=== PATIENT | male | born 1980 | race Caucasian/White ===

== ENCOUNTER → 2018-05-08 16:40 | Outpatient (CLI) | payer OTHER, MEDICAID, SELFPAY ==
[2018-05-08 17:51] LABS: Phenytoin (Dilantin) Level 14.5 mL (10.0-20.0)
== END ==
PROVIDERS: Family Provider Family Medicine; PCP Family Medicine; Visit Provider Psychiatry & Neurology Neurology
DX: G40.909 Epilepsy, unspecified, not intractable, without status epilepticus (principal)
CPT/HCPCS: 36415; 80185

== ENCOUNTER 2018-05-15 14:56 | Emergency (ER) | payer OTHER, MEDICAID, SELFPAY ==
[2018-05-15 15:02] VITALS: BP 154/109; PULSE 125; RESP 18; TEMP 37.1; O2SAT 92; BMI 27.6
--- NOTE | 2018-05-15 15:18 | ED.VISSUMM ---
- ER Visit Summary Date of Service: 05/15/18 Chief Complaint: Generalized tonic-clonic seizure History of Present Illness: The patient is a 37 M who has history of traumatic brain injury and seizure disorder. He sees Dr. Venegas. He was seen by Dr. Solis last week. Since he was having no issues or problems his meds were not adjusted. Per cold press loader he had a seizure at 0100, 1300 and 1420. He presently is back to baseline. He history is limited secondary to prior traumatic brain injury. Per staff at assisted and cold press loader [facility] assisted he is back to baseline. Director Food Safety assures that he has been compliant with his medication. He presently has no complaints. Physical Examination: Pleasant 37-year-old male who appears in no distress. Blood pressure is elevated 154 109 heart rate is 125. Head reveals prior trauma. Pupils equal round reactive. Extra muscle intact. TMs normal. Nares patent with no discharge. Posterior pharynx without erythema XA. Neck supple. Heart is rapid and regular without murmur, gallop or rub. Lungs are clear to auscultation. Abdomen is soft and nontender. He is alert. Moves upper extremities no limitation. He has had O'Samia lower extremity secondary to contractures. Sensation is intact. Difficult to assess for Babinski sign or clonus lower extremity. Test Results: BMP panel is normal. Phenytoin is therapeutic at 13.6. Emergency Department Course and Treatment: Since he has had 3 seizures will obtain electronic panel and since he is on Dilantin will obtain a phenytoin level. After results are made available we will contact Dr. Venegas to discuss case. Treatment Plan: Case was discussed with Dr. Venegas's associate Dr. Bunch. He recommended follow-up and informed me that he is on maximum dose of Vampit. Disposition: Discharged with urgent outpatient follow-up with neurologist Impression: Breakthrough seizure This note was generated with [employer] dictation software. It may contain incorrect words, spelling, and punctuation that were not noted in review of the chart prior to signing ED Disposition - Plan for ED Patient: Disposition: Home or Assisted Living Chief Complaint: Seizure Instructions: ED Seizure Recurrent Referrals: Elvis Baxter MD [Primary Care Provider] - Lonnie Venegas MD [STAFF PHYSICIAN] - 5-7 Days
--- NOTE | 2018-05-15 15:21 | ED.DCSUM_ITS ---
- ER Visit Summary Date of Service: 05/15/18 Chief Complaint: Generalized tonic-clonic seizure History of Present Illness: The patient is a 37 M who has history of traumatic brain injury and seizure disorder. He sees Dr. Venegas. He was seen by Dr. Solis last week. Since he was having no issues or problems his meds were not adjusted. Per cartography technician he had a seizure at 0100, 1300 and 1420. He presently is back to baseline. He history is limited secondary to prior traumatic brain injury. [facility] he is back to baseline. Facility Manager assures that he has been compliant with his medication. He presently has no complaints. Physical Examination: Pleasant 37-year-old male who appears in no distress. Blood pressure is elevated 154 109 heart rate is 125. Head reveals prior trauma. Pupils equal round reactive. Extra muscle intact. TMs normal. Nares patent with no discharge. Posterior pharynx without erythema XA. Neck supple. Heart is rapid and regular without murmur, gallop or rub. Lungs are clear to auscultation. Abdomen is soft and nontender. He is alert. Moves upper extremities no limitation. He has had O'Samia lower extremity secondary to contractures. Sensation is intact. Difficult to assess for Babinski sign or clonus lower extremity. Test Results: BMP panel is normal. Phenytoin is therapeutic at 13.6. Emergency Department Course and Treatment: Since he has had 3 seizures will obtain electronic panel and since he is on Dilantin will obtain a phenytoin level. After results are made available we will contact Dr. Venegas to discuss case. Treatment Plan: Case was discussed with Dr. Venegas's associate Dr. Bunch. He recommended follow-up and informed me that he is on maximum dose of Vampit. Disposition: Discharged with urgent outpatient follow-up with neurologist Impression: Breakthrough seizure This note was generated with [employer] dictation software. It may contain incorrect words, spelling, and punctuation that were not noted in review of the chart prior to signing ED Disposition - Plan for ED Patient: Disposition: Home or Assisted Living Chief Complaint: Seizure Instructions: ED Seizure Recurrent Referrals: Elvis Baxter MD [Primary Care Provider] - Lonnie Venegas MD [STAFF PHYSICIAN] - 5-7 Days
[2018-05-15 16:01] LABS: BUN 12 mg/dL (7-18); BUN/Creat Ratio 14.3 RATIO (10-20); Calcium,Total 8.9 mg/dL (8.5-10.1); Chloride 101 mmol/L (98-107); Creatinine, Serum 0.84 mg/dL (0.70-1.30); EST Glomerular Filtration Rate 109 mL/min (>60); Est Glom Filt Rate - Afr Amer 132 mL/min (>60); Glucose 87 mg/dL (74-106); Potassium 4.3 mmol/L (3.5-5.1); Sodium Level 138 mmol/L (136-145)
[2018-05-15 16:02] LABS: Anion Gap 9 (5-15)
[2018-05-15 16:38] LABS: Phenytoin (Dilantin) Level 13.6 mL (10.0-20.0)
== END 2018-05-15 17:21 | disposition home or self-care (01) ==
PROVIDERS: Emergency Provider Emergency Medicine; Family Provider Family Medicine; PCP Family Medicine
DX: G40.409 Other generalized epilepsy and epileptic syndromes, not intractable, without status epilepticus (principal); E66.9 Obesity, unspecified; Z79.899 Other long term (current) drug therapy; Z87.820 Personal history of traumatic brain injury
CPT/HCPCS: 80048; 80185; 99285; A4216

== ENCOUNTER → 2018-11-21 13:48 | Outpatient (CLI) | payer OTHER, MEDICAID, SELFPAY ==
--- NOTE | 2018-11-21 13:52 | US_ITS ---
STUDY: ULTRASOUND - URINARY BLADDER REASON FOR EXAM: Male, 38 years old. Total right injury, agitation. TECHNIQUE: Ultrasound evaluation of the urinary bladder was performed with real-time and static conde-scale imaging. COMPARISON: None. FINDINGS: Urinary bladder wall thickness up to 6.4 mm. Probably due to underdistention. No significant trabeculation and no evidence of diverticula. Distended volume 22 mL. The patient could not urinate. No postvoid residual was obtained. US/Post Void Residual Bladder IMPRESSION: The urinary bladder may be very mildly thick-walled. Under distended. Post void residual could not be assessed. Electronically Signed: Lukasz Moreno MD at 11:57 EST Tel , Service support ,
--- NOTE | 2018-11-21 14:21 | CT_ITS ---
STUDY: CT BRAIN WITHOUT CONTRAST REASON FOR EXAM: Male, 38 years old. Total brain injury, agitation. RADIATION DOSAGE (If Supplied By Facility): CTDIvol = ( 60.81 ) mGy, DLP = ( 997.86 ) mGycm TECHNIQUE: Transaxial CT imaging of the brain was performed without administration of intravenous contrast material. Coronal and sagittal 2-D MPR Individualized dose optimization techniques were used for this CT. COMPARISON: CT head 10/11/2017 FINDINGS: Mildly comparison thickening maxillary and ethmoid sinuses. Extending into the base of the left frontal sinus. Mastoid air cells and middle ear cavities clear. Somewhat prominent cerumen within the left external auditory canal. Craniofacial osseous structures intact. Extra cranial soft tissues including orbital contents appear normal. Moderate symmetric expansion of lateral ventricles and particular the anterior horns, stable compared to prior imaging. Patchy and partially confluent prominent low-density changes of the deep white matter bifrontal, minimal biparietal, in a pattern most consistent with encephalomalacia from prior brain injury. There is evidence of mild symmetric atrophy of the cerebellar hemispheres. There is no acute intracranial bleed, mass or mass effect nor any specific evidence of acute territorial infarct. CT/Brain/Head without Contrast IMPRESSION: Stable chronic features of the brain compared to prior imaging with No acute intracranial process. Mild chronic paranasal sinus disease. Electronically Signed: Lukasz Moreno MD at 11:47 EST Tel , Service support ,
[2018-11-21 16:45] LABS: Phenytoin (Dilantin) Level 12.7 mL (10.0-20.0)
== END ==
PROVIDERS: Family Provider Family Medicine; PCP Family Medicine; Referring Provider Psychiatry & Neurology Neurology; Visit Provider Psychiatry & Neurology Neurology
DX: R45.1 Restlessness and agitation (principal); R35.0 Frequency of micturition; G40.909 Epilepsy, unspecified, not intractable, without status epilepticus; Z87.820 Personal history of traumatic brain injury
CPT/HCPCS: 36415; 51798; 70450; 80185; 80186

== ENCOUNTER → 2019-06-26 08:42 | Outpatient (CLI) | payer OTHER, MEDICAID, SELFPAY ==
[2019-06-26 10:28] LABS: Phenytoin (Dilantin) Level 15.5 mL (10.0-20.0)
== END ==
PROVIDERS: Family Provider Family Medicine; PCP Family Medicine; Referring Provider Physician Assistant; Visit Provider Physician Assistant
DX: R56.9 Unspecified convulsions (principal)
CPT/HCPCS: 36415; 80185

== ENCOUNTER → 2020-07-28 08:35 | Outpatient (CLI) | payer OTHER, MEDICAID, SELFPAY ==
[2020-07-28 10:08] LABS: Phenytoin (Dilantin) Level 14.7 mL (10.0-20.0)
== END ==
PROVIDERS: PCP Family Medicine; Referring Provider Psychiatry & Neurology Neurology; Visit Provider Psychiatry & Neurology Neurology
DX: G40.909 Epilepsy, unspecified, not intractable, without status epilepticus (principal)
CPT/HCPCS: 36415; 80185

== ENCOUNTER → 2020-08-27 08:07 | Outpatient (CLI) | payer OTHER, MEDICAID, SELFPAY ==
--- NOTE | 2020-08-27 08:09 | CT_ITS ---
STUDY: CT BRAIN WITHOUT CONTRAST REASON FOR EXAM: Male, 39 years old. Seizure disorder, increasing seizure activity. RADIATION DOSAGE (If Supplied By Facility): CTDIvol = ( ) mGy, DLP = ( ) mGycm TECHNIQUE: Transaxial CT imaging of the brain was performed without administration of intravenous contrast material. Individualized dose optimization techniques were used for this CT. COMPARISON: 11/21/2018 FINDINGS: Again noted is the bifrontal encephalomalacia with ex vacuo dilatation of the frontal horns, unchanged since the prior examination. There is cerebral atrophy with widening of the extra-axial spaces and ventricular dilatation. There are areas of decreased attenuation within the white matter tracts of the supratentorial brain, consistent with microvascular disease changes. There is no intracranial hemorrhage. There are no findings of an acute ischemic infarction. There is no moderate opacification of the left frontal and ethmoid sinuses. There is mild sinus disease of the bilateral maxillary sinuses. CT/Brain/Head without Contrast IMPRESSION: Stable examination. Bifrontal encephalomalacia, consistent with prior insult. Moderate chronic sinus disease. Electronically Signed: Duncan Carlos MD at 8:18 EDT Tel , Service support ,
== END ==
PROVIDERS: PCP Family Medicine; Referring Provider Psychiatry & Neurology Neurology; Visit Provider Psychiatry & Neurology Neurology
DX: G40.909 Epilepsy, unspecified, not intractable, without status epilepticus (principal)
CPT/HCPCS: 70450

== ENCOUNTER 2021-04-02 00:29 | Inpatient (IN) | payer OTHER, MEDICAID, SELFPAY ==
[2021-04-02] VITALS (10 sets, daily range): BP systolic 104–129; BP diastolic 73–90; PULSE 112–136; RESP 16–22; TEMP 36.5–38.2; O2SAT 92–97; BMI 24.0; BMI 25.8
--- NOTE | 2021-04-02 00:52 | CT_ITS ---
STUDY: CT ABDOMEN AND PELVIS WITH CONTRAST REASON FOR EXAM: Male, 40 years old. Abdominal pain RADIATION DOSAGE (If Supplied By Facility): CTDIvol = ( 13.36 ) mGy, DLP = ( 764.58 ) mGycm TECHNIQUE: Transaxial images were obtained from the dome of the diaphragm to the symphysis pubis without oral contrast. IV 100mL Isovue-370 was administered. Sagittal and coronal images were reconstructed. Individualized dose optimization techniques were used for this CT. COMPARISON: None. FINDINGS: Subsegmental consolidations and groundglass densities in the bilateral lower lungs, due to multifocal pneumonia, aspiration, or scar. Unremarkable liver, spleen, adrenals, pancreas, and bilateral kidneys. No definite cholelithiasis. Normal appendix. Large amount of retained stool in the distal colon with no evidence of bowel obstruction. No free air or free fluid. No adenopathy. No abdominal aortic aneurysm. Sections through the pelvis demonstrates apparent circumferential wall thickening of the urinary bladder, likely due to incomplete distention; however, infectious/inflammatory cystitis or infiltrative processes not excluded. Prostate normal in size. No acute finding the regional skeleton. Shallow left acetabulum with dysplasia of the left hip and lateral subluxation of the left femoral head. CT/Abdomen/Pelvis W IV Cont ONLY IMPRESSION: Subsegmental consolidations and groundglass densities in the bilateral lower lobes, due to multifocal pneumonia (such as Covid 19) aspiration, or scar. Large amount of retained stool in the distal colon with no evidence of bowel obstruction. Normal appendix. Left hip dysplasia with lateral subluxation of the femoral head. Electronically Signed: Fredo Milton MD at 2:20 EDT Tel , Service support ,
--- NOTE | 2021-04-02 00:52 | EX.ED.DYSGE1 ---
HPI History of Present Illness Chief Complaint: Abd Pain Narrative Narrative: This patient is a 40-year-old male who presents with abdominal pain. History is limited as he has a history of traumatic brain injury. Per family he began complaining of abdominal pain last evening. He does state a retirement but not always. His parents picked him up. They do not know when his last bowel movement was. As far as they are aware no vomiting or diarrhea and patient denied vomiting or diarrhea. Apparently he has had a cough at night. No fevers. Family does note that he had a seizure 2 days ago. He does have a history of seizures. He had a cough last night. [facility] Medical History (Updated 04/02/21 @ 03:[address] Marshall Zabala MD) GERD (gastroesophageal reflux disease) Seizure Traumatic brain injury Home Medications clonazepam 1 mg PO QHS 05/23/16 [History Last Taken 05/22/16] esomeprazole magnesium [Nexium 24Hr] 20 mg PO DAILY 05/23/16 [History Last Taken 05/23/16] lacosamide [Vimpat] 200 mg PO BID #60 tab 05/23/16 [Rx Last Taken Unknown] phenytoin [Dilantin] 75 mg PO DAILY 05/23/16 [History Last Taken 05/23/16] phenytoin sodium extended 150 mg PO QHS 05/23/16 [History Last Taken 05/22/16] clonazepam [Klonopin] 0.5 mg PO LUNCH 04/02/21 [History Last Taken Unknown] Allergy/AdvReac Type Severity Reaction Status Date / Time No Known Allergies Allergy Verified 04/02/21 00:32 Social History Smoking Status: Never smoker [facility] ED Constitutional Constitutional ED: Denies fever(s) Cardiovascular Cardiovascular: Denies chest pain Respiratory/Chest Respiratory/Chest: Denies dyspnea Gastrointestinal Gastrointestinal: Reports abdominal pain; Denies diarrhea, nausea or vomiting Musculoskeletal Musculoskeletal: Denies arthralgias or myalgias Integumentary Denies rash Neurologic Neurologic: Denies headache(s) EXAM Physical Exam Const Vital Signs: 04/02/21 00:30 04/02/21 02:41 Temperature 97.7 F L Temperature Source Temporal Pulse Rate 136 H 118 H Respiratory Rate 22 H 16 Blood Pressure 104/84 H Blood Pressure Mean 90 Pulse Ox 94 97 Oxygen Delivery Method Room Air Positive well nourished HEENT Reports moist mucous membranes Eyes EOMs intact bilaterally Neck supple Resp normal respiratory effort Cardio regular rate and regular rhythm GI GI Narrative: Abdomen is soft he does have right upper quadrant abdominal tenderness without guarding without rebound he is nondistended Neuro Sensorium / Orientation: alert Psych mental status grossly normal Skin no rashes or lesions noted MDM MDM MDM Narrative Medical decision making narrative: Labs are notable for white blood cell count of 16.5, chemistries unremarkable, CT of the abdomen and pelvis was obtained which shows subsegmental consolidations and bilateral lower groundglass densities. This is suggestive of multifocal pneumonia. COVID-19 testing is negative. Patient did have a seizure couple of days ago and family reports prior history of aspiration. I suspect this is related to aspiration pneumonia. Patient being treated with IV Rocephin and azithromycin. Lactic and blood cultures were sent. One-view portable chest x-ray was obtained and on my interpretation does show bilateral infiltrates. Patient we discussed with the hospitalist service and admitted. Lactic acid normal. Lab Data Labs: Laboratory Results - last 24 hr 04/02/21 04/02/21 04/02/21 00:55 00:55 02:10 WBC 16.5 H RBC 5.72 Hgb 16.3 Hct 49.0 MCV 85.7 MCH 28.5 MCHC 33.3 RDW Std Deviation 47.5 H RDW Coeff of Linette 15.3 H Plt Count 518 H MPV 9.8 Immature Gran % (Auto) 0.300 Neut % (Auto) 79.2 H Lymph % (Auto) 10.1 L [place] % (Auto) 9.0 Eos % (Auto) 0.9 Baso % (Auto) 0.5 Absolute Neuts (auto) 13.0 H Absolute Lymphs (auto) 1.67 Nucleated RBC % 0 Sodium 135 L Potassium 4.1 Chloride 101 Carbon Dioxide 30.0 Anion Gap 4 L BUN 12 Creatinine 0.98 Estim Creat Clear Calc 81.45 Est GFR (MDRD) Af Amer 109 Est GFR (MDRD) Non-Af 90 BUN/Creatinine Ratio 12.2 Glucose 103 Lactic Acid 1.1 Calcium 9.5 Total Bilirubin 0.60 AST 25 ALT 48 Alkaline Phosphatase 102 Total Protein 8.5 H Albumin 3.8 Globulin 4.7 H Albumin/Globulin Ratio 0.8 L Lipase 66 L Radiography Diagnostic Testing: Radiology Impression Abdomen/Pelvis CT 04/02/21 00:52 IMPRESSION: Subsegmental consolidations and groundglass densities in the bilateral lower lobes, due to multifocal pneumonia (such as Covid 19) aspiration, or scar. Large amount of retained stool in the distal colon with no evidence of bowel obstruction. Normal appendix. Left hip dysplasia with lateral subluxation of the femoral head. Electronically Signed: Fredo Milton MD at 2:20 EDT Tel , Service support , Discharge Plan Triage Chief Complaint: Abd Pain ED Provider: Marshall Zabala Dx/Rx/DC Orders Clinical Impression: Aspiration pneumonia, Abdominal pain, Sepsis Prescriptions: No Action clonazepam 0.5 MG tablet 1 mg PO QHS RF: 0 phenytoin sodium extended 100 MG capsule 150 mg PO QHS RF: 0 phenytoin [Dilantin Infatabs] 50 MG tablet,chewable 75 mg PO DAILY RF: 0 esomeprazole magnesium [Nexium 24HR] 22.3 MG capsule,delayed release(DR/EC) 20 mg PO DAILY RF: 0 Vimpat 200 MG tablet 200 mg PO BID Qty: 60 RF: 0 clonazepam [Klonopin] 0.5 mg tablet 0.5 mg PO LUNCH RF: 0 Primary Care Provider: Elvis Baxter Referrals: Elvis Baxter MD [Primary Care Provider] - Disposition Disposition: Acute Care [facility]
[2021-04-02 01:01] LABS: Absolute Lymphocyte Count 1.67 X10^3/uL (0.83-4.51); Basophil# 0.08 X10^3/uL; Basophil% 0.5 % (0-1); Eosinophil# 0.15 X10^3/uL; Eosinophils% 0.9 % (0-5); Hemoglobin 16.3 g/dL (13.0-16.5); Lymphocyte # 1.67 X10^3/ul (0.83-4.51); Lymphocyte % 10.1 % (19-41); Mean Corp Hgb Conc 33.3 g/dL (32-36); Mean Corpuscular Hgb 28.5 pg (27.0-32.0); Mean Corpuscular Volume 85.7 fL (80-94); Mean Platelet Vol. 9.8 fl (6.2-12.0); Monocyte# 1.49 X10^3/uL; NRBC Flagged by Analyzer 0 % (0-5); Neutrophil # 13.03 X10^3/uL (2.7-7.7); Neutrophil % 79.2 % (47-70); Platelet Count 518 K/mm3 (150-450); RBC Distribution Width CV 15.3 % (11.6-14.6); RBC Distribution Width SD 47.5 fl (35.1-43.9); Red Blood Count 5.72 M/mm3 (4.6-6.2); White Blood Count 16.5 K/mm3 (4.4-11.0)
[2021-04-02] MEDS: Ondansetron 4 MG/2 ML Vial IV (01:04)
[2021-04-02] MEDS: 0.9% Normal Saline 1,000 ML 999 ML IV ×2 (01:04→02:39)
[2021-04-02] MEDS: Morphine 4 MG/ML Syringe IV (01:05)
[2021-04-02 01:22] LABS: ALB/GLOB Ratio 0.8 RATIO (0.9-2.4); AST(SGOT) 25 U/L (15-37); Alanine Aminotransfer ALT/SGPT 48 U/L (16-61); Albumin, Serum 3.8 g/dL (3.2-5.0); Alkaline Phosphatase 102 U/L (45-117); Anion Gap 4 (5-15); BUN 12 mg/dL (7-18); BUN/Creat Ratio 12.2 RATIO (10-20); Calcium,Total 9.5 mg/dL (8.5-10.1); Chloride 101 mmol/L (98-107); Creatinine, Serum 0.98 mg/dL (0.70-1.30); EST Glomerular Filtration Rate 90 mL/min (>60); Est Glom Filt Rate - Afr Amer 109 mL/min (>60); Estimated Creatinine Clearance 81.45 ml/min; Globulin 4.7 g/dL (2.2-4.2); Glucose 103 mg/dL (74-106); Lipase 66 U/L (73-393); Potassium 4.1 mmol/L (3.5-5.1); Protein, Total 8.5 g/dL (6.4-8.2); Sodium Level 135 mmol/L (136-145)
--- NOTE | 2021-04-02 01:37 | RAD_ITS ---
STUDY: X-RAY CHEST REASON FOR EXAM: Male, 40 years old. Pneumonia TECHNIQUE: 1 view COMPARISON: None. FINDINGS: Please see the impression. RAD/Chest 1 View (Portable) IMPRESSION: Subsegmental opacities in the bilateral lower lungs, due to multifocal pneumonia, aspiration, or scar. Unremarkable cardiac silhouette. No sizable pleural effusion. No pneumothorax. Electronically Signed: Fredo Milton MD at 3:17 EDT Tel , Service support ,
[2021-04-02] MEDS: Ceftriaxone 1 GM/50 ML BAG IV (02:39)
[2021-04-02 02:46] LABS: Lactic Acid 1.1 mmol/L (0.4-1.9)
[2021-04-02 03:25] LABS: Bacteria 0 SEEN /hpf (None Seen); Color, Urine Yellow (Yellow); Glucose, Dipstick Normal (Normal); Ketone-Dipstick 15 mg/dl (Negative); Leukocyte Esterase-Dipstick 100 /ul (Negative); Mucous, Urine 0 SEEN /hpf (<or=2+); Nitrite-Dipstick Negative (Negative); Occult Blood-Urine Negative /ul (Negative); Protein-Dipstick Negative (Negative); Red Blood Cells-Urine 0 SEEN /hpf (0-5); Specific Gravity, Urine 1.005 (1.002-1.030); Squamous Epithelial Cells - UA 0 SEEN /hpf (0-5); Urine Bilirubin Dipstick Negative (Negative); Urine Clarity Clear (Clear); Urine Urobilinogen Normal (Normal)
--- NOTE | 2021-04-02 03:27 | HP.PCM.HOS_ITS ---
HPI - General General Date of Admission: 04/02/21 HPI Narrative SHEN WILLIAM, is a 40 M with a significant history of traumatic brain injury who presents to emergency department with right upper quadrant pain that started a day before presentation. Patient lives at a intermediate and occasionally his parents pick him up home. 3 days before presentation he had a seizure. Next day he had a cough. Per family cough happens only at night and he has not had a cough since he was picked up by family. Per family patient neurologist aware that patient have 2-4 seizures per month. Past surgical history: Patient has a history of multiple orthopedic surgeries [facility] Medical History GERD (gastroesophageal reflux disease) Seizure Traumatic brain injury Home Medications clonazepam 1 mg PO QHS 05/23/16 [History Last Taken 05/22/16] esomeprazole magnesium [Nexium 24Hr] 20 mg PO DAILY 05/23/16 [History Last Taken 05/23/16] lacosamide [Vimpat] 200 mg PO BID #60 tab 05/23/16 [Rx Last Taken Unknown] phenytoin [Dilantin] 75 mg PO DAILY 05/23/16 [History Last Taken 05/23/16] phenytoin sodium extended 150 mg PO QHS 05/23/16 [History Last Taken 05/22/16] clonazepam [Klonopin] 0.5 mg PO LUNCH 04/02/21 [History Last Taken Unknown] Allergy/AdvReac Type Severity Reaction Status Date / Time No Known Allergies Allergy Verified 04/02/21 00:32 Family History (Updated 04/02/21 @ 03:[address] Umer Hinson MD) Other Cancer Diabetes Hypertension Social History Smoking Status: Never smoker Vital Signs Vital Signs Vital Signs: 04/02/21 00:30 04/02/21 02:41 Temperature 97.7 F L Temperature Source Temporal Pulse Rate 136 H 118 H Respiratory Rate 22 H 16 Blood Pressure 104/84 H Blood Pressure Mean 90 Pulse Ox 94 97 Oxygen Delivery Method Room Air Physical Exam Const alert General Appearance: cooperative HEENT normocephalic and head/scalp atraumatic Eyes PERRL and EOMs intact bilaterally Neck no lymphadenopathy and supple Resp normal respiratory effort, no retractions and no use of accessory muscles Cardio no murmurs, no rub and no gallops Cardio Narrative: Tachycardia Rate: tachycardic GI normal to inspection, nondistended, normoactive bowel sounds, soft to palpation, non-tender and non-distended Extremity no clubbing, cyanosis or edema Lab / Micro Data Result Diagrams: 04/02/21 00:55 04/02/21 00:55 Labs: Laboratory Results - last 24 hr 04/02/21 04/02/21 04/02/21 00:55 00:55 02:10 WBC 16.5 H RBC 5.72 Hgb 16.3 Hct 49.0 MCV 85.7 MCH 28.5 MCHC 33.3 RDW Std Deviation 47.5 H RDW Coeff of Linette 15.3 H Plt Count 518 H MPV 9.8 Immature Gran % (Auto) 0.300 Neut % (Auto) 79.2 H Lymph % (Auto) 10.1 L [place] % (Auto) 9.0 Eos % (Auto) 0.9 Baso % (Auto) 0.5 Absolute Neuts (auto) 13.0 H Absolute Lymphs (auto) 1.67 Nucleated RBC % 0 Sodium 135 L Potassium 4.1 Chloride 101 Carbon Dioxide 30.0 Anion Gap 4 L BUN 12 Creatinine 0.98 Estim Creat Clear Calc 81.45 Est GFR (MDRD) Af Amer 109 Est GFR (MDRD) Non-Af 90 BUN/Creatinine Ratio 12.2 Glucose 103 Lactic Acid 1.1 Calcium 9.5 Total Bilirubin 0.60 AST 25 ALT 48 Alkaline Phosphatase 102 Total Protein 8.5 H Albumin 3.8 Globulin 4.7 H Albumin/Globulin Ratio 0.8 L Lipase 66 L Urine Color Urine Clarity Urine pH Ur Specific [place] Urine Protein Urine Glucose (UA) Urine Ketones Urine Occult Blood Urine Nitrite Urine Bilirubin Urine Urobilinogen Ur Leukocyte Esterase 04/02/21 03:20 WBC RBC Hgb Hct MCV MCH MCHC RDW Std Deviation RDW Coeff of Linette Plt Count MPV Immature Gran % (Auto) Neut % (Auto) Lymph % (Auto) [place] % (Auto) Eos % (Auto) Baso % (Auto) Absolute Neuts (auto) Absolute Lymphs (auto) Nucleated RBC % Sodium Potassium Chloride Carbon Dioxide Anion Gap BUN Creatinine Estim Creat Clear Calc Est GFR (MDRD) Af Amer Est GFR (MDRD) Non-Af BUN/Creatinine Ratio Glucose Lactic Acid Calcium Total Bilirubin AST ALT Alkaline Phosphatase Total Protein Albumin Globulin Albumin/Globulin Ratio Lipase Urine Color Yellow Urine Clarity Clear Urine pH 7.0 Ur Specific [place] 1.005 Urine Protein Negative Urine Glucose (UA) Normal Urine Ketones 15 H Urine Occult Blood Negative Urine Nitrite Negative Urine Bilirubin Negative Urine Urobilinogen Normal Ur Leukocyte Esterase 100 H Micro: Microbiology 04/02/21 02:10 SARS-CoV-2 Antigen (Rapid) - Final Nasal Secretion Radiology Impression Abdomen/Pelvis CT 04/02/21 00:52 IMPRESSION: Subsegmental consolidations and groundglass densities in the bilateral lower lobes, due to multifocal pneumonia (such as Covid 19) aspiration, or scar. Large amount of retained stool in the distal colon with no evidence of bowel obstruction. Normal appendix. Left hip dysplasia with lateral subluxation of the femoral head. Electronically Signed: Fredo Milton MD at 2:20 EDT Tel , Service support , Chest X-Ray 04/02/21 01:37 IMPRESSION: Subsegmental opacities in the bilateral lower lungs, due to multifocal pneumonia, aspiration, or scar. Unremarkable cardiac silhouette. No sizable pleural effusion. No pneumothorax. Electronically Signed: Fredo Milton MD at 3:17 EDT Tel , Service support , Assessment & Plan Assessment/Plan (1) Aspiration pneumonia: QUALIFIERS: Aspiration pneumonia type: due to regurgitated food Laterality: bilateral Lung location: lower lobe of lung Qualified Code(s): J69.0 - Pneumonitis due to inhalation of food and vomit (2) Sepsis: QUALIFIERS: Sepsis type: sepsis due to unspecified organism Sepsis acute organ dysfunction status: without acute organ dysfunction Qualified Code(s): A41.9 - Sepsis, unspecified organism (3) Abdominal pain: QUALIFIERS: Abdominal location: right upper quadrant Qualified Co de(s): R10.11 - Right upper quadrant pain PLAN: Sepsis secondary pneumonia gram-positive; gram-negative aspiration pneumonia. Lactic acid: 1.1 With tachycardia and white count of 16.5 Blood culture ?2 is pending ordered at emergency department follow. Impression of chest x-ray by radiologist: Subsegmental opacities in the bilateral lower lung due to multifocal pneumonia, aspiration, or scar. Actual chest x-ray image was independently interpreted. I agree with radiologist interpretation. Abdomen pelvis CT with bilateral lower lobes infiltrates. Large amount of retained stool in the distal colon with no evidence of bowel obstruction. Ceftriaxone and azithromycin was ordered emergency department. While inpatient will order Unasyn and azithromycin. IV hydration: Normal saline bolus given at the emergency department. Gentle normal saline infusion ordered. Legionella antigen screen and Strep antigen ordered Constipation Senokot-S as ordered. Visit Charges Inpatient E&M: 27401 Init Hosp L3
[2021-04-02 03:34] LABS: White Blood Cells 5-10 SEEN /hpf (0-5)
[2021-04-02] MEDS: 0.9% Normal Saline 1,000 ML 100 ML IV ×2 (05:20→15:16)
[2021-04-02 05:57] LABS: Absolute Lymphocyte Count 2.13 X10^3/uL (0.83-4.51); Absolute Neutrophil Count 10.9 X10^3/uL (2.0-7.7); Basophil% 0.7 % (0-1); Eosinophil# 0.11 X10^3/uL; Eosinophils% 0.8 % (0-5); Hematocrit 49.5 % (40-54); Hemoglobin 16.1 g/dL (13.0-16.5); Lymphocyte # 2.13 X10^3/ul (0.83-4.51); Lymphocyte % 14.5 % (19-41); Mean Corp Hgb Conc 32.5 g/dL (32-36); Mean Corpuscular Hgb 28.2 pg (27.0-32.0); Mean Corpuscular Volume 86.7 fL (80-94); Mean Platelet Vol. 10.4 fl (6.2-12.0); Monocyte% 9.6 % (0-10); NRBC Flagged by Analyzer 0 % (0-5); Neutrophil # 10.85 X10^3/uL (2.7-7.7); Neutrophil % 74.1 % (47-70); POSITIVE COUNT YES; Platelet Count 425 K/mm3 (150-450); RBC Distribution Width CV 15.4 % (11.6-14.6); RBC Distribution Width SD 48.6 fl (35.1-43.9); Red Blood Count 5.71 M/mm3 (4.6-6.2); White Blood Count 14.6 K/mm3 (4.4-11.0)
[2021-04-02 06:01] LABS: Differential Indicated SCAN CRITERIA MET
[2021-04-02 06:21] LABS: Anion Gap 4 (5-15); BUN 8 mg/dL (7-18); BUN/Creat Ratio 10.3 RATIO (10-20); Calcium,Total 8.8 mg/dL (8.5-10.1); Chloride 104 mmol/L (98-107); Creatinine, Serum 0.78 mg/dL (0.70-1.30); EST Glomerular Filtration Rate 118 mL/min (>60); Est Glom Filt Rate - Afr Amer 143 mL/min (>60); Estimated Creatinine Clearance 98.19 ml/min; Glucose 94 mg/dL (74-106); Potassium 4.5 mmol/L (3.5-5.1); Sodium Level 138 mmol/L (136-145)
[2021-04-02] MEDS: PHENYTOIN 50 MG TAB.CHEW 75 MG PO (09:05)
[2021-04-02] MEDS: Pantoprazole Sodium 20 MG Tablet PO ×2 (09:08→09:11)
[2021-04-02] MEDS: Lacosamide 100 MG Tablet 200 MG PO ×2 (09:17→20:49)
--- NOTE | 2021-04-02 10:06 | CASEMGMT ---
EARNEST [facility]ALLEGO Assessment: Face to Face with pt for initial transition planning/care coordination assessment. RN CM introduced self and role at [facility], pt voices understanding and consents to assessment. Pt lying in bed with mother at bedside in no distress. Care providers, pharmacy, and demographics verified/updated. Mother answered most questions. Admitting Dx: sepsis secondary to pna PCP: Vee Specialists:johnie Venegas Pharmacy: [facility] Insurance: [employer] CLAUDIO Prescription Benefit: yes LW/HPOA: Mother denies pt having a LW/DPOA. LNOK: Evangelist Remark, parents Living Arrangements: Pt lives with two other men in a assisted. He goes home to his parent's home on the weekends. Pt will dc to parents home who has a ranch home with one step to enter. Pt needs assistance with ADL's. Parents to provide assistance. Transportation:Parents provide transportation. No concerns with transportation. DME/HHC/SNF: Pt has a w/c and walker. Pt has previously had HHC, but mother unsure who it was through. Denies SNF stays. Mother states no concerns with going home at time of dc, no further concerns/needs. CM to follow. Advised pt/mother to ask CM if any further question/concerns/needs arise, voices understanding. Pt Goal: Home Plan: Home with parent's support.
--- NOTE | 2021-04-02 11:13 | PN.HOSP_ITS ---
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 Patient has history of developmental disorder and has seizure about 2 to 4/month as per family patient's neurologist. As per mother patient had seizure might have aspirated. At night he gets cough. Patient also says belly pain detail history of unpredictable. Patient is mild tachycardic, heart rate 112/min, afebrile. Pulse ox 93% on room air Objective Data Objective Data Vital Signs: Vital Signs Temp Pulse Resp BP Pulse Ox 98.4 F 112 H 18 119/77 93 04/02/21 09:18 04/02/21 09:20 04/02/21 09:18 04/02/21 09:18 04/02/21 09:18 Oxygen Delivery Method Room Air Weight: 141 lb 1.533 oz Body Mass Index (BMI) 25.8 Intake & Output: Intake and Output for Last 24 Hours 03/31/21 04/01/21 04/02/21 23:59 23:59 23:59 Intake Total 2418.67 / 2418.67 Output Total 700 / 700 Balance 1718.67 / 1718.67 Lab / Micro Data Result Diagrams: 04/02/21 05:15 04/02/21 05:15 Labs: Laboratory Results - last 24 hr 04/02/21 04/02/21 04/02/21 00:55 00:55 02:10 WBC 16.5 H RBC 5.72 Hgb 16.3 Hct 49.0 MCV 85.7 MCH 28.5 MCHC 33.3 RDW Std Deviation 47.5 H RDW Coeff of Linette 15.3 H Plt Count 518 H MPV 9.8 Immature Gran % (Auto) 0.300 Neut % (Auto) 79.2 H Lymph % (Auto) 10.1 L [place] % (Auto) 9.0 Eos % (Auto) 0.9 Baso % (Auto) 0.5 Absolute Neuts (auto) 13.0 H Absolute Lymphs (auto) 1.67 Nucleated RBC % 0 Sodium 135 L Potassium 4.1 Chloride 101 Carbon Dioxide 30.0 Anion Gap 4 L BUN 12 Creatinine 0.98 Estim Creat Clear Calc 81.45 Est GFR (MDRD) Af Amer 109 Est GFR (MDRD) Non-Af 90 BUN/Creatinine Ratio 12.2 Glucose 103 Lactic Acid 1.1 Calcium 9.5 Total Bilirubin 0.60 AST 25 ALT 48 Alkaline Phosphatase 102 Total Protein 8.5 H Albumin 3.8 Globulin 4.7 H Albumin/Globulin Ratio 0.8 L Lipase 66 L Urine Color Urine Clarity Urine pH Ur Specific [place] Urine Protein Urine Glucose (UA) Urine Ketones Urine Occult Blood Urine Nitrite Urine Bilirubin Urine Urobilinogen Ur Leukocyte Esterase Urine RBC Urine WBC Ur Squamous Epith Cells Urine Bacteria Urine Mucus 04/02/21 04/02/21 04/02/21 03:20 05:15 05:15 WBC 14.6 H RBC 5.71 Hgb 16.1 Hct 49.5 MCV 86.7 MCH 28.2 MCHC 32.5 RDW Std Deviation 48.6 H RDW Coeff of Linette 15.4 H Plt Count 425 MPV 10.4 Immature Gran % (Auto) 0.300 Neut % (Auto) 74.1 H Lymph % (Auto) 14.5 L [place] % (Auto) 9.6 Eos % (Auto) 0.8 Baso % (Auto) 0.7 Absolute Neuts (auto) 10.9 H Absolute Lymphs (auto) 2.13 Nucleated RBC % 0 Sodium 138 Potassium 4.5 Chloride 104 Carbon Dioxide 30.0 Anion Gap 4 L BUN 8 Creatinine 0.78 Estim Creat Clear Calc 98.19 Est GFR (MDRD) Af Amer 143 Est GFR (MDRD) Non-Af 118 BUN/Creatinine Ratio 10.3 Glucose 94 Lactic Acid Calcium 8.8 Total Bilirubin AST ALT Alkaline Phosphatase Total Protein Albumin Globulin Albumin/Globulin Ratio Lipase Urine Color Yellow Urine Clarity Clear Urine pH 7.0 Ur Specific [place] 1.005 Urine Protein Negative Urine Glucose (UA) Normal Urine Ketones 15 H Urine Occult Blood Negative Urine Nitrite Negative Urine Bilirubin Negative Urine Urobilinogen Normal Ur Leukocyte Esterase 100 H Urine RBC 0 SEEN Urine WBC 5-10 SEEN Ur Squamous Epith Cells 0 SEEN Urine Bacteria 0 SEEN Urine Mucus 0 SEEN Micro: Microbiology 04/02/21 03:20 Urine, Clean Catch Streptococcus pneumoniae Antigen (M - Final 04/02/21 03:20 Urine, Clean Catch Legionella Antigen - Final 04/02/21 02:10 Nasal Secretion SARS-CoV-2 Antigen (Rapid) - Final Radiography Diagnostic Testing: Radiology Impression Abdomen/Pelvis CT 04/02/21 00:52 IMPRESSION: Subsegmental consolidations and groundglass densities in the bilateral lower lobes, due to multifocal pneumonia (such as Covid 19) aspiration, or scar. Large amount of retained stool in the distal colon with no evidence of bowel obstruction. Normal appendix. Left hip dysplasia with lateral subluxation of the femoral head. Electronically Signed: Fredo Milton MD at 2:20 EDT Tel , Service support , Chest X-Ray 04/02/21 01:37 IMPRESSION: Subsegmental opacities in the bilateral lower lungs, due to multifocal pneumonia, aspiration, or scar. Unremarkable cardiac silhouette. No sizable pleural effusion. No pneumothorax. Electronically Signed: Fredo Milton MD at 3:17 EDT Tel , Service support , Physical Exam Narrative General: Baseline mental status, limited understanding and comprehension and speech function HEENT: Atraumatic, PERRLA, EOMI, Normocephalic Oral: No Gingival or Mucosal Lesions/ Ulcerations Neck: Supple, No JVD, Negative Carotid Bruits Lungs: Air entry diminished in bilateral lung bases. No crepitation/rhonchi Cardiovascular: Regular rate, Regular Rhythm, Normal S1, Normal S2, No murmurs Abdomen: Bowel Sounds Present, Soft, Non Tender, Non-Distended, no palpable mass. No hepatosplenomegaly : No renal angle tenderness. No suprapubic tenderness. Extremities: No edema, Capillary Refill Less than 3 Seconds Skin: No rashes, No breakdown Musculoskeletal: Bilateral feet deformity. Moderate muscle atrophy of muscles of extremities. ROM restricted. No Tenderness to Palpation of Joints or Extremities Neurological: Cranial nerves II-XII grossly intact, Deep Tendon Reflexes 2+/4, nonfocal exam Psych/Mental Status: Repetitive, automatic and flat affect Assessment & Plan Assessment/Plan (1) Aspiration pneumonia: QUALIFIERS: Aspiration pneumonia type: due to regurgitated food Laterality: bilateral Lung location: lower lobe of lung Qualified Code(s): J69.0 - Pneumonitis due to inhalation of food and vomit (2) Abdominal pain: QUALIFIERS: Abdominal location: right upper quadrant Qualified Code(s): R10.11 - Right upper quadrant pain (3) Sepsis: QUALIFIERS: Sepsis type: sepsis due to unspecified organism Sepsis acute organ dysfunction status: without acute organ dysfunction Qualified Code(s): A41.9 - Sepsis, unspecified organism PLAN: 1. Sepsis secondary to pneumonia most likely aspiration: Patient has tachycardia and leukocytosis. Lactic acid normal. On broad-spectrum anti biotic with Unasyn and azithromycin. Does not seem atypical therefore will discontinue azithromycin. Will follow culture. Chest x-ray showed subsegmental opacities in bilateral lower lobes. UA negative. 2. Abdominal pain probably due to retained stool: On a stool softener. No evidence of bowel obstruction. Abdominal exam is benign. 3. History of chronic seizure, exact type and etiology unclear with developmental disorder: Home medications continued. Microbiology Past 72 Hours 04/02/21 03:20 Urine, Clean Catch Streptococcus pneumoniae Antigen (M - Final 04/02/21 03:20 Urine, Clean Catch Legionella Antigen - Final 04/02/21 02:10 Nasal Secretion SARS-CoV-2 Antigen (Rapid) - Final Laboratory Results 04/02/21 02:10: Lactic Acid 1.1 04/02/21 03:20: Urine Color Yellow, Urine Clarity Clear, Urine pH 7.0, Ur Specific [place] 1.005, Urine Protein Negative, Urine Glucose (UA) Normal, Urine Ketones 15 H, Urine Occult Blood Negative, Urine Nitrite Negative, Urine Bilirubin Negative, Urine Urobilinogen Normal, Ur Leukocyte Esterase 100 H, Urine RBC 0 SEEN, Urine WBC 5-10 SEEN, Ur Squamous Epith Cells 0 SEEN, Urine [place]berto teria 0 SEEN, Urine Mucus 0 SEEN 04/02/21 05:15: WBC 14.6 H, RBC 5.71, Hgb 16.1, Hct 49.5, MCV 86.7, MCH 28.2, MCHC 32.5, RDW Std Deviation 48.6 H, RDW Coeff of Linette 15.4 H, Plt Count 425, MPV 10.4, Immature Gran % (Auto) 0.300, Neut % (Auto) 74.1 H, Lymph % (Auto) 14.5 L, [place] % (Auto) 9.6, Eos % (Auto) 0.8, Baso % (Auto) 0.7, Absolute Neuts (auto) 10.9 H, Absolute Lymphs (auto) 2.13, Nucleated RBC % 0 04/02/21 05:15: Sodium 138, Potassium 4.5, Chloride 104, Carbon Dioxide 30.0, Anion Gap 4 L, BUN 8, Creatinine 0.78, Estim Creat Clear Calc 98.19, Est GFR (MDRD) Af Amer 143, Est GFR (MDRD) Non-Af 118, BUN/Creatinine Ratio 10.3, Glucose 94, Calcium 8.8 Clinical Impression(s) from Imaging Studies Abdomen/Pelvis CT 04/02/21 00:52 IMPRESSION: Subsegmental consolidations and groundglass densities in the bilateral lower lobes, due to multifocal pneumonia (such as Covid 19) aspiration, or scar. Large amount of retained stool in the distal colon with no evidence of bowel obstruction. Normal appendix. Left hip dysplasia with lateral subluxation of the femoral head. Chest X-Ray 04/02/21 01:37
[2021-04-02] MEDS: Bisacodyl 5 MG Tablet PO (15:17)
[2021-04-02] MEDS: Polyethylene Glycol 3350 17 GM PACKET PO (15:17)
[2021-04-02] MEDS: clonazePAM 0.5 MG Tablet PO (15:18)
[2021-04-02] MEDS: Senna/Docusate Sodium 1 Tablet 2 TABLET PO (20:45)
[2021-04-02] MEDS: PHENYTOIN 50 MG TAB.CHEW PO (20:47)
[2021-04-02] MEDS: Phenytoin Na 100 MG Capsule PO (20:48)
[2021-04-02] MEDS: clonazePAM 1 MG Tablet PO (20:53)
[2021-04-02] MEDS: Acetaminophen 325 MG Tablet 650 MG PO (21:30)
[2021-04-02] MEDS: MELATONIN 3 MG TABLET PO (21:31)
[2021-04-03] MEDS: 0.9% Normal Saline 1,000 ML 100 ML IV (01:40)
[2021-04-03 02:53] VITALS: BP 102/75; PULSE 90; RESP 16; TEMP 35.7; O2SAT 96
[2021-04-03 07:00] LABS: Absolute Lymphocyte Count 2.23 X10^3/uL (0.83-4.51); Absolute Neutrophil Count 4.4 X10^3/uL (2.0-7.7); Basophil# 0.11 X10^3/uL; Basophil% 1.3 % (0-1); Eosinophil# 0.34 X10^3/uL; Eosinophils% 4.1 % (0-5); Hematocrit 44.9 % (40-54); Hemoglobin 14.5 g/dL (13.0-16.5); Lymphocyte # 2.23 X10^3/ul (0.83-4.51); Lymphocyte % 27.1 % (19-41); Mean Corp Hgb Conc 32.3 g/dL (32-36); Mean Corpuscular Volume 86.8 fL (80-94); Mean Platelet Vol. 10.3 fl (6.2-12.0); Monocyte# 1.11 X10^3/uL; Monocyte% 13.5 % (0-10); NRBC Flagged by Analyzer 0 % (0-5); Neutrophil # 4.41 X10^3/uL (2.7-7.7); Neutrophil % 53.6 % (47-70); Platelet Count 477 K/mm3 (150-450); RBC Distribution Width CV 15.3 % (11.6-14.6); RBC Distribution Width SD 48.6 fl (35.1-43.9); Red Blood Count 5.17 M/mm3 (4.6-6.2); White Blood Count 8.2 K/mm3 (4.4-11.0)
[2021-04-03 07:12] VITALS: O2SAT 90
[2021-04-03 07:33] LABS: Anion Gap 4 (5-15); BUN 5 mg/dL (7-18); BUN/Creat Ratio 8.1 RATIO (10-20); Calcium,Total 8.2 mg/dL (8.5-10.1); Chloride 105 mmol/L (98-107); Creatinine, Serum 0.62 mg/dL (0.70-1.30); EST Glomerular Filtration Rate 153 mL/min (>60); Est Glom Filt Rate - Afr Amer 185 mL/min (>60); Estimated Creatinine Clearance 123.53 ml/min; Glucose 83 mg/dL (74-106); Potassium 3.7 mmol/L (3.5-5.1); Sodium Level 139 mmol/L (136-145)
[2021-04-03 08:52] VITALS: BP 127/96; PULSE 98; RESP 18; TEMP 36.4; O2SAT 96
[2021-04-03] MEDS: Senna/Docusate Sodium 1 Tablet 2 TABLET PO (08:58)
[2021-04-03] MEDS: PHENYTOIN 50 MG TAB.CHEW 75 MG PO (08:58)
[2021-04-03] MEDS: Pantoprazole Sodium 20 MG Tablet PO (08:59)
[2021-04-03] MEDS: Lacosamide 100 MG Tablet 200 MG PO (09:02)
[2021-04-03] MEDS: Enoxaparin 40 MG/0.4 ML Syringe SC (09:02)
--- NOTE | 2021-04-03 09:33 | PCM.DC ---
Discharge Instructions Diet Discharge Diet: No restrictions Activity Discharge Activity: Return to Normal Activity and May Not Drive Dressing / Incision Call your doctor if you observe: Fever of 101 or Higher, Coldness, Increased Pain, Numbness or Tingling, Change in Color, Inability to urinate, Inability to have a bowel movement, Shortness of breath, Dizziness, Fainting spells, Swelling in the ankles, Chest pain, Prolonged hiccupping, Increased palpitations (irregular heartbeat), Calf discomfort and Uncontrolled pain Follow Up Care Test Results: Test results from this visit will be discussed in further detail at your follow-up appointment, if applicable. Discharge Plan Admission Admit Date/Time: 04/02/21 03:26 Primary Reason for Your Visit: Aspiration pneumonia Attending Provider: Wu Uriostegui Primary Care Provider: Elvis Baxter Instructions Patient Instructions: Pneumonia Additional Instructions / Restrictions: Patient need pneumonia vaccine both Pneumovax and Pneumovax and influenza vaccine as an outpatient. Discharge Orders/Prescriptions Prescriptions: New amoxicillin-pot clavulanate [Augmentin] 500-125 mg tablet 1 tab PO BID Qty: 12 RF: 0 polyethylene glycol 3350 17 gram Powder In Packet 17 g PO DAILY Qty: 0 RF: 0 sennosides-docusate sodium [Senna-S] 8.6-50 mg tablet 2 tab-cap PO BID PRN (Reason: constipation) Qty: 60 RF: 0 Continued clonazepam 0.5 MG tablet 1 mg PO QHS RF: 0 phenytoin sodium extended 100 MG capsule 150 mg PO QHS RF: 0 phenytoin [Dilantin Infatabs] 50 MG tablet,chewable 75 mg PO DAILY RF: 0 esomeprazole magnesium [Nexium 24HR] 22.3 MG capsule,delayed release(DR/EC) 20 mg PO DAILY RF: 0 Vimpat 200 MG tablet 200 mg PO BID Qty: 60 RF: 0 clonazepam [Klonopin] 0.5 mg tablet 0.5 mg PO 1500 RF: 0 Referrals / Follow Up: Elvis Baxter MD [Primary Care Provider] - Disposition Disposition (needs filled in before D/C Order can be placed): Home, self care
--- NOTE | 2021-04-03 09:34 | PCM.DC.SUM ---
Providers Date of Admission: 04/02/21 Primary Care Physician: Dr. Elvis Baxter MD Reason For Visit: SEPSIS SECONDARY TO PNEUMONIA Diagnosis Discharge Diagnosis (1) Aspiration pneumonia: Status: Acute Code(s): J69.0 - Pneumonitis due to inhalation of food and vomit Qualifiers: Aspiration pneumonia type: due to regurgitated food Laterality: bilateral Lung location: lower lobe of lung Qualified Code(s): J69.0 - Pneumonitis due to inhalation of food and vomit (2) Abdominal pain: Status: Acute Code(s): R10.9 - Unspecified abdominal pain Qualifiers: Abdominal location: right upper quadrant Qualified Code(s): R10.11 - Right upper quadrant pain (3) Sepsis: Status: Acute Code(s): A41.9 - Sepsis, unspecified organism Qualifiers: Sepsis acute organ dysfunction status: without acute organ dysfunction Sepsis type: sepsis due to unspecified organism Qualified Code(s): A41.9 - Sepsis, unspecified organism Medications at Discharge Home Medications Vimpat 200 mg PO BID #60 tab 05/23/16 clonazepam 1 mg PO QHS 05/23/16 esomeprazole magnesium [Nexium 24HR] 20 mg PO DAILY 05/23/16 phenytoin [Dilantin Infatabs] 75 mg PO DAILY 05/23/16 phenytoin sodium extended 150 mg PO QHS 05/23/16 clonazepam [Klonopin] 0.5 mg PO 1500 04/02/21 amoxicillin-pot clavulanate [Augmentin] 1 tab PO BID #12 tab 04/03/21 polyethylene glycol 3350 17 g PO DAILY #0 ea 04/03/21 sennosides-docusate sodium [Senna-S] 2 tab-cap PO BID PRN #60 tab 04/03/21 Hospital Course Summary of Care Provided Minutes Spent on Discharge: 35 Hospital Course: This 40-year-old gentleman with history of developmental disorder and seizure 2-4 times per month was admitted for cough and possibility of aspiration after seizure. Patient also complained of belly pain probably from constipation. Patient had leukocytosis. Chest x-ray shows both lower lobes infiltrates and atelectasis. UA negative. ?1.? Sepsis secondary to pneumonia most likely aspiration: Patient had tachycardia and leukocytosis.? Lactic acid normal.? Was a started on broad-spectrum antibiotic with Unasyn and azithromycin.? Does not seem atypical therefore azithromycin discontinued.? Rapid SARS-CoV-2 antigen, respiratory panel and urinary antigens are negative. Blood cultures chest x-ray showed subsegmental opacities in bilateral lower lobes.? UA negative. Leukocytosis resolved. Patient more interactive and mental status improved. Discharged on Augmentin to complete a total of 7 days. 2.? Abdominal pain probably due to retained stool: On a stool softener.? No evidence of bowel obstruction.? Abdominal exam is benign. Advised to the parents to take daily MiraLAX [id number] senna S, 2 tablets twice daily as needed for goal of 1 bowel movement daily. 3.? History of chronic seizure, exact type and etiology unclear with developmental disorder: Home medications continued. On clonazepam and phenytoin Vimpat. Discharge medication reconciliation done. Discharge follow-up instructions completed. Discharge process discussed with the patient and all questions were answered to patient's satisfaction. Total time spent, exact 35 minutes on discharge meds reconciliation, examination, coordination of care with nurses and ancillary staff, review of imaging and blood test and discussion with the patient on follow-up instructions Physical Exam Narrative General: Baseline mental status, more awake, alert, comprehensive and interactive. HEENT: Atraumatic, PERRLA, EOMI, Normocephalic Oral: No Gingival or Mucosal Lesions/ Ulcerations Neck: Supple, No JVD, Negative Carotid Bruits Lungs: Air entry diminished in bilateral lung bases. No crepitation/rhonchi Cardiovascular: Regular rate, Regular Rhythm, Normal S1, Normal S2, No murmurs Abdomen: Bowel Sounds Present, Soft, Non Tender, Non-Distended, no palpable mass. No hepatosplenomegaly : No renal angle tenderness. No suprapubic tenderness. Extremities: No edema, Capillary Refill Less than 3 Seconds Skin: No rashes, No breakdown Musculoskeletal: Bilateral feet deformity. Moderate muscle atrophy of muscles of extremities. ROM restricted. No Tenderness to Palpation of Joints or Extremities Neurological: Cranial nerves II-XII grossly intact, Deep Tendon Reflexes 2+/4, nonfocal exam Psych/Mental Status: Happy. ABG / Lab / Microbiology Data Result Diagrams: 04/03/21 05:42 04/03/21 05:42 Laboratory: Laboratory Results - last 24 hr 04/03/21 04/03/21 05:42 05:42 WBC 8.2 RBC 5.17 Hgb 14.5 Hct 44.9 MCV 86.8 MCH 28.0 MCHC 32.3 RDW Std Deviation 48.6 H RDW Coeff of Linette 15.3 H Plt Count 477 H MPV 10.3 Immature Gran % (Auto) 0.400 Neut % (Auto) 53.6 Lymph % (Auto) 27.1 [place] % (Auto) 13.5 H Eos % (Auto) 4.1 Baso % (Auto) 1.3 H Absolute Neuts (auto) 4.4 Absolute Lymphs (auto) 2.23 Nucleated RBC % 0 Sodium 139 Potassium 3.7 Chloride 105 Carbon Dioxide 30.0 Anion Gap 4 L BUN 5 L Creatinine 0.62 L Estim Creat Clear Calc 123.53 Est GFR (MDRD) Af Amer 185 Est GFR (MDRD) Non-Af 153 BUN/Creatinine Ratio 8.1 L Glucose 83 Calcium 8.2 L Microbiology: Microbiology 04/02/21 06:50 Respiratory Panel (PCR) - Final Mucosa - Nasopharyngeal Microbiology 04/02/21 06:50 Mucosa - Nasopharyngeal Respiratory Panel (PCR) - Final 04/02/21 03:20 Urine, Clean Catch Streptococcus pneumoniae Antigen (M - Final 04/02/21 03:20 Urine, Clean Catch Legionella Antigen - Final 04/02/21 02:10 Nasal Secretion SARS-CoV-2 Antigen (Rapid) - Final Meaningful Use Info Meaningful Use Diagnoses (Choose all that apply): None applicable Discharge Plan Admission Admit Date/Time: 04/02/21 03:26 Primary Reason for Your Visit: Aspiration pneumonia Attending Provider: Wu Uriostegui Primary Care Provider: Elvis Baxter Instructions Patient Instructions: Pneumonia Additional Instructions / Restrictions: Patient need pneumonia vaccine both Pneumovax and Pneumovax and influenza vaccine as an outpatient. Discharge Orders/Prescriptions Prescriptions: New amoxicillin-pot clavulanate [Augmentin] 500-125 mg tablet 1 tab PO BID Qty: 12 RF: 0 polyethylene glycol 3350 17 gram Powder In Packet 17 g PO DAILY Qty: 0 RF: 0 sennosides-docusate sodium [Senna-S] 8.6-50 mg tablet 2 tab-cap PO BID PRN (Reason: constipation) Qty: 60 RF: 0 Continued clonazepam 0.5 MG tablet 1 mg PO QHS RF: 0 phenytoin sodium extended 100 MG capsule 150 mg PO QHS RF: 0 phenytoin [Dilantin Infatabs] 50 MG tablet,chewable 75 mg PO DAILY RF: 0 esomeprazole magnesium [Nexium 24HR] 22.3 MG capsule,delayed release(DR/EC) 20 mg PO DAILY RF: 0 Vimpat 200 MG tablet 200 mg PO BID Qty: 60 RF: 0 clonazepam [Klonopin] 0.5 mg tablet 0.5 mg PO 1500 RF: 0 Referrals / Follow Up: Elvis Baxter MD [Primary Care Provider] - Disposition Disposition (needs filled in before D/C Order can be placed): Home, self care Visit Charges Inpatient E&M: 31360 Disch Hosp
[2021-04-03 10:20] VITALS: PULSE 96
== END 2021-04-03 13:25 | disposition home or self-care (01) | DRG 871 ==
LOC: ED 03:18 → MS3 03:29
PROVIDERS: Admitting Provider Hospitalist; Emergency Provider Emergency Medicine; PCP Family Medicine; Visit Provider Internal Medicine
DX: A41.9 Sepsis, unspecified organism (principal); J69.0 Pneumonitis due to inhalation of food and vomit; K59.00 Constipation, unspecified; K21.9 Gastro-esophageal reflux disease without esophagitis; R56.9 Unspecified convulsions; Z79.899 Other long term (current) drug therapy; Z87.820 Personal history of traumatic brain injury
CPT/HCPCS: 36415; 71045; 74177; 80048; 80053; 81001; 83605; 83690; 85025; 87040; 87426; 87449; 87633; 99285; J7030; J7050; Q9967; A4216; J0295; J2405

== ENCOUNTER 2021-11-09 12:11 | Inpatient (IN) | payer OTHER, MEDICAID, SELFPAY ==
[2021-11-09 12:13] VITALS: PULSE 76; RESP 18; TEMP 36.1; O2SAT 96; BMI 25.7
--- NOTE | 2021-11-09 12:24 | EDS_ITS ---
HPI History of Present Illness Chief Complaint: Nausea/Vomiting/Diarrhea Detail of Chief Complaint: Vomiting that started 4 days ago Informant: patient Narrative Narrative: Patient presents to the emergency department complaint of vomiting t hat started 4 days ago. Father states that patient is in a fci and they went to get him 3 days ago. He did not have any vomiting 2 days ago but started vomiting again yesterday. Patient vomited throughout the night. He had one loose stool yesterday but no bowel movements today. He denies any fever. He denies chest pain. He denies shortness of breath. Father states he really has not had much cough. Father is concerned about aspiration pneumonia as patient has history of aspiration pneumonia and he presented similarly in the past. Patient's not had any fevers. Patient has had his Covid vaccine. Prior similar symptoms: Yes PFSH PFS Medical History (Updated 11/09/21 @ 14:[address] Aashish Guzman MD) Deafness in left ear GERD (gastroesophageal reflux disease) Seizure Traumatic brain injury Home Medications Vimpat 200 mg PO BID #60 tab 05/23/16 [Rx Last Taken 11/09/21] clonazepam 1 mg PO QHS 05/23/16 [History Last Taken 11/08/21] phenytoin [Dilantin Infatabs] 50 mg PO DAILY 05/23/16 [History Last Taken 11/09/21] phenytoin sodium extended 150 mg PO QHS 05/23/16 [History Last Taken 11/08/21] clonazepam [Klonopin] 0.5 mg PO 1500 04/02/21 [History Last Taken 11/08/21] Allergy/AdvReac Type Severity Reaction Status Date / Time No Known Allergies Allergy Verified 11/09/21 12:12 Family History (Updated 11/09/21 @ 15:[address] Ghada Youngblood MD) Grandmother Cancer Diabetes Hypertension Heart disease Grandfather Cancer Diabetes Hypertension Heart disease Surgical History (Updated 11/09/21 @ 15:[address] Ghada Youngblood MD) History of arthrodesis S/P bilateral foot surgery Social History housing: other details: senior care. Smoking Status: Never smoker alcohol intake: never substance use type: does not use ROS ROS ED Constitutional Constitutional ED: Reports systems reviewed and no addt'l complaints, except as documented; Denies body ache(s), change in weight or chills Eyes Eyes: Denies acute decrease in peripheral vision, change in vision, double vis ion or loss of vision ENT ENT ED: Reports none; Denies ear pain, lip swelling, loss taste/smell, neck p ain, otalgia or sore throat Cardiovascular Cardiovascular: Reports none; Denies abdominal pain, chest pain with activity, leg edema, lightheadedness, palpitations, rapid heart rate or syncope Respiratory/Chest Respiratory/Chest: Reports none; Denies change in mental status, dry cough, dyspnea, hemoptysis, shortness of breath at rest or shortness of breath with exertion Gastrointestinal Gastrointestinal: Reports none, nausea and vomiting; Denies abdominal pain, change in stool character, diarrhea, hematemesis, hematochezia, melena or rectal bleeding Genitourinary Genitourinary ED: Reports none; Denies abdominal discomfort, anuria, dysuria, genital pain or polyuria Musculoskeletal Musculoskeletal: Reports none; Denies arthralgias, back pain, difficulty walking, extremity pain, muscle weakness or myalgias Integumentary Reports none; Denies abscess or rash Neurologic Neurologic: Reports none; Denies abnormal gait, confusion, focal weakness, frequent falls, headache(s), loss of vision, numbness, paresthesias, radicular pain, vertigo or weakness Psychiatric Psychiatric: Reports systems reviewed and no addt'l complaints, except as documented and none; Denies behavioral changes, confusion, difficulty concentrating, hallucinations, suicidal ideation, tactile hallucinations or visual hallucinations Endocrine Endocrinology: Denies none, cold intolerance, excessive sweating, fatigue or heat intolerance Hematologic/Lymphatic Hematologic/Lymphatic: Reports none; Denies anemia, easy bleeding or easy bruising Allergic/Immunologic Allergic/Immunologic ED: Denies as per HPI, none, lip swelling, mouth swelling, throat swelling, tongue swelling or hives EXAM Physical Exam Const Vital Signs: 11/09/21 12:13 11/09/21 14:46 Temperature 97.0 F L Temperature Source Temporal Pulse Rate 76 129 H Respiratory Rate 18 16 Blood Pressure 133/79 H Blood Pressure Mean 97 Pulse Ox 96 94 Oxygen Delivery Method Room Air Room Air Positive well nourished and well developed General Appearance ED: well developed and NAD HEENT Reports TM's clear and moist mucous membranes normocephalic and atraumatic; Negative for trauma or tenderness Tympanic Membrane ED: Yes TM's clear Eyes PERRL and EOMs intact bilaterally General Eye ED: Negative for pale conjunctiva or scleral icterus Neck no lymphadenopathy, supple and no JVD General: Negative for tenderness Chest Wall inspection of chest normal and palpation of chest normal Chest: Negative for tenderness Resp normal respiratory effort and clear to auscultation bilaterally Effort and Inspection: Negative for respiratory distress or pain with movement Auscultation: Negative for rhonchi, wheezes or diminished lung sounds Cardio regular rate, regular rhythm, S1 normal heart sound, S2 normal heart sound and no murmurs Peripheral Pulses: pulses 2+ throughout GI normal to inspection, nondistended, normoactive bowel sounds, soft to palpation, non-tender, non-distended and no masses Back/Spine no CVA tenderness and no thoracic nor lumbar tenderness Extremity normal to inspection General Extremety ED: Negative for edema General Extremity: Negative for edema Neuro oriented x3, CN's II-XII intact bilaterally, no sensory deficits noted and gait normal Sensorium / Orientation: awake, alert, oriented to person, oriented to place and oriented to time Motor Exam: strength 5/5 throughout and strength abnormal Psych mental status grossly normal Skin no rashes or lesions noted and no wounds MDM MDM MDM Narrative Medical decision making narrative: IV line established on arrival. Patient was given Zofran 4 mg IV. He continued to vomit. Lab work-up was significant for elevated white count of 17.9. His lactate was elevated 2.3. Patient had an elevated BUN and creatinine with concern for acute kidney injury. CT showed high-grade partial small bowel obstruction versus complete bowel obstruction and also some inflammatory changes with concern for inflammatory bowel disease. Case was discussed with general surgeon on-call. An NG tube was placed to low intermittent suction. Surgeon asked that we admit to medicine and also consult GI as well as the general surgeon. Case discussed with hospitalist will evaluate patient for admission. Lab Data Attestation: I reviewed the patient's lab results. Labs: Laboratory Results - last 24 hr 11/09/21 11/09/21 11/09/21 12:40 12:40 12:40 WBC 17.9 H RBC 6.11 Hgb 17.8 H Hct 51.7 MCV 84.6 MCH 29.1 MCHC 34.4 RDW Std Deviation 45.5 H RDW Coeff of Linette 15.1 H Plt Count 469 H MPV 10.5 Immature Gran % (Auto) 0.300 Neut % (Auto) 84.0 H Lymph % (Auto) 5.5 L Brown % (Auto) 9.5 Eos % (Auto) 0.1 Baso % (Auto) 0.6 Absolute Neuts (auto) 15.0 H Absolute Lymphs (auto) 0.98 Nucleated RBC % 0 Diff Path Review May foll Sodium 137 Potassium 4.3 Chloride 102 Carbon Dioxide 29.0 Anion Gap 6 BUN 50 H Creatinine 1.63 H Estim Creat Clear Calc 48.97 Est GFR (MDRD) Af Amer 61 Est GFR (MDRD) Non-Af 50 L BUN/Creatinine Ratio 30.7 H Glucose 152 H Lactic Acid 2.3 H* Calcium 9.4 Total Bilirubin 1.10 H AST 20 ALT 43 Alkaline Phosphatase 108 Total Protein 9.2 H Albumin 4.2 Globulin 5.0 H Albumin/Globulin Ratio 0.8 L Lipase 119 Phenytoin 11/09/21 12:40 WBC RBC Hgb Hct MCV MCH MCHC RDW Std Deviation RDW Coeff of Linette Plt Count MPV Immature Gran % (Auto) Neut % (Auto) Lymph % (Auto) Brown % (Auto) Eos % (Auto) Baso % (Auto) Absolute Neuts (auto) Absolute Lymphs (auto) Nucleated RBC % Diff Path Review Sodium Potassium Chloride Carbon Dioxide Anion Gap BUN Creatinine Estim Creat Clear Calc Est GFR (MDRD) Af Amer Est GFR (MDRD) Non-Af BUN/Creatinine Ratio Glucose Lactic Acid Calcium Total Bilirubin AST ALT Alkaline Phosphatase Total Protein Albumin Globulin Albumin/Globulin Ratio Lipase Phenytoin 21.5 H Radiography Diagnostic Testing: Clinical Impression(s) from Imaging Studies Chest X-Ray 11/09/21 12:40 IMPRESSION: Hypoinflation without airspace consolidation on current exam. Electronically Signed: Shamir Cerda MD ([place]) at 12:59 EST , Service support , Abdomen/Pelvis CT 11/09/21 13:35 IMPRESSION: 1. Diffuse dilation of small bowel with transition point in the right lower quadrant (image 54 series 601). High-grade partial or early complete bowel obstruction. 2. Relative wall thickening (approximately 10 cm in length) and adjacent fascial thickening of the terminal ileum best seen on image 54 of series 601 suggests possibility of inflammatory bowel disease or infectious enteritis. Electronically Signed: Shamir Cerda MD ([place]) at 13:52 EST , Service support , KUB X-Ray 11/09/21 14:40 IMPRESSION: Esophagogastric tube extends to the stomach. Small bowel obstruction. Electronically Signed: Shamir Cerda MD ([place]) at 14:51 EST , Service support , Discharge Plan Triage Chief Complaint: Nausea/Vomiting/Diarrhea ED Provider: Jairon Finch Dx/Rx/DC Orders Clinical Impression: Complete small bowel obstruction, Abdominal pain, Vomiting Prescriptions: No Action clonazepam 0.5 MG tablet 1 mg PO QHS RF: 0 phenytoin sodium extended 100 MG capsule 150 mg PO QHS RF: 0 phenytoin [Dilantin Infatabs] 50 MG tablet,chewable 50 mg PO DAILY RF: 0 Vimpat 200 MG tablet 200 mg PO BID Qty: 60 RF: 0 clonazepam [Klonopin] 0.5 mg tablet 0.5 mg PO 1500 RF: 0 Primary Care Provider: Elvis Baxter Referrals: Elvis Baxter MD [Primary Care Provider] - Disposition Disposition: Acute Care Hospital [facility]
--- NOTE | 2021-11-09 12:40 | RAD_ITS ---
STUDY: X-RAY CHEST REASON FOR EXAM: Male, 40 years old. Nausea, vomiting and diarrhea TECHNIQUE: AP COMPARISON: 04/02/2021 FINDINGS: Lungs remain hypoinflated although basilar infiltrate seen on the prior study are no longer identified. There is no demonstrated pleural abnormality. Normal size heart. Normal mediastinum and thong. Normal visualized pulmonary arteries. Normal visualized aortic arch and descending thoracic aorta. No acute bony process. There is no demonstrated abnormality of the visualized soft tissue structures of the upper abdomen. RAD/Chest 1 View IMPRESSION: Hypoinflation without airspace consolidation on current exam. Electronically Signed: Shamir Cerda MD ([place]) at 12:59 EST , Service support ,
[2021-11-09] MEDS: 0.9% Normal Saline 1,000 ML 999 ML IV (12:43)
[2021-11-09] MEDS: Ondansetron 4 MG/2 ML Vial IV ×2 (12:43→20:11)
[2021-11-09 12:57] LABS: Absolute Lymphocyte Count 0.98 X10^3/uL (0.83-4.51); Basophil# 0.11 X10^3/uL; Basophil% 0.6 % (0-1); Differential Indicated SCAN CRITERIA MET; Eosinophil# 0.02 X10^3/uL; Eosinophils% 0.1 % (0-5); Hematocrit 51.7 % (40-54); Hemoglobin 17.8 g/dL (13.0-16.5); Lymphocyte # 0.98 X10^3/ul (0.83-4.51); Lymphocyte % 5.5 % (19-41); Mean Corp Hgb Conc 34.4 g/dL (32-36); Mean Corpuscular Hgb 29.1 pg (27.0-32.0); Mean Corpuscular Volume 84.6 fL (80-94); Mean Platelet Vol. 10.5 fl (6.2-12.0); Monocyte# 1.69 X10^3/uL; Monocyte% 9.5 % (0-10); NRBC Flagged by Analyzer 0 % (0-5); Neutrophil # 15.01 X10^3/uL (2.7-7.7); POSITIVE DIFFERENTIAL YES; Platelet Count 469 K/mm3 (150-450); RBC Distribution Width CV 15.1 % (11.6-14.6); RBC Distribution Width SD 45.5 fl (35.1-43.9); Red Blood Count 6.11 M/mm3 (4.6-6.2); White Blood Count 17.9 K/mm3 (4.4-11.0)
[2021-11-09 13:07] LABS: ALB/GLOB Ratio 0.8 RATIO (0.9-2.4); AST(SGOT) 20 U/L (15-37); Alanine Aminotransfer ALT/SGPT 43 U/L (16-61); Albumin, Serum 4.2 g/dL (3.2-5.0); Alkaline Phosphatase 108 U/L (45-117); Anion Gap 6 (5-15); BUN 50 mg/dL (7-18); BUN/Creat Ratio 30.7 RATIO (10-20); Calcium,Total 9.4 mg/dL (8.5-10.1); Chloride 102 mmol/L (98-107); Creatinine, Serum 1.63 mg/dL (0.70-1.30); EST Glomerular Filtration Rate 50 mL/min (>60); Est Glom Filt Rate - Afr Amer 61 mL/min (>60); Estimated Creatinine Clearance 48.97 ml/min; Glucose 152 mg/dL (74-106); Lipase 119 U/L (73-393); Potassium 4.3 mmol/L (3.5-5.1); Protein, Total 9.2 g/dL (6.4-8.2); Sodium Level 137 mmol/L (136-145)
[2021-11-09 13:19] LABS: Lactic Acid 2.3 mmol/L (0.4-1.9)
--- NOTE | 2021-11-09 13:35 | CT_ITS ---
EXAM: CT ABDOMEN AND PELVIS WITHOUT INTRAVENOUS CONTRAST CLINICAL INDICATION: abdominal pain TECHNIQUE: Helically acquired images were obtained of the abdomen and pelvis without intravenous contrast. This CT exam was performed using one or more of the following dose reduction techniques: automated exposure control, adjustment of the mA and/or kV according to patient size, and/or use of iterative reconstruction technique. This report was created using [employer] report generation technology. COMPARISON: None. FINDINGS: LOWER THORAX: Small hiatal hernia. Lung bases are clear. No cardiomegaly. No significant pericardial effusion. ABDOMEN: LIVER: Unremarkable. Homogeneous. GALLBLADDER AND BILE DUCTS: Unremarkable. No calcified gallstones. No gallbladder distention or wall edema. No intra- or extrahepatic biliary ductal dilation. PANCREAS: Unremarkable. No focal cystic mass. SPLEEN: Unremarkable. Normal size without focal cystic or solid mass. ADRENALS: Unremarkable. No nodules. KIDNEYS AND URETERS: Unremarkable. Normal renal size and position. No hydronephrosis. STOMACH AND BOWEL: Diffuse dilation of small bowel with transition point in the right lower quadrant (image 54 series 601). Relative wall thickening (approximately 10 cm in length) and adjacent fascial thickening of the terminal ileum best seen on image 54 of series 601 suggests possibility of inflammatory bowel disease or infectious enteritis. Small bowel dilation measures up to 3.8 cm. The colon is relatively decompressed although some fecal residue identified. PELVIS: APPENDIX: No evidence of acute appendicitis. BLADDER: Unremarkable. REPRODUCTIVE: Unremarkable as visualized. No mass. ABDOMEN and PELVIS: INTRAPERITONEAL SPACE: Unremarkable. No ascites or other fluid collection. No free air. BONES/JOINTS: Unremarkable. No suspicious lytic or blastic abnormality. SOFT TISSUES: Unremarkable. No discrete abdominal or pelvic wall hernia. VASCULATURE: Unremarkable. Abdominal aorta is non-dilated. LYMPH NODES: Unremarkable. No enlarged lymph nodes. CT/Abdomen/Pelvis without Cont IMPRESSION: 1. Diffuse dilation of small bowel with transition point in the right lower quadrant (image 54 series 601). High-grade partial or early complete bowel obstruction. 2. Relative wall thickening (approximately 10 cm in length) and adjacent fascial thickening of the terminal ileum best seen on image 54 of series 601 suggests possibility of inflammatory bowel disease or infectious enteritis. Electronically Signed: Shamir Cerda MD ([place]) at 13:52 EST , Service support ,
[2021-11-09 13:52] LABS: Phenytoin (Dilantin) Level 21.5 mL (10.0-20.0)
--- NOTE | 2021-11-09 14:24 | HP.PCM.HOS_ITS ---
HPI - General General Date of Admission: 11/09/21 Date of Service: 11/09/21 Chief Complaint: Abdominal pain HPI Narrative The patient is a 40 y/o M w/ PMHx: GERD, Hx TBI with seizure disorder, L sided deafness who presents to the [facility] ED on 11/09/21 with history of onset abdominal pain (wincing with papation) in addition to intractable nausea and emesis starting 4 days prior to current presentation which transiently improved however he started to get over the last 48 hours with only 1 loose stool the day prior but no movements on day of presentation with no recent fever, chills, dyspnea or cough. Patient has been vaccinated against COVID. Father initially concerned for possible aspiration as he is presented in the past with similar presentation with eventual diagnosis of aspiration pneumonia. Work-up in the ED included T 97, heart rate 76, respiratory rate 18, 96% on room air, CBC with WBC 17.9, hemoglobin 17.8, platelet 469 with left shift, CMP with BUN/creatinine 50/1.63, glucose 152, lactic acid 2.3, total bilirubin 1.10 otherwise hepatic profile not marked appearing, lipase 119, rapid Covid antigen negative, chest x-ray with hypoinflation with no acute cardiopulmonary findings, CT abdomen and pelvis with diffuse dilation small bowel with transition point right lower quadrant consistent with high-grade partial or early complete bowel obstruction with relative wall thickening and adjacent fascial thickening in the terminal ileum possibly inflammatory bowel versus infectious enteritis. In the ED patient administered Zofran as well as normal saline bolus and maintenance fluids. In the ED NG insertion ordered and pending upon evaluation. ED discussed case with Dr. Guzman. Patient placed in soft wrist restraints secondary to inability otherwise to maintain NG in place. Discussed case with general surgery who also contacted gastroenterology. [facility], [facility] Medical History (Updated 11/09/21 @ 14:[address] Aashish Guzman MD) Deafness in left ear GERD (gastroesophageal reflux disease) Seizure Traumatic brain injury Home Medications Vimpat 200 mg PO BID #60 tab 05/23/16 [Rx Last Taken 04/01/21] clonazepam 1 mg PO QHS 05/23/16 [History Last Taken 04/01/21] phenytoin [Dilantin Infatabs] 75 mg PO DAILY 05/23/16 [History Last Taken 04/01/21] phenytoin sodium extended 150 mg PO QHS 05/23/16 [History Last Taken 04/01/21] clonazepam [Klonopin] 0.5 mg PO 1500 04/02/21 [History Last Taken 04/01/21] Allergy/AdvReac Type Severity Reaction Status Date / Time No Known Allergies Allergy Verified 11/09/21 12:12 Family History (Updated 11/09/21 @ 15:[address] Ghada Youngblood MD) Grandmother Cancer Diabetes Hypertension Heart disease Grandfather Cancer Diabetes Hypertension Heart disease other (Patient without any marked history in his mother or father including HD, DM, CA.) Surgical History (Updated 11/09/21 @ 15:[address] Ghada Youngblood MD) History of arthrodesis S/P bilateral foot surgery Social History (Updated 11/09/21 @ 15:[address] Ghada Youngblood MD) housing: other details: care home. Smoking Status: Never smoker alcohol intake: never substance use type: does not use ROS ROS Narrative Patient is unable to give ROS secondary to mental condition. Information as noted in HPI is per family present. Vital Signs Vital Signs Vital Signs: 11/09/21 12:13 Temperature 97.0 F L Temperature Source Temporal Pulse Rate 76 Respiratory Rate 18 Pulse Ox 96 Oxygen Delivery Method Room Air Weight Weight: 145 lb Body Mass Index (BMI) 25.7 Physical Exam Narrative Physical Examination: General: Awake, alert, oriented to self, place and some recent events, under lying TBI, remains cooperative, seated upright in the ED bed, no obvious distress currently, intermittently attempting to pull out his NG tube. Skin: Normal color, normal turgor, no icterus, no cyanosis. HEENT: AT/NC, EOMI, PERRLA, dry MM, NG tube being placed, no carotid bruits or JVD noted. Lungs: Diminished, greater bases, appropriate effort, no rales, ronchi or wheezing. Heart: Tachycardic with regular rhythm; no gallop, rub audible. Abdomen: Soft, mild grimace with palpation but family notes improved since initial ED presentation, mildly distended, hypoactive or absent bowel sounds, NG tube being placed as noted, no obvious evidence of HSM. Extremities: No cyanosis, clubbing, or edema. Neurological: Patient awake, alert, oriented as noted, cognitive function decreased baseline with history of TBI, appears intact; pupils equally reactive to light and accommodation, cranial nerves II-XII grossly normal, moving all 4 extremities however limited with wrist restraints given NG tube being placed, no focal deficits, strength moderately global decrease secondary to acute presentation. Psychiatric: Affect appears mildly anxious, no acute evidence of depressive feelings. Results Lab / Micro Data Result Diagrams: 11/09/21 12:40 11/09/21 12:40 Labs: Laboratory Results - last 24 hr 11/09/21 12:40: WBC 17.9 H, RBC 6.11, Hgb 17.8 H, Hct 51.7, MCV 84.6, MCH 29.1, MCHC 34.4, RDW Std Deviation 45.5 H, RDW Coeff of Linette 15.1 H, Plt Count 469 H, MPV 10.5, Immature Gran % (Auto) 0.300, Neut % (Auto) 84.0 H, Lymph % (Auto) 5.5 L, [place] % (Auto) 9.5, Eos % (Auto) 0.1, Baso % (Auto) 0.6, Absolute Neuts (auto) 15.0 H, Absolute Lymphs (auto) 0.98, Nucleated RBC % 0, Diff Path Review March11/09/21 12:40: Sodium 137, Potassium 4.3, Chloride 102, Carbon Dioxide 29.0, Anion Gap 6, BUN 50 H, Creatinine 1.63 H, Estim Creat Clear Calc 48.97, Est GFR (MDRD) Af Amer 61, Est GFR (MDRD) Non-Af 50 L, BUN/Creatinine Ratio 30.7 H, Glucose 152 H, Calcium 9.4, Total Bilirubin 1.10 H, AST 20, ALT 43, Alkaline Phosphatase 108, Total Protein 9.2 H, Albumin 4.2, Globulin 5.0 H, Albumin/Globulin Ratio 0.8 L, Lipase 119 11/09/21 12:40: Lactic Acid 2.3 H* 11/09/21 12:40: Phenytoin 21.5 H Micro: Microbiology 11/09/21 12:38 Nasal Secretion SARS-CoV-2 Antigen (Rapid) - Final Radiology Impression Chest X-Ray 11/09/21 12:40 IMPRESSION: Hypoinflation without airspace consolidation on current exam. Electronically Signed: Shamir Cerda MD ([place]) at 12:59 EST , Service support , Abdomen/Pelvis CT 11/09/21 13:35 IMPRESSION: 1. Diffuse dilation of small bowel with transition point in the right lower quadrant (image 54 series 601). High-grade partial or early complete bowel obstruction. 2. Relative wall thickening (approximately 10 cm in length) and adjacent fascial thickening of the terminal ileum best seen on image 54 of series 601 suggests possibility of inflammatory bowel disease or infectious enteritis. Electronically Signed: Shamir Cerda MD ([place]) at 13:52 EST , Service support , Assessment & Plan Assessment/Plan (1) Abdominal pain: QUALIFIERS: Abdominal location: right upper quadrant Qualified Code(s): R10.11 - Right upper quadrant pain (2) SBO (small bowel obstruction): PLAN: The patient is a 40 y/o M w/ PMHx: GERD, Hx TBI with seizure disorder, L sided deafness who presents to the [facility] ED on 11/09/21 with history of onset abdominal pain (wincing with papation) in addition to intractable nausea and emesis starting 4 days prior to current presentation which transiently improved however he started to get over the last 48 hours with only 1 loose stool the day prior but no movements on day of presentation with no r ecent fever, chills, dyspnea or cough. #1. Abdominal pain, nausea, emesis w/ SBO, high-grade partial versus complete with questionable enteritis versus IBD: Will admit to medical surgical floor, maintain on IVFs, continue NGT to suction, strict I&Os, IV pain/anti-emetics PRN, serial KUB as needed to monitor bowel function, Famotidine IV, maintain NPO on bowel rest, initiate and initiate on IV Zosyn. General surgery consulted and following. General surgery also requested consultation with Gastroenterology, Dr. Garcia be placed. Will hold on any IV steroids pending Gastroenterology evaluation. #2. Acute kidney injury: Secondary to acute presentation #1 with GI losses, decreased intake. Admission BUN/Cr 50/1.63, prior baseline creatinine noted to be 0.62 most recently 04/03/2021. Will hydrate, hold nephrotoxic medications and repeat chemistry in AM. If no improvement would plan FeNa and renal US assessment. #3. Hyperglycemia: Admission glucose 152, possibly stress response, will obtain A1c to be cautious. If it is notable will transition to Accu-Cheks every 6 hours with insulin sliding scale given n.p.o. status with #1. #4. Lactic acidosis: Admission lactic acid 2.3, suspect mild elevation secondary to dehydration secondary to #1 with also as noted #2, will continue to aggressively hydrate and trend per facility protocol. #5. History TBI with seizure disorder: Patient outpatient on Vimpat as well as phenytoin and clonazepam. Will transition to IV formulation as able AEDs with pharmacy consultation to assist. #6. GERD: We will maintain on IV famotidine as noted. If renal function worsens may transition to PPI. #7. DVT prophylaxis: SCDs, Lovenox. #8. CODE STATUS: Full code. Patient's parents are his guardian, living will and healthcare power of deputy commonwealth's attorney is not formally in place. Charges/Coding Visit Charges Inpatient E&M: 77421 Init Hosp L3
--- NOTE | 2021-11-09 14:30 | NURSING ---
DR INIGUEZ FOR DR WAGONER
--- NOTE | 2021-11-09 14:40 | RAD_ITS ---
STUDY: X-RAY - ABDOMEN/PELVIS REASON FOR EXAM: Male, 40 years old. NG Insertion TECHNIQUE: Single AP view of the abdomen / pelvis. COMPARISON: Earlier today FINDINGS: Esophagogastric tube extends to the stomach. There are dilated loops of the small intestine with a non-distended colon consistent with a small bowel obstruction. There is no demonstrated free abdominal air. The visualized liver, spleen and kidneys are grossly normal in size and morphology. Normal soft tissue structures. Normal visualized osseous structures. RAD/Abdomen Single View (Portable) IMPRESSION: Esophagogastric tube extends to the stomach. Small bowel obstruction. Electronically Signed: Shamir Cerda MD ([place]) at 14:51 EST , Service support ,
--- NOTE | 2021-11-09 14:41 | NURSING ---
DR INIGUEZ IN ER
[2021-11-09 14:46] VITALS: BP 133/79; PULSE 129; RESP 16; O2SAT 94
--- NOTE | 2021-11-09 14:50 | CON.PCM.SX_ITS ---
Assessment & Plan Assessment/Plan (1) SBO (small bowel obstruction): PLAN: The patient has nausea vomiting and abdominal pain. NG was recently placed in the emergency room. The patient has no surgical history. Given the fact that he has no surgical history and the CT scan shows a bowel obstruction with thickening in the right lower quadrant and transitional right lower quadrant I am concerned for inflammatory bowel disease. I recommended the patient be admitted and started on antibiotics and possibly steroids and GI be consulted. I will be on board in case surgery is necessary. Will obtain KUB in the morning. Aashish Guzman MD Pager: [facility] [address] [place] [address], [address] [place] [address] Office: HPI Consult Data Date of Consult: 11/09/21 HPI Narrative HPI Narrative: SHEN WILLIAM, is a 40 M who presents with abdominal pain and vomiting. Patient is unable to give his own review of systems of this was obtained from his father as the patient has history of traumatic brain injury. Patient's father states that he started vomiting having abdominal pain for sev eral days. Patient has also had this happen back in March where he had aspiration pneumonia due to vomiting. [facility] Medical History (Updated 11/09/21 @ 14:[address] Aashish Guzman MD) Deafness in left ear GERD (gastroesophageal reflux disease) Seizure Traumatic brain injury Home Medications Vimpat 200 mg PO BID #60 tab 05/23/16 [Rx Last Taken 11/09/21] clonazepam 1 mg PO QHS 05/23/16 [History Last Taken 11/08/21] phenytoin [Dilantin Infatabs] 50 mg PO DAILY 05/23/16 [History Last Taken 11/09/21] phenytoin sodium extended 150 mg PO QHS 05/23/16 [History Last Taken 11/08/21] clonazepam [Klonopin] 0.5 mg PO 1500 04/02/21 [History Last Taken 11/08/21] Allergy/AdvReac Type Severity Reaction Status Date / Time No Known Allergies Allergy Verified 11/09/21 12:12 Family History (Updated 04/02/21 @ 03:[address] Umer Hinson MD) Other Cancer Diabetes Hypertension Social History Smoking Status: Never smoker ROS Review of Systems ROS Unobtainable: due to mental status Gastrointestinal Gastrointestinal: Reports abdominal pain, nausea and vomiting Physical Exam Const alert General Appearance: cooperative Eyes PERRL Neck full ROM Lymph Lymphatic: no lymphadenopathy noted Cardio Rate: regular rate GI soft to palpation Inspection: abdominal distention Palpation: tender Lab / Micro Data Result Diagrams: 11/09/21 12:40 11/09/21 12:40 Labs: Laboratory Results - last 24 hr 11/09/21 12:40: WBC 17.9 H, RBC 6.11, Hgb 17.8 H, Hct 51.7, MCV 84.6, MCH 29.1, MCHC 34.4, RDW Std Deviation 45.5 H, RDW Coeff of Linette 15.1 H, Plt Count 469 H, MPV 10.5, Immature Gran % (Auto) 0.300, Neut % (Auto) 84.0 H, Lymph % (Auto) 5.5 L, [place] % (Auto) 9.5, Eos % (Auto) 0.1, Baso % (Auto) 0.6, Absolute Neuts (auto) 15.0 H, Absolute Lymphs (auto) 0.98, Nucleated RBC % 0, Diff Path Review March11/09/21 12:40: Sodium 137, Potassium 4.3, Chloride 102, Carbon Dioxide 29.0, Anion Gap 6, BUN 50 H, Creatinine 1.63 H, Estim Creat Clear Calc 48.97, Est GFR (MDRD) Af Amer 61, Est GFR (MDRD) Non-Af 50 L, BUN/Creatinine Ratio 30.7 H, Glucose 152 H, Calcium 9.4, Total Bilirubin 1.10 H, AST 20, ALT 43, Alkaline Phosphatase 108, Total Protein 9.2 H, Albumin 4.2, Globulin 5.0 H, Albumin/Globulin Ratio 0.8 L, Lipase 119 11/09/21 12:40: Lactic Acid 2.3 H* 11/09/21 12:40: Phenytoin 21.5 H Micro: Microbiology 11/09/21 12:38 Nasal Secretion SARS-CoV-2 Antigen (Rapid) - Final Radiology Impression Chest X-Ray 11/09/21 12:40 IMPRESSION: Hypoinflation without airspace consolidation on current exam. Electronically Signed: Shamir Cerda MD (Brooks) at 12:59 EST , Service support , Abdomen/Pelvis CT 11/09/21 13:35 IMPRESSION: 1. Diffuse dilation of small bowel with transition point in the right lower quadrant (image 54 series 601). High-grade partial or early complete bowel obstruction. 2. Relative wall thickening (approximately 10 cm in length) and adjacent fascial thickening of the terminal ileum best seen on image 54 of series 601 suggests possibility of inflammatory bowel disease or infectious enteritis. Electronically Signed: Shamir Cerda MD (Brooks) at 13:52 EST , Service support ,
[2021-11-09 15:01] VITALS: BP 132/70; PULSE 124; RESP 16; TEMP 36.1; O2SAT 94
--- NOTE | 2021-11-09 15:07 | NURSING ---
MED SURG WHITE SBO, VOMITING
[2021-11-09] MEDS: LORazepam 2 MG/ML Syringe 0.5 MG IV ×2 (16:23→20:55)
[2021-11-09 16:28] VITALS: BP 133/106; PULSE 124; RESP 16; O2SAT 94
[2021-11-09 16:49] LABS: Reflex Lactate? Y
[2021-11-09] MEDS: 0.9% Normal Saline 1,000 ML 125 ML IV (17:26)
[2021-11-09 17:38] VITALS: BMI 23.6
[2021-11-09 17:45] LABS: Magnesium 2.4 mg/dL (1.6-2.6); Phosphorus 3.6 mg/dL (2.5-4.9)
--- NOTE | 2021-11-09 17:46 | PCS.PANDOC ---
PANDEMIC DOCUMENTATION INITIATED: Date: 07/11/2021 Time: 190
[2021-11-09 17:50] VITALS: BP 115/67; PULSE 88; RESP 18; TEMP 36.1; O2SAT 97
[2021-11-09 20:06] LABS: Lactic Acid 0.9 mmol/L (0.4-1.9)
[2021-11-09 20:15] VITALS: BP 138/86; PULSE 116; RESP 18; TEMP 36.8; O2SAT 99
[2021-11-09] MEDS: Famotidine 200 MG/20 ML MDV 20 MG in 0.9% Normal Saline (Pres. free 8 ML 300 MG IV (20:55)
[2021-11-09] MEDS: Phenytoin Na 100 MG/2 ML Vial IV (20:55)
[2021-11-09] MEDS: Piperacil/Tazobactam 3.375 GM/50 ML ML IV (22:04)
[2021-11-10] MEDS: 0.9% Normal Saline 1,000 ML 125 ML IV ×3 (01:33→18:33)
[2021-11-10 02:15] VITALS: BP 138/82; PULSE 111; RESP 18; TEMP 36.9; O2SAT 95
[2021-11-10] MEDS: LORazepam 2 MG/ML Syringe 0.5 MG IV ×2 (02:54→21:42)
--- NOTE | 2021-11-10 05:55 | RAD_ITS ---
STUDY: X-RAY - ABDOMEN/PELVIS REASON FOR EXAM: Male, 40 years old. SBO TECHNIQUE: Single AP view of the abdomen / pelvis. COMPARISON: Comparison is made with prior study dated 11/09/2021. FINDINGS: A nasogastric tube is seen with the tip in the fundal portion of the stomach. There are dilated loops of the small intestine with a non-distended colon consistent with a small bowel obstruction. This has improved as compared to prior study. Gas is seen in the colon. The visualized liver, spleen and kidneys are grossly normal in size and morphology. Normal soft tissue structures. Normal visualized osseous structures. RAD/Abdomen Single View (Portable) IMPRESSION: Persistent small bowel obstruction although there has been improvement as compared to prior study. Electronically Signed: Luan Jimenez MD at 9:20 EST , Service support ,
[2021-11-10] MEDS: Piperacil/Tazobactam 3.375 GM/50 ML ML IV ×3 (06:13→21:47)
[2021-11-10] MEDS: Phenytoin Na 100 MG/2 ML Vial IV ×2 (06:15→13:58)
--- NOTE | 2021-11-10 07:38 | PCM.PN.HOSP ---
Subjective Subjective The patient is a 40 gentleman with history of underlying history of traumatic brain injury as well as learning disability brought to the emergency department with nausea and vomiting. Imaging studies obtained on admission demonstrated diffuse dilatation of small bowel with transition point in the right lower quadrant Objective Data Objective Data Vital Signs: Vital Signs Temp Pulse Resp BP Pulse Ox 98.4 F 111 H 18 138/82 H 95 11/10/21 02:15 11/10/21 02:15 11/10/21 02:15 11/10/21 02:15 11/10/21 02:15 Oxygen Delivery Method Room Air Weight: 59.8 kg Body Mass Index (BMI) 23.6 Intake & Output: Intake and Output for Last 24 Hours 11/08/21 11/09/21 11/10/21 23:59 23:59 23:59 Intake Total 1705 / 1705 1300 / 1300 Output Total 425 / 425 875 / 875 Balance 1280 / 1280 425 / 425 Lab / Micro Data Result Diagrams: 11/10/21 07:35 11/10/21 07:35 Labs: Laboratory Results - last 24 hr 11/09/21 12:40: WBC 17.9 H, RBC 6.11, Hgb 17.8 H, Hct 51.7, MCV 84.6, MCH 29.1, MCHC 34.4, RDW Std Deviation 45.5 H, RDW Coeff of Linette 15.1 H, Plt Count 469 H, MPV 10.5, Immature Gran % (Auto) 0.300, Neut % (Auto) 84.0 H, Lymph % (Auto) 5.5 L, [place] % (Auto) 9.5, Eos % (Auto) 0.1, Baso % (Auto) 0.6, Absolute Neuts (auto) 15.0 H, Absolute Lymphs (auto) 0.98, Nucleated RBC % 0, Diff Path Review March11/09/21 12:40: Sodium 137, Potassium 4.3, Chloride 102, Carbon Dioxide 29.0, Anion Gap 6, BUN 50 H, Creatinine 1.63 H, Estim Creat Clear Calc 48.97, Est GFR (MDRD) Af Amer 61, Est GFR (MDRD) Non-Af 50 L, BUN/Creatinine Ratio 30.7 H, Glucose 152 H, Calcium 9.4, Total Bilirubin 1.10 H, AST 20, ALT 43, Alkaline Phosphatase 108, Total Protein 9.2 H, Albumin 4.2, Globulin 5.0 H, Albumin/Globulin Ratio 0.8 L, Lipase 119 11/09/21 12:40: Lactic Acid 2.3 H* 11/09/21 12:40: Phenytoin 21.5 H 11/09/21 12:40: Phosphorus 3.6, Magnesium 2.4 11/09/21 19:04: Lactic Acid 0.9 Micro: Microbiology 11/09/21 12:38 Nasal Secretion SARS-CoV-2 Antigen (Rapid) - Final Radiography Diagnostic Testing: Radiology Impression Chest X-Ray 11/09/21 12:40 IMPRESSION: Hypoinflation without airspace consolidation on current exam. Electronically Signed: Shamir Cerda MD (Brooks) at 12:59 EST , Service support , Abdomen/Pelvis CT 11/09/21 13:35 IMPRESSION: 1. Diffuse dilation of small bowel with transition point in the right lower quadrant (image 54 series 601). High-grade partial or early complete bowel obstruction. 2. Relative wall thickening (approximately 10 cm in length) and adjacent fascial thickening of the terminal ileum best seen on image 54 of series 601 suggests possibility of inflammatory bowel disease or infectious enteritis. Electronically Signed: Shamir Cerda MD (Brooks) at 13:52 EST , Service support , KUB X-Ray 11/09/21 14:40 IMPRESSION: Esophagogastric tube extends to the stomach. Small bowel obstruction. Electronically Signed: Shamir Cerda MD (Brooks) at 14:51 EST , Service support , Physical Exam Narrative GENERAL: cooperative HEENT: NG tube in place EYES; Anicteric, Normal Conjunctiva NECK; supple, normal thyroid, RESPIRATORY: Diminished to auscultation CARDIOVASCULAR: Regular S1 S2, GI: Tympanic to percussion : No Renal angle tenderness; EXTREMITIES: No edema, no clubbing, MUSCULOSKELETAL: no muscle waisting NEURO: Awake; no lateralizing signs. SKIN: No Rash PSYCH; Flat affect Assessment & Plan Assessment/Plan (1) Abdominal pain: QUALIFIERS: Abdominal location: right upper quadrant Qualified Code(s): R10.11 - Right upper quadrant pain (2) SBO (small bowel obstruction): PLAN: The patient is a 40 gentleman with history of underlying history of traumatic brain injury as well as learning disability brought to the emergency department with nausea and vomiting. Imaging studies obtained on admission demonstrated diffuse dilatation of small bowel with transition point in the right lower quadrant 1. Small bowel obstruction ?Patient has been admitted to regular nursing floor currently being managed conservatively with bowel rest NG tube to suction and consultation placed to general surgery. Patient already seen by Dr. Guzman this a.m. with plans for his NG tube to be discontinued 2. Acute kidney injury ?Managed with IV fluid with subsequent monitoring of electrolyte 3. Seizure disorder ?Discontinue patient antiseizure medication 4. Traumatic brain injury ?Per history 5. DVT prophylaxis ?SC Loveannalisa Charges/Coding Visit Charges Inpatient E&M: 71708 Subs Hosp L3
[2021-11-10 07:43] LABS: Absolute Lymphocyte Count 0.93 X10^3/uL (0.83-4.51); Absolute Neutrophil Count 9.2 X10^3/uL (2.0-7.7); Basophil% 0.9 % (0-1); Eosinophil# 0.06 X10^3/uL; Eosinophils% 0.5 % (0-5); Hematocrit 42.3 % (40-54); Hemoglobin 14.1 g/dL (13.0-16.5); Lymphocyte # 0.93 X10^3/ul (0.83-4.51); Mean Corp Hgb Conc 33.3 g/dL (32-36); Mean Corpuscular Hgb 29.2 pg (27.0-32.0); Mean Corpuscular Volume 87.6 fL (80-94); Mean Platelet Vol. 10.1 fl (6.2-12.0); NRBC Flagged by Analyzer 0 % (0-5); Neutrophil # 9.18 X10^3/uL (2.7-7.7); Neutrophil % 78.4 % (47-70); Platelet Count 338 K/mm3 (150-450); RBC Distribution Width CV 15.2 % (11.6-14.6); RBC Distribution Width SD 49.1 fl (35.1-43.9); Red Blood Count 4.83 M/mm3 (4.6-6.2); White Blood Count 11.7 K/mm3 (4.4-11.0)
--- NOTE | 2021-11-10 07:48 | PCM.PN.SRG ---
Subjective Subjective Patient reports he is feeling much better and having no abdominal pain this morning. Objective Data Objective Data Vital Signs: Vital Signs Temp Pulse Resp BP Pulse Ox 98.4 F 111 H 18 138/82 H 95 11/10/21 02:15 11/10/21 02:15 11/10/21 02:15 11/10/21 02:15 11/10/21 02:15 Oxygen Delivery Method Room Air Weight: 131 lb 13.383 oz Body Mass Index (BMI) 23.6 Intake & Output: Intake and Output for Last 24 Hours 11/08/21 11/09/21 11/10/21 23:59 23:59 23:59 Intake Total 1705 / 1705 1300 / 1300 Output Total 425 / 425 875 / 875 Balance 1280 / 1280 425 / 425 Lab / Micro Data Result Diagrams: 11/10/21 07:35 11/09/21 12:40 Labs: Laboratory Results - last 24 hr 11/09/21 12:40: WBC 17.9 H, RBC 6.11, Hgb 17.8 H, Hct 51.7, MCV 84.6, MCH 29.1, MCHC 34.4, RDW Std Deviation 45.5 H, RDW Coeff of Linette 15.1 H, Plt Count 469 H, MPV 10.5, Immature Gran % (Auto) 0.300, Neut % (Auto) 84.0 H, Lymph % (Auto) 5.5 L, [place] % (Auto) 9.5, Eos % (Auto) 0.1, Baso % (Auto) 0.6, Absolute Neuts (auto) 15.0 H, Absolute Lymphs (auto) 0.98, Nucleated RBC % 0, Diff Path Review March11/09/21 12:40: Sodium 137, Potassium 4.3, Chloride 102, Carbon Dioxide 29.0, Anion Gap 6, BUN 50 H, Creatinine 1.63 H, Estim Creat Clear Calc 48.97, Est GFR (MDRD) Af Amer 61, Est GFR (MDRD) Non-Af 50 L, BUN/Creatinine Ratio 30.7 H, Glucose 152 H, Calcium 9.4, Total Bilirubin 1.10 H, AST 20, ALT 43, Alkaline Phosphatase 108, Total Protein 9.2 H, Albumin 4.2, Globulin 5.0 H, Albumin/Globulin Ratio 0.8 L, Lipase 119 11/09/21 12:40: Lactic Acid 2.3 H* 11/09/21 12:40: Phenytoin 21.5 H 11/09/21 12:40: Phosphorus 3.6, Magnesium 2.4 11/09/21 19:04: Lactic Acid 0.9 11/10/21 07:35: WBC 11.7 H, RBC 4.83, Hgb 14.1, Hct 42.3, MCV 87.6, MCH 29.2, MCHC 33.3, RDW Std Deviation 49.1 H, RDW Coeff of Linette 15.2 H, Plt Count 338, MPV 10.1, Immature Gran % (Auto) 0.200, Neut % (Auto) 78.4 H, Lymph % (Auto) 8.0 L, [place] % (Auto) 12.0 H, Eos % (Auto) 0.5, Baso % (Auto) 0.9, Absolute Neuts (auto) 9.2 H, Absolute Lymphs (auto) 0.93, Nucleated RBC % 0 Micro: Microbiology 11/09/21 12:38 Nasal Secretion SARS-CoV-2 Antigen (Rapid) - Final Radiography Diagnostic Testing: Radiology Impression Chest X-Ray 11/09/21 12:40 IMPRESSION: Hypoinflation without airspace consolidation on current exam. Electronically Signed: Shamir Cerda MD (Brooks) at 12:59 EST , Service support , Abdomen/Pelvis CT 11/09/21 13:35 IMPRESSION: 1. Diffuse dilation of small bowel with transition point in the right lower quadrant (image 54 series 601). High-grade partial or early complete bowel obstruction. 2. Relative wall thickening (approximately 10 cm in length) and adjacent fascial thickening of the terminal ileum best seen on image 54 of series 601 suggests possibility of inflammatory bowel disease or infectious enteritis. Electronically Signed: Shamir Cerda MD (Brooks) at 13:52 EST , Service support , KUB X-Ray 11/09/21 14:40 IMPRESSION: Esophagogastric tube extends to the stomach. Small bowel obstruction. Electronically Signed: Shamir Cerda MD (Brooks) at 14:51 EST , Service support , Physical Exam Const oriented x3 and no apparent distress Resp normal respiratory effort Cardio regular rate GI soft to palpation and non-tender Assessment & Plan Assessment/Plan (1) SBO (small bowel obstruction): PLAN: The patient is feeling better this morning and reports no abdominal pain. His NG only put for her out overnight and it appears clear bilious. Due to the fact that he requires restraints to have his NG in place and the fact that he has had minimal output I would be in favor of removing the NG tube and replacing if necessary. Await bowel function before starting a diet. Await GI input as I believe that patient may benefit from steroid treatment. Aashish Guzman MD Pager: [facility] [address] [place] [address] [address] [place] [address] Office:
[2021-11-10 08:05] LABS: Hemoglobin A1c 4.7 % (3.8-5.6)
[2021-11-10 08:13] LABS: ALB/GLOB Ratio 0.7 RATIO (0.9-2.4); AST(SGOT) 13 U/L (15-37); Alanine Aminotransfer ALT/SGPT 29 U/L (16-61); Albumin, Serum 2.7 g/dL (3.2-5.0); Alkaline Phosphatase 69 U/L (45-117); Anion Gap 4 (5-15); BUN 21 mg/dL (7-18); Calcium,Total 7.6 mg/dL (8.5-10.1); Chloride 113 mmol/L (98-107); Creatinine, Serum 0.81 mg/dL (0.70-1.30); EST Glomerular Filtration Rate 113 mL/min (>60); Est Glom Filt Rate - Afr Amer 136 mL/min (>60); Estimated Creatinine Clearance 94.56 ml/min; Globulin 3.8 g/dL (2.2-4.2); Glucose 115 mg/dL (74-106); Protein, Total 6.5 g/dL (6.4-8.2); Sodium Level 144 mmol/L (136-145)
[2021-11-10 08:57] VITALS: BP 119/69; PULSE 109; RESP 18; TEMP 36.7; O2SAT 95
[2021-11-10 09:07] VITALS: O2SAT 95
[2021-11-10] MEDS: Famotidine 200 MG/20 ML MDV 20 MG in 0.9% Normal Saline (Pres. free 8 ML 300 MG IV ×2 (10:03→21:42)
--- NOTE | 2021-11-10 11:25 | CASEMGMT ---
RN CM Face to Face with patient for initial transition planning/care coordination assessment. RN CM introduced self and role at [facility]. Patient lying in bed, alert and oriented, mother at bedside. Mother willing to participate in assessment and is able to answer all questions appropriately. Care providers, pharmacy, and demographics verified. Patient and mother wish for patient to discharge home, denies need for home health at this time. Mother states she has no further needs or concerns at this time. CM to follow for discharge planning needs that may arise. PCP: Vee Specialists: Rubi neurologalejandra Flowers Pharmacy: [facility] Insurance: [employer] Prescription Benefit: yes Living Will/HPOA: father is legal guardian LNOK: mother and father Living Arrangements: Patient lives in a longterm M-F and stays with parents on the weekend. Patient will be going to parents at discharge, which is a single story home with 1 step to enter. Parents assist patient with care. Transportation: parents DME/HHC: Patient has wheelchair, walkers, grab bars, and shower chair. No previous HHC or SNF Disposition Plan: Patient to discharge home with family support and follow-up plans in place. Teagan SADLER, RN, CM
[2021-11-10] MEDS: clonazePAM 0.5 MG Tablet PO (14:04)
--- NOTE | 2021-11-10 14:28 | CHAPLAIN ---
Type of Pastoral Visit _x__ Initial Visit ___ Follow-up Visit ___ On-call Visit ___ General Patient Visit ___ Spiritual Assessment ___ Family Conference ___ Bereavement ___ Rapid Response ___ Code Blue ___ Other (describe below) Pastoral Care Referral From ___ Patient _x__ Family ___ Nurse ___ Physician ___ Vice President Of Engineering ___ Chop Saw Operator ___ Other (describe below) Sacrament/Intervention _x__ Active listening ___ Anointing ___ Religion ___ Bereavement ___ Communion ___ Laura exploration ___ ___ Life review ___ Prayer ___ Reconciliation ___ Sacrament of Sick ___ Supportive presence ___ Wedding ___ Other (describe below) Pastoral Comments mother of patient is at bedside; both report improvement and hope for no surgery
[2021-11-10 14:30] VITALS: BP 113/86; PULSE 102; RESP 18; TEMP 37.2; O2SAT 93
[2021-11-10] MEDS: ChlorproMAZINE 50 MG/2 ML Ampul IM (14:37)
[2021-11-10 19:51] LABS: Bacteria 0 SEEN /hpf (None Seen); Mucous, Urine 0 SEEN /hpf (<or=2+); Red Blood Cells-Urine 0 SEEN /hpf (0-5); Squamous Epithelial Cells - UA 0 SEEN /hpf (0-5); White Blood Cells 0 SEEN /hpf (0-5)
[2021-11-10 19:52] LABS: Color, Urine Yellow (Yellow); Glucose, Dipstick Normal (Normal); Ketone-Dipstick 50 mg/dl (Negative); Leukocyte Esterase-Dipstick Negative /ul (Negative); Nitrite-Dipstick Negative (Negative); Occult Blood-Urine 50 /ul (Negative); Protein-Dipstick 30 mg/dl (Negative); Urine Bilirubin Dipstick Negative (Negative); Urine Clarity Clear (Clear); Urine Urobilinogen 1 mg/dl (Normal); Urine pH 6.5 (5.0 - 8.0)
[2021-11-10 21:25] VITALS: BP 127/87; PULSE 126; RESP 18; TEMP 36.9; O2SAT 96
[2021-11-10] MEDS: Lacosamide 100 MG Tablet 200 MG PO (21:42)
[2021-11-10] MEDS: clonazePAM 1 MG Tablet PO (21:42)
[2021-11-10] MEDS: Phenytoin Na 100 MG Capsule PO (21:42)
[2021-11-11] MEDS: 0.9% Normal Saline 1,000 ML 125 ML IV ×4 (00:50→23:04)
[2021-11-11 04:02] VITALS: BP 131/84; PULSE 125; RESP 18; TEMP 37.1; O2SAT 95
[2021-11-11] MEDS: Piperacil/Tazobactam 3.375 GM/50 ML ML IV ×3 (05:06→21:00)
[2021-11-11 06:02] LABS: Absolute Neutrophil Count 7.7 X10^3/uL (2.0-7.7); Basophil# 0.09 X10^3/uL; Basophil% 0.9 % (0-1); Eosinophil# 0.19 X10^3/uL; Eosinophils% 1.8 % (0-5); Hematocrit 38.6 % (40-54); Hemoglobin 12.8 g/dL (13.0-16.5); Lymphocyte % 10.6 % (19-41); Mean Corp Hgb Conc 33.2 g/dL (32-36); Mean Corpuscular Hgb 29.1 pg (27.0-32.0); Mean Corpuscular Volume 87.7 fL (80-94); Mean Platelet Vol. 10.4 fl (6.2-12.0); Monocyte# 1.28 X10^3/uL; Monocyte% 12.4 % (0-10); NRBC Flagged by Analyzer 0 % (0-5); Neutrophil # 7.65 X10^3/uL (2.7-7.7); Platelet Count 320 K/mm3 (150-450); RBC Distribution Width CV 15.1 % (11.6-14.6); RBC Distribution Width SD 49.1 fl (35.1-43.9); White Blood Count 10.3 K/mm3 (4.4-11.0)
[2021-11-11 06:15] LABS: Anion Gap 6 (5-15); BUN 8 mg/dL (7-18); Calcium,Total 7.5 mg/dL (8.5-10.1); Chloride 111 mmol/L (98-107); Creatinine, Serum 0.67 mg/dL (0.70-1.30); EST Glomerular Filtration Rate 140 mL/min (>60); Est Glom Filt Rate - Afr Amer 170 mL/min (>60); Estimated Creatinine Clearance 114.32 ml/min; Glucose 94 mg/dL (74-106); Potassium 3.8 mmol/L (3.5-5.1); Sodium Level 141 mmol/L (136-145)
--- NOTE | 2021-11-11 07:42 | PN.HOSP_ITS ---
Subjective Subjective Patient seen patient is in a good mood. He is tolerating clear liquids. He is also having bowel movement. Objective Data Objective Data Vital Signs: Vital Signs Temp Pulse Resp BP Pulse Ox 98.7 F 125 H 18 131/84 H 95 11/11/21 04:02 11/11/21 04:02 11/11/21 04:02 11/11/21 04:02 11/11/21 04:02 Oxygen Delivery Method Room Air Weight: 62.641 kg Body Mass Index (BMI) 23.6 Intake & Output: Intake and Output for Last 24 Hours 11/09/21 11/10/21 11/11/21 23:59 23:59 23:59 Intake Total 1705 / 1705 3490 / 3490 1368.75 / 1368.75 Output Total 425 / 425 1200 / 1200 500 / 500 Balance 1280 / 1280 2290 / 2290 868.75 / 868.75 Lab / Micro Data Result Diagrams: 11/11/21 05:20 11/11/21 05:20 Labs: Laboratory Results - last 24 hr 11/10/21 07:35: WBC 11.7 H, RBC 4.83, Hgb 14.1, Hct 42.3, MCV 87.6, MCH 29.2, MCHC 33.3, RDW Std Deviation 49.1 H, RDW Coeff of Linette 15.2 H, Plt Count 338, MPV 10.1, Immature Gran % (Auto) 0.200, Neut % (Auto) 78.4 H, Lymph % (Auto) 8.0 L, [place] % (Auto) 12.0 H, Eos % (Auto) 0.5, Baso % (Auto) 0.9, Absolute Neuts (auto) 9.2 H, Absolute Lymphs (auto) 0.93, Nucleated RBC % 0 11/10/21 07:35: Sodium 144, Potassium 4.0, Chloride 113 H, Carbon Dioxide 27.0, Anion Gap 4 L, BUN 21 H, Creatinine 0.81, Estim Creat Clear Calc 94.56, Est GFR (MDRD) Af Amer 136, Est GFR (MDRD) Non-Af 113, BUN/Creatinine Ratio 26.0 H, Glu cose 115 H, Calcium 7.6 L, Total Bilirubin 0.80, AST 13 L, ALT 29, Alkaline Phosphatase 69, Total Protein 6.5, Albumin 2.7 L, Globulin 3.8, Albumin/Globulin Ratio 0.7 L 11/10/21 07:35: Hemoglobin A1c 4.7 11/10/21 19:05: Urine Color Yellow, Urine Clarity Clear, Urine pH 6.5, Ur Specific [place] 1.010, Urine Protein 30 H, Urine Glucose (UA) Normal, Urine Ketones 50 H, Urine Occult Blood 50 H, Urine Nitrite Negative, Urine Bilirubin Negative, Urine Urobilinogen 1 H, Ur Leukocyte Esterase Negative, Urine RBC 0 SEEN, Urine WBC 0 SEEN, Ur Squamous Epith Cells 0 SEEN, Urine Bacteria 0 SEEN, Urine Mucus 0 SEEN 11/11/21 05:20: WBC 10.3, RBC 4.40 L, Hgb 12.8 L, Hct 38.6 L, MCV 87.7, MCH 29.1, MCHC 33.2, RDW Std Deviation 49.1 H, RDW Coeff of Linette 15.1 H, Plt Count 320, MPV 10.4, Immature Gran % (Auto) 0.300, Neut % (Auto) 74.0 H, Lymph % (Auto) 10.6 L, [place] % (Auto) 12.4 H, Eos % (Auto) 1.8, Baso % (Auto) 0.9, Absolute Neuts (auto) 7.7, Absolute Lymphs (auto) 1.10, Nucleated RBC % 0 11/11/21 05:20: Sodium 141, Potassium 3.8, Chloride 111 H, Carbon Dioxide 24.0, Anion Gap 6, BUN 8, Creatinine 0.67 L, Estim Creat Clear Calc 114.32, Est GFR (MDRD) Af Amer 170, Est GFR (MDRD) Non-Af 140, BUN/Creatinine Ratio 12.0, Glucose 94, Calcium 7.5 L Micro: Microbiology 11/09/21 12:38 Nasal Secretion SARS-CoV-2 Antigen (Rapid) - Final Radiography Diagnostic Testing: Radiology Impression KUB X-Ray 11/10/21 05:55 IMPRESSION: Persistent small bowel obstruction although there has been improvement as compared to prior study. Electronically Signed: Luan Jimenez MD at 9:20 EST , Service support , ADDENDUM: 11/10/21 1437 IMPRESSION: Persistent small bowel obstruction although there has been improvement as compared to prior study. Electronically Signed: Luan Jimenez MD at 9:20 EST , Service support , Physical Exam Narrative GENERAL: cooperative HEENT: NG tube in place EYES; Anicteric, Normal Conjunctiva NECK; supple, normal thyroid, RESPIRATORY: Diminished to auscultation CARDIOVASCULAR: Regular S1 S2, GI: Soft, nondistended : No Renal angle tenderness; EXTREMITIES: No edema, no clubbing, MUSCULOSKELETAL: no muscle waisting NEURO: Awake; no lateralizing signs. SKIN: No Rash PSYCH; Flat affect Assessment & Plan Assessment/Plan (1) Abdominal pain: QUALIFIERS: Abdominal location: right upper quadrant Qualified Code(s): R10.11 - Right upper quadrant pain (2) SBO (small bowel obstruction): PLAN: The patient is a 40 gentleman with history of underlying history of traumatic brain injury as well as learning disability brought to the emergency department with nausea and vomiting. Imaging studies obtained on admission demonstrated diffuse dilatation of small bowel with transition point in the right lower quadrant 1. Small bowel obstruction ?Patient has been admitted to regular nursing floor currently being managed conservatively with bowel rest NG tube to suction and consultation placed to general surgery. Patient already seen by Dr. Guzman this a.m. with plans for his NG tube to be discontinued -11/11/2021; patient small bowel obstruction resolved 2. Terminal ileum thickening ?? Inflammatory bowel disease. Consult placed to GI 3. Acute kidney injury ?Managed with IV fluid with subsequent monitoring of electrolyte ?11/11/2021 KAYY resolved 4. Seizure disorder ?Discontinue patient antiseizure medication 5. Traumatic brain injury ?Per history 6. DVT prophylaxis ?SC Lovenox Charges/Coding Visit Charges Inpatient E&M: 52124 Subs Hosp L2
[2021-11-11] MEDS: Phenytoin Na 100 MG Capsule PO ×2 (08:21→17:31)
--- NOTE | 2021-11-11 08:31 | PN.SURG_ITS ---
Subjective Subjective Patient seen and examined during AM rounds. He is attended by 2 nurses as he is being changed from a bowel movement. He states that he is doing good after his bowel movement. Objective Data Objective Data Vital Signs: Vital Signs Temp Pulse Resp BP Pulse Ox 98.7 F 125 H 18 131/84 H 95 11/11/21 04:02 11/11/21 04:02 11/11/21 04:02 11/11/21 04:02 11/11/21 04:02 Oxygen Delivery Method Room Air Weight: 138 lb 1.6 oz Body Mass Index (BMI) 23.6 Intake & Output: Intake and Output for Last 24 Hours 11/09/21 11/10/21 11/11/21 23:59 23:59 23:59 Intake Total 1705 / 1705 3490 / 3490 1368.75 / 1368.75 Output Total 425 / 425 1200 / 1200 500 / 500 Balance 1280 / 1280 2290 / 2290 868.75 / 868.75 Lab / Micro Data Result Diagrams: 11/11/21 05:20 11/11/21 05:20 Labs: Laboratory Results - last 24 hr 11/10/21 19:05: Urine Color Yellow, Urine Clarity Clear, Urine pH 6.5, Ur Specific [place] 1.010, Urine Protein 30 H, Urine Glucose (UA) Normal, Urine Ketones 50 H, Urine Occult Blood 50 H, Urine Nitrite Negative, Urine Bilirubin Negative, Urine Urobilinogen 1 H, Ur Leukocyte Esterase Negative, Urine RBC 0 SEEN, Urine WBC 0 SEEN, Ur Squamous Epith Cells 0 SEEN, Urine Bacteria 0 SEEN, Urine Mucus 0 SEEN 11/11/21 05:20: WBC 10.3, RBC 4.40 L, Hgb 12.8 L, Hct 38.6 L, MCV 87.7, MCH 29.1, MCHC 33.2, RDW Std Deviation 49.1 H, RDW Coeff of Linette 15.1 H, Plt Count 320, MPV 10.4, Immature Gran % (Auto) 0.300, Neut % (Auto) 74.0 H, Lymph % (Auto) 10.6 L, [place] % (Auto) 12.4 H, Eos % (Auto) 1.8, Baso % (Auto) 0.9, Absolute Neuts (auto) 7.7, Absolute Lymphs (auto) 1.10, Nucleated RBC % 0 12/17/21 05:20: Sodium 141, Potassium 3.8, Chloride 111 H, Carbon Dioxide 24.0, Anion Gap 6, BUN 8, Creatinine 0.67 L, Estim Creat Clear Calc 114.32, Est GFR (MDRD) Af Amer 170, Est GFR (MDRD) Non-Af 140, BUN/Creatinine Ratio 12.0, Glucose 94, Calcium 7.5 L Micro: Microbiology 11/09/21 12:38 Nasal Secretion SARS-CoV-2 Antigen (Rapid) - Final Radiography Diagnostic Testing: Radiology Impression KUB X-Ray 11/10/21 05:55 IMPRESSION: Persistent small bowel obstruction although there has been improvement as compared to prior study. Electronically Signed: Luan Jimenez MD at 9:20 EST , Service support , ADDENDUM: 11/10/21 1437 IMPRESSION: Persistent small bowel obstruction although there has been improvement as compared to prior study. Electronically Signed: Luan Jimenez MD at 9:20 EST , Service support , Physical Exam Const no apparent distress Resp normal respiratory effort GI GI Narrative: Mild abdominal distention. Nontender to palpation x4 quadrants Assessment & Plan Assessment/Plan (1) SBO (small bowel obstruction): PLAN: This is a 40-year-old male with no antecedent surgical history who presented 2 days ago with signs and symptoms of a small bowel obstruction with evidence of a transition point in the ileum. Imaging was concerning for findings possibly consistent with inflammatory bowel disease. Patient has experienced return of bowel function and is symptomatically improved. GI consultation is made and awaiting further recs. At this time, there is no indication for emergent surgical intervention. Recommend awaiting GI eval uation. Okay to continue clear liquid diet from surgical standpoint. Charges/Coding Visit Charges Inpatient E&M: 34651 Subs Hosp L2
[2021-11-11] MEDS: Lacosamide 100 MG Tablet 200 MG PO ×2 (09:28→21:01)
[2021-11-11 09:35] VITALS: BP 122/78; PULSE 119; RESP 16; TEMP 37; O2SAT 96
[2021-11-11 09:43] VITALS: O2SAT 97
[2021-11-11 09:48] LABS: Pathologist Review Reviewed
[2021-11-11] MEDS: Famotidine 200 MG/20 ML MDV 20 MG in 0.9% Normal Saline (Pres. free 8 ML 300 MG IV ×2 (09:52→21:00)
[2021-11-11] MEDS: 0.9% Saline Lock 10 ML Syringe IV ×3 (09:53→18:07)
[2021-11-11] MEDS: Ensure Clear 120 ML Liquid PO ×2 (14:22→17:31)
[2021-11-11] MEDS: clonazePAM 0.5 MG Tablet PO (14:25)
[2021-11-11 14:43] VITALS: BP 122/85; PULSE 98; RESP 16; TEMP 36.3; O2SAT 97
--- NOTE | 2021-11-11 19:39 | CON.PCM.GI_ITS ---
HPI Consult Data Date of Consult: 11/11/21 HPI Narrative HPI Narrative: SHEN WILLIAM, is a 40 M who presents to the emergency room 2-1/2 days ago with worsening abdominal pain and vomiting that started 4 days prior to coming to the hospital. 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 He also has a history of chronic idiopathic constipation. In the ED after vomiting multiple times a CT scan abdomen pelvis was ordered. It showed small bowel obstruction at the level of the terminal ileum. NG tube was placed and he was started on antibiotics as well as steroid therapy for suspected Crohn's disease. He started having liquid bowel movements yesterday. He has been on liquids. I was consulted for possible Crohn's disease. All of history obtained from the patient's mother and father were at the bedside as patient cannot give history. [facility] Medical History (Updated 11/09/21 @ 14:[address] Aashish Guzman MD) Deafness in left ear GERD (gastroesophageal reflux disease) Seizure Traumatic brain injury Home Medications Vimpat 200 mg PO BID #60 tab 05/23/16 [Rx Last Taken 11/09/21] clonazepam 1 mg PO QHS 05/23/16 [History Last Taken 11/08/21] phenytoin [Dilantin Infatabs] 75 mg PO DAILY 05/23/16 [History Last Taken 1 01/10/21] phenytoin sodium extended 150 mg PO QHS 05/23/16 [History Last Taken 11/08/21] clonazepam [Klonopin] 0.5 mg PO 1500 04/02/21 [History Last Taken 11/08/21] Allergy/AdvReac Type Severity Reaction Status Date / Time No Known Allergies Allergy Verified 11/09/21 12:12 Family History (Updated 11/09/21 @ 15:[address] Ghada Youngblood MD) Grandmother Cancer Diabetes Hypertension Heart disease Grandfather Cancer Diabetes Hypertension Heart disease Family History other Surgical History (Updated 11/09/21 @ 15:[address] Ghada Youngblood MD) History of arthrodesis S/P bilateral foot surgery Social History (Updated 11/09/21 @ 15:[address] Ghada Youngblood MD) housing: other details: care home. Smoking Status: Never smoker alcohol intake: never substance use type: does not use ROS ROS Narrative Unable to obtain Physical Exam Const alert General Appearance: cooperative Orientation / Consciousness: oriented to person HEENT hearing grossly normal bilaterally Head and Scalp: normal to inspection Face and Sinus: face symmetric Nose: external nose normal Mouth: oral and palatal mucosa normal Eyes conjunctivae normal General Eye: normal appearance of both eyes Neck full ROM General: normal visual inspection Lymph Lymphatic: no lymphadenopathy noted Chest inspection of chest normal and palpation of chest normal Chest: symmetrical chest wall rise Resp normal respiratory effort Effort and Inspection: able to speak in complete sentences Cardio regular rate GI non-distended Percussion: normal to percussion Rectal Exam: deferred Neuro Speech: speech normal Gait (Neuro): normal gait Lab / Micro Data Result Diagrams: 11/11/21 05:20 11/11/21 05:20 Labs: Laboratory Results - last 24 hr 11/09/21 12:40: Diff Path Review Reviewed 11/10/21 19:05: Urine Color Yellow, Urine Clarity Clear, Urine pH 6.5, Ur Specific [place] 1.010, Urine Protein 30 H, Urine Glucose (UA) Normal, Urine Ketones 50 H, Urine Occult Blood 50 H, Urine Nitrite Negative, Urine Bilirubin Negative, Urine Urobilinogen 1 H, Ur Leukocyte Esterase Negative, Urine RBC 0 SEEN, Urine WBC 0 SEEN, Ur Squamous Epith Cells 0 SEEN, Urine Bacteria 0 SEEN, Urine Mucus 0 SEEN 11/11/21 05:20: WBC 10.3, RBC 4.40 L, Hgb 12.8 L, Hct 38.6 L, MCV 87.7, MCH 29.1, MCHC 33.2, RDW Std Deviation 49.1 H, RDW Coeff of Linette 15.1 H, Plt Count 320, MPV 10.4, Immature Gran % (Auto) 0.300, Neut % (Auto) 74.0 H, Lymph % (Auto) 10.6 L, [place] % (Auto) 12.4 H, Eos % (Auto) 1.8, Baso % (Auto) 0.9, Absolute Neuts (auto) 7.7, Absolute Lymphs (auto) 1.10, Nucleated RBC % 0 11/11/21 05:20: Sodium 141, Potassium 3.8, Chloride 111 H, Carbon Dioxide 24.0, Anion Gap 6, BUN 8, Creatinine 0.67 L, Estim Creat Clear Calc 114.32, Est GFR (MDRD) Af Amer 170, Est GFR (MDRD) Non-Af 140, BUN/Creatinine Ratio 12.0, Glucose 94, Calcium 7.5 L Assessment & Plan Assessment/Plan (1) SBO (small bowel obstruction): PLAN: Location is suspicious for inflammatory versus fibrous stenotic Crohn's disease and not fistulizing Crohn's disease. He is responded to deco mpression with NG tube along with antibiotic and steroid therapy. I went over the possible diagnosis of Crohn's disease and how he would get the diagnosis. His mother and father not comfortable with him undergoing any procedures at this time due to his history of traumatic brain injury. I told him it would be okay for them to talk to his neurologist to see if they would be comfortable with him undergoing an endoscopic procedure. At this time he is currently being treated for inflammatory Crohn's disease. Also the differential diagnosis with a history of traumatic brain injury and seizure disorder would be Behcet's syndrome and medication induced fiber stenotic disease or inflammatory disease of the terminal ileum. He does not shown any signs of intussusception or volvulus formation. I would recommend to get inflammatory markers, fecal lactoferrin and LDH along with ANCA antibodies. I would recommend continue steroids at this time and antibiotics and if he transitions to home then he should continue that course until he is followed up as an outpatient. Charges/Coding Visit Charges Inpatient E&M: 21956 Init Hosp L3
[2021-11-11 20:44] VITALS: BP 153/91; PULSE 110; RESP 16; TEMP 37.3; O2SAT 95
[2021-11-11] MEDS: clonazePAM 1 MG Tablet PO (21:01)
[2021-11-12 02:40] VITALS: BP 145/95; PULSE 109; RESP 14; TEMP 37.2; O2SAT 95
[2021-11-12] MEDS: Piperacil/Tazobactam 3.375 GM/50 ML ML IV ×3 (05:11→21:02)
[2021-11-12] MEDS: 0.9% Normal Saline 1,000 ML 125 ML IV ×3 (07:06→22:06)
[2021-11-12 07:32] LABS: Absolute Lymphocyte Count 1.25 X10^3/uL (0.83-4.51); Absolute Neutrophil Count 6.8 X10^3/uL (2.0-7.7); Eosinophil# 0.26 X10^3/uL; Eosinophils% 2.7 % (0-5); Hematocrit 36.5 % (40-54); Hemoglobin 12.5 g/dL (13.0-16.5); Lymphocyte # 1.25 X10^3/ul (0.83-4.51); Lymphocyte % 12.7 % (19-41); Mean Corp Hgb Conc 34.2 g/dL (32-36); Mean Corpuscular Hgb 29.3 pg (27.0-32.0); Mean Corpuscular Volume 85.7 fL (80-94); Mean Platelet Vol. 10.8 fl (6.2-12.0); Monocyte% 14.3 % (0-10); NRBC Flagged by Analyzer 0 % (0-5); Neutrophil # 6.76 X10^3/uL (2.7-7.7); Neutrophil % 68.9 % (47-70); Platelet Count 315 K/mm3 (150-450); RBC Distribution Width CV 14.6 % (11.6-14.6); RBC Distribution Width SD 45.9 fl (35.1-43.9); Red Blood Count 4.26 M/mm3 (4.6-6.2); White Blood Count 9.8 K/mm3 (4.4-11.0)
--- NOTE | 2021-11-12 07:49 | PN.HOSP_ITS ---
Subjective Subjective Patient small bowel obstruction resolved. Patient was seen by Dr. Garcia with GI and recommended for patient to undergo endoscopic evaluation. Patient's family agreeable as of this a.m. to proceed with any endoscopic evaluation management indicated Objective Data Objective Data Vital Signs: Vital Signs Temp Pulse Resp BP Pulse Ox 98.9 F 109 H 14 145/95 H 95 11/12/21 02:40 11/12/21 02:40 11/12/21 02:40 11/12/21 02:40 11/12/21 02:40 Oxygen Flow Rate (L/min) 12 Oxygen Delivery Method Room Air Weight: 62.5 kg Body Mass Index (BMI) 23.6 Intake & Output: Intake and Output for Last 24 Hours 11/10/21 11/11/21 11/12/21 23:59 23:59 23:59 Intake Total 3490 / 3490 4188.75 / 4188.75 1050 / 1050 Output Total 1200 / 1200 1600 / 1600 Balance 2290 / 2290 2588.75 / 2588.75 1050 / 1050 Lab / Micro Data Result Diagrams: 11/12/21 06:36 11/12/21 06:36 Labs: Laboratory Results - last 24 hr 11/09/21 12:40: Diff Path Review Reviewed 11/12/21 06:36: WBC 9.8, RBC 4.26 L, Hgb 12.5 L, Hct 36.5 L, MCV 85.7, MCH 29.3, MCHC 34.2, RDW Std Deviation 45.9 H, RDW Coeff of Linette 14.6, Plt Count 315, MPV 10.8, Immature Gran % (Auto) 0.400, Neut % (Auto) 68.9, Lymph % (Auto) 12.7 L, [place] % (Auto) 14.3 H, Eos % (Auto) 2.7, Baso % (Auto) 1.0, Absolute Neuts (auto) 6.8, Absolute Lymphs (auto) 1.25, Nucleated RBC % 0 Micro: Microbiology 11/09/21 12:38 Nasal Secretion SARS-CoV-2 Antigen (Rapid) - Final Physical Exam Narrative GENERAL: cooperative HEENT: NG tube in place EYES; Anicteric, Normal Conjunctiva NECK; supple, normal thyroid, RESPIRATORY: Diminished to auscultation CARDIOVASCULAR: Regular S1 S2, GI: Soft, nondistended : No Renal angle tenderness; EXTREMITIES: No edema, no clubbing, MUSCULOSKELETAL: no muscle waisting NEURO: Awake; no lateralizing signs. SKIN: No Rash PSYCH; Flat affect Assessment & Plan Assessment/Plan (1) Abdominal pain: QUALIFIERS: Abdominal location: right upper quadrant Qualified Code(s): R10.11 - Right upper quadrant pain (2) SBO (small bowel obstruction): PLAN: The patient is a 40 gentleman with history of underlying history of traumatic brain injury as well as learning disability brought to the emergency department with nausea and vomiting. Imaging studies obtained on admission demonstrated diffuse dilatation of small bowel with transition point in the r ight lower quadrant 1. Small bowel obstruction ?Patient has been admitted to regular nursing floor currently being managed conservatively with bowel rest NG tube to suction and consultation placed to general surgery. Patient already seen by Dr. Guzman this a.m. with plans for his NG tube to be discontinued -11/11/2021; patient small bowel obstruction resolved ?11/12/2021; patient small bowel obstruction resolved currently tolerating clear liquids. 2. Terminal ileum thickening ?? Inflammatory bowel disease. Consult placed to GI -11/12/2021; P Patient was seen by Dr. Garcia with GI and recommended for patient to undergo endoscopic evaluation. Patient's family agreeable as of this a.m. to proceed with any endoscopic evaluation management indicated 3. Acute kidney injury ?Managed with IV fluid with subsequent monitoring of electrolyte ?11/11/2021 KAYY resolved 4. Seizure disorder ?Did continue patient antiseizure medication 5. Traumatic brain injury ?Per history 6. DVT prophylaxis ?[place] Lovenox Charges/Coding Visit Charges Inpatient E&M: 84526 Subs Hosp L2
[2021-11-12 07:51] VITALS: O2SAT 95
[2021-11-12 07:55] LABS: Anion Gap 8 (5-15); BUN 4 mg/dL (7-18); Calcium,Total 7.9 mg/dL (8.5-10.1); Chloride 106 mmol/L (98-107); Creatinine, Serum 0.57 mg/dL (0.70-1.30); EST Glomerular Filtration Rate 168 mL/min (>60); Est Glom Filt Rate - Afr Amer 204 mL/min (>60); Estimated Creatinine Clearance 134.37 ml/min; Glucose 95 mg/dL (74-106); Potassium 3.6 mmol/L (3.5-5.1); Sodium Level 138 mmol/L (136-145)
[2021-11-12] MEDS: Phenytoin Na 100 MG Capsule PO ×2 (08:51→17:14)
--- NOTE | 2021-11-12 08:52 | PN.SURG_ITS ---
Subjective Subjective Patient seen and examined at bedside. He is sitting upright in his bed drawing a picture of monsters. He states that he is doing good. He is still having bowel movements. He denies any abdominal pain. According to the chart, he was seen by gastroenterology yesterday and a diagnostic work-up was discussed with family, but they are reluctant to pursue endoscopy in the immediate future. Objective Data Objective Data Vital Signs: Vital Signs Temp Pulse Resp BP Pulse Ox 98.9 F 109 H 14 145/95 H 95 11/12/21 02:40 11/12/21 02:40 11/12/21 02:40 11/12/21 02:40 11/12/21 07:51 Oxygen Flow Rate (L/min) 12 Oxygen Delivery Method Room Air Weight: 137 lb 12.623 oz Body Mass Index (BMI) 23.6 Intake & Output: Intake and Output for Last 24 Hours 11/10/21 11/11/21 11/12/21 23:59 23:59 23:59 Intake Total 3490 / 3490 4188.75 / 4188.75 1050 / 1050 Output Total 1200 / 1200 1600 / 1600 Balance 2290 / 2290 2588.75 / 2588.75 1050 / 1050 Lab / Micro Data Result Diagrams: 11/12/21 06:36 11/12/21 06:36 Labs: Laboratory Results - last 24 hr 11/09/21 12:40: Diff Path Review Reviewed 11/12/21 06:36: WBC 9.8, RBC 4.26 L, Hgb 12.5 L, Hct 36.5 L, MCV 85.7, MCH 29.3, MCHC 34.2, RDW Std Deviation 45.9 H, RDW Coeff of Linette 14.6, Plt Count 315, MPV 10.8, Immature Gran % (Auto) 0.400, Neut % (Auto) 68.9, Lymph % (Auto) 12.7 L, [place] % (Auto) 14.3 H, Eos % (Auto) 2.7, Baso % (Auto) 1.0, Absolute Neuts (auto) 6.8, Absolute Lymphs (auto) 1.25, Nucleated RBC % 0 11/12/21 06:36: Sodium 138, Potassium 3.6, Chloride 106, Carbon Dioxide 24.0, Anion Gap 8, BUN 4 L, Creatinine 0.57 L, Estim Creat Clear Calc 134.37, Est GFR (MDRD) Af Amer 204, Est GFR (MDRD) Non-Af 168, BUN/Creatinine Ratio 7.0 L, Glucose 95, Calcium 7.9 L Micro: Microbiology 11/09/21 12:38 Nasal Secretion SARS-CoV-2 Antigen (Rapid) - Final Physical Exam Const no apparent distress Resp normal respiratory effort GI GI Narrative: Mildly distended. Soft, nontender to palpation x4 quadrants Assessment & Plan Assessment/Plan (1) SBO (small bowel obstruction): PLAN: This is a 40-year-old male with no antecedent surgical history who presented 3 days ago with signs and symptoms of a small bowel obstruction with evidence of a transition point in the ileum. Imaging was concerning for findings possibly consistent with inflammatory bowel disease. GI concurs with this evaluation. Patient currently on empiric therapy for inflammatory Crohn's with steroids. Continues to have bowel function and tolerated diet. No indication for emergent surgical intervention. GI requests outpatient follow-up for further diagnostic work-up once patient is discharged. Surgery to sign off at this time but remains available should a need arise. Charges/Coding Visit Charges Inpatient E&M: 93398 Subs Hosp L2
[2021-11-12 08:58] VITALS: BP 136/91; PULSE 124; RESP 16; TEMP 36.3; O2SAT 95
[2021-11-12] MEDS: Ensure Clear 120 ML Liquid PO ×2 (09:52→17:14)
[2021-11-12] MEDS: Lacosamide 100 MG Tablet 200 MG PO ×2 (09:55→22:11)
[2021-11-12] MEDS: Famotidine 20 MG Tablet PO ×2 (11:20→22:11)
[2021-11-12 11:41] VITALS: BP 136/84; PULSE 125; RESP 16; TEMP 36.4; O2SAT 96
[2021-11-12] MEDS: clonazePAM 0.5 MG Tablet PO (16:21)
[2021-11-12] MEDS: Magnesium Citrate 300 ML PO (19:47)
[2021-11-12 20:11] VITALS: BP 142/101; PULSE 112; RESP 18; TEMP 37.3; O2SAT 96
[2021-11-12] MEDS: Ondansetron 4 MG/2 ML Vial IV (20:48)
[2021-11-12] MEDS: 0.9% Saline Lock 10 ML Syringe IV (20:50)
--- NOTE | 2021-11-12 22:36 | NURSING ---
Per Dr Garcia's orders, first SSE given at this time, pt able to tolerate 500cc of enema due to poor comprehension of procedure. Pt held enema for about 5 minutes, then assisted to bsc with EARNEST Sotelo. Pt had moderate amount liquid brown output.
--- NOTE | 2021-11-12 23:30 | NURSING ---
500cc of SSE tolerated by pt at this time.
[2021-11-13] VITALS (11 sets, daily range): BP systolic 102–135; BP diastolic 34–90; PULSE 86–106; RESP 16–18; TEMP 36–37.2; O2SAT 94–100; BMI 24.8
--- NOTE | 2021-11-13 03:30 | NURSING ---
Pt given third SSE this shift. Pt able to hold 500cc of fluid due to comprehension of procedure.
--- NOTE | 2021-11-13 04:45 | NURSING ---
This RN entered room due to pt's oxygen not reading at the nurse's station. Pt frustrated stated he is leaving now. Pt removed peripheral IV himself, and stormed out of his pt room and to the nurse's station. Pt yelling at the nurse's station, wanting to leave. Dr Carrasquillo present on floor, speaking to pt about refusing treatment.
--- NOTE | 2021-11-13 05:00 | EKG12_ITS ---
Test Reason : AM EKG Blood Pressure : / mmHG Vent. Rate : 104 BPM Atrial Rate : 104 BPM P-R Int : 134 ms QRS Dur : 090 ms QT Int : 334 ms P-R-T Axes : 020 036 021 degrees QTc Int : 439 ms Sinus tachycardia Otherwise normal ECG No previous ECGs available Confirmed by RO RODRIGUEZ, DOTTIE ([id number]), editor & co founder BENJY NEFF ([id number]) on 11/15/2021 12:38:42 PM Referred By: HIRA Confirmed By:DOTTIE STARR MD
--- NOTE | 2021-11-13 05:50 | NURSING ---
pt able to tolerate 300cc of SSE at this time.
[2021-11-13] MEDS: 0.9% Saline Lock 10 ML Syringe IV (05:53)
[2021-11-13] MEDS: Piperacil/Tazobactam 3.375 GM/50 ML ML IV ×3 (05:53→21:22)
[2021-11-13 06:47] LABS: Absolute Lymphocyte Count 1.81 X10^3/uL (0.83-4.51); Basophil# 0.08 X10^3/uL; Basophil% 0.7 % (0-1); Eosinophil# 0.34 X10^3/uL; Eosinophils% 3.1 % (0-5); Hematocrit 36.5 % (40-54); Hemoglobin 12.5 g/dL (13.0-16.5); Lymphocyte # 1.81 X10^3/ul (0.83-4.51); Lymphocyte % 16.7 % (19-41); Mean Corp Hgb Conc 34.2 g/dL (32-36); Mean Corpuscular Hgb 29.3 pg (27.0-32.0); Mean Corpuscular Volume 85.7 fL (80-94); Mean Platelet Vol. 10.7 fl (6.2-12.0); Monocyte% 14.8 % (0-10); NRBC Flagged by Analyzer 0 % (0-5); Neutrophil # 6.97 X10^3/uL (2.7-7.7); Neutrophil % 64.3 % (47-70); POSITIVE DIFFERENTIAL YES; Platelet Count 366 K/mm3 (150-450); RBC Distribution Width CV 14.8 % (11.6-14.6); Red Blood Count 4.26 M/mm3 (4.6-6.2); White Blood Count 10.8 K/mm3 (4.4-11.0)
[2021-11-13 06:51] LABS: Differential Indicated SCAN CRITERIA MET
[2021-11-13 07:22] LABS: Differential Comment SCANNED
--- NOTE | 2021-11-13 07:26 | PN.HOSP_ITS ---
Subjective Subjective Patient seen currently being prepped for colonoscopy after family agreed to proceed. Objective Data Objective Data Vital Signs: Vital Signs Temp Pulse Resp BP Pulse Ox 99.0 F 104 H 16 116/76 95 11/13/21 03:07 11/13/21 03:07 11/13/21 03:07 11/13/21 03:07 11/13/21 03:07 Oxygen Flow Rate (L/min) 12 Oxygen Delivery Method Room Air Weight: 61.6 kg Body Mass Index (BMI) 23.6 Intake & Output: Intake and Output for Last 24 Hours 11/11/21 11/12/21 11/13/21 23:59 23:59 23:59 Intake Total 4188.75 / 4188.75 3700.00 / 3700.00 725 / 725 Output Total 1600 / 1600 2100 / 2100 Balance 2588.75 / 2588.75 1600.00 / 1600.00 725 / 725 Lab / Micro Data Result Diagrams: 11/13/21 04:47 11/13/21 04:47 Labs: Laboratory Results - last 24 hr 11/12/21 06:36: WBC 9.8, RBC 4.26 L, Hgb 12.5 L, Hct 36.5 L, MCV 85.7, MCH 29.3, MCHC 34.2, RDW Std Deviation 45.9 H, RDW Coeff of Linette 14.6, Plt Count 315, MPV 10.8, Immature Gran % (Auto) 0.400, Neut % (Auto) 68.9, Lymph % (Auto) 12.7 L, [place] % (Auto) 14.3 H, Eos % (Auto) 2.7, Baso % (Auto) 1.0, Absolute Neuts (auto) 6.8, Absolute Lymphs (auto) 1.25, Nucleated RBC % 0 11/12/21 06:36: Sodium 138, Potassium 3.6, Chloride 106, Carbon Dioxide 24.0, Anion Gap 8, BUN 4 L, Creatinine 0.57 L, Estim Creat Clear Calc 134.37, Est GFR (MDRD) Af Amer 204, Est GFR (MDRD) Non-Af 168, BUN/Creatinine Ratio 7.0 L, Glucose 95, Calcium 7.9 L 11/13/21 04:47: WBC 10.8, RBC 4.26 L, Hgb 12.5 L, Hct 36.5 L, MCV 85.7, MCH 29.3, MCHC 34.2, RDW Std Deviation 46.0 H, RDW Coeff of Linette 14.8 H, Plt Count 366, MPV 10.7, Immature Gran % (Auto) 0.400, Neut % (Auto) 64.3, Lymph % (Auto) 16.7 L, [place] % (Auto) 14.8 H, Eos % (Auto) 3.1, Baso % (Auto) 0.7, Absolute Neuts (auto) 7.0, Absolute Lymphs (auto) 1.81, Nucleated RBC % 0, Differential Comment SCANNED 11/13/21 04:47: APTT 34.0 Micro: Microbiology 11/09/21 12:38 Nasal Secretion SARS-CoV-2 Antigen (Rapid) - Final Physical Exam Narrative GENERAL: cooperative HEENT: NG tube in place EYES; Anicteric, Normal Conjunctiva NECK; supple, normal thyroid, RESPIRATORY: Diminished to auscultation CARDIOVASCULAR: Regular S1 S2, GI: Soft, nondistended : No Renal angle tenderness; EXTREMITIES: No edema, no clubbing, MUSCULOSKELETAL: no muscle waisting NEURO: Awake; no lateralizing signs. SKIN: No Rash PSYCH; Flat affect Assessment & Plan Assessment/Plan (1) Abdominal pain: QUALIFIERS: Abdominal location: right upper quadrant Qualified Code(s): R10.11 - Right upper quadrant pain (2) SBO (small bowel obstruction): PLAN: The patient is a 40 gentleman with history of underlying history of traumatic brain injury as well as learning disability brought to the emergency department with nausea and vomiting. Imaging studies obtained on admission demonstrated diffuse dilatation of small bowel with transition point in the right lower quadrant 1. Small bowel obstruction ?Patient has been admitted to regular nursing floor currently being managed conservatively with bowel rest NG tube to suction and consultation placed to general surgery. Patient already seen by Dr. Guzman this a.m. with plans for his NG tube to be discontinued -11/11/2021; patient small bowel obstruction resolved ?11/12/2021; patient small bowel obstruction resolved currently tolerating clear liquids. -11/13/2021 small bowel obstruction resolved 2. Terminal ileum thickening ?? Inflammatory bowel disease. Consult placed to GI -11/12/2021; P Patient was seen by Dr. Friend with GI and recommended for patient to undergo endoscopic evaluation. Patient's family agreeable as of this a.m. to proceed with any endoscopic evaluation management indicated -11/13/2021 Patient seen currently being prepped for colonoscopy after family agreed to proceed. 3. Acute kidney injury ?Managed with IV fluid with subsequent monitoring of electrolyte ?11/11/2021 KAYY resolved 4. Seizure disorder ?Did continue patient antiseizure medication 5. Traumatic brain injury ?Per history 6. DVT prophylaxis ?[place] Loveacostax Charges/Coding Visit Charges Inpatient E&M: 59421 Subs Hosp L2
[2021-11-13 07:35] LABS: Anion Gap 12 (5-15); BUN 3 mg/dL (7-18); BUN/Creat Ratio 4.8 RATIO (10-20); Calcium,Total 7.9 mg/dL (8.5-10.1); Chloride 104 mmol/L (98-107); Creatinine, Serum 0.63 mg/dL (0.70-1.30); EST Glomerular Filtration Rate 150 mL/min (>60); Est Glom Filt Rate - Afr Amer 182 mL/min (>60); Estimated Creatinine Clearance 121.57 ml/min; Glucose 74 mg/dL (74-106); Potassium 3.4 mmol/L (3.5-5.1); Sodium Level 138 mmol/L (136-145)
--- NOTE | 2021-11-13 08:05 | COLBX_PTH ---
PATIENT: SHEN WILLIAM LOC: MS2 U#:[id number] AGE/SX: 40/M ROOM: [facility] [place] RE11/09/[address]: Dr. Parul Long MD : 1980 BED: 1 DIS: 11/14/2021 SPEC #: [id number] RECD: 11/13/21 11:59 STATUS: VINOD REIldefonso #: [id number] JONATHAN: 11/13/21 08:[address]: Israel Garcia DEPT: SURGICAL PATHOLOGY RECD BY: Glenda Edouard ENTERED: 11/14/21 10:10 SP TYPE: COLON BX OTHR DR: MD Dr. Parul Combs MD Dr. Autumn L White, MD Dr. Rahsaan Friend, DO Dr. William Lago, MD Tissues: A - Ileum, NOS B - Sigmoid colon biopsy C - Rectum, NOS Procedures: Surgery Specimen Level IV Comments: @ Ordering doctor for SUIV edited from to @ by ROHINI at 11/14/21 1536 @ Submitting doctor edited from to @ by RGOOD at 11/14/21 1536 HEADER OPERATION: Colonoscopy (MAC) PRE-OP DIAGNOSIS: Small bowel obstruction TISSUE SUBMITTED: A ? Terminal ileum biopsy, B ? Sigmoid polyp biopsy, C ? Rectal ulcer biopsy MICROSCOPIC DIAGNOSIS A. Terminal ileum, biopsy: No pathologic change. B. Sigmoid colon polyp, biopsy: Fragments of benign colonic mucosa. See Comment. C. Rectal ulcer, biopsy: Consistent with ulceration, acute inflammation and ischemic change. AM:roxane 11/15/2021 COMMENT B. There is no evidence of adenomatous or hyperplastic change. Clinical correlation is suggested. MICROSCOPIC DESCRIPTION Slides are reviewed. GROSS DESCRIPTION A - Received in fixative is one container labeled with the patient's name and designated terminal ileum. The specimen consists of multiple irregular fragments of light gonzalez soft tissue that in aggregate measure 1 x 0.5 x 0.1 cm. The specimen is totally submitted in one cassette. B - Received in fixative is one container labeled with the patient's name and designated sigmoid polyp biopsy. The specimen consists of multiple irregular fragments of light gonzalez soft tissue that in aggregate measure 0.5 x 0.5 x 0.1 cm. The specimen is totally submitted in one cassette. C - Received in fixative is one container labeled with the patient's name and designated rectal ulcer biopsy. The specimen consists of multiple irregular fragments of light gonzalez soft tissue that in aggregate measure 1 x 0.6 x 0.1 cm. The specimen is totally submitted in one cassette. / AM:roxane 11/14/21 TC:2 CPT: 82836 x3
--- NOTE | 2021-11-13 08:25 | NURSING ---
SSE administered at 0745, pt tolerated procedure well with output clear brown liquid with flecks
[2021-11-13] MEDS: 0.9% Normal Saline 1,000 ML 125 ML IV ×2 (09:22→16:12)
--- NOTE | 2021-11-13 09:33 | NURSING ---
SSE administered at 0900 with productive results of clear yellow liquid with flecks. pt tolerated procedure well
--- NOTE | 2021-11-13 10:03 | NURSING ---
pt transported off unit via bed at this time for endo procedure
--- NOTE | 2021-11-13 12:02 | OP.CCLET_ITS ---
08/02/2022 Elvis Baxter Re : Colonoscopy procedure for Madi Hayden Dear Vee This procedure was performed on Saturday, November 13, 2021. My impressions and recommendations are as follows: Impressions : - One 5 mm polyp in the sigmoid colon, removed with a hot snare. Resected and retrieved. - Congested mucosa in the distal ileum. Biopsied. - Mucosal ulceration. Biopsied. Recommendations : - Return patient to [facility] for [facility] care. - Advance diet as tolerated. - Continue present medications. - Await pathology results. - Return to my office in 2 weeks. - Repeat colonoscopy is recommended for surveillance based on personal history of previous adenomatous polyps. The colonoscopy date will be determined after pathology results from today's exam become available for review. My findings are described in the full procedure note, which is enclosed. If I can be of further assistance, please feel free to contact me at . Sincerely, Israel Garcia, 11/13/2021 12:01:37 PM This report has been signed electronically.
--- NOTE | 2021-11-13 12:02 | OP.COLON_ITS ---
Patient Name: Madi Hayden Procedure Date: 11/13/2021 10:52 AM Date of : 1980 Age: 40 Procedure: Colonoscopy Indications: Suspected Crohn's disease Providers: Isreal Garcia DO Medicines: See the Anesthesia note for documentation of the administered medications Patient Profile: Last Colonoscopy: none. The patient's first colonoscopy is today. Complications: No immediate complications. Procedure: Pre-Anesthesia Assessment: - Prior to the procedure, a History and Physical was performed, and patient medications and allergies were reviewed. The patient is competent. The risks and benefits of the procedure and the sedation options and risks were discussed with the patient. All questions were answered and informed consent was obtained. Patient identification and proposed procedure were verified by the physician in the pre-procedure area. Mental Status Examination: alert and oriented. Airway Examination: normal oropharyngeal airway and neck mobility. Respiratory Examination: clear to auscultation. CV Examination: normal. Prophylactic Antibiotics: The patient does not require prophylactic antibiotics. Prior Anticoagulants: The patient has taken no previous anticoagulant or antiplatelet agents. After reviewing the risks and benefits, the patient was deemed in satisfactory condition to undergo the procedure. The anesthesia plan was to use moderate sedation / analgesia (conscious sedation). Immediately prior to administration of medications, the patient was re-assessed for adequacy to receive sedatives. The heart rate, respiratory rate, oxygen saturations, blood pressure, adequacy of pulmonary ventilation, and response to care were monitored throughout the procedure. The physical status of the patient was re-assessed after the procedure. After I obtained informed consent, the scope was passed under direct vision. Throughout the procedure, the patient's blood pressure, pulse, and oxygen saturations were monitored continuously. The pediatric colonoscope was introduced through the anus and advanced to 10 cm into the ileum. The terminal ileum, ileocecal valve, appendiceal orifice, and rectum were photographed. Moderate Sedation: Moderate (conscious) sedation was administered by the endoscopy nurse and supervised by the endoscopist. The patient's oxygen saturation, heart rate, blood pressure and response to care were monitored. Total physician intraservice time was 15 minutes. Scope In: 11:19:04 AM Scope Withdrawal Time 0 hours 12 minutes 17 seconds Scope Out: 11:43:48 AM Total Procedure Duration Time 0 hours 24 minutes 44 seconds Findings: The perianal and digital rectal examinations were normal. A 5 mm polyp was found in the sigmoid colon. The polyp was sessile. The polyp was removed with a hot snare. Resection and retrieval were complete. Verification of patient identification for the specimen was done. Estimated blood loss was minimal. A localized area of the distal ileum was congested. This was biopsied with a cold forceps for histology. Verification of patient identification for the specimen was done. Estimated blood loss was minimal. Discontinuous areas of nonbleeding ulcerated mucosa with no stigmata of recent bleeding were present in the rectum. Biopsies were taken with a cold forceps for histology. Verification of patient identification for the specimen was done. Estimated blood loss was minimal. No additional abnormalities were found on retroflexion. Impression: - One 5 mm polyp in the sigmoid colon, removed with a hot snare. Resected and retrieved. - Congested mucosa in the distal ileum. Biopsied. - Mucosal ulceration. Biopsied. Recommendation: - Return patient to [facility] for ongoing care. - Advance diet as tolerated. - Continue present medications. - Await pathology results. - Return to my office in 2 weeks. - Repeat colonoscopy is recommended for surveillance based on personal history of previous adenomatous polyps. The colonoscopy date will be determined after pathology results from today's exam become available for review. Procedure Code(s): --- Professional --- 72862, Colonoscopy, flexible; with removal of tumor(s), polyp(s), or other lesion(s) by snare technique 90346, 59, Colonoscopy, flexible; with biopsy, single or multiple 00640, 59, Moderate sedation services provided by the same physician or other qualified health ocular care technologist performing the diagnostic or therapeutic service that the sedation supports, requiring the presence of an independent trained observer to assist in the monitoring of the patient's level of consciousness and physiological status; initial 15 minutes of intraservice time, patient age 5 years or older CPT copyright 2017 [employer]. All rights reserved. The codes documented in this report are preliminary and upon cpc coder review may be revised to meet current compliance requirements. Israel Garcia DO 11/13/2021 12:01:37 PM This report has been signed electronically. Number of Addenda: 1 Note Initiated On: 11/13/2021 10:52 AM Addendum Number: 1 Addendum Date: 08/02/2022 7:19:41 AM MAC was used instead of moderate sedation for the patient. Israel Garcia DO 08/02/2022 7:19:45 AM This report has been signed electronically.
[2021-11-13] MEDS: Phenytoin Na 100 MG Capsule PO (14:10)
[2021-11-13] MEDS: clonazePAM 0.5 MG Tablet PO (14:11)
[2021-11-13] MEDS: Lacosamide 100 MG Tablet 200 MG PO ×2 (14:18→21:25)
[2021-11-13] MEDS: Famotidine 20 MG Tablet PO ×2 (14:18→21:23)
[2021-11-13] MEDS: Ensure Clear 120 ML Liquid PO ×2 (16:12→21:22)
[2021-11-13] MEDS: clonazePAM 1 MG Tablet PO (21:22)
[2021-11-14] MEDS: 0.9% Normal Saline 1,000 ML 125 ML IV (00:24)
[2021-11-14 04:00] VITALS: BP 156/74; PULSE 107; RESP 16; TEMP 36.8; O2SAT 95
[2021-11-14] MEDS: Piperacil/Tazobactam 3.375 GM/50 ML ML IV (05:41)
[2021-11-14] MEDS: Ensure Clear 120 ML Liquid PO (09:42)
[2021-11-14] MEDS: Phenytoin Na 100 MG Capsule PO (09:42)
[2021-11-14] MEDS: Famotidine 20 MG Tablet PO (09:42)
[2021-11-14] MEDS: Lacosamide 100 MG Tablet 200 MG PO (09:47)
[2021-11-14 10:00] VITALS: BP 123/77; PULSE 98; RESP 18; TEMP 36.7; O2SAT 95
--- NOTE | 2021-11-14 11:13 | PCM.DC ---
Discharge Instructions Diet Discharge Diet: No restrictions Activity Discharge Activity: Return to Normal Activity Follow Up Care Test Results: Test results from this visit will be discussed in further detail at your follow-up appointment, if applicable. Discharge Plan Admission Admit Date/Time: 11/09/21 14:33 Primary Reason for Your Visit: Partial small bowel obstruction/ileitis Attending Provider: Parul Long Primary Care Provider: Elvis Baxter Consulting Providers: Aashish Guzman ; Friend,Israel Discharge Orders/Prescriptions Prescriptions: New prednisone 20 mg tablet 20 mg PO DAILY 14 Days Qty: 14 RF: 0 Continued clonazepam 0.5 MG tablet 1 mg PO QHS RF: 0 phenytoin sodium extended 100 MG capsule 150 mg PO QHS RF: 0 phenytoin [Dilantin Infatabs] 50 MG tablet,chewable 75 mg PO DAILY RF: 0 Vimpat 200 MG tablet 200 mg PO BID Qty: 60 RF: 0 clonazepam [Klonopin] 0.5 mg tablet 0.5 mg PO 1500 RF: 0 Referrals / Follow Up: Elvis Baxter MD [Primary Care Provider] - Within 2 Weeks Disposition Disposition (needs filled in before D/C Order can be placed): Home, Self Care
--- NOTE | 2021-11-14 11:47 | PCM.DC.SUM ---
Providers Date of Admission: 11/09/21 Date of Discharge: 11/14/21 Primary Care Physician: Dr. Elvis Baxter MD Consultations 11/09/21 17:06 Consult: Gastroenterology Routine Consulting Provider: [facility] Reason for Consult: SBO admit, CT ? enteritis/IBD, surgery requested also. EMERGENT Consult: No Notified: Yes Date Notified: 11/09/21 Time Notified: 14:39 Method of Notification: cortext per surgery Consult: General Surgery Routine Consulting Provider: Aashish Guzman Reason for Consult: SBO EMERGENT Consult: No Notified: Yes Date Notified: 11/09/21 Time Notified: 14:39 Method of Notification: called per ED. 11/11/21 07:40 Consult: Gastroenterology Routine Consulting Provider: Israel Garcia Reason for Consult: Suspected inflammatory bowel disease EMERGENT Consult: No Notified: Yes Date Notified: 11/11/21 Time Notified: 08:25 Method of Notification: Verbal Reason For Visit: SBO Diagnosis Discharge Diagnosis (1) Abdominal pain: Status: Resolved Code(s): R10.9 - Unspecified abdominal pain Qualifiers: Abdominal location: right upper quadrant Qualified Code(s): R10.11 - Right upper quadrant pain (2) SBO (small bowel obstruction): Status: Resolved Code(s): K56.609 - Unspecified intestinal obstruction, unspecified as to partial versus complete obstruction Medications at Discharge Home Medications Vimpat 200 mg PO BID #60 tab 05/23/16 clonazepam 1 mg PO QHS 05/23/16 phenytoin [Dilantin Infatabs] 75 mg PO DAILY 05/23/16 phenytoin sodium extended 150 mg PO QHS 05/23/16 clonazepam [Klonopin] 0.5 mg PO 1500 04/02/21 prednisone 20 mg PO DAILY 14 Days #14 tab 11/14/21 Hospital Course Operations None Procedures Colonoscopy (11/13/21) Summary of Care Provided Minutes Spent on Discharge: 45 Hospital Course: 40-year-old male with past medical history of traumatic brain injury, seizure disorder, left-sided deafness, who comes in with abdominal pain, intractable nausea and vomiting which started 4 days prior to admission. Patient has been admitted for COVID-19. He came in and work-up showed WBC count of 17.9, creatinine of 1.63, lactic acid 2.3. He however did not need oxygen. Chest x-ray showed no acute cardiopulmonary finding. CT of abdomen and pelvis showed diffuse dilatation of small bowel with transition point in the right lower quadrant suggestive of high-grade partial or early complete bowel obstruction with relative thickening and adjacent fascial thickening in the terminal ileum. Patient was managed symptomatically. General surgery consulted from the ED. An NG tube was placed. Patient was maintained on IV fluids for acute kidney injury. NG tube was removed by general surgery. Gastroenterology was consulted. Patient was continued on IV antibiotics. Patient underwent colonoscopy on 11/13/21. Findings showed 1 for 5 mm polyp in the sigmoid colon that was removed with a hot snare. The distal ileum was congested and that was biopsied. There was mucosal ulceration that was biopsied. Patient tolerated advancement in his diet. He will follow-up with gastroenterology in 2-weeks. He was discharged on prednisone 20 mg daily. Physical Exam Narrative Physical exam: General: Alert, Cooperative, No apparent distress, Well developed HEENT: Atraumatic Oral: Moist Mucosa Neck: Supple Lungs: Clear to auscultation Cardiovascular: HS I+II, regular, no murmurs Abdomen: Bowel Sounds Present, Soft, Non Tender Extremities: No edema Weight / BMI Weight Weight: 60.827 kg Body Mass Index (BMI) 24.8 ABG / Lab / Microbiology Data Result Diagrams: 11/13/21 04:47 11/13/21 04:47 Microbiology: Microbiology 11/09/21 12:38 Nasal Secretion SARS-CoV-2 Antigen (Rapid) - Final D/C Instructions Discharge Diet: No restrictions Meaningful Use Info Meaningful Use Diagnoses (Choose all that apply): None applicable Discharge Plan Admission Admit Date/Time: 11/09/21 14:33 Primary Reason for Your Visit: Partial small bowel obstruction/ileitis Attending Provider: Parul Long Primary Care Provider: Elvis Baxter Consulting Providers: Aashish Guzman ; Israel Garcia Discharge Orders/Prescriptions Prescriptions: New prednisone 20 mg tablet 20 mg PO DAILY 14 Days Qty: 14 RF: 0 Continued clonazepam 0.5 MG tablet 1 mg PO QHS RF: 0 phenytoin sodium extended 100 MG capsule 150 mg PO QHS RF: 0 phenytoin [Dilantin Infatabs] 50 MG tablet,chewable 75 mg PO DAILY RF: 0 Vimpat 200 MG tablet 200 mg PO BID Qty: 60 RF: 0 clonazepam [Klonopin] 0.5 mg tablet 0.5 mg PO 1500 RF: 0 Referrals / Follow Up: Elvis Baxter MD [Primary Care Provider] - Within 2 Weeks Disposition Disposition (needs filled in before D/C Order can be placed): Home, Self Care Charges/Coding Visit Charges Inpatient E&M: 28916 Disch Hosp
[2021-11-14 12:02] VITALS: BP 123/77; PULSE 98; RESP 18; TEMP 36.7; O2SAT 98
[2021-11-14] MEDS: Ondansetron ODT 4 MG Tablet PO (12:36)
== END 2021-11-14 13:25 | disposition home or self-care (01) | DRG 389 ==
LOC: ED 15:04 → MS2 16:43
PROVIDERS: Anesthesiology; Internal Medicine; Internal Medicine Gastroenterology; Admitting Provider Family Medicine; Emergency Provider Emergency Medicine; PCP Family Medicine; Visit Provider Internal Medicine
PROC: 0DJD8ZZ Inspection of Lower Intestinal Tract, Via Natural or Artificial Opening Endoscopic (ICD-10-PCS; CPT 45378; principal; 2021-11-13 08:00)
DX: K56.601 Complete intestinal obstruction, unspecified as to cause (principal); K50.90 Crohn's disease, unspecified, without complications; N17.9 Acute kidney failure, unspecified; K62.6 Ulcer of anus and rectum; K63.5 Polyp of colon; K59.04 Chronic idiopathic constipation; E86.0 Dehydration; R73.9 Hyperglycemia, unspecified; Z20.822 Contact with and (suspected) exposure to COVID-19; G40.909 Epilepsy, unspecified, not intractable, without status epilepticus; K21.9 Gastro-esophageal reflux disease without esophagitis; H91.92 Unspecified hearing loss, left ear; Z78.1 Physical restraint status; Z98.1 Arthrodesis status; Z79.899 Other long term (current) drug therapy; Z87.820 Personal history of traumatic brain injury; Z87.01 Personal history of pneumonia (recurrent)
CPT/HCPCS: 36415; 71045; 74018; 74176; 80048; 80053; 80185; 81001; 83036; 83605; 83690; 83735; 84100; 85025; 85730; 87426; 88305; 93005; 97802; 99285; J7030; J7040; A4216; C9254; J2405; J3490

== ENCOUNTER 2021-12-06 19:44 | Emergency (ER) | payer OTHER, MEDICAID, SELFPAY ==
[2021-12-06 19:44] VITALS: PULSE 97; RESP 18; TEMP 36.7; O2SAT 97; BMI 25.6
[2021-12-06 19:46] VITALS: BP 103/87
--- NOTE | 2021-12-06 21:39 | CT_ITS ---
HISTORY: vomitting TECHNIQUE: Multiple axial images were obtained of the abdomen and pelvis without oral or IV contrast. Coronal and sagittal reformats obtained. A radiation dose optimization technique was used for this scan. COMPARISON: Chest radiograph 12/06/2021 FINDINGS: # of images incl. paperwork: 460 LUNG BASES: Bilateral patchy nodular opacities in the lung bases up to 1.5 cm. LIVER T BILIARY TRACT: Unremarkable gallbladder. No acute hepatic finding. ADRENAL GLANDS: Unremarkable. SPLEEN: Unremarkable. PANCREAS: Unremarkable. KIDNEYS/URETERS/BLADDER: Retroaortic left renal vein. No nephrolithiasis, hydronephrosis or perinephric inflammation. Unremarkable ureters and bladder. LYMPH NODES: No suspicious adenopathy. STOMACH, SMALL AND LARGE BOWEL: No acute gastric finding. No small bowel obstruction or gross wall thickening. Normal appendix. No acute colonic finding. Scattered colonic diverticulosis without evidence of diverticulitis. ASCITES/FREE AIR: No free fluid or free air. AORTA: Unremarkable. PELVIS: Unremarkable. MUSCULOSKELETAL: No acute osseous finding. Tiny fat-containing umbilical hernia without inflammation. Bilateral gynecomastia. CT/Abdomen/Pelvis without Cont IMPRESSION: Modular opacities within the lung bases is nonspecific but compatible with atypical viral pneumonia in the appropriate setting. Three-month follow-up chest recommended to ensure resolution. Earlier CT chest could evaluate upper lungs as clinically indicated. No bowel obstruction or specific finding to explain patient's emesis. Individualized dose optimization techniques were used for this CT. at 2325 Reported and signed by: Dimitrios Simons MD Electronically Signed: Dimitrios Simons MD at 23:23 EST Tel , Service support ,
--- NOTE | 2021-12-06 21:40 | EDS_ITS ---
HPI History of Present Illness Chief Complaint: Nausea/Vomiting Detail of Chief Complaint: Vomiting that started today Informant: patient Narrative Narrative: Patient presents to the emergency department with vomiting. Patient diagnosed with COVID-19 4 days ago. Patient cannot keep his meds down and takes seizure medication. Patient has history of traumatic brain injury and is a poor historian therefore the father gives most of the history. Father states that both he and his have had COVID as well. Patient was admitted 3 weeks ago for a bowel obstruction and spent a week in the hospital here. Patient's had no prior abdominal surgeries. Per father patient has not urinated since this morning. [facility] Medical History (Updated 12/06/21 @ 23:[address] Jairon Finch DO) Deafness in left ear GERD (gastroesophageal reflux disease) Seizure Traumatic brain injury Home Medications Vimpat 200 mg PO BID #60 tab 05/23/16 [Rx Last Taken 11/09/21] clonazepam 1 mg PO QHS 05/23/16 [History Last Taken 11/08/21] phenytoin [Dilantin Infatabs] 75 mg PO DAILY 05/23/16 [History Last Taken 11/09/21] phenytoin sodium extended 150 mg PO QHS 05/23/16 [History Last Taken 11/08/21] clonazepam [Klonopin] 0.5 mg PO 1500 04/02/21 [History Last Taken 11/08/21] prednisone 20 mg PO DAILY 14 Days #14 tab 11/14/21 [Rx Last Taken Unknown] ondansetron 4 mg PO Q8H PRN PRN #10 tab 12/06/21 [Rx Last Taken Unknown] promethazine [Promethegan] 25 mg RECTAL Q6H PRN PRN #6 suppos. 12/06/21 [Rx Last Taken Unknown] Allergy/AdvReac Type Severity Reaction Status Date / Time No Known Allergies Allergy Verified 12/06/21 19:46 Family History (Updated 11/09/21 @ 15:[address] Ghada Youngblood MD) Grandmother Cancer Diabetes Hypertension Heart disease Grandfather Cancer Diabetes Hypertension Heart disease Surgical History History of arthrodesis S/P bilateral foot surgery Social History (Updated 11/09/21 @ 15:[address] Ghada Youngblood MD) housing: other details: halfway. Smoking Status: Never smoker alcohol intake: never substance use type: does not use ROS ROS ED Constitutional Constitutional ED: Reports systems reviewed and no addt'l complaints, except as documented; Denies body ache(s), change in weight or chills Eyes Eyes: Denies acute decrease in peripheral vision, change in vision, double vision or loss of vision ENT ENT ED: Reports none; Denies ear pain, lip swelling, loss taste/smell, neck pain, otalgia or sore throat Cardiovascular Cardiovascular: Reports none; Denies abdominal pain, chest pain with activity, leg edema, lightheadedness, palpitations, rapid heart rate or syncope Respiratory/Chest Respiratory/Chest: Reports none and cough; Denies change in mental status, dry cough, dyspnea, hemoptysis, shortness of breath at rest or shortness of breath with exertion Gastrointestinal Gastrointestinal: Reports none, nausea and vomiting; Denies abdominal pain, spangler ge in stool character, diarrhea, hematemesis, hematochezia, melena or rectal bleeding Genitourinary Genitourinary ED: Reports none; Denies abdominal discomfort, anuria, dysuria, genital pain or polyuria Musculoskeletal Musculoskeletal: Reports none; Denies arthralgias, back pain, difficulty walking, extremity pain, muscle weakness or myalgias Integumentary Reports none; Denies abscess or rash Neurologic Neurologic: Reports none; Denies abnormal gait, confusion, focal weakness, frequent falls, headache(s), loss of vision, numbness, paresthesias, radicular pain, vertigo or weakness Psychiatric Psychiatric: Reports systems reviewed and no addt'l complaints, except as documented and none; Denies behavioral changes, confusion, difficulty concentrating, hallucinations, suicidal ideation, tactile hallucinations or visual hallucinations Endocrine Endocrinology: Denies none, cold intolerance, excessive sweating, fatigue or heat intolerance Hematologic/Lymphatic Hematologic/Lymphatic: Reports none; Denies anemia, easy bleeding or easy bruising Allergic/Immunologic Allergic/Immunologic ED: Denies as per HPI, none, lip swelling, mouth swelling, throat swelling, tongue swelling or hives EXAM Physical Exam Const Vital Signs: 12/06/21 19:44 12/06/21 19:46 Temperature 98.1 F Temperature Source Temporal Pulse Rate 97 Respiratory Rate 18 Blood Pressure 103/87 H Blood Pressure Mean 92 Pulse Ox 97 Oxygen Delivery Method Room Air Positive well nourished and well developed General Appearance ED: well developed and NAD HEENT Reports TM's clear and moist mucous membranes normocephalic and atraumatic; Negative for trauma or tenderness Tympanic Membrane ED: Yes TM's clear Eyes PERRL and EOMs intact bilaterally General Eye ED: Negative for pale conjunctiva or scleral icterus Neck no lymphadenopathy, supple and no JVD General: Negative for tenderness Chest Wall inspection of chest normal and palpation of chest normal Chest: Negative for tenderness Resp normal respiratory effort and clear to auscultation bilaterally Effort and Inspection: Negative for respiratory distress or pain with movement Auscultation: Negative for rhonchi, wheezes or diminished lung sounds Cardio regular rate, regular rhythm, S1 normal heart sound, S2 normal heart sound and no murmurs Peripheral Pulses: pulses 2+ throughout GI normal to inspection, nondistended, normoactive bowel sounds, soft to palpation, non-tender, non-distended and no masses Back/Spine no CVA tenderness and no thoracic nor lumbar tenderness Extremity normal to inspection General Extremety ED: Negative for edema General Extremity: Negative for edema Neuro oriented x3, CN's II-XII intact bilaterally, no sensory deficits noted and gait normal Sensorium / Orientation: awake, alert, oriented to person, oriented to place and oriented to time Motor Exam: strength 5/5 throughout and strength abnormal Psych mental status grossly normal Skin no rashes or lesions noted and no wounds MDM MDM MDM Narrative Medical decision making narrative: IV line established. Patient was given Zofran IV. He had no further vomiting. Chest x-ray unremarkable. Lactate normal. CT scan abdomen pelvis was unremarkable other than had some patchy opacities in the lung bases which would be consistent with COVID. Patient can be safely discharged to home. I will refer them for monoclonal antibody infusion. Lab Data Attestation: I reviewed the patient's lab results. Labs: Laboratory Results - last 24 hr 12/06/21 12/06/21 12/06/21 22:30 22:30 22:30 WBC 4.8 RBC 5.17 Hgb 14.8 Hct 44.8 MCV 86.7 MCH 28.6 MCHC 33.0 RDW Std Deviation 48.1 H RDW Coeff of Linette 15.1 H Plt Count 391 MPV 9.6 Immature Gran % (Auto) 0.600 Neut % (Auto) 64.3 Lymph % (Auto) 19.8 Creek % (Auto) 13.9 H Eos % (Auto) 0.8 Baso % (Auto) 0.6 Absolute Neuts (auto) 3.1 Absolute Lymphs (auto) 0.94 Nucleated RBC % 0 Sodium 138 Potassium 4.0 Chloride 104 Carbon Dioxide 28.0 Anion Gap 6 BUN 11 Creatinine 0.76 Estim Creat Clear Calc 99.78 Est GFR (MDRD) Af Amer 146 Est GFR (MDRD) Non-Af 120 BUN/Creatinine Ratio 14.4 Glucose 108 H Lactic Acid 1.6 Calcium 8.7 Total Bilirubin 0.30 AST 17 ALT 25 Alkaline Phosphatase 89 Total Protein 7.9 Albumin 3.4 Globulin 4.5 H Albumin/Globulin Ratio 0.8 L Lipase 138 Radiography Chest X-Ray - ED: 1 View Diagnostic Testing: Clinical Impression(s) from Imaging Studies Abdomen/Pelvis CT 12/06/21 21:39 IMPRESSION: Modular opacities within the lung bases is nonspecific but compatible with atypical viral pneumonia in the appropriate setting. Three-month follow-up chest recommended to ensure resolution. Earlier CT chest could evaluate upper lungs as clinically indicated. No bowel obstruction or specific finding to explain patient's emesis. Individualized dose optimization techniques were used for this CT. at 2325 Reported and signed by: Dimitrios Simons MD Electronically Signed: Dimitrios Simons MD at 23:23 EST Tel , Service support , Chest X-Ray 12/06/21 22:06 IMPRESSION: No evidence of acute cardiopulmonary process. at 2245 Reported and signed by: Dimitrios Simons MD Electronically Signed: Dimitrios Simons MD at 22:43 EST Tel , Service support , 1 view chest ray obtained interpreted by myself as no acute disease process. Discharge Plan Triage Chief Complaint: Nausea/Vomiting Other Complaint: Cough ED Provider: Jairon Finch Dx/Rx/DC Orders Clinical Impression: COVID-19 Instructions: ED - COVID Monoclonal AB Infusion ..., Caring for Someone Who Has COVID-19 Prescriptions: New promethazine [Promethegan] 25 MG suppository 25 mg RECTAL Q6H PRN PRN (Reason: Nausea) Qty: 6 RF: 0 ondansetron [ondansetron] 4 MG tablet 4 mg PO Q8H PRN PRN (Reason: Nausea) Qty: 10 RF: 0 No Action clonazepam 0.5 MG tablet 1 mg PO QHS RF: 0 phenytoin sodium extended 100 MG capsule 150 mg PO QHS RF: 0 phenytoin [Dilantin Infatabs] 50 MG tablet,chewable 75 mg PO DAILY RF: 0 Vimpat 200 MG tablet 200 mg PO BID Qty: 60 RF: 0 clonazepam [Klonopin] 0.5 mg tablet 0.5 mg PO 1500 RF: 0 prednisone 20 mg tablet 20 mg PO DAILY 14 Days Qty: 14 RF: 0 Primary Care Provider: Elvis Baxter Referrals: Elvis Baxter MD [Primary Care Provider] - Disposition Disposition: Home, Self Care
--- NOTE | 2021-12-06 22:06 | RAD_ITS ---
HISTORY: cough, covid-19 EXAMINATION/TECHNIQUE: XR Chest 1 View: COMPARISON: November 09, 2021 FINDINGS: LINES/DEVICES: None. LUNGS: No airspace consolidation. Unremarkable interstitium. No effusion. No pneumothorax. MEDIASTINUM: No cardiomegaly. MUSCULOSKELETAL: No acute osseous finding. RAD/Chest 1 View (Portable) IMPRESSION: No evidence of acute cardiopulmonary process. at 2245 Reported and signed by: Dimitrios Simons MD Electronically Signed: Dimitrios Simons MD at 22:43 EST Tel , Service support ,
[2021-12-06 22:42] LABS: Absolute Lymphocyte Count 0.94 X10^3/uL (0.83-4.51); Absolute Neutrophil Count 3.1 X10^3/uL (2.0-7.7); Basophil# 0.03 X10^3/uL; Basophil% 0.6 % (0-1); Eosinophil# 0.04 X10^3/uL; Eosinophils% 0.8 % (0-5); Hematocrit 44.8 % (40-54); Hemoglobin 14.8 g/dL (13.0-16.5); Lymphocyte # 0.94 X10^3/ul (0.83-4.51); Lymphocyte % 19.8 % (19-41); Mean Corpuscular Hgb 28.6 pg (27.0-32.0); Mean Corpuscular Volume 86.7 fL (80-94); Mean Platelet Vol. 9.6 fl (6.2-12.0); Monocyte# 0.66 X10^3/uL; Monocyte% 13.9 % (0-10); NRBC Flagged by Analyzer 0 % (0-5); Neutrophil # 3.05 X10^3/uL (2.7-7.7); Neutrophil % 64.3 % (47-70); Platelet Count 391 K/mm3 (150-450); RBC Distribution Width CV 15.1 % (11.6-14.6); RBC Distribution Width SD 48.1 fl (35.1-43.9); Red Blood Count 5.17 M/mm3 (4.6-6.2); White Blood Count 4.8 K/mm3 (4.4-11.0)
[2021-12-06] MEDS: 0.9% Normal Saline 1,000 ML 1000 ML IV (23:03)
[2021-12-06] MEDS: Ondansetron 4 MG/2 ML Vial IV (23:03)
[2021-12-06 23:07] LABS: Lactic Acid 1.6 mmol/L (0.4-1.9)
[2021-12-06 23:08] LABS: ALB/GLOB Ratio 0.8 RATIO (0.9-2.4); AST(SGOT) 17 U/L (15-37); Alanine Aminotransfer ALT/SGPT 25 U/L (16-61); Albumin, Serum 3.4 g/dL (3.2-5.0); Alkaline Phosphatase 89 U/L (45-117); Anion Gap 6 (5-15); BUN 11 mg/dL (7-18); BUN/Creat Ratio 14.4 RATIO (10-20); Calcium,Total 8.7 mg/dL (8.5-10.1); Chloride 104 mmol/L (98-107); Creatinine, Serum 0.76 mg/dL (0.70-1.30); EST Glomerular Filtration Rate 120 mL/min (>60); Est Glom Filt Rate - Afr Amer 146 mL/min (>60); Estimated Creatinine Clearance 99.78 ml/min; Globulin 4.5 g/dL (2.2-4.2); Glucose 108 mg/dL (74-106); Lipase 138 U/L (73-393); Protein, Total 7.9 g/dL (6.4-8.2); Sodium Level 138 mmol/L (136-145)
[2021-12-07 00:03] VITALS: PULSE 84; RESP 18; O2SAT 99
== END 2021-12-07 00:06 | disposition home or self-care (01) ==
PROVIDERS: Emergency Provider Emergency Medicine; PCP Family Medicine; Visit Provider Emergency Medicine
DX: U07.1 COVID-19 (principal); G40.909 Epilepsy, unspecified, not intractable, without status epilepticus; H91.92 Unspecified hearing loss, left ear; K21.9 Gastro-esophageal reflux disease without esophagitis; Z87.820 Personal history of traumatic brain injury; Z79.899 Other long term (current) drug therapy
CPT/HCPCS: 71045; 74176; 80053; 83605; 83690; 85025; 87426; 96361; 96374; 99282; J7030; A4216; J2405

== ENCOUNTER 2022-03-01 13:13 | Outpatient (CLI) | payer MEDICAID, SELFPAY ==
--- NOTE | 2022-03-01 13:25 | CT_ITS ---
STUDY: CT BRAIN WITHOUT CONTRAST REASON FOR EXAM: Male, 41 years old. SEIZURE DISORDER RADIATION DOSAGE (If Supplied By Facility): CTDIvol = ( 44.99 ) mGy, DLP = ( 880.47 ) mGycm TECHNIQUE: Transaxial CT imaging of the brain was performed without administration of intravenous contrast material. Individualized dose optimization techniques were used for this CT. COMPARISON: Comparison is made with prior study dated 08/27/2020. FINDINGS: Normal soft tissue structures. Normal calvarium. There is disproportionate enlargement of the lateral and third ventricles, as compared to the extra-axial spaces. The findings suggest normal pressure hydrocephalus (NPH). There are areas of decreased attenuation within the white matter tracts of the supratentorial brain, consistent with microvascular disease changes. There is evidence of encephalomalacia in the superior aspect of the right frontal parietal and occipital lobes suggestive of a either prior injury or ischemic insult. Normal basal ganglia and thalami. Normal brainstem. There is mild cerebellar atrophy. There is no intracranial hemorrhage. There are no findings of an acute ischemic infarction. Normal visualized paranasal sinuses. CT/Brain/Head without Contrast IMPRESSION: Findings suggestive of normal pressure hydrocephalus. Stable encephalomalacia in the right frontoparietal occipital lobes. Electronically Signed: Luan Jimenez MD at 13:40 EDT ,
== END 2022-03-01 23:59 | disposition home or self-care (01) ==
PROVIDERS: PCP Family Medicine; Visit Provider Psychiatry & Neurology Neurology
DX: G40.909 Epilepsy, unspecified, not intractable, without status epilepticus (principal)
CPT/HCPCS: 70450

== ENCOUNTER → 2022-04-20 | Outpatient (CLI) | payer MEDICAID, SELFPAY ==
--- NOTE | 2022-04-20 08:45 | RAD_ITS ---
STUDY: X-RAY - ABDOMEN/PELVIS REASON FOR EXAM: Male, 41 years old. sitz marker day 3 TECHNIQUE: Single AP view of the abdomen / pelvis. COMPARISON: None. FINDINGS: 23 of the 24 Sitzmarks markers are located within the abdomen primarily in the left side of the abdomen likely in the descending colon. There is an unremarkable bowel gas pattern. The visualized liver, spleen and kidneys are grossly normal in size and morphology. Normal soft tissue structures. Normal visualized osseous structures. RAD/Abdomen Single View IMPRESSION: 23 of 24 Sitzmarks markers located in the abdomen, likely in the descending colon. Electronically Signed: Lukasz Velazquez MD at 9:19 EDT ,
== END | disposition home or self-care (01) ==
LOC: RAD 08:40
PROVIDERS: PCP Family Medicine; Referring Provider Internal Medicine Gastroenterology; Visit Provider Internal Medicine Gastroenterology
DX: K59.00 Constipation, unspecified (principal); R63.0 Anorexia; Z87.19 Personal history of other diseases of the digestive system
CPT/HCPCS: 74018

== ENCOUNTER → 2022-04-22 | Outpatient (CLI) | payer MEDICAID, SELFPAY ==
--- NOTE | 2022-04-22 10:30 | RAD_ITS ---
HISTORY: sitz day 5. TECHNIQUE: XR Abdomen 1 View. COMPARISON: 04/20/2022. FINDINGS: BOWEL GAS PATTERN: No dilated bowel loops identified. Moderate stool in the right colon. No retained markers identified. FREE AIR: Not assessed on supine view. CALCIFICATIONS: Right pelvic phlebolith observed. BONES AND SOFT TISSUES: Dysplastic left hip with chronic subluxation. RAD/Abdomen Single View IMPRESSION: Interval passage of Sitz markers. Electronically Signed: Kathryn Simeon MD at 11:00 EDT ,
== END | disposition home or self-care (01) ==
LOC: RAD 10:26
PROVIDERS: PCP Family Medicine; Referring Provider Internal Medicine Gastroenterology; Visit Provider Internal Medicine Gastroenterology
DX: K59.00 Constipation, unspecified (principal)
CPT/HCPCS: 74018

== ENCOUNTER → 2022-04-26 | Outpatient (CLI) | payer MEDICAID, SELFPAY ==
--- NOTE | 2022-04-26 08:01 | NM_ITS ---
Gastric emptying study INDICATION: Decreased appetite. TECHNIQUE: After the administration of 1.1 mCi technetium 99m sulfur colloid in the medial poorly, multiple sonographic images of the abdomen were obtained. Furthermore, counts were obtained and gastric emptying curve was plotted. FINDINGS: Normal uptake within the stomach with passage through the duodenum into the small bowel. After 1 hour, there is 40 % gastric retention which is normal. T1 half is 50 minutes which is normal. NM/Gastric Emptying Study IMPRESSION: Normal gastric emptying. Electronically Signed: Lukasz Velazquez MD at 9:45 EDT ,
== END | disposition home or self-care (01) ==
LOC: NM 08:01
PROVIDERS: PCP Family Medicine; Referring Provider Internal Medicine Gastroenterology; Visit Provider Internal Medicine Gastroenterology
DX: K59.00 Constipation, unspecified (principal); R63.0 Anorexia; Z87.19 Personal history of other diseases of the digestive system
CPT/HCPCS: 78264; A9541

== ENCOUNTER 2022-09-25 19:20 | Emergency (ER) | payer MEDICAID, SELFPAY ==
[2022-09-25 19:21] VITALS: PULSE 105; RESP 15; TEMP 37.3; O2SAT 98; BMI 24.0
--- NOTE | 2022-09-25 20:00 | ED.VIS.CHEST ---
HPI History of Present Illness Chief Complaint: Chest Pain Informant: parent Onset/Context/Timing Onset: Today Timing: Continuous Location: Right Chest and Left Chest Worsened By: Nothing Relieved By: Nothing Associated Symptoms: Negative for Nausea, Vomiting, Diaphoresis, Dyspnea, Cough or Fever Narrative Narrative: Patient presents with chest pain that began tonight. Parents report that the patient lives in a fdc due to his MRDD. Patient is a poor informant. Parents state that while he was at the workshop today, he fell and hit his chest on a toilet. Parents state that the fdc called him tonight and informed them that they called EMS because he was having chest pain. Parents state that patient has had recent adjustments to his antiepileptic medications. Parents deny any shortness of breath. Parents deny any nausea or vomiting. Parent states patient is otherwise acting normally. Parents think that this may be some indigestion as he has had pain in his chest with indigestion in the past. [facility] Medical History Deafness in left ear GERD (gastroesophageal reflux disease) Seizure Traumatic brain injury Home Medications clonazepam 0.5 mg tablet 1 mg PO QHS anxiety 05/23/16 [History Last Taken 11/08/21] lacosamide 200 mg tablet (Vimpat) 200 mg PO BID #60 tabs 05/23/16 [Rx Last Taken 11/09/21] phenytoin 50 mg chewable tablet (Dilantin Infatabs) 75 mg PO DAILY seizures 05/23/16 [History Last Taken 11/09/21] phenytoin sodium extended 100 mg capsule 150 mg PO QHS seizure 05/23/16 [History Last Taken 11/08/21] clonazepam 0.5 mg tablet (Klonopin) 0.5 mg PO 1500 anxiety 04/02/21 [History Last Taken 11/08/21] prednisone 20 mg tablet 20 mg PO DAILY 14 days #14 tabs 11/14/21 [Rx Last Taken Unknown] ondansetron 4 mg disintegrating tablet 4 mg PO Q8H PRN PRN Nausea #10 tabs 12/06/21 [Rx Last Taken Unknown] promethazine 25 mg rectal suppository (Promethegan) 25 mg RECTAL Q6H PRN PRN Nausea ##6 12/06/21 [Rx Last Taken Unknown] mineral oil 15 ml PO DAILY #1,200 mL 07/12/22 [Rx Last Taken Unknown] Allergy/AdvReac Type Severity Reaction Status Date / Time No Known Allergies Allergy Verified 12/06/21 19:46 Family History (Updated 11/09/21 @ 15:[address] Ghada Youngblood MD) Grandmother Cancer Diabetes Hypertension Heart disease Grandfather Cancer Diabetes Hypertension Heart disease Surgical History History of arthrodesis S/P bilateral foot surgery Social History housing: other details: long-term. Smoking Status: Never smoker alcohol intake: never substance use type: does not use ROS ROS ED Constitutional Constitutional ED: Denies chills or fever(s) Eyes Eyes: Denies blurry vision or change in vision ENT ENT ED: Denies rhinorrhea or sore throat Cardiovascular Cardiovascular: Reports chest pain Respiratory/Chest Respiratory/Chest: Denies cough or dyspnea Gastrointestinal Gastrointestinal: Denies abdominal pain, nausea or vomiting Genitourinary Genitourinary ED: Denies dysuria or hematuria Musculoskeletal Musculoskeletal: Denies back pain or neck pain Integumentary Denies abscess or rash Neurologic Neurologic: Denies headache(s) or weakness Allergic/Immunologic Allergic/Immunologic ED: Denies mouth swelling or urticaria EXAM Physical Exam Const Vital Signs: 09/25/22 19:21 09/25/22 19:24 09/25/22 20:21 Temperature 99.1 F Temperature Source Temporal Pulse Rate 105 H 113 H Respiratory Rate 15 13 Respiratory Effort Normal Non-Labored Blood Pressure 119/93 H Blood Pressure Mean 101 Pulse Ox 98 95 Oxygen Delivery Method Room Air Room Air Positive well nourished and well developed General Appearance ED: well developed and NAD HEENT normocephalic and atraumatic Eyes PERRL and EOMs intact bilaterally Neck supple and no JVD Chest Wall palpation of chest normal Resp normal respiratory effort and clear to auscultation bilaterally Effort and Inspection: Negative for respiratory distress Cardio regular rate, regular rhythm and no murmurs GI normal to inspection, nondistended, normoactive bowel sounds, soft to palpation, non-tender and non-distended Extremity normal to inspection General Extremety ED: Negative for edema or tenderness General Extremity: Negative for edema Neuro oriented x3, CN's II-XII intact bilaterally and no sensory deficits noted Sensorium / Orientation: awake and alert Motor Exam: strength 5/5 throughout Psych mental status grossly normal MDM MDM MDM Narrative Medical decision making narrative: EKG was obtained. On my interpretation, it showed a sinus tachycardia with a rate of 114. NE interval, QRS interval, and QTc intervals were all normal. [place] was normal. There are no acute ST or T wave changes. Portable 1 view chest x-ray was obtained. On my interpretation, lung king are clear. There is normal cardiac silhouette. Bony thorax is normal. There is no acute process noted. Radiologist also interpreted the x-ray and agrees. CBC shows a thrombocytosis of 45. White blood cell count was within normal limits. Hemoglobin and hematocrit were normal. Basic metabolic profile was within normal limits. High-sensitivity troponin was normal at 4. Phenytoin level was elevated at 32.9. Parents were instructed to hold his phenytoin until he is rechecked. Parents state that they have a phone appointment with his neurologist in 2 days. Parents were instructed to discuss the findings with the neurologist to see if he wants to adjust his medications at that time. Parents understood and were agreeable with the plan. All questions were answered. Lab Data Attestation: I reviewed the patient's lab results. Labs: Laboratory Results - last 24 hr 09/25/22 09/25/22 09/25/22 20:19 20:19 20:19 WBC 9.3 RBC 5.43 Hgb 15.8 Hct 47.1 MCV 86.7 MCH 29.1 MCHC 33.5 RDW Std Deviation 50.7 H RDW Coeff of Linette 15.9 H Plt Count 485 H MPV 9.4 Immature Gran % (Auto) 0.200 Neut % (Auto) 68.0 Lymph % (Auto) 17.9 L [place]bert % (Auto) 8.4 Eos % (Auto) 4.3 Baso % (Auto) 1.2 H Absolute Neuts (auto) 6.4 Absolute Lymphs (auto) 1.67 Nucleated RBC % 0 Sodium 142 Potassium 4.1 Chloride 107 Carbon Dioxide 29.0 Anion Gap 6 BUN 17 Creatinine 0.84 Estim Creat Clear Calc 94.08 Est GFR (MDRD) Af Amer 129 Est GFR (MDRD) Non-Af 106 BUN/Creatinine Ratio 20.1 H Glucose 114 H Calcium 8.4 L Troponin I High Sens 4 Phenytoin 32.9 H* Radiography Chest X-Ray - ED: 1 View, Read by ED Physician, Read by Radiologist and No Acute Disease Diagnostic Testing: Clinical Impression(s) from Imaging Studies Chest X-Ray 09/25/22 20:21 IMPRESSION: No radiographic evidence of acute cardiopulmonary disease. No major interval change. Electronically Signed: Tim Hernandez DO at 20:39 EDT Reading Location ID and State: [address] [place] [address] Tel [phone], Service support , EKG Initial EKG: Attestation: I personally reviewed and interpreted this EKG as follows: Interpretation: No Acute Injury Pattern and Sinus Tachycardia (114) Prior EKG tracings: available for review Prior: Unchanged (11/13/2021) Discharge Plan Triage Chief Complaint: Chest Pain ED Provider: Joseph Adams Dx/Rx/DC Orders Clinical Impression: Chest pain, Dilantin toxicity Instructions: ED Chest Pain, Uncertain Cause Prescriptions: No Action clonazepam 0.5 MG tablet 1 mg PO QHS phenytoin sodium extended 100 MG capsule 150 mg PO QHS phenytoin [Dilantin Infatabs] 50 MG tablet,chewable 75 mg PO DAILY Label Comments: Vimpat 200 MG tablet 200 mg PO BID Qty: 60 0RF clonazepam [Klonopin] 0.5 mg tablet 0.5 mg PO 1500 prednisone 20 mg tablet 20 mg PO DAILY 14 Days Qty: 14 0RF promethazine [Promethegan] 25 MG suppository 25 mg RECTAL Q6H PRN PRN (Reason: Nausea) Qty: 6 0RF ondansetron [ondansetron] 4 MG tablet 4 mg PO Q8H PRN PRN (Reason: Nausea) Qty: 10 0RF mineral oil Oil 15 ml PO DAILY Qty: 1200 11RF Rx Instructions: Combine one tablespoon mineral/castor oil with 8 ounces juice of Madi's preference once daily. May titrate to BID as needed. Primary Care Provider: Elvis Baxter Referrals: Lonnie Venegas MD [Non-Staff] - Keep Jodee appointment Elvis Baxter MD [Primary Care Provider] - 5-7 Days Activity Restrictions/Additional Instructions: The Dilantin level was 32.9. It was drawn at 8:19 PM tonight. Follow-up with his neurologist as scheduled in 2 days and discuss further medication adjustments with him. Disposition Disposition: Home, Self Care
--- NOTE | 2022-09-25 20:05 | EKG12_ITS ---
Test Reason : CP Blood Pressure : / mmHG Vent. Rate : 114 BPM Atrial Rate : 114 BPM P-R Int : 132 ms QRS Dur : 086 ms QT Int : 318 ms P-R-T Axes : 018 054 036 degrees QTc Int : 438 ms Sinus tachycardia Otherwise normal ECG Confirmed by CANDIDO RODRIGUEZ, MO ([id number]), advertising editor BENJY NEFF ([id number]) on 09/27/2022 9:27:26 AM Referred By: HILDA Confirmed By:MO REY MD
[2022-09-25 20:21] VITALS: BP 119/93; PULSE 113; RESP 13; O2SAT 95
--- NOTE | 2022-09-25 20:21 | RAD_ITS ---
INDICATION: Episode of chest pain while urinating. Per mom, fell at work shop today and hit chest. History of GERD. EXAMINATION/TECHNIQUE: X-RAY - XR Chest 1 View COMPARISON: December 06, 2021. FINDINGS: LINES/DEVICES: None. LUNGS: No consolidation, edema or effusion. No pneumothorax. MEDIASTINUM AND CARDIOVASCULAR STRUCTURES: Cardiac silhouette not enlarged. Central airways and mediastinal contour are unremarkable. BONES AND SOFT TISSUES: Unremarkable. RAD/Chest 1 View (Portable) IMPRESSION: No radiographic evidence of acute cardiopulmonary disease. No major interval change. Electronically Signed: Tim Hernandez DO at 20:39 EDT ,
[2022-09-25 20:37] LABS: Absolute Lymphocyte Count 1.67 X10^3/uL (0.83-4.51); Absolute Neutrophil Count 6.4 X10^3/uL (2.0-7.7); Basophil# 0.11 X10^3/uL; Basophil% 1.2 % (0-1); Eosinophils% 4.3 % (0-5); Hematocrit 47.1 % (40-54); Hemoglobin 15.8 g/dL (13.0-16.5); Lymphocyte # 1.67 X10^3/ul (0.83-4.51); Lymphocyte % 17.9 % (19-41); Mean Corp Hgb Conc 33.5 g/dL (32-36); Mean Corpuscular Hgb 29.1 pg (27.0-32.0); Mean Corpuscular Volume 86.7 fL (80-94); Mean Platelet Vol. 9.4 fl (6.2-12.0); Monocyte# 0.78 X10^3/uL; Monocyte% 8.4 % (0-10); NRBC Flagged by Analyzer 0 % (0-5); Neutrophil # 6.35 X10^3/uL (2.7-7.7); Platelet Count 485 K/mm3 (150-450); RBC Distribution Width CV 15.9 % (11.6-14.6); RBC Distribution Width SD 50.7 fl (35.1-43.9); Red Blood Count 5.43 M/mm3 (4.6-6.2); White Blood Count 9.3 K/mm3 (4.4-11.0)
[2022-09-25 20:53] LABS: Anion Gap 6 (5-15); BUN 17 mg/dL (7-18); BUN/Creat Ratio 20.1 RATIO (10-20); Calcium,Total 8.4 mg/dL (8.5-10.1); Chloride 107 mmol/L (98-107); Creatinine, Serum 0.84 mg/dL (0.70-1.30); EST Glomerular Filtration Rate 106 mL/min (>60); Est Glom Filt Rate - Afr Amer 129 mL/min (>60); Estimated Creatinine Clearance 94.08 ml/min; Glucose 114 mg/dL (74-106); Potassium 4.1 mmol/L (3.5-5.1); Sodium Level 142 mmol/L (136-145); Troponin-I HS 4 pg/mL (3.0-78.0)
[2022-09-25 20:59] LABS: Phenytoin (Dilantin) Level 32.9 mL (10.0-20.0)
[2022-09-25 21:36] VITALS: PULSE 98; RESP 16; TEMP 36.9; O2SAT 100
== END 2022-09-25 21:37 | disposition home or self-care (01) ==
PROVIDERS: Emergency Provider Emergency Medicine; PCP Family Medicine; Visit Provider Emergency Medicine
DX: R07.9 Chest pain, unspecified (principal)
CPT/HCPCS: 71045; 80048; 80185; 84484; 85025; 93005; 99285; A4216

== ENCOUNTER → 2022-10-12 | Outpatient (CLI) | payer MEDICAID, SELFPAY ==
[2022-10-12 09:24] LABS: Phenytoin (Dilantin) Level 13.6 mL (10.0-20.0)
== END | disposition home or self-care (01) ==
LOC: LAB 07:49
PROVIDERS: PCP Family Medicine; Referring Provider Psychiatry & Neurology Neurology; Visit Provider Psychiatry & Neurology Neurology
DX: G40.909 Epilepsy, unspecified, not intractable, without status epilepticus (principal)
CPT/HCPCS: 36415; 80185

== ENCOUNTER → 2022-11-10 | Outpatient (CLI) | payer MEDICAID, SELFPAY ==
[2022-11-10 09:51] LABS: Phenytoin (Dilantin) Level 11.7 mL (10.0-20.0)
== END | disposition home or self-care (01) ==
LOC: LAB 08:56
PROVIDERS: PCP Family Medicine; Referring Provider Psychiatry & Neurology Neurology; Visit Provider Psychiatry & Neurology Neurology
DX: G40.909 Epilepsy, unspecified, not intractable, without status epilepticus (principal)
CPT/HCPCS: 36415; 80185

== ENCOUNTER → 2022-12-09 | Outpatient (CLI) | payer MEDICAID, SELFPAY ==
[2022-12-09 10:13] LABS: Phenytoin (Dilantin) Level 15.1 mL (10.0-20.0)
== END | disposition home or self-care (01) ==
LOC: LAB 08:21
PROVIDERS: PCP Family Medicine; Visit Provider Psychiatry & Neurology Neurology
DX: G40.909 Epilepsy, unspecified, not intractable, without status epilepticus (principal)
CPT/HCPCS: 36415; 80185

== ENCOUNTER 2024-01-08 13:46 | Emergency (ER) | payer MEDICAID, SELFPAY ==
[2024-01-08 13:48] VITALS: BP 216/188; PULSE 96; RESP 18; TEMP 35.8; O2SAT 100
[2024-01-08 13:56] VITALS: BMI 22.8
[2024-01-08 14:14] VITALS: BP 134/86; PULSE 80; RESP 15; O2SAT 98
[2024-01-08 15:15] LABS: Absolute Lymphocyte Count 1.92 X10^3/uL (0.83-4.51); Absolute Neutrophil Count 4.6 X10^3/uL (2.0-7.7); Basophil# 0.12 X10^3/uL; Basophil% 1.6 % (0-1); Eosinophil# 0.24 X10^3/uL; Eosinophils% 3.1 % (0-5); Hematocrit 49.2 % (40-54); Hemoglobin 16.1 g/dL (13.0-16.5); Lymphocyte # 1.92 X10^3/ul (0.83-4.51); Mean Corp Hgb Conc 32.7 g/dL (32-36); Mean Corpuscular Hgb 29.4 pg (27.0-32.0); Mean Corpuscular Volume 89.8 fL (80-94); Mean Platelet Vol. 9.6 fl (6.2-12.0); Monocyte# 0.82 X10^3/uL; Monocyte% 10.7 % (0-10); NRBC Flagged by Analyzer 0 % (0-5); Neutrophil # 4.57 X10^3/uL (2.7-7.7); Neutrophil % 59.3 % (47-70); Platelet Count 495 K/mm3 (150-450); RBC Distribution Width CV 14.7 % (11.6-14.6); RBC Distribution Width SD 48.6 fl (35.1-43.9); Red Blood Count 5.48 M/mm3 (4.6-6.2); White Blood Count 7.7 K/mm3 (4.4-11.0)
[2024-01-08 15:23] LABS: Anion Gap 5 (5-15); BUN 13 mg/dL (7-18); BUN/Creat Ratio 15.5 RATIO (10-20); Calcium,Total 9.2 mg/dL (8.5-10.1); Chloride 105 mmol/L (98-107); Creatinine, Serum 0.84 mg/dL (0.70-1.30); EST Glomerular Filtration Rate 107 mL/min (>60); Est Glom Filt Rate - Afr Amer 129 mL/min (>60); Glucose 90 mg/dL (74-106); Potassium 4.3 mmol/L (3.5-5.1); Sodium Level 140 mmol/L (136-145)
--- NOTE | 2024-01-08 15:30 | CT_ITS ---
EXAM: CT HEAD WITHOUT INTRAVENOUS CONTRAST CLINICAL INDICATION: confusion TECHNIQUE: Multiple axial images were obtained of the head without intravenous contrast. This CT exam was performed using one or more of the following dose reduction techniques: automated exposure control, adjustment of the mA and/or kV according to patient size, and/or use of iterative reconstruction technique. COMPARISON: 03/01/2022 FINDINGS: BRAIN AND EXTRA-AXIAL SPACES: There is stable enlargement of ventricular system primarily the frontal horns. There is hypoattenuation in the periventricular white matter. No intra- or extra-axial hemorrhage. No evidence of acute infarct. No intracranial mass or mass effect. There is preservation of the conde/white matter interface. Posterior fossa structures are unremarkable. Basal cisterns are patent. BONES/JOINTS: Unremarkable. No discrete lytic or blastic abnormalities. SINUSES: There is partial opacification of the left frontal sinus. MASTOID AIR CELLS: Unremarkable. Clear. ORBITS: Visualized globes, extraocular muscles, optic nerves and retrobulbar fat appear unremarkable. CT/Brain/Head without Contrast IMPRESSION: 1. No acute intracranial abnormality. There is been no change from the reference examination. 2. Stable ventriculomegaly with small vessel ischemia. Electronically Signed: Aleksandr Singh MD at 16:35 EST ,
--- NOTE | 2024-01-08 15:33 | EDS_ITS ---
HPI History of Present Illness Chief Complaint: General Illness Narrative Narrative: 43-year-old male with history of epilepsy on cenobamate 200 mg nightly, as needed camazepam 0.5 mg and clonazepam 1 mg nightly. He is also on Vimpat 100 mg p.o. twice daily and Dilantin 75 mg p.o. twice daily. He is presenting with his parents out of concern that he has moving the right side of his body less purposefully. Patient's typically had trouble with the left arm. Parents noticed today that he seems to be weaker in the right arm. They state that he was trying to reach for a glass today and could not grab it. They expressed that maybe he was having visual disturbance and the patient is not available to inform them of that. Patient has been on his medications for a long time but has been decreasing the dose of the Vimpat over the last several months. He is now down to 100 mg p.o. twice daily which is the lowest he has been. Father reports that when he has had these 2 doses both earlier today and in the afternoon he seems to respond to them with his other medications as well. And seems less agitated. He has not had any visualized absence seizures nor has he had any tonic-clonic seizures. Does not appear to be postictal. Family states they called the neurologist and they were concerned about a metabolic issue. There is been no report of falls but the patient does spend time away from home throughout the week at a snf. Family notices the injuries. [facility] Medical History Deafness in left ear GERD (gastroesophageal reflux disease) Seizure Traumatic brain injury Home Medications clonazepam 0.5 mg tablet 1 mg PO QHS anxiety 05/23/16 [History Last Taken 11/08/21] phenytoin 50 mg chewable tablet (Dilantin Infatabs) 75 mg PO DAILY seizures 05/23/16 [History Last Taken 11/09/21] phenytoin sodium extended 100 mg capsule 75 mg PO Q12H seizure 05/23/16 [History Last Taken 11/08/21] clonazepam 0.5 mg tablet (Klonopin) 0.5 mg PO 1500 anxiety 04/02/21 [History Last Taken 11/08/21] mineral oil 15 ml PO DAILY #1,200 mL 07/12/22 [Rx Last Taken Unknown] cenobamate 200 mg tablet (Xcopri) 200 mg PO QHS 01/08/24 [History Last Taken Unknown] cephalexin 500 mg capsule 500 mg PO Q12 #14 CAPSULES 01/08/24 [Rx Last Taken Unknown] lacosamide 200 mg tablet (Vimpat) 100 mg PO BID 01/08/24 [History Last Taken Unknown] nitrofurantoin macrocrystal 50 mg capsule 50 mg PO DAILY 01/08/24 [History Last Taken Unknown] Allergy/AdvReac Type Severity Reaction Status Date / Time No Known Allergies Allergy Verified 01/08/24 13:47 Family History Grandmother Cancer Diabetes Hypertension Heart disease Grandfather Cancer Diabetes Hypertension Heart disease Surgical History History of arthrodesis S/P bilateral foot surgery Social History housing: other details: nursing home. Smoking Status: Never smoker alcohol intake: never substance use type: does not use ROS ROS ED Review of Systems ROS Unobtainable: due to mental condition and due to mental status Integumentary Reports rash EXAM Physical Exam Const Vital Signs: 01/08/24 13:48 01/08/24 14:11 01/08/24 14:14 Temperature 96.5 F L Temperature Source Temporal Pulse Rate 96 80 Respiratory Rate 18 15 Respiratory Effort Normal Non-Labored Respiratory Pattern Normal Blood Pressure 216/188 H 134/86 H Blood Pressure Mean 197 102 Pulse Ox 100 98 Oxygen Delivery Method Room Air Room Air 01/08/24 18:23 01/08/24 18:23 Temperature 98.1 F Temperature Source Pulse Rate 60 68 Respiratory Rate 18 16 Respiratory Effort Respiratory Pattern Blood Pressure 129/73 H 129/73 H Blood Pressure Mean 91 91 Pulse Ox 94 96 Oxygen Delivery Method Room Air Positive well nourished General Appearance ED: NAD; Negative for pallor Eyes PERRL and EOMs intact bilaterally Neck no lymphadenopathy Chest Wall inspection of chest normal Resp normal respiratory effort and clear to auscultation bilaterally Auscultation: Negative for rales, rhonchi or wheezes Cardio regular rate and regular rhythm GI normal to inspection, nondistended, normoactive bowel sounds Neuro Neuro Narrative: Patient has no focal neurologic deficits. He is moving both upper extremities equally. Sensorium / Orientation: alert; Negative for orientation impaired Motor Exam: strength 5/5 throughout Psych Psych Narrative: At baseline. Skin no rashes or lesions noted General Skin Exam: Negative for jaundice or pallor MDM MDM MDM Narrative Medical decision making narrative: Patient presenting with generalized weakness. He is on the transfer at home. Family concerned as he is using his right arm less and this is usually his strong/dominant arm. Neurology thought he could use an evaluation. There was concern for something organic. Differential includes seizure, absence seizure, intracranial hemorrhage, dehydration, anemia, electrolyte abnormalities, Dilantin toxicity. CBC was obtained to assess white blood cell count, hemoglobin, platelets. BMP to assess renal function and electrolytes. Urinalysis to assess for UTI as patient has history of this. Dilantin level was obtained and is 23.6. The rest of his lab work is unremarkable with exception of a urinalysis which shows positive nitrites 25 leukocyte esterase, 5-10 white blood cells, rare bacteria with 0-5 squamous epithelial cells. This will be sent for culture. CT brain was negative. Discussed with Dr. Venegas and he recommended not changing the Dilantin doses as this is only marginally high. We will treat the patient with antibiotics for a few days and send a urine culture just to cover him. Family is aware and is comfortable with the plan. Discharged stable condition. Impression: 1. UTI 2. Elevated phenytoin level Lab Data Attestation: I reviewed the patient's lab results. Labs: Laboratory Results - last 24 hr 01/08/24 01/08/24 15:00 16:33 WBC 7.7 RBC 5.48 Hgb 16.1 Hct 49.2 MCV 89.8 MCH 29.4 MCHC 32.7 RDW Std Deviation 48.6 H RDW Coeff of Linette 14.7 H Plt Count 495 H MPV 9.6 Immature Gran % (Auto) 0.300 Neut % (Auto) 59.3 Lymph % (Auto) 25.0 [place] % (Auto) 10.7 H Eos % (Auto) 3.1 Baso % (Auto) 1.6 H Absolute Neuts (auto) 4.6 Absolute Lymphs (auto) 1.92 Nucleated RBC % 0 Sodium 140 Potassium 4.3 Chloride 105 Carbon Dioxide 30.0 Anion Gap 5 BUN 13 Creatinine 0.84 Estim Creat Clear Calc 92.20 Est GFR (MDRD) Af Amer 129 Est GFR (MDRD) Non-Af 107 BUN/Creatinine Ratio 15.5 Glucose 90 Calcium 9.2 Urine Color Yellow Urine Clarity Clear Urine pH 6.5 Ur Specific [place] 1.015 Urine Protein Negative Urine Glucose (UA) Normal Urine Ketones Negative Urine Occult Blood Negative Urine Nitrite Positive H Urine Bilirubin Negative Urine Urobilinogen Normal Ur Leukocyte Esterase 25 H Urine RBC 0 SEEN Urine WBC 5-10 SEEN Ur Squamous Epith Cells 0-5 SEEN Urine Bacteria RARE Urine Mucus 1+ Phenytoin 23.6 H Radiography Diagnostic Testing: Clinical Impression(s) from Imaging Studies Brain CT 01/08/24 15:30 IMPRESSION: 1. No acute intracranial abnormality. There is been no change from the reference examination. 2. Stable ventriculomegaly with small vessel ischemia. Electronically Signed: Aleksandr Singh MD at 16:35 EST , Discharge Plan Triage Chief Complaint: General Illness ED Provider: Dylon Argueta Dx/Rx/DC Orders Instructions: ED Weakness (Uncertain Cause), ED Urinary Tract Infections in Men Prescriptions: New cephalexin 500 mg capsule 500 mg PO Q12 Qty: 14 0RF No Action clonazepam 0.5 MG tablet 1 mg PO QHS phenytoin sodium extended 100 MG capsule 75 mg PO Q12H phenytoin [Dilantin Infatabs] 50 MG tablet,chewable 75 mg PO DAILY Patient Comments: clonazepam [Klonopin] 0.5 mg tablet 0.5 mg PO 1500 Xcopri 200 mg tablet 200 mg PO QHS nitrofurantoin macrocrystal 50 mg capsule 50 mg PO DAILY lacosamide [Vimpat] 200 MG tablet 100 mg PO BID mineral oil Oil 15 ml PO DAILY Qty: 1200 11RF Rx Instructions: Combine one tablespoon mineral/castor oil with 8 ounces juice of Madi's preference once daily. May titrate to BID as needed. Primary Care Provider: Elvis Baxter Referrals: Elvis Baxter MD [Primary Care Provider] - Disposition Disposition: Home, Self Care Discharge Date/Time: 01/08/24 18:24
[2024-01-08] MEDS: 0.9% Normal Saline (1000mL) 1,000 ML 999 ML IV (15:41)
[2024-01-08 15:50] LABS: Phenytoin (Dilantin) Level 23.6 mL (10.0-20.0)
[2024-01-08 16:45] LABS: Red Blood Cells-Urine 0 SEEN /hpf (0-5)
[2024-01-08 17:00] LABS: Color, Urine Yellow (Yellow); Glucose, Dipstick Normal (Normal); Ketone-Dipstick Negative (Negative); Leukocyte Esterase-Dipstick 25 /ul (Negative); Nitrite-Dipstick Positive (Negative); Occult Blood-Urine Negative /ul (Negative); Protein-Dipstick Negative (Negative); Specific Gravity, Urine 1.015 (1.002-1.030); Urine Bilirubin Dipstick Negative (Negative); Urine Clarity Clear (Clear); Urine Urobilinogen Normal (Normal); Urine pH 6.5 (5.0 - 8.0)
[2024-01-08 17:06] LABS: Bacteria RARE /hpf (None Seen); Mucous, Urine 1+ /hpf (<or=2+); White Blood Cells 5-10 SEEN /hpf (0-5)
[2024-01-08 17:07] LABS: Squamous Epithelial Cells - UA 0-5 SEEN /hpf (0-5)
[2024-01-08] MEDS: Cephalexin 250 MG Capsule 500 MG PO (18:22)
[2024-01-08 18:23] VITALS: BP 129/73; PULSE 60; PULSE 68; RESP 16; RESP 18; TEMP 36.7; O2SAT 94; O2SAT 96
--- OUTSIDE RECORDS SUMMARY | 2024-01-08 19:53 | XMS RPT_ITS | CCD ---
Author Name Unknown Address [address] [place] [address] Organization [facility] Care Team Providers Care Utility Arborist Name Role Phone MIKE SHAFFER Unavailable Unavailable MIKE SHAFFER Unavailable Unavailable KRYS, CARLOS Unavailable Unavailable BAY, CARLOS Unavailable Unavailable RADHA ABRAHAM Unavailable Unavailable IMCA Unavailable Unavailable RADHA ABRAHAM Unavailable Unavailable Larisa Baxter MD Primary Care Provider Larisa Baxter MD Primary Care Provider LARISA BAXTER Primary Care Unavailable LARISA BAXTER Referring Unavailable LARISA BAXTER Primary Care Unavailable LARISA BAXTER Referring Unavailable LARISA BAXTER Primary Care Unavailable LARISA BAXTER Attending Unavailable LARISA BAXTER Primary Care Unavailable LARISA BAXTER Primary Care Unavailable LARISA BAXTER Primary Care Unavailable WONG HIGUERA Referring Unavailable LARISA BAXTER Primary Care Unavailable LARISA BAXTER Referring Unavailable WONG HIGUERA Attending Unavailable LARISA BAXTER Attending Unavailable LARISA BAXTER Primary Care Unavailable Unavailable Primary Care Provider UnavailJEANNETTE Arredondo Attending Unavailable Medications Current Medications Medication Drug Class(es) Dates Sig (Normalized) Sig (Original) cenobamate 200 mg oral tablet (9 sources) Start: 11-29-2023 End: 12-27-2023 take 1 tablet by mouth at bedtime Cenobamate (Xcopri) 200 MG tablet Indications: Seizure disorder (CMS/HCC) Take 200 mg by mouth at bedtime 30 tablet 5 12/27/2023 Active Completed/Discontinued Medications Medication Drug Class(es) Dates Sig (Normalized) Sig (Original) cephalexin 500 mg oral capsule (3 sources) Cephalosporin Antibacterial Start: 11-02-2023 End: 12-27-2023 take 1 capsule by mouth in the morning, then take 1 capsule by mouth in the evening, then take 1 capsule by mouth at bedtime cephalexin (Keflex) 500 MG capsule Take 500 mg by mouth in the morning and 500 mg in the evening and 500 mg before bedtime. 0 11/02/2023 12/27/2023 Discontinued Problems Active Problems Problem Classification Problem Date Documented Da te Episodic/Chronic Developmental disorders (9 sources) Moderate intellectual disability; Translations: [Moderate intellectual disabilities] Onset: 05-16-2012 Chronic Disorders usually diagnosed in infancy, childhood, or adolescence (10 sources) Tic disorder; Translations: [Tic disorder, unspecified] Onset: 02-07-2018 02-07-2018 Chronic Epilepsy; convulsions (12 sources) Partial epilepsy with impairment of consciousness; Translations: [Localization-relat ed (focal) (partial) symptomatic epilepsy and epileptic syndromes with complex partial seizures, not intractable, without status epilepticus] Onset: 05-16-2012 Chronic Genitourinary symptoms and ill-defined conditions (2 sources) Dysuria; Translations: [Dysuria] Onset: 08-27-2023 Episodic Nutritional deficiencies (7 sources) Vitamin D deficiency; Translations: [Vitamin D deficiency, unspecified] Onset: 11-14-2013 05-21-2023 Chronic Paralysis (7 sources) Spastic tetraplegia; Translations: [Quadriplegia, unspecified] Onset: 05-16-2012 05-21-2023 Chronic Septicemia (except in labor) (3 sources) Sepsis; Translations: [Sepsis, unspecified organism] Onset: 05-21-2023 05-21-2023 Episodic Unclassified (1 source) Unknown / UNK(Unknown) Onset: 08-13-2017 Urinary tract infections (3 sources) Acute cystitis; Translations: [Acute cystitis without hematuria] Onset: 11-05-2023 08-28-2023 Episodic Past or Other Problems Problem Classification Problem Date Documented Da te Episodic/Chronic Abdominal pain (7 sources) Abdominal pain; Translations: [Unspecified abdominal pain] Onset: 05-21-2023 05-21-2023 Episodic Aspiration pneumonitis; food/vomitus (7 sources) Aspiration pneumonia; Translations: [Pneumonitis due to inhalation of food and vomit] Onset: 05-21-2023 05-21-2023 Episodic Epilepsy; convulsions (8 sources) Seizure; Translations: [Post traumatic seizures] Onset: 09-20-2010 02-07-2018 Episodic Intestinal obstruction without hernia (7 sources) Small bowel obstruction; Translations: [Unspecified intestinal obstruction, unspecified as to partial versus complete obstruction] Onset: 05-21-2023 05-21-2023 Episodic Intracranial injury (9 sources) Late effect of traumatic injury to brain; Translations: [Unspecified intracranial injury with loss of consciousness of unspecified duration, sequela] Onset: 09-20-2010 09-20-2010 Episodic Other connective tissue disease (2 sources) Pain in left lower limb; Translations: [Pain in left leg] Onset: 08-13-2017 Episodic Other connective tissue disease (8 sources) Spasticity; Translations: [Cramp and spasm] Onset: 09-20-2010 09-20-2010 Episodic Other gastrointestinal disorders (7 sources) Constipation; Translations: [Constipation, unspecified] Onset: 04-30-2022 05-21-2023 Episodic Other injuries and conditions due to external causes (7 sources) Injury of peripheral nerve; Translations: [Other injury of unspecified body region, initial encounter] Onset: 05-16-2012 05-21-2023 Episodic Other nervous system disorders (8 sources) [place] gait; Translations: [Other abnormalities of gait and mobility] Onset: 09-20-2010 09-20-2010 Episodic Other nutritional; endocrine; and metabolic disorders (7 sources) Decrease in appetite; Translations: [Anorexia] Onset: 04-06-2022 05-21-2023 Episodic Other screening for suspected conditions (not mental disorders or infectious disease) (2 sources) Patient encounter status; Translations: [Encounter for screening for lipoid disorders] Onset: 05-21-2023 Episodic Poisoning by other medications and drugs (4 sources) Poisoning by phenytoin; Translations: [Poisoning by hydantoin derivatives, accidental (unintentional), initial encounter] Onset: 05-21-2023 05-21-2023 Episodic Results Test Name Value Interpretation Reference Range Facil ity Vital Signs Date Time Vital Sign Value Performing Clinician Ash bronson 05-21-2023 11:28-0400 Body height 157.5 cm Larisa Baxter MD Work Phone: [facility] 05-21-2023 11:28-0400 Body weight 54.43 kg Larisa Baxter MD Work Phone: [facility] 05-21-2023 11:28-0400 Diastolic blood pressure 80 mm[Hg] Larisa Baxter MD Work Phone: [facility] 05-21-2023 11:28-0400 Heart rate 94 /min Larisa Baxter MD Work Phone: [facility] 05-21-2023 11:28-0400 Systolic blood pressure 118 mm[Hg] Larisa Baxter MD Work Phone: [facility] Encounters Encounter Date Encounter Type Care Provider Facility Start: 12-28-2023 End: 12-28-2023 ambulatory JEANNETTE VENEGAS Not Available Start: 12-27-2023 End: 12-27-2023 Office outpatient visit 15 minutes Jeannette Venegas MD Work Phone: [facility] Procedures Date Procedure Procedure Detail Performing Clinician Start: 06-11-2023 Lipid 1996 panel - S murali or Plasma Soledad Greene GUIDANCE DIRECTOR.CROP RESEARCH SCIENTIST Work Phone: Start: 05-21-2023 Urnls dip stick/tabl et rgnt auto w/o microscopy Larisa Baxter MD Work Phone: Start: 03-24-2021 Adult depression screening assessment Larisa Baxter MD Work Phone: Plan of Treatment Date Care Activity Detail Author Start: 06-11-2028 Lipid 1996 panel - Serum or Plasma Lipid Screening [facility] Start: 06-11-2028 LIPID SCREEN LIPID SCREEN [facility] Start: 09-04-2024 Urine microalbumin profile [facility] Start: 11-16-2023 End: 02-15-2024 Bacteria identified in Urine by Culture URINE CULTURE Microbiology Routine Recurrent UTI (urinary tract infection) Expected: 11/16/2023 (Approximate), Expires: 02/15/2024 [facility] Work Phone: Immunizations Immunization Date Immunization Notes Care Provider [facility] [place] 02-28-2021 COVID-19 original vaccine, age 12+ yr, monovalent (PFIZER-BIONTDobango - PURPLE TOP) Larisa Baxter MD Work Phone: [facility] 02-07-2021 COVID-19 original vaccine, age 12+ yr, monovalent (PFIZER-BIONTECH - PURPLE TOP) Larisa Baxter MD Work Phone: [facility] 01-22-2021 COVID-19 vaccine, ag e 12+ yr (PFIZER-BIONTECH - PURPLE TOP) Larisa Baxter MD Work Phone: [facility] 12-23-2020 COVID-19 vaccine, ag e 12+ yr (PFIZER-BIONTECH - PURPLE TOP) Larisa Baxter MD Work Phone: [facility] 02-07-2018 influenza virus vaccine, unspecified formulation Soledad Greene APRN.CROP RESEARCH SCIENTIST Work Phone: [facility] 09-04-2014 TD(adult) unspecifie d formulation Larisa Baxter MD Work Phone: [facility] 09-04-2014 tetanus and diphther ia toxoids, adsorbed, preservative free, for adult use (2 Lf of tetanus toxoid and 2 Lf of diphtheria toxoid) Larisa Baxter MD Work Phone: [facility] 09-04-2014 tetanus toxoid, redu victorino diphtheria toxoid, and acellular pertussis vaccine, adsorbed Larisa Baxter MD Work Phone: [facility] Work Phone: 06-22-2000 hepatitis B vaccine, pediatric or pediatric/adolescent dosage Larisa Baxter MD Work Phone: [facility] Work Phone: 06-22-2000 hepatitis B vaccine, unspecified formulation Larisa Baxter MD Work Phone: [facility] 07-07-1999 measles, mumps and rubella virus vaccine Larisa Baxter MD Work Phone: [facility] Work Phone: 11-24-1987 diphtheria, tetanus toxoids and acellular pertussis vaccine, 5 pertussis antigens Larisa Baxter MD Work Phone: [facility] Work Phone: 11-24-1987 trivalent poliovirus vaccine, live, oral Larisa Baxter MD Work Phone: [facility] Work Phone: 11-29-1983 diphtheria, tetanus toxoids and acellular pertussis vaccine, 5 pertussis antigens Larisa Baxter MD Work Phone: [facility] Work Phone: 11-29-1983 trivalent poliovirus vaccine, live, oral Larisa Baxter MD Work Phone: [facility] Work Phone: 03-04-1983 measles, mumps and rubella virus vaccine Larisa Baxter MD Work Phone: [facility] Work Phone: 04-23-1982 diphtheria, tetanus toxoids and acellular pertussis vaccine, 5 pertussis antigens Larisa Baxter MD Work Phone: [facility] Work Phone: 03-05-1982 diphtheria, tetanus toxoids and acellular pertussis vaccine, 5 pertussis antigens Larisa Baxter MD Work Phone: [facility] Work Phone: 03-05-1982 trivalent poliovirus vaccine, live, oral Larisa Baxter MD Work Phone: [facility] Work Phone: 01-10-1982 diphtheria, tetanus toxoids and acellular pertussis vaccine, 5 pertussis antigens Larisa Baxter MD Work Phone: [facility] Work Phone: 01-10-1982 trivalent poliovirus vaccine, live, oral Larisa Baxter MD Work Phone: [facility] Work Phone: Payers Date Payer Category Payer Medicaid MEDICAID [facility] [place] MEDICAID [id number] 2021-Present [phone] [address] [place] [address] Medicaid [id number] 2017 Medicaid [id number] 2017 Medicaid [id number] 1980 Unknown [id number] Private Health Insurance [facility] [id number] Private Health Insurance [facility] [id number] Social History Date Type Detail Facility Start: 05-21-2023 End: 05-31-2023 Tobacco smoking status NHIS Never smoked tobacco [facility] Start: 11-29-2021 End: 10-25-2023 Alcohol intake Current non-drinker of alcohol (finding) [facility] Start: 03-24-2021 History SDOH Alcohol Binge 1 [facility] Start: 03-24-2021 History SDOH Social Connections Phone 5 [facility] Start: 03-24-2021 History SDOH Social Connections Latter Day 3 [facility] Start: 03-24-2021 History SDOH Social Connections Membership 2 [facility] Start: 03-24-2021 History SDOH Social Connections Living 7 [facility] Start: 03-24-2021 History SDOH Physica l Activity DPW 0 [facility] Start: 03-24-2021 Education 12 [facility] Start: 1980 Sex Assigned At Not on file [facility] Start: 05-21-2023 End: 05-31-2023 Tobacco use and exposure Smokeless tobacco non-user [facility] Start: 03-24-2021 End: 08-27-2023 History of Social function [facility] Start: 03-24-2021 End: 08-27-2023 Social connection and isolation panel [facility] Do you belong to any clubs or organizations such as caodaism groups, unions, fraternal or athletic groups, or school groups? No [facility] Are you now , , , , never or living with a partner? Never [facility] Frequency of Alcohol Consumption Not on file [facility] How often do you hav e 6 or more drinks on 1 occasion? Never [facility] Do you feel stress - tense, restless, nervous, or anxious, or unable to sleep at night because your mind is troubled all the time - these days [OSQ] To some extent [facility] (I/We) worried [facility] (my/our) food would run out before (I/we) got money to buy more. Never true [facility] Start: 08-27-2023 End: 10-30-2023 Alcohol intake Lifetime non-drinker (finding) [facility] Start: 06-01-2023 Alcohol Comment caffeine: 1 - 2 cups/day [facility] Clinical Notes 05-23-2022 to 12-27-2023 Jeannette Venegas MD - 12/27/2023 4:20 PM ESTTelephone Encounter - Jm Ramos RN - 11/02/2023 8:55 AM ESTTelephone Encounter - Wong Higuera PA-C - 11/02/2023 8:44 AM EST Note Date & Type Note Facility 12-27-2023 History of Presen t illness Narrative Images from the original note were not included. CHIEF COMPLAINT: Seizure d/o HISTORY OF PRESENT ILLNESS: Phone call with parents, unable to travel. Good month per mom. One sz at night but otherwise doing ok. [facility] Prefers to dose xcopri at night. Behaviors have improved. Still some language but improved. Last visit:Phone call with mom and dad. One sz nov 10. 3 in jul. Doing well otherwise. Parents note he has an ongoing uti which may have led to prostatitis, now on daily antibiotics. Balance worse, left side spasticity worse, but may be improved now.last visit we had discussed decreaseing the vimpat. 08/27/23:Parents report two recent seizures, wonder about uti, ua pending, saw pcp in May, pht level 14.seizures have been briefer. Xcopri 200mg daily Keflex daily Current Outpatient Medications on File Prior to Visit Medication Sig Dispense Refill cephalexin (Keflex) 500 MG capsule Take 500 mg by mouth in the morning and 500 mg in the evening and 500 mg before bedtime. diazePAM (Valtoco 10 MG Dose) 10 MG/0.1ML liquid as directed Nasally one dose as needed for seizure, may repeat x one after 10 min for 30 days KlonoPIN 0.5 MG tablet GIVE 1 TABLET BY MOUTH EVERY DAY AT 4PM TERELL-1* PA APPROVED 30 tablet 0 lacosamide (Vimpat) 150 mg tablet tablet Take 1 tablet (150 mg) by mouth in the morning and 1 tablet (150 mg) before bedtime. 60 tablet 3 phenytoin (Dilantin Infatabs) 50 MG chewable tablet Chew 1.5 tablets in the morning and 1.5 tablets before bedtime. TERELL. 90 tablet 11 Xcopri 200 MG tablet Take 200 mg by mouth in the morning. No current facility-administered medications on file prior to visit. Past Medical History: Diagnosis Date History of being hospitalized Nov 2021 ([place]OVID [place]), Oct 2021 (bowel blockage [place]), March 2021 (pneumonia [place]), seizures Seizures (CMS/HCC) TBI (traumatic brain injury) (CMS/HCC) Past Surgical History: Procedure Laterality Date FOOT CAPSULE RELEASE W/ PERCUTANEOUS HEEL CORD LENGTHENING, TIBIAL TENDON TRANSFER FOOT SURGERY MUSCLE RELEASE abductor OTHER SURGICAL HISTORY Triple Arthrodeces OTHER SURGICAL HISTORY broken femur and foot Family History Problem Relation Name Age of Onset No Known Problems Brother Social History Tobacco Use Smoking status: Never Smokeless tobacco: Never Substance Use Topics Alcohol use: Never Comment: caffeine: 1 - 2 cups/day ALLERGIES: Patient has no known allergies. Examination: Phone call only ASSESSMENT/PLAN: 1. Seizure disorder (CMS/HCC) Needs standing order for dilantin level at [facility] Xcopri inc to 200mg daily Follow ok for telemed Consider decrease vimpat: sent rx for 150mg bid to [facility] Also having abn behaviors again, coprolalia. Await response to antibiotics, telemed visit again Update: stable, no change with dec vimpat, will dec further to 100mg bid and change xcopri to at bedtime. He is on daily macrobid, cultures still pos, so suppressive therapy. Also needs valtoco rx updated They give him the klonopin at 4pm, doesn't appear to be effective consider hold, or increase, but will leave this as is for now. Follow-up one month by phone documented in this encounter [facility] 11-02-2023 Miscellaneous Notes Called and talked to mother. Mother agreeable to plan. No needs at this time. Please, notify patient the urine culture was positive Treatment e-scripted: Keflex 500 mg x 7 days And will need a 2 week post-treatment urine culture ( orders are in) If clear of bacteria will have them start Macrodantin 50 mg daily He can bathe or shower, as long as he is able to rinse clean is the only concern. Thank you, CAROL Macias, [place], JIM AIDA 10/30/23 10/30/23 Urine culture Culture >=100,000 CFU/ml Escherichia coli Please advise documented in this encounter [facility] 10-30-2023 Note HNO ID: [id number] Author: Wong Higuera PA-C Service: ? Author Type: Physician Dinkey Engineer Type: Progress Notes Filed: 10/30/2023 6:15 PM Note Text: [facility] NEW PATIENT CLINIC NOTE SERVICE DATE: 10/30/2023 SERVICE TIME: 1:50 PM NAME: Shen Hayden CHIEF COMPLAINT: Multiple UTI HISTORY OF PRESENT ILLNESS: Shen Hayden is a 42 year old male presenting as an New Patient for Multiple UTI The patient reports patient is mentally disabled and at age 42 has the understanding of a young child, he is very pleasant And listen to the conversation with little understanding of the discussion of recurrent UTI So his parents are here giving medica history details for him. They have come to realize that he often has trouble with his penis being placed in stool either in the toilet by pushing his penis down into the toilet unitl it s submerged In the toilet water full of waste and often has his hand in his underpants and then touching his penis coving it with stool These are behaviors they know are likely the cause for enteric bacteria getting willa the penis and into the bladder Trying different methods to reduce this but it will be difficult since these are actions he has learned and is unaware of the the implications When I comes to UTI. I will get a urine culture today they will help him collect a clean sample of urine for sample if still has e Coli and Klebsiella We will treat this first. Once th urine is clear of bacteria then he can start low dose Macrodantin 50 mg daily to help suppress these bacteria causing his UTI's Needs to increase water itake as well which can help dilute urine and keep urine from becoming held long periods in bladder LUTS: DYSURIA: yes URGENCY: Yes FREQUENCY:7 per day NOCTURIA: 0 per night STRAINING TO VOID: No EMPTIES COMPLETELY: Yes UTI: 6 past 12 months GROSS HEMATURIA: nono UA DIPSTICK POSITIVE ONLY: Other symptoms: LABS: No results found for: TESTOST No results found for: TESTFREE No results found for: PSA Hematocrit (%) Date Value 06/11/2023 49.1 No results found for: PSA Creatinine Date Value Ref Range Status 06/11/2023 0.85 0.73 - 1.22 mg/dL Final 02/14/2022 0.74 0.73 - 1.22 mg/dL Final MEDICATIONS: pantoprazole DR (PROTONIX) 40 mg tablet Take 1 tablet by mouth daily before breakfast. Take on empty stomach, 1/2 hr before meal. cenobamate (XCOPRI) 150 mg tablet Take 200 mg by mouth once daily. phenytoin chewable (DILANTIN) 50 mg tablet Take 1 and one half tablets in the morning and take 1 tablet at bedtime along with the 100 mg tablet. clonazePAM (KLONOPIN) 1 mg tablet daily at bedtime. 0.5 mg at 3 pm and 1 mg at bedtime 10/30/2023- none at bedtime. lacosamide (VIMPAT) 200 mg Take 200 mg by mouth twice daily. nitrofurantoin macrocrystal (MACRODANTIN) 50 mg capsule Take 1 capsule by mouth daily at bedtime. PAST MEDICAL HISTORY: PAST MEDICAL HISTORY Diagnosis Date Constipation, unspecified constipation type Epilepsy, unspecified, not intractable, without status epilepticus (HCC) History of traumatic brain injury age 5 Post traumatic seizure disorder (HCC) Post traumatic seizures (HCC) Recurrent UTI (urinary tract infection) Seizures (HCC) Spastic quadriplegia (HCC) Traumatic brain injury (HCC) PAST SURGICAL HISTORY: PAST SURGICAL HISTORY Procedure Laterality Date PAST SURGICAL HISTORY OF multiple foot procedures, heel cord lengthenings, triple arthodesis and adductor releases FAMILY HISTORY: No family history on file. SOCIAL HISTORY: Social Connections: Moderately Isolated (03/24/2021) Social Connection and Isolation Panel [NHANES] Frequency of Communication with Friends and Family: More than three times a week Frequency of Social Gatherings with Friends and Family: More than three times a week Attends Yarsanism Services: More than 4 times per year Active Member of Clubs or Organizations: No Attends Club or Organization Meetings: Never Marital Status: Never REVIEW OF SYSTEMS: GENERAL: No fever, chills, weight loss, or fatigue. ENMT: Negative CARDIOVASCULAR:NO CHEST PAIN, PALPITATIONS, ANKLE EDEMA RESPIRATORY: No chronic cough, wheezing, dyspnea, hemoptysis. GENITOURINARY: SEE HPI MUSCULOSKELETAL:NO CHRONIC BACK PAIN, ARTHRITIS, CHRONIC NECK PAIN SKIN: NO VARICOSE VEINS, RASH, ABNORMAL ITCHING HEME/LYMPH/IMMUNE:Negative for prolonged bleeding, bruising easily or swollen nodes NEUROLOGICAL: NO HEADACHES, NUMBNESS, SEIZURES, STROKE DIABETES: no All other systems reviewed and are negative PHYSICAL EXAMINATION: Blood pressure 118/86, pulse 94, temperature 36.3 ?C (97.4 ?F), temperature source Temporal, resp. rate 16, height 160 cm (5' 3 ), weight 61.2 kg (135 lb), SpO2 92%. GENERAL: WNL nutrition, no deformities, healthy appearing NEURO: Awake, alert and oriented (more content not included)... [facility] 10-30-2023 Note HNO ID: [id number] Author: Marylou Bauer LPN Service: ? Author Type: ? Type: Progress Notes Filed: 10/30/2023 6:15 PM Note Text: Verified name and date of . Patient reports unable to urinate- parents state is he says he can't go he cannot go. Last went to bathroom this morning around 8 AM. [facility]. No urinary complaints at this time. Bladder scan done: 121 mL [facility] 10-26-2023 Miscellaneous Notes Printed. documented in this encounter [facility] 09-17-2023 Note HNO ID: [id number] Author: Larisa Baxter MD Service: ? Author Type: Physician Type: Progress Notes Filed: 09/17/2023 2:58 PM Note Text: Patient presents with: UTI HPI: Patient presents today for office visit for cloudy and smelly urine X 4 days. Has had 3 UTIs in the past 4 months. [facility] still giving mineral oil daily. Parents thought mineral oil was to be as needed. BM's are like peanut butter. Concerns about [facility] not cleaning him well after BM or in a timely manner. Unsure how long he sits soiled. No fever or chills. Has had recurrent e coli uti's. His last two were positive for e coli. Has seen Dr mikayla Garcia , for constipation. Does not drink frequent fluids. They are unsure if emptying adequately. MEDICATIONS: Current Outpatient Medications Medication Sig pantoprazole DR (PROTONIX) 40 mg tablet Take 1 tablet by mouth daily before breakfast. Take on empty stomach, 1/2 hr before meal. cenobamate (XCOPRI) 150 mg tablet Take 150 mg by mouth once daily. phenytoin chewable (DILANTIN) 50 mg tablet Take 1 and one half tablets in the morning and take 1 tablet at bedtime along with the 100 mg tablet. clonazePAM (KLONOPIN) 1 mg tablet daily at bedtime. 0.5 mg at 3 pm and 1 mg at bedtime lacosamide (VIMPAT) 200 mg Take 200 mg by mouth twice daily. No current facility-administered medications for this visit. ALLERGIES: ALLERGIES No Known Allergies PAST MEDICAL HISTORY Diagnosis Date History of traumatic brain injury age 5 Post traumatic seizures (HCC) Seizures (HCC) Traumatic brain injury (HCC) PAST SURGICAL HISTORY Procedure Laterality Date PAST SURGICAL HISTORY OF multiple foot procedures, heel cord lengthenings, triple arthodesis and adductor releases No family history on file. Social History Tobacco Use Smoking status: Never Smokeless tobacco: Never Substance Use Topics Alcohol use: No Drug use: No Reviewed current medications, allergies, past medical history, surgical history, family history and social history today. REVIEW OF SYSTEMS All other reviewed and negative other than HPI. VITALS: BP 124/80 Pulse 115 Ht 157.5 cm (5' 2 ) Wt 55.8 kg (123 lb) SpO2 97% BMI 22.50 kg/m? Last 4 Encounter Wt Readings: Date: Wt: 05/21/2023 54.4 kg (120 lb) 02/07/2018 64.9 kg (143 lb) 08/13/2017 68 kg (150 lb) 09/19/2010 55 kg (121 lb 4.1 oz) PHYSICAL EXAMINATION: General appearance: Well appearing, alert, in no acute distress, well-hydrated, well nourished. Skin: Skin color, texture, turgor normal, no suspicious rashes or lesions Head: Normocephalic, no masses, lesions, tenderness or abnormalities Back: no cva tenderness Lungs: Lungs clear to auscultation. No wheezing, rhonchi, rales Heart: RRR without murmur, gallop, or rubs. No ectopy Abdomen: Normal abdominal exam, Abdomen soft, non-tender. Bowel sounds normal. No masses, organomegaly ASSESSMENT/PLAN: 1. Recurrent UTI (urinary tract infection) - ICD9: 599.0, ICD10: N39.0 (primary diagnosis) - Discussed risks and benefits of new medication with the patient. Advised them to call if any side effects or questions. Red flags for re-assessment reviewed with patient in detail. Call if symptoms worsen at all or if not better in one to two weeks Reviewed diagnosis and treatment options in detail. Questions were answered. Patient expressed understanding of treatment plan. - see urology due to recurrent issues. - URINE CULTURE - CONSULT TO UROLOGY - NITROFURANTOIN MONOHYDRATE AND MACROCRYSTAL 100 MG ORAL CAP 2. Constipation, unspecified constipation type - ICD9: 564.00, ICD10: K59.00 - use mineral oil prn. 3. Post traumatic seizure disorder (HCC) - ICD9: 780.33, ICD10: R56.1 - stable. 4. Spastic quadriplegia (HCC) - ICD9: 344.00, ICD10: G82.50 - stable. Larisa Baxter MD [facility] 09-17-2023 Miscellaneous Notes Mother advised to place urine in fridge & hold until appointment. Danisha Bhatti MA documented in this encounter [facility] 08-29-2023 Miscellaneous Notes See message- pt mother notified via . Anthony Owens LPN Left message to return call to office. Anthony Owens LPN Can we please let patient/mother know that the urine culture is coming back positive for an infection. The sensitivities are not back yet, but previous infections showed that macrobid was effective, so lets start that while we are awaiting the sensitivities. I sent the antibiotic in to [facility]. Soledad Greene APRN.[employer] SCIENTIST documented in this encounter [facility] 06-12-2023 Miscellaneous Notes Mother notified of dr's message with results and rx. Molly Riggs LPN Ua shows white cells that may indicate infection. Culture is pending and may take a few days that will confirm if has uti. Start macrobid now to cover. documented in this encounter [facility] 05-23-2023 Miscellaneous Notes Mother returned call and given provider's message below with verbalized understanding. Left message for mom (Radha) to call and speak with nurse. His urine culture is not complete yet, but the urine looks as if it might be infected. Will call in antibiotic to cover until final is back. documented in this encounter [facility] 05-21-2023 Miscellaneous Notes Addended by: LARISA BAXTER on: 05/21/2023 04:05 PM Modules accepted: Orders Addended by: RADHA SPRINGER MA on: 05/21/2023 04:04 PM Modules accepted: Orders documented in this encounter [facility] documented as of this encounter (statuses as of 08/30/2023) [facility] History of Past illness Narrative* Problem Noted Date Diagnosed Date Resolved Date Poisoning by phenytoin 05/21/202309/17 Sepsis 05/21/2023 08/04/2023 documented as of this encounter (statuses as of 09/17/2023) [facility] History of Past illness Narrative* Problem Noted Date Diagnosed Date Resolved Date Poisoning by phenytoin 05/21/202309/17 Sepsis 05/21/2023 08/04/2023 documented as of this encounter (statuses as of 10/26/2023) [facility] History of Past illness Narrative* Problem Noted Date Diagnosed Date Resolved Date Poisoning by phenytoin 05/21/202309/17 Sepsis 05/21/2023 08/04/2023 documented as of this encounter (statuses as of 11/02/2023) [facility] NoteHNO ID: [id number] Author: Columba Cueto Service: ? Author Type: ? Type: Progress Notes Filed: 05/21/2023 3:28 PM Note Text: Attention: During the [employer] system downtime some charting was done on paper. See paper medical record or scanned documents tab for patient documentation.[facility]06-26-2023 History of Present illness Narrative* Columba Cueto - 05/21/2023 11:29 AM EDT Attention: During the [employer] downtime some charting was done on paper. See paper medical record or scanned documents tab for patient documentation. [facility] Miscellaneous Notes* Telephone Encounter - Ghazal Ohara RN - 05/23/2022 3:55 PM EDT Patient has been identified by name and date of : Yes Pharmacy phones for refill(s): Pending Prescriptions Disp Refills PANTOPRAZOLE 40 MG TABLET,DELAYED RELEASE 30 tablet 11 Sig: Take 1 tablet by mouth daily before breakfast. Take on empty stomach, 1/2 hr before meal. TERELL: No Date of last office visit in primary care: 11/29/21 Future visit: none Last 2 Encounter Wt Readings: Date: Wt: 02/07/2018 64.9 kg (143 lb) 08/13/2017 68 kg (150 lb) Previous labs/tests for medication: Blood Pressure: BUN (mg/dL) Date Value 02/14/2022 9 Sodium (mmol/L) Date Value 02/14/2022 137 Last 1 Encounter BP Readings: Date: BP: 11/29/2021 142/88 Liver Function: ALT (U/L) Date Value 02/14/2022 20 AST (U/L) Date Value 02/14/2022 28 Please advise. Thank you. 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 Dysuria [facility]* Diagnosis Acute cystitis without hematuria- Primary Acute cystitis documented [facility]* Diagnosis Recurrent UTI (urinary tract infection)- Primary Urinary tract infection, site not specified documented in [facility]* Diagnosis Seizure disorder (CMS/HCC) Unspecified epilepsy without mention of intractable epilepsy documented in this encounter [facility] Summary Purpose Family History No Family History Records FoundNo Family History Records FoundNo Family History Records FoundNo Family History Records FoundNo Family History Records Found Advance Directives No Advanced Directives Records FoundNo Advanced Directives Records FoundNo Advanced Directives Records FoundNo Advanced Directives Records FoundNo Advanced Directives Records Found Reason for Referral Specialty Diagnoses / Procedures Referred By Contac t Referred To Contact Diagnoses Seizure disorder ([facility]) Jeannette Venegas MD [address] [place] [address] Referral ID Status Reason Start Date Expiration Date Visits Re quested Visits Authorized [id number] Closed 1 1 Referral ID Status Reason Start Date Expiration Date V isits Requested Visits Authorized [id number] Pending Review 1 1 Referral ID Status Reason Start Date Expiration Date V isits Requested Visits Authorized [id number] Pending Review 1 1 Additional Source Comments (unrecognized sect ion and content) No Status Records FoundNo Status Records FoundNo Status Records FoundNo Status Records FoundNo Status Records Found INFORMATION SOURCE (unrecogn ized section and content) DATE CREATED AUTHOR AUTHOR'S ORGANIZ ATION 05/21/2018 [facility] DATE CREATED AUTHOR AUTHOR'S ORGANIZ ATION 05/24/2018 [facility] DATE CREATED AUTHOR AUTHOR'S ORGANIZ ATION 11/23/2023 [facility] DATE CREATED AUTHOR AUTHOR'S ORGANIZ ATION 12/29/2023 [facility] EPIC Source Comments (unrecognize d section and content) In the event this informatio n is protected by the Federal Confidentiality of Alcohol and Drug Abuse Patient Records regulations: The Federal rules restrict any use of the information to criminally investigate or prosecute any alcohol or drug abuse patient.[facility] the event this information is protected by the Federal Confidentiality of Alcohol and Drug Abuse Patient Records regulations: The Federal rules restrict any use of the information to criminally investigate or prosecute any alcohol or drug abuse patient.[facility] the event this information is protected by the Federal Confidentiality of Alcohol and Drug Abuse Patient Records regulations: The Federal rules restrict any use of the information to criminally investigate or prosecute any alcohol or drug abuse patient.[facility] the event this information is protected by the Federal Confidentiality of Alcohol and Drug Abuse Patient Records regulations: The Federal rules restrict any use of the information to criminally investigate or prosecute any alcohol or drug abuse patient.[facility] the event this information is protected by the Federal Confidentiality of Alcohol and Drug Abuse Patient Records regulations: The Federal rules restrict any use of the information to criminally investigate or prosecute any alcohol or drug abuse patient.[facility] the event this information is protected by the Federal Confidentiality of Alcohol and Drug Abuse Patient Records regulations: The Federal rules restrict any use of the information to criminally investigate or prosecute any alcohol or drug abuse patient.[facility] the event this information is protected by the Federal Confidentiality of Alcohol and Drug Abuse Patient Records regulations: The Federal rules restrict any use of the information to criminally investigate or prosecute any alcohol or drug abuse patient.[facility] the event this information is protected by the Federal Confidentiality of Alcohol and Drug Abuse Patient Records regulations: The Federal rules restrict any use of the information to criminally investigate or prosecute any alcohol or drug abuse patient.[facility] Reason for Visit (unrecogniz ed section and content) Reason Comments Physical Dysuria Reason Comments Results Care Teams (unrecognized sec tion and content) Utility Arborist Relationship Specialty Start Date End Date Larisa Baxter MD [address] [place] [address] PCP - General Family Medicine 02/07/18 Utility Arborist Relationship Specialty Start Date End Date Larisa Baxter MD [address] [place] [address] PCP - General Family Medicine 02/07/18 Utility Arborist Relationship Specialty Start Date End Date Larisa Baxter MD [address] [place] [address] PCP - General Family Medicine 02/07/18 Utility Arborist Relationship Specialty Start Date End Date Larisa Baxter MD [address] [place] [address] PCP - General Family Medicine 02/07/18 Utility Arborist Relationship Specialty Start Date End Date Larisa Baxter MD [address] [place], [place] [id number] PCP - General Family Medicine 02/07/18 FOR RECORDS PERTAINING TO PATIENTS WHO ARE OR HAVE BEEN ENROLLED IN A CHEMICAL DEPENDENCY/SUBSTANCEABUSE PROGRAM, SOME INFORMATION MAY BE OMITTED. This clinical summary was aggregated from multiple sources. Caution should be exercised in using it in the provision of clinical care. This summary normalizes information from multiple sources, and as a consequence, information in this document may materially change the coding, format and clinical context of patient data. In addition, data may be omitted in some cases. CLINICAL DECISIONS SHOULD BE BASED ON THE PRIMARY CLINICAL RECORDS. [facility] [employer] [facility]. provides no warranty or guarantee of the accuracy or completeness of information in this document.
== END 2024-01-08 18:24 | disposition home or self-care (01) ==
PROVIDERS: Emergency Provider Student in an Organized Health Care Education/Training Program; PCP Family Medicine; Visit Provider Student in an Organized Health Care Education/Training Program
DX: N39.0 Urinary tract infection, site not specified (principal); G40.909 Epilepsy, unspecified, not intractable, without status epilepticus; R53.1 Weakness; Z79.899 Other long term (current) drug therapy; Z87.820 Personal history of traumatic brain injury
CPT/HCPCS: 70450; 80048; 80185; 81001; 85025; 87077; 87086; 87088; 87186; 99282; A4216; J7030

== ENCOUNTER 2024-01-10 08:15 | Inpatient (IN) | payer MEDICAID, SELFPAY ==
[2024-01-10] VITALS (12 sets, daily range): BP systolic 116–134; BP diastolic 64–87; PULSE 60–108; RESP 15–16; TEMP 36.4–37.1; O2SAT 95–99; BMI 23.3; BMI 21.8; BMI 22.4
--- NOTE | 2024-01-10 08:23 | RAD_ITS ---
STUDY: X-RAY CHEST REASON FOR EXAM: Male, 43 years old. Neuro deficit, acute, stroke suspected TECHNIQUE: Single AP portable view of the chest. COMPARISON: Comparison is made with prior study September 25, 2022. FINDINGS: EKG electrodes are seen. The lungs are clear and expanded. There is no demonstrated pleural abnormality. Normal size heart. Normal mediastinum and thong. Normal visualized pulmonary arteries. Normal visualized aortic arch and descending thoracic aorta. Normal visualized thoracic spine. Normal visualized ribs, clavicles, and shoulders. There is no demonstrated abnormality of the visualized soft tissue structures of the upper abdomen. RAD/Chest 1 View IMPRESSION: Normal x-ray examination of the chest. Electronically Signed: Luan Jimenez MD at 9:25 EST ,
--- NOTE | 2024-01-10 08:23 | EKG12_ITS ---
Test Reason : STROKE Blood Pressure : / mmHG Vent. Rate : 099 BPM Atrial Rate : 099 BPM P-R Int : 148 ms QRS Dur : 080 ms QT Int : 342 ms P-R-T Axes : 050 079 073 degrees QTc Int : 438 ms Normal sinus rhythm with sinus arrhythmia Normal ECG Confirmed by Jm Flowers ([id number]), editor map BENJY NEFF ([id number]) on 01/11/2024 9:40:53 AM Referred By: Confirmed By:Jm Flowers
--- OUTSIDE RECORDS SUMMARY | 2024-01-10 08:45 | XMS RPT_ITS | CCD ---
Author Name Unknown Address [address] [place] [address] Organization [facility] Care Team Providers Care Manager Float Name Role Phone MIKE SHAFFER Unavailable Unavailable MIKE SHAFFER Unavailable Unavailable BAY, CARLOS Unavailable Unavailable BAY, CARLOS Unavailable Unavailable RADHA ABRAHAM Unavailable Unavailable [facility] Unavailable Unavailable RADHA ABRAHAM Unavailable Unavailable Larisa Baxter MD Primary Care Provider [phone] Larisa Baxter MD Primary Care Provider LARISA [...] Episodic Other nervous system disorders (8 sources) [place] gait; Translations: [Other abnormalities of gait and [...] Work Phone: [facility] 05-21-2023 11:28-0400 Body weight 54.43 kg Larisa Baxter MD Work Phone: [facility] 05-21-2023 11:28-0400 Diastolic blood pressure 80 mm[Hg] Larisa Baxter MD Work Phone: [facility] 05-21-2023 11:28-0400 Heart rate 94 /min Larisa Baxter MD Work Phone: [facility] 05-21-2023 11:28-0400 Systolic blood pressure 118 mm[Hg] Larisa Baxter MD Work Phone: [facility] Encounters Encounter Date Encounter Type Care Provider Facility Start: 01-09-2024 Orders Only Jeannette gonsales MD Work Phone: [facility] Procedures Date Procedure Procedure Detail Performing Clinician Start: 06-11-2023 Lipid 1996 panel - S murali or Plasma Soledad Greene APRN.SCALEMAN Work Phone: Start: 05-21-2023 Urnls dip stick/tabl et rgnt auto w/o microscopy Larisa Baxter MD Work Phone: Start: 03-24-2021 Adult depression screening assessment Larisa Baxter MD Work Phone: Plan of Treatment Date Care Activity Detail Author Start: 06-11-2028 Lipid 1996 panel - S murali or Plasma Lipid Screening [facility] Start: 06-11-2028 LIPID SCREEN LIPID SCREEN [facility] Start: 09-04-2024 Urine microalbumin profile [facility] Start: 01-22-2024 End: 01-22-2024 Patient encounter procedure 01/22/2024 4:20 PM EST Office Visit [facility] [address] [place] [id number] Jeannette Venegas MD [address] [place], [place] [address] [facility] Start: 01-09-2024 End: 01-09-2025 MR Brain WO contrast MR brain wo contrast Imaging Routine Seizure disorder (CMS/HCC) Expected: 01/09/2024, Expires: 01/09/2025 [facility] Work Phone: Immunizations Immunization Date Immunization Notes Care Provider Mirna barajas 02-28-2021 COVID-19 original vaccine, age 12+ yr, monovalent (PFIZER-BIONTECH - PURPLE TOP) Larisa Baxter MD Work Phone: [facility] 02-07-2021 COVID-19 original vaccine, age 12+ yr, monovalent (PFIZER-BIONTECH - PURPLE TOP) Larisa Baxter MD Work Phone: [facility] 01-22-2021 COVID-19 vaccine, ag e 12+ yr (PFIZER-BIONTECH - PURPLE TOP) Larisa Baxter MD Work Phone: [facility] 12-23-2020 COVID-19 vaccine, ag e 12+ yr (PFIZER-BIONTECH - PURPLE TOP) Larisa Baxter MD Work Phone: [facility] 02-07-2018 influenza virus vaccine, unspecified formulation Soledad Greene APRN.CNP Work Phone: [facility] 09-04-2014 TD(adult) unspecifie d formulation Larisa Baxter MD Work Phone: [facility] 09-04-2014 tetanus and diphther ia toxoids, adsorbed, preservative free, for adult use (2 Lf of tetanus toxoid and 2 Lf of diphtheria toxoid) Larisa Baxter MD Work Phone: [facility] 09-04-2014 tetanus toxoid, redu victorino diphtheria toxoid, and acellular pertussis vaccine, adsorbed Larisa Baxter MD Work Phone: [facility] Work Phone: 06-22-2000 hepatitis B vaccine, pediatric or pediatric/adolescent dosage Larisa Baxter MD Work Phone: [facility] Work Phone: 06-22-2000 hepatitis B vaccine, unspecified formulation Larisa Baxter MD Work Phone: [facility] 07-07-1999 measles, mumps and rubella virus vaccine Larisa Baxter MD Work Phone: [facility] Work Phone: 11-24-1987 diphtheria, tetanus toxoids and acellular pertussis vaccine, 5 pertussis antigens Larisa Baxter MD Work Phone: [facility] Work Phone: 11-24-1987 trivalent poliovirus vaccine, live, oral Larisa Baxter MD Work Phone: [facility] Work Phone: 11-29-1983 diphtheria, tetanus toxoids and acellular pertussis vaccine, 5 pertussis antigens Larisa Baxter MD Work Phone: [facility] Work Phone: 11-29-1983 trivalent poliovirus vaccine, live, oral Larisa Baxter MD Work Phone: [facility] Work Phone: 03-04-1983 measles, mumps and rubella virus vaccine Larisa Baxter MD Work Phone: [facility] Work Phone: 04-23-1982 diphtheria, tetanus toxoids and acellular pertussis vaccine, 5 pertussis antigens Larisa Baxter MD Work Phone: [facility] Work Phone: 03-05-1982 diphtheria, tetanus toxoids and acellular pertussis vaccine, 5 pertussis antigens Larisa Baxter MD Work Phone: [facility] Work Phone: 03-05-1982 trivalent poliovirus vaccine, live, oral Larisa Baxter MD Work Phone: [facility] Work Phone: 01-10-1982 diphtheria, tetanus toxoids and acellular pertussis vaccine, 5 pertussis antigens Larisa Baxter MD Work Phone: [facility] Work Phone: 01-10-1982 trivalent poliovirus vaccine, live, oral Larisa Baxter MD Work Phone: [facility] Work Phone: Payers Date Payer Category Payer Medicaid [place] [id number] 2021-Present [phone] [address] [place] [address] Medicaid [id number] 2017 Medicaid [id number] 2017 Medicaid [id number] 1980 Unknown [id number] Private Health Insurance [id number] Private Health Insurance [id number] Social History Date Type Detail Facility Start: 05-21-2023 End: 05-31-2023 Tobacco smoking status NHIS Never smoked tobacco [facility] Start: 11-29-2021 End: 10-25-2023 Alcohol intake Current non-drinker of alcohol (finding) [facility] Start: 03-24-2021 History SDOH Alcohol Binge 1 [facility] Start: 03-24-2021 History SDOH Social Connections Phone 5 [facility] Start: 03-24-2021 History SDOH Social Connections Shinto 3 [facility] Start: 03-24-2021 History SDOH Social Connections Membership 2 [facility] Start: 03-24-2021 History SDOH Social Connections Living 7 [facility] Start: 03-24-2021 History SDOH Physica l Activity DPW 0 [facility] Start: 03-24-2021 Education 12 [facility] Start: 1980 Sex Assigned At Not on file [facility] Start: 05-21-2023 End: 05-31-2023 Tobacco use and exposure Smokeless tobacco non-user [facility] Start: 03-24-2021 End: 08-27-2023 [facility] Start: 03-24-2021 End: 08-27-2023 Social connection and isolation panel [facility] Do you belong to any clubs or organizations such as synagogue groups, unions, fraternal or athletic groups, or school groups? No [facility] Are you now , , , , never or living with a partner? Never [facility] Frequency of Alcohol Consumption Not on file [facility] How often do you hav e 6 or more drinks on 1 occasion? Never [facility] Do you feel stress - tense, restless, nervous, or anxious, or unable to sleep at night because your mind is troubled all the time - these days [OSQ] To some extent [facility] (I/We) worried wheth er (my/our) food would run out before (I/we) got money to buy more. Never true [facility] Start: 08-27-2023 End: 10-30-2023 Alcohol intake Lifetime non-drinker (finding) [facility] Start: 06-01-2023 Alcohol Comment caffeine: 1 - 2 cups/day [facility] Clinical Notes 05-23-2022 to 01-08-2024 Telephone Encounter - Nenita Resendez - 01/08/2024 9:27 AM ESTTelephone Encounter - Nenita Resendez - 01/08/2024 9:27 AM Karthikeyan Venegas MD - 12/27/2023 4:20 PM EST Note Date & Type Note Facility 01-08-2024 Telephone encounter Note Pt's dad-[place]- #[phone] Madi is home right now-came home 01/06; , on 01/04 vimpat was reduced to 100mg in AM and 100mg in PM Now Having double vision, cannot hold onto utensils, no appetite, Would like to speak to you Concerned about withdrawal from the medication [facility] 01-08-2024 Miscellaneous Notes Pt's Lucia- #[phone] Madi is home right now-came home 01/06; , on 01/04 vimpat was reduced to 100mg in AM and 100mg in PM Now Having double vision, cannot hold onto utensils, no appetite, Would like to speak to you Concerned about withdrawal from the medication documented in this encounter [facility] 12-27-2023 History of Presen t illness Narrative Images from the original note were not included. CHIEF COMPLAINT: Seizure d/o HISTORY OF PRESENT ILLNESS: Phone call with parents, unable to travel. Good month per mom. One sz at night but otherwise doing ok. [facility] another [facility]. Prefers to dose xcopri at night. Behaviors [...] 2021 (bowel blockage [place]), March 2021 (pneumonia [place]), seizures Seizures (CMS/HCC) TBI (traumatic brain injury) [...] month by phone documented in this encounter [facility] 11-02-2023 Miscellaneous Notes Called and [...] this encounter [facility] 10-30-2023 Note HNO ID: [id number] Author: Wong Higuera PA-C Service: ? Author Type: Physician Switchboard Operator Helper Type: Progress Notes Filed: 10/30/2023 6:15 PM Note Text: [facility] NEW PATIENT CLINIC NOTE [...] More than three times a week Attends [employer] Services: More than 4 times per year [...] alert and oriented (more content not included)... [facility] 10-30-2023 Note HNO ID: [id number] Author: Marylou Bauer LPN Service: ? Author Type: ? Type: Progress Notes Filed: 10/30/2023 6:15 PM Note Text: Verified name and date of . Patient reports unable to urinate- parents state is he says he can't go he cannot go. Last went to bathroom this morning around 8 AM. Resides at Sn[facility]: [facility]. No urinary complaints at this time. Bladder scan done: 121 mL [facility] 10-26-2023 Miscellaneous Notes Printed. documented in this encounter [facility] 09-17-2023 Note HNO ID: [id number] Author: Larisa Baxter MD Service: ? Author Type: Physician Type: Progress Notes Filed: 09/17/2023 2:58 PM Note Text: Patient presents with: UTI HPI: Patient presents today for office visit for cloudy and smelly urine X 4 days. Has had 3 UTIs in the past 4 months. retirement still giving mineral oil daily. Parents thought mineral oil was to be as needed. BM's are like peanut butter. Concerns about prison not cleaning him well after BM or [...] ICD10: G82.50 - stable. Larisa Baxter MD [facility] 09-17-2023 Miscellaneous Notes Mother advised to place urine in fridge & hold until appointment. Danisha Bhatti MA documented in this encounter [facility] 08-29-2023 Miscellaneous Notes See message- pt mother [...] antibiotic in to right aid. Soledad Greene APRN.SCALEMAN documented in this encounter [facility] 06-12-2023 Miscellaneous Notes Mother notified of dr's message with results and rx. Molly Riggs LPN Ua shows white cells that may indicate infection. Culture is pending and may take a few days that will confirm if has uti. Start macrobid now to cover. documented in this encounter [facility] 05-23-2023 Miscellaneous Notes Mother returned call and given provider's message below with verbalized understanding. Left message for mom (Radha) to call and speak with nurse. His urine culture is not complete yet, but the urine looks as if it might be infected. Will call in antibiotic to cover until final is back. documented in this encounter [facility] 05-21-2023 Miscellaneous Notes Addended by: LARISA BAXTER on: 05/21/2023 04:05 PM Modules accepted: Orders Addended by: RADHA SPRINGER MA on: 05/21/2023 04:04 PM Modules accepted: Orders documented in this encounter [facility] documented as of this encounter (statuses as of 08/30/2023) [facility]06-26-2023 History of Past illness Narrative* Problem Noted Date Diagnosed Date Resolved Date Poisoning by phenytoin 05/21/202309/17 Sepsis 05/21/2023 08/04/2023 documented as of this encounter (statuses as of 09/17/2023) [facility]2023 History of Past illness Narrative* Problem Noted Date Diagnosed Date Resolved Date Poisoning by phenytoin 05/21/202309/17 Sepsis 05/21/2023 08/04/2023 documented as of this encounter (statuses as of 10/26/2023) [facility] History of Past illness Narrative* Problem Noted Date Diagnosed Date Resolved Date Poisoning by phenytoin 05/21/202309/17 Sepsis 05/21/2023 08/04/2023 documented as of this encounter (statuses as of 11/02/2023) [facility]06-26-2023 NoteHNO ID: [id number] Author: Columba Cueto Service: ? Author Type: ? Type: Progress Notes Filed: 05/21/2023 3:28 PM Note Text: Attention: During the Epic system downtime some charting was done on paper. See paper medical record or scanned documents tab for patient documentation.[facility]-26-2023 History of Present illness Narrative* Columba Cueto - 05/21/2023 11:29 AM EDT Attention: During the [employer] system downtime some charting was done on paper. See paper medical record or scanned documents tab for patient documentation. 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 Dysuria documented in this encounter [facility] [place] [facility]* Diagnosis Acute cystitis without hematuria- Primary Acute cystitis documented in this encounter [facility] [place] [facility]* Diagnosis Recurrent UTI (urinary tract infection)- Primary Urinary tract infection, site not specified documented in this encounter [facility] note* Diagnosis Seizure disorder (CMS/HCC) Unspecified epilepsy without mention of intractable epilepsy documented in this encounter [facility]* Diagnosis Seizure disorder (CMS/HCC)- Primary Unspecified epilepsy without mention of intractable epilepsy documented in this encounter [facility] Healthcare Summary Purpose Family History No [...] Diagnoses Seizure disorder (CMS/HCC) Jeannette Venegas MD [address] [place] [address] Referral ID Status Reason Start Date Expiration Date Visits Re quested Visits Authorized [id number] Closed 1 1 Referral ID Status Reason Start Date Expiration Date V isits Requested Visits Authorized [id number] Pending Review 1 1 Referral ID Status Reason Start Date Expiration Date V isits Requested Visits Authorized [id number] Pending Review 1 1 Specialty Diagnoses / Procedures Referred By Contac t Referred To Contact Diagnoses Seizure disorder (CMS/[facility]) Procedures MR brain wo contrast Jeannette Venegas MD [address] [place] [address] Referral ID Status Reason Start Date Expiration Date V isits Requested Visits Authorized [id number] Pending Review 01/09/2024 07/07/2024 1 1 Additional Source Comments (unrecognized sect ion and content) No Status Records FoundNo Status Records FoundNo Status Records FoundNo Status Records FoundNo Status Records Found INFORMATION SOURCE (unrecogn ized section and content) DATE CREATED AUTHOR AUTHOR'S ORGANIZ ATION 05/21/2018 [facility] DATE CREATED AUTHOR AUTHOR'S ORGANIZ ATION 05/24/2018 [facility] DATE CREATED AUTHOR AUTHOR'S ORGANIZ ATION 11/23/2023 [facility] DATE CREATED AUTHOR AUTHOR'S ORGANIZ ATION 12/29/2023 [facility] EPIC Source Comments (unrecognize d section and content) In the event this informatio n is protected by the Federal Confidentiality of Alcohol and Drug Abuse Patient Records regulations: The Federal rules restrict any use of the information to criminally investigate or prosecute any alcohol or drug abuse patient.[facility] the event this information is protected by the Federal Confidentiality of Alcohol and Drug Abuse Patient Records regulations: The Federal rules restrict any use of the information to criminally investigate or prosecute any alcohol or drug abuse patient.[facility] the event this information is protected by the Federal Confidentiality of Alcohol and Drug Abuse Patient Records regulations: The Federal rules restrict any use of the information to criminally investigate or prosecute any alcohol or drug abuse patient.[facility] the event this information is protected by the Federal Confidentiality of Alcohol and Drug Abuse Patient Records regulations: The Federal rules restrict any use of the information to criminally investigate or prosecute any alcohol or drug abuse patient.[facility] the event this information is protected by the Federal Confidentiality of Alcohol and Drug Abuse Patient Records regulations: The Federal rules restrict any use of the information to criminally investigate or prosecute any alcohol or drug abuse patient.[facility] North[facility] the event this information is protected by the Federal Confidentiality of Alcohol and Drug Abuse Patient Records regulations: The Federal rules restrict any use of the information to criminally investigate or prosecute any alcohol or drug abuse patient.[facility] NorthIn the event this information is protected by the Federal Confidentiality of Alcohol and Drug Abuse Patient Records regulations: The Federal rules restrict any use of the information to criminally investigate or prosecute any alcohol or drug abuse patient.[facility] North[facility] the event this information is protected by the Federal Confidentiality of Alcohol and Drug Abuse Patient Records regulations: The Federal rules restrict any use of the information to criminally investigate or prosecute any alcohol or drug abuse patient.[facility] Reason for Visit (unrecogniz ed section and content) Reason Comments Physical Dysuria Reason Comments Results Care Teams (unrecognized sec tion and content) Manager Float Relationship Specialty Start Date End Date Larisa Baxter MD [address] [place], [place] [id number] PCP - General Family Medicine 02/07/18 Manager Float Relationship Specialty Start Date End Date Larisa Baxter MD [address] [place], [place] [id number] PCP - General Family Medicine 02/07/18 Manager Float Relationship Specialty Start Date End Date Larisa Baxter MD [address] [place] [address] PCP - General Family Medicine 02/07/18 Manager Float Relationship Specialty Start Date End Date Larisa Baxter MD [address] [place] [address] PCP - General Family Medicine 02/07/18 Manager Float Relationship Specialty Start Date End Date Larisa Baxter MD [address] [place] [address] PCP - General Family Medicine 02/07/18 FOR [...] BE BASED ON THE PRIMARY CLINICAL RECORDS. [facility] [employer] [facility]. provides no warranty or guarantee of the accuracy or completeness of information in this document.
--- NOTE | 2024-01-10 08:50 | ED.VIS.STROK ---
HPI History of Present Illness Chief Complaint: Stroke Alert Detail of Chief Complaint: Acute stroke on MRI Informant: parent and other Limited: other (Traumatic head injury with cognitive impairment) Onset/Context/Timing Onset: Days (Onset Sunday per father question waxing and waning) Context: Sudden Onset Timing: Intermittent Onset: Sunday afternoon/evening Current Severity: Gone Maximum Severity: Moderate Worsened by: Difficult to ascertain Relieved by: Nothing per parents Associated Symptoms Associated Symptoms: Positive for Headache (This morning per mother); Negative for Vomiting or Chest Pain Narrative Narrative: Patient is a 43-year-old male who sustained a traumatic brain injury 37 years ago and was in an induced coma for 16 weeks at [facility]. He presently resides at a [facility]dc. He is on 3 anticonvulsant meds. His neurologist is Dr. Lonnie Venegas. Parents he stays at the fdc during the weekdays and comes home to visit them on s. He has had intermittent changes in his behavior since Sunday. He has had aggressive behavior and change in his personality. Father states he had a seizure last evening. He apparently was seen on Sunday and was found to have phenytoin toxicity. He did have a CAT scan which revealed no acute ischemic events. The thought process was that the behavioral changes was due to the phenytoin toxicity. Mother states she has not received his last 2 doses of phenytoin. History is limited due to his cognitive impairment. Cooperation is limited as well. Prior similar symptoms: Yes Recent Illness/Hospitalization: Yes [facility] Medical History Deafness in left ear GERD (gastroesophageal reflux disease) Seizure Traumatic brain injury Home Medications phenytoin 50 mg chewable tablet (Dilantin Infatabs) 75 mg PO Q12H seizures 05/23/16 [History Last Taken 01/09/24] clonazepam 0.5 mg tablet (Klonopin) 0.5 mg PO 1600 anxiety 04/02/21 [History Last Taken 01/09/24] mineral oil 15 ml PO DAILY #1,200 mL 07/12/22 [Rx Last Taken Unknown] cenobamate 200 mg tablet (Xcopri) 200 mg PO QHS 01/08/24 [History Last Taken 01/10/24] cephalexin 500 mg capsule 500 mg PO Q12 #14 CAPSULES 01/08/24 [Rx Last Taken 01/09/24] lacosamide 200 mg tablet (Vimpat) 100 mg PO BID 01/08/24 [History Last Taken 01/10/24] nitrofurantoin macrocrystal 50 mg capsule 50 mg PO DAILY 01/08/24 [History Last Taken Unknown] diazepam 10 mg/spray (0.1 mL) nasal spray (Valtoco) 10 mg intranasal PRN SEIZURE 01/10/24 [History Last Taken 01/09/24] pantoprazole 40 mg tablet,delayed release 40 mg PO DAILY 01/10/24 [History Last Taken 01/10/24] Allergy/AdvReac Type Severity Reaction Status Date / Time No Known Allergies Allergy Verified 01/08/24 13:47 Family History Grandmother Cancer Diabetes Hypertension Heart disease Grandfather Cancer Diabetes Hypertension Heart disease Surgical History History of arthrodesis S/P bilateral foot surgery Social History housing: other details: shelter. Smoking Status: Never smoker alcohol intake: never substance use type: does not use ROS ROS ED Review of Systems ROS Unobtainable: due to mental status EXAM Physical Exam Const Vital Signs: 01/10/24 08:15 01/10/24 08:55 01/10/24 08:23 Temperature 97.6 F L 97.6 F L Temperature Source Temporal Temporal Pulse Rate 91 78 Respiratory Rate 16 16 Blood Pressure 121/78 H 126/76 H Blood Pressure Mean 92 92 Pulse Ox 95 97 Oxygen Delivery Method Room Air Room Air Room Air 01/10/24 08:53 01/10/24 09:23 01/10/24 09:30 Temperature 97.8 F Temperature Source Temporal Pulse Rate 78 89 Respiratory Rate 16 16 Blood Pressure 120/64 116/78 118/78 Blood Pressure Mean 82 90 91 Pulse Ox 98 98 Oxygen Delivery Method Room Air Room Air Positive well nourished and well developed Constitutional Narrative: Patient becomes excitable and at times is not redirectable. This is worse than normal according to parents. There is no evidence of recent head injury. There is evidence of prior head injury with scars noted. General Appearance ED: well developed and NAD HEENT Reports TM's clear and moist mucous membranes atraumatic Tympanic Membrane ED: Yes TM's clear Eyes PERRL and EOMs intact bilaterally General Eye ED: Negative for pale conjunctiva or scleral icterus Neck no lymphadenopathy, supple and no JVD Neck Narrative: Trachea is midline. There is no dysphonia. There is no stridor. Chest Wall inspection of chest normal and palpation of chest normal Resp normal respiratory effort and clear to auscultation bilaterally Cardio no murmurs Rate: regular rate Rhythm: regular rhythm Heart Sounds: S1 normal and S2 normal GI normal to inspection, nondistended, normoactive bowel sounds, soft to palpation, non-tender, non-distended and no masses Back/Spine Thoracic Spine / Upper Back: Negative for thoracic spinal tenderness Lumbar Spine / Lower Back: Negative for lumbar spinal tenderness Extremity normal to inspection General Extremety ED: Negative for deformity, edema or tenderness General Extremity: Negative for deformity or edema Neuro CN's II-XII intact bilaterally and no sensory deficits noted Bc Coma Scale: document GCS findings Spontaneous Obeys Commands Confused (This is patient's baseline.) 14 Sensorium / Orientation: alert Psych Psych Narrative: Agitation is intermittent. Attitude: agitated Skin no wounds General Skin Exam: Negative for jaundice Lesions: no lesions Rashes: no rashes NIHSS NIHSS Initial: 1a Level of Consciousness: 0 1b LOC Questions (Score 2 if aphasic/stupor): 2 1c LOC Commands (Only score 1st attempt): 0 2 Best Gaze (If aphasic, use reflexive mvmts.): 0 4 Facial Palsy: 0 5 Motor Arm Right (UN = amputation/fusion): 0 5 Motor Arm Left: 0 6 Motor Leg Right: 0 6 Motor Leg Left: 0 7 Limb ataxia (Only + if out of proportion): UN 8 Sensory (Aphasia/stupor=0 or 1, coma=2): 0 9 Best Language: 0 10 Dysarthria (mute, coma=2, intubated=UN): 0 11 Extinction and Inattention (only scored if +): 0 Total Score: 2 MDM MDM MDM Narrative Medical decision making narrative: I was contacted by radiology department. Patient's MRI reveals an extensive acute right frontal stroke. Initially a stroke team was called. After it was determined that onset was Sunday and cannot state that he returned to normal since then stroke team was canceled. Stroke order set was initiated. Patient will require admission for further workup. He probably will need sedation to complete workup. Review of prior records indicates patient had mild phenytoin toxicity. Will obtain phenytoin level. Appropriate blood work for stroke was initiated. Since patient arrived from MRI which revealed abnormality consistent of an acute right frontal parietal stroke no imaging was done at this time. Since she is outside the window of 24 hours CTA was not ordered emergently. History & Record Review Discussion w/independent historian: Family Additional record(s) reviewed:: Prior outpatient record, Prior ED visit and Prior labs Lab Data Attestation: I reviewed the patient's lab results. Labs: Laboratory Results - last 24 hr 01/10/24 08:52 WBC 12.1 H RBC 5.25 Hgb 15.5 Hct 45.9 MCV 87.4 MCH 29.5 MCHC 33.8 RDW Std Deviation 45.9 H RDW Coeff of Linette 14.3 Plt Count 494 H MPV 9.8 Immature Gran % (Auto) 0.200 Neut % (Auto) 85.3 H Lymph % (Auto) 6.8 L [place] % (Auto) 6.8 Eos % (Auto) 0.2 Baso % (Auto) 0.7 Absolute Neuts (auto) 10.4 H Absolute Lymphs (auto) 0.83 Nucleated RBC % 0 PT 13.4 INR 1.0 APTT 31.4 Sodium 138 Potassium 3.8 Chloride 106 Carbon Dioxide 26.0 Anion Gap 6 BUN 15 Creatinine 0.67 L Estim Creat Clear Calc 121.08 Est GFR (MDRD) Af Amer 167 Est GFR (MDRD) Non-Af 138 BUN/Creatinine Ratio 22.3 H Glucose 107 H Calcium 8.6 Troponin I High Sens 4 Phenytoin 19.4 Radiography Chest X-Ray - ED: 1 View and Read by ED Physician (Independently reviewed and interpreted by me at 0915 as negative. Cardiac silhouette and size normal. Lung parenchyma normal. Perihilar region normal. Osseous trucks is are normal. The thumb is slightly rotated.) Diagnostic Testing: Clinical Impression(s) from Imaging Studies Chest X-Ray 01/10/24 08:23 IMPRESSION: Normal x-ray examination of the chest. Electronically Signed: Luan Jimenez MD at 9:25 EST , IMPRESSION: 1. Extensive patchy restricted diffusion involving the left posterior frontal and parietal cortex. Punctate areas of restricted diffusion are seen scattered in the left frontal lobe. Findings consistent with acute ischemic infarct. 2. Chronic small vessel ischemic/degenerative changes. 3. Cerebral and cerebellar atrophy. 4. Old areas of encephalomalacia bilaterally in the anterior frontal lobes. 5. Extensive opacification left frontal sinus and moderate opacification bilateral anterior ethmoid sinuses. Electronically Signed: Jm Gutierrez MD at 7:38 EST EKG Initial EKG: Attestation: I personally reviewed and interpreted this EKG as follows: Interpretation: Sinus Rhythm (Rate is 99. EKG is normal. MD interval is 148 ms. QRS duration 80 ms. QT duration 142 ms. [place] is normal.) Management Discussion w/another healthcare provider: Hospitalist (Dr. Wolfe was made aware of patient. 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), History of seizure disorder, Hx of traumatic brain injury Prescriptions: No Action phenytoin [Dilantin Infatabs] 50 MG tablet,chewable 75 mg PO Q12H Patient Comments: clonazepam [Klonopin] 0.5 mg tablet 0.5 mg PO 1600 Xcopri 200 mg tablet 200 mg PO QHS nitrofurantoin macrocrystal 50 mg capsule 50 mg PO DAILY lacosamide [Vimpat] 200 MG tablet 100 mg PO BID cephalexin 500 mg capsule 500 mg PO Q12 Qty: 14 0RF Patient Comments: STARTED AT HOME SUNDAY AM AFTER BEING SEEN IN [facility] ED Valtoco 10 mg/spray (0.1 mL) spray,non-aerosol 10 mg INTRANASAL PRN pantoprazole 40 mg tablet,delayed release (DR/EC) 40 mg PO DAILY mineral oil Oil 15 ml PO DAILY Qty: 1200 11RF Rx Instructions: Combine one tablespoon mineral/castor oil with 8 ounces juice of Madi's preference once daily. May titrate to BID as needed. Primary Care Provider: Elvis Baxter Referrals: Elvis Baxter MD [Primary Care Provider] -
[2024-01-10 09:01] LABS: Absolute Lymphocyte Count 0.83 X10^3/uL (0.83-4.51); Absolute Neutrophil Count 10.4 X10^3/uL (2.0-7.7); Basophil# 0.08 X10^3/uL; Basophil% 0.7 % (0-1); Eosinophil# 0.02 X10^3/uL; Eosinophils% 0.2 % (0-5); Hematocrit 45.9 % (40-54); Hemoglobin 15.5 g/dL (13.0-16.5); Lymphocyte # 0.83 X10^3/ul (0.83-4.51); Lymphocyte % 6.8 % (19-41); Mean Corp Hgb Conc 33.8 g/dL (32-36); Mean Corpuscular Hgb 29.5 pg (27.0-32.0); Mean Corpuscular Volume 87.4 fL (80-94); Mean Platelet Vol. 9.8 fl (6.2-12.0); Monocyte# 0.82 X10^3/uL; Monocyte% 6.8 % (0-10); NRBC Flagged by Analyzer 0 % (0-5); Neutrophil # 10.35 X10^3/uL (2.7-7.7); Neutrophil % 85.3 % (47-70); Platelet Count 494 K/mm3 (150-450); RBC Distribution Width CV 14.3 % (11.6-14.6); RBC Distribution Width SD 45.9 fl (35.1-43.9); Red Blood Count 5.25 M/mm3 (4.6-6.2); White Blood Count 12.1 K/mm3 (4.4-11.0)
[2024-01-10 09:11] LABS: Prothrombin Time (Protime)PT. 13.4 SECONDS (11.7-14.9)
[2024-01-10 09:12] LABS: Partial Thromboplast Time 31.4 Seconds (24.1-36.2)
[2024-01-10 09:22] LABS: Anion Gap 6 (5-15); BUN 15 mg/dL (7-18); BUN/Creat Ratio 22.3 RATIO (10-20); Calcium,Total 8.6 mg/dL (8.5-10.1); Chloride 106 mmol/L (98-107); Creatinine, Serum 0.67 mg/dL (0.70-1.30); EST Glomerular Filtration Rate 138 mL/min (>60); Est Glom Filt Rate - Afr Amer 167 mL/min (>60); Estimated Creatinine Clearance 121.08 ml/min; Glucose 107 mg/dL (74-106); Potassium 3.8 mmol/L (3.5-5.1); Sodium Level 138 mmol/L (136-145); Troponin-I HS 4 pg/mL (3.0-78.0)
[2024-01-10 09:34] LABS: Phenytoin (Dilantin) Level 19.4 mL (10.0-20.0)
--- NOTE | 2024-01-10 10:06 | ECHOD_ITS ---
Reason For Study: TIA/CVA Procedure This was a 2D Doppler, Color Flow transthoracic echocardiogram. The study was technically difficult. Patient scanned supine due to aggitation. Exam performed portable in patient room. Left Ventricle Normal LV size. The estimated ejection fraction is 65 %. No evidence for diastolic dysfunction. No regional wall motion abnormalities noted. Right Ventricle Normal RV size. Normal systolic function. Atria Normal left atrium. Normal right atrium. No doppler evidence for ASD. Bubble contrast study negative for right to left interatrial shunt. Mitral Valve There is no mitral valve stenosis. No mitral valve insufficiency. Tricuspid Valve There is no tricuspid stenosis. Unable to estimate RV systolic pressure due to inadequate jet, pulmonary artery pressure probably normal. Aortic Valve Trisinus/trileaflet aortic valve. There is no aortic stenosis. No aortic valve insufficiency. Pulmonic Valve There is no pulmonic valvular stenosis. No pulmonic valve insufficiency. Great Vessels Normal aortic root. Pericardium/Pleural No pericardial effusion. Medication Performed a rapid injection of agitated mix of 9 cc saline and 1cc air to assess for atrial septal defect. MMode/2D Measurements & Calculations LVIDd: 3.7 cm IVSd: 1.0 cm Ao root diam: 3.3 cm LVIDs: 2.4 cm LVPWd: 0.99 cm FS: 36.7 % LAV(MOD-bp): 15.0 ml LA A4 area: 8.5 cm2 LA dimension(2D): 2.9 cm LAV(MOD-bp) Indexed: 9.1 ml/m2 LAV(MOD-sp2): 15.1 ml LAV(MOD-sp4): 14.8 ml RA A4 area: 9.3 cm2 Doppler Measurements & Calculations MV E max singh: 65.4 cm/sec Lat Peak E' Singh: 12.3 cm/sec Med Peak E' Singh: 10.8 cm/sec MV A max singh: 41.7 cm/sec E/E' lat: 5.3 E/E' med: 6.1 MV E/A: 1.6 Ao V2 max: 115.1 cm/sec LV V1 max: 90.6 cm/sec PA V2 max: 64.3 cm/sec Ao max P.3 mmHg LV V1 max P.3 mmHg ECHO/Echo Complete Interpretation Summary The estimated ejection fraction is 65 %. No evidence for diastolic dysfunction. Ordering Physician: Jono Carrasquillo Referring Physician: Elvis Baxter Performed By: Linda Anderson RDCS
--- NOTE | 2024-01-10 14:14 | NURSING ---
unable to complete all NIHSS due to patient unable to participate/follow
[2024-01-10] MEDS: Aspirin 300 MG Suppository RC (14:45)
[2024-01-10] MEDS: Dextrose 5%/0.9% NaCl 1,000 ML 125 ML IV ×2 (14:48→21:54)
[2024-01-10] MEDS: Lacosamide 100 MG in 0.9% Normal Saline (50mL Bag) 50 ML 120 MG IV ×2 (14:50→21:53)
[2024-01-10] MEDS: 0.9% Normal Saline (250mL Bag) 250 ML 15 ML IV (14:50)
--- NOTE | 2024-01-10 18:28 | HP.PCM.HOS_ITS ---
HPI - General General Date of Admission: 01/10/24 Date of Service: 01/10/24 Chief Complaint: Left posterior frontal and parietal cortex ischemic stroke HPI Narrative SHEN WILLIAM, is a 43 M who presents to the emergency room at [facility] after undergoing an outpatient MRI today which showed an acute stroke in the left posterior frontal and parietal cortex. Patient has been having behavioral changes and right-sided weakness over the past 2 days, he has a history of traumatic brain injury from an accident when he was young, he lives in a usp but does come home on the weekends to visit his parents. History was obtained from his parents due to the patient's cognitive impairment, they stated that approximately 2 days ago patient began having problems with reaching for objects with his right hand, he came to the ER for evaluation and was felt to have a urinary tract infection was placed on antibiotics and a CT was performed at that time which did not show an acute stroke. Patient was scheduled for a follow-up MRI today, he underwent the MRI and it showed an acute stroke in the left posterior frontal and parietal cortex. A stroke team had been called when the patient first came to the ER because of this, teleneurology did not feel he was a candidate for tenecteplase and did not feel that he should undergo a CTA due to the length of time the symptoms have persisted. Labs revealed a slightly elevated white blood cell count at 12.1, chemistry profile was unremarkable, review of the patient's recent urinalysis showed low numbers of E. coli and strep agalactiae, I do not feel these amounts are si gnificant enough to indicate a urinary tract infection. Patient will be admitted to PCU, he will be placed on aspirin, he will see speech therapy, PT and OT, he will be placed on a statin. [facility] Medical History Deafness in left ear GERD (gastroesophageal reflux disease) Seizure Traumatic brain injury Home Medications phenytoin 50 mg chewable tablet (Dilantin Infatabs) 75 mg PO Q12H seizures 05/23/16 [History Last Taken 01/09/24] clonazepam 0.5 mg tablet (Klonopin) 0.5 mg PO 1600 anxiety 04/02/21 [History Last Taken 01/09/24] mineral oil 15 ml PO DAILY #1,200 mL 07/12/22 [Rx Last Taken Unknown] cenobamate 200 mg tablet (Xcopri) 200 mg PO QHS 01/08/24 [History Last Taken 01/10/24] cephalexin 500 mg capsule 500 mg PO Q12 #14 CAPSULES 01/08/24 [Rx Last Taken 01/09/24] lacosamide 200 mg tablet (Vimpat) 100 mg PO BID 01/08/24 [History Last Taken 01/10/24] nitrofurantoin macrocrystal 50 mg capsule 50 mg PO DAILY 01/08/24 [History Last Taken Unknown] diazepam 10 mg/spray (0.1 mL) nasal spray (Valtoco) 10 mg intranasal PRN SEIZURE 01/10/24 [History Last Taken 01/09/24] pantoprazole 40 mg tablet,delayed release 40 mg PO DAILY 01/10/24 [History Last Taken 01/10/24] Allergy/AdvReac Type Severity Reaction Status Date / Time No Known Allergies Allergy Verified 01/08/24 13:47 Family History Grandmother Cancer Diabetes Hypertension Heart disease Grandfather Cancer Diabetes Hypertension Heart disease Surgical History History of arthrodesis S/P ankle fusion S/P bilateral foot surgery Social History housing: other details: prison. Smoking Status: Never smoker alcohol intake: never substance use type: does not use ROS ROS Narrative Review of systems was unobtainable from patient, medical information was gleaned from the patient's family Vital Signs Vital Signs Vital Signs: 01/10/24 08:15 01/10/24 08:55 01/10/24 08:23 Temperature 97.6 F L 97.6 F L Temperature Source Temporal Temporal Pulse Rate 91 78 Respiratory Rate 16 16 Blood Pressure 121/78 H 126/76 H Blood Pressure Mean 92 92 Blood Pressure Source Blood Pressure Position Blood Pressure Location Pulse Ox 95 97 Oxygen Delivery Method Room Air Room Air Room Air 01/10/24 08:53 01/10/24 09:23 01/10/24 09:30 Temperature 97.8 F Temperature Source Temporal Pulse Rate 78 89 Respiratory Rate 16 16 Blood Pressure 120/64 116/78 118/78 Blood Pressure Mean 82 90 91 Blood Pressure Source Blood Pressure Position Blood Pressure Location Pulse Ox 98 98 Oxygen Delivery Method Room Air Room Air 01/10/24 10:00 01/10/24 11:00 01/10/24 13:01 Temperature 97.6 F L 98.2 F Temperature Source Temporal Pulse Rate 94 86 72 Respiratory Rate 16 16 15 Blood Pressure 129/64 H 134/76 H 122/74 H Blood Pressure Mean 85 95 90 Blood Pressure Source Blood Pressure Position Blood Pressure Location Pulse Ox 98 99 99 Oxygen Delivery Method Room Air Room Air 01/10/24 14:00 01/10/24 17:04 01/10/24 18:00 Temperature 98.7 F Temperature Source Temporal Pulse Rate 68 108 H Respiratory Rate 16 16 Blood Pressure 126/72 H 119/87 H Blood Pressure Mean 90 97 Blood Pressure Source Monitor Monitor Blood Pressure Position Semi-Fowlers Semi-Fowlers Blood Pressure Location Left Arm Right Arm Pulse Ox 99 96 99 Oxygen Delivery Method Room Air Room Air Nasal Cannula Weight Weight: 55.61 kg Body Mass Index (BMI) 22.4 Physical Exam Const alert and no apparent distress Constitutional Narrative: Patient has cognitive impairment General Appearance: well kempt Orientation / Consciousness: awake HEENT normocephalic, head/scalp atraumatic and moist oral mucous membranes Eyes PERRL, EOMs intact bilaterally and conjunctivae normal Neck supple, no JVD, thyroid normal and no carotid bruits General: trachea midline Resp normal respiratory effort, no retractions, no use of accessory muscles and clear to auscultation bilaterally Auscultation: Negative for rales, rhonchi or wheezes Cardio regular rate, regular rhythm, S1 normal heart sound, S2 normal heart sound, no murmurs, no rub and no gallops GI normal to inspection, nondistended, normoactive bowel sounds, soft to palpation, non-tender and non-distended Skin no rashes or lesions noted General Skin Exam: no breakdown Neuro CN's II-XII intact bilaterally Neuro Narrative: Patient has right hemiplegia Sensorium / Orientation: awake and alert Psych Psych Narrative: Patient has cognitive impairment evident on exam Results Lab / Micro Data 01/10/24 08:52 01/10/24 08:52 Labs: Laboratory Results - last 24 hr 01/10/24 08:52: WBC 12.1 H, RBC 5.25, Hgb 15.5, Hct 45.9, MCV 87.4, MCH 29.5, MCHC 33.8, RDW Std Deviation 45.9 H, RDW Coeff of Linette 14.3, Plt Count 494 H, MPV 9.8, Immature Gran % (Auto) 0.200, Neut % (Auto) 85.3 H, Lymph % (Auto) 6.8 L, [place] % (Auto) 6.8, Eos % (Auto) 0.2, Baso % (Auto) 0.7, Absolute Neuts (auto) 10.4 H, Absolute Lymphs (auto) 0.83, Nucleated RBC % 0, PT 13.4, INR 1.0, APTT 31.4, Sodium 138, Potassium 3.8, Chloride 106, Carbon Dioxide 26.0, Anion Gap 6, BUN 15, Creatinine 0.67 L, Estim Creat Clear Calc 121.08, Est GFR (MDRD) Af Amer 167, Est GFR (MDRD) Non-Af 138, BUN/Creatinine Ratio 22.3 H, Glucose 107 H, Calcium 8.6, Troponin I High Sens 4, Phenytoin 19.4 Imaging Radiology Impression Chest X-Ray 01/10/24 08:23 IMPRESSION: Normal x-ray examination of the chest. Electronically Signed: Luan Jimenez MD at 9:25 EST , Echocardiogram 01/10/24 10:06 Interpretation Summary The estimated ejection fraction is 65 %. No evidence for diastolic dysfunction. Ordering Physician: Jono Carrasquillo Referring Physician: Elvis Baxter Performed By: Linda Anderson, AMAURI Assessment & Plan Assessment/Plan (1) Hx of traumatic brain injury: PLAN: Plan 1. Acute left-sided ischemic stroke involving the left posterior frontal and parietal cortex-patient was admitted to PCU, he would be seen by speech therapy, OT and PT, patient will be maintained on aspirin daily as well as a statin, had a long conversation with the patient's parents about diagnostic testing and medications. Patient will have an echocardiogram performed. #2 seizure disorder-at the time of this dictation, patient had been evaluated and was felt to be not safe for oral intake, aspirin will be given rectally, patient's statin will need to be held until he is safe for oral intake #3 traumatic brain injury with cognitive impairment-complicates care, medical course, recovery, and prognosis Total clinical time spent by myself addressing the patient's medical issues, reviewing all of his data, and collaborating with patient's care team: 55 minutes Charges/Coding Visit Charges Inpatient E&M: 22647 Init Hosp L2
[2024-01-10] MEDS: Pantoprazole Sodium 40 MG in 0.9% Normal Saline (100mL MB+) 100 ML 330 MG IV (19:52)
[2024-01-10] MEDS: 0.9% Saline Lock 10 ML Syringe IV ×2 (19:54→21:39)
[2024-01-10] MEDS: Heparin Injection (Vial) 5,000 UNIT/ML VIAL 5000 UNIT SC (21:37)
[2024-01-10] MEDS: Phenytoin Na 100 MG/2 ML Vial IV (21:40)
[2024-01-11] VITALS (8 sets, daily range): BP systolic 106–130; BP diastolic 73–100; PULSE 64–108; RESP 15–16; TEMP 36.7–36.8; O2SAT 96–100; BMI 22.4
[2024-01-11] MEDS: Dextrose 5%/0.9% NaCl 1,000 ML 125 ML IV (05:52)
--- NOTE | 2024-01-11 05:55 | CT_ITS ---
STUDY: CTA HEAD AND NECK WITH CONTRAST REASON FOR EXAM: Male, 43 years old. Stroke RADIATION DOSAGE (If Supplied By Facility): CTDIvol = ( 35.62 ) mGy, DLP = ( 3155.54 ) mGycm TECHNIQUE: CT angiography was performed with a multi-detector CT scanner. Data acquisition was obtained from the skull base through the vertex following intravenous administration of IV 100mL Isovue-370. MIP images were reconstructed from the axial data set. Post-processing of the angiographic images was performed, with multiplanar reformation and 3D reconstruction. Individualized dose optimization techniques were used for this CT. COMPARISON: No relevant priors. FINDINGS: Normal bilateral petrous carotid arteries. Normal right cavernous carotid artery with a normal supraclinoid bifurcation. Normal left cavernous carotid artery with a normal supraclinoid bifurcation. Normal right A1 segments of the anterior cerebral artery. Normal left A1 segments of the anterior cerebral artery. Normal intact anterior communicating artery (ACOM). Normal bilateral A2 segments of the anterior cerebral arteries. Normal right M1 and M2 segments of the middle cerebral arteries, with a normal M1 bifurcation. Normal left M1 and M2 segments of the middle cerebral arteries, with a normal M1 bifurcation. Normal right posterior communicating artery (PCOM). Normal left posterior communicating artery (PCOM). Normal bilateral vertebral arteries. Normal basilar artery with a normal basilar bifurcation. Hydrocephalus. Stable attenuation in the periventricular white matter increased with chronic small vessel disease. Focal area of decreased attenuation in the posterior left frontal and parietal lobes in comparison with the MRI findings. Normal bilateral P1, P2 and visualized P3 segments of the posterior cerebral arteries. There is no demonstrated aneurysm of the [place] of [place]. There is no demonstrated abnormality of the visualized brain. AORTIC ARCH: There is atherosclerotic calcific plaque formation of the aortic arch and great vessels arising from the aortic arch, without a hemodynamically significant stenosis. There is a bovine origin of the great vessels with a common origin of the brachiocephalic and left common carotid artery. Normal origin of the left subclavian artery. RIGHT CAROTID ARTERIES: Normal right common carotid artery (CCA). Normal right common carotid bulb. Normal origin of the right internal carotid (ICA) artery without a hemodynamically significant stenosis. Normal visualized cervical portion of the right internal carotid artery. Normal origin of the right external carotid artery (ECA). LEFT CAROTID ARTERIES: Normal left common carotid artery (CCA). Normal left common carotid bulb. There is occlusion of the left internal carotid artery just distal to its origin. Nonvisualization of the cervical portion of the left internal carotid artery. Normal origin of the left external carotid artery (ECA). VERTEBRAL ARTERIES: There is enhancement within the bilateral vertebral arteries with a small right vertebral artery, and a dominant left vertebral artery. Focal calcific stenotic plaque at the origin of the right vertebral artery. CT/CTA Head AND Neck W/ Contrast IMPRESSION: Occlusion of the left internal carotid artery just distal to its origin. Electronically Signed: Luan Jimenez MD at 9:34 EST ,
[2024-01-11 08:44] LABS: Cholesterol 163 mg/dL (200); High Density Lipoprotein 53 mg/dL; Triglycerides 134 mg/dL; Very Low Density Lipoprotein 27 mg/dL (5-40)
[2024-01-11] MEDS: Pantoprazole Sodium 40 MG in 0.9% Normal Saline (100mL MB+) 100 ML 330 MG IV (08:57)
[2024-01-11] MEDS: Phenytoin Na 100 MG/2 ML Vial IV ×2 (09:05→21:51)
[2024-01-11] MEDS: Lacosamide 100 MG in 0.9% Normal Saline (50mL Bag) 50 ML 120 MG IV ×2 (10:06→23:29)
[2024-01-11] MEDS: Heparin Injection (Vial) 5,000 UNIT/ML VIAL 5000 UNIT SC ×2 (10:12→21:51)
--- NOTE | 2024-01-11 10:41 | CASEMGMT ---
Addendum entered by Hanna Lopez 01/11/24 12:02: RONI spoke with patient's parents about possible [facility] Acute Rehab. They were interested. RONI spoke with Jayde regarding referral. SW did let Jayde know patient is from a shelter, but parents do not want him to return to that shelter. Patient was accepted in [facility] Acute Rehab Unit. SW let patient's parents know this information and they were very pleased with the plan. Plan: d/c to [facility] Acute Rehab when medically ready. Hanna KOTHARI Original Note: RONI met with patient and his parents, [place] and Radha. RONI introduced self and role at [facility]. Patient's family would prefer patient go somewhere for rehab. SW provided patient's family with a list of [facility] facility providers including quality and resource use data and consistent with patient?s preferred geographic region, medical needs, and insurance network were provided from the [facility] Guide. RONI explained that they would need to pick at least 3 facilities they would be okay with and SW will check with the facilities to see if they could take patient. RONI encouraged patient's parents to go visit places to help them decide. RONI will check back. Hanna KOTHARI
--- NOTE | 2024-01-11 11:29 | CASEMGMT ---
Addendum entered by Viviana Newberry 01/11/24 12:06: Requested [facility] to disregard referral d/t acceptance to . Viviana Newberry, Discharge Planning Asst. Original Note: Discharge Planning Referral sent via [facility] to [facility] [place]. Viviana Newberry, Discharge Planning Asst.
--- NOTE | 2024-01-11 15:37 | CON.PCM.NE_ITS ---
Assessment and Plan: Neuro Assessment/Plan SHEN WILLIAM is a 43 M with a past medical history of TBI, seizures being evaluated by Teleneurology for acute ischemic stroke, MRI showed watershed and embolic appearing stroke, CTA with left carotid occlusion, TTE with no acute finding, stroke etiology likely embolic unclear source(cardio embolic vs aortic arch athterosclotic disease or carotid disease/dissection now with occlusion) vs hypecoagabule Plan: REGLA, Cardiac event monitor NIHSS scale as per protocol ASA 81 mg daily and statin LDL, HBa1c hypercoagulable workup: Anti phospholipid ab, cardiolipin ab, Okpy-zxur-1- glycoprotein-I?antibodies?IgG or IgM, protien C, S, Jak2, PNH, homocystine, ESR,CRP HPI Consult Data Date of Consult: 01/11/24 HPI Narrative HPI Narrative: SHEN WILLIAM, is a 43 M man with hx of TBI, seizures who presented with right arm weakness and confusion, symptoms started 4 days prior to admission he presented to the ED, he was found to have a UTI and supra theraputic dilantin level. his symptoms was improving thus he was sent home. he was seen by his out pt neurologist for recurrent symptoms, out pt MRI was done that showed acute left MCA ischemic stroke PFSH Medical History Deafness in left ear GERD (gastroesophageal reflux disease) Seizure Traumatic brain injury Home Medications phenytoin 50 mg chewable tablet (Dilantin Infatabs) 75 mg PO Q12H seizures 05/23/16 [History Last Taken 01/09/24] clonazepam 0.5 mg tablet (Klonopin) 0.5 mg PO 1600 anxiety 04/02/21 [History Last Taken 01/09/24] mineral oil 15 ml PO DAILY #1,200 mL 07/12/22 [Rx Last Taken Unknown] cenobamate 200 mg tablet (Xcopri) 200 mg PO QHS 01/08/24 [History Last Taken 01/10/24] cephalexin 500 mg capsule 500 mg PO Q12 #14 CAPSULES 01/08/24 [Rx Last Taken 01/09/24] lacosamide 200 mg tablet (Vimpat) 100 mg PO BID 01/08/24 [History Last Taken 01/10/24] nitrofurantoin macrocrystal 50 mg capsule 50 mg PO DAILY 01/08/24 [History Last Taken Unknown] diazepam 10 mg/spray (0.1 mL) nasal spray (Valtoco) 10 mg intranasal PRN SEIZURE 01/10/24 [History Last Taken 01/09/24] pantoprazole 40 mg tablet,delayed release 40 mg PO DAILY 01/10/24 [History Last Taken 01/10/24] Allergy/AdvReac Type Severity Reaction Status Date / Time No Known Allergies Allergy Verified 01/08/24 13:47 Family History Grandmother Cancer Diabetes Hypertension Heart disease Grandfather Cancer Diabetes Hypertension Heart disease Surgical History History of arthrodesis S/P ankle fusion S/P bilateral foot surgery Social History housing: other details: correction. Smoking Status: Unknown if ever smoked alcohol intake: never substance use type: does not use Vital Signs Vital Signs Vital Signs: 01/10/24 17:04 01/10/24 18:00 01/10/24 19:59 Temperature 98.7 F Temperature Source Temporal Pulse Rate 108 H Respiratory Rate 16 Respiratory Effort Normal Non-Labored Respiratory Depth Normal Respiratory Pattern Normal Blood Pressure 119/87 H Blood Pressure Mean 97 Blood Pressure Source Monitor Blood Pressure Position Semi-Fowlers Blood Pressure Location Right Arm Pulse Ox 96 99 Oxygen Delivery Method Room Air Nasal Cannula Room Air 01/10/24 22:00 01/11/24 02:00 01/11/24 02:00 Temperature 98.2 F 98.2 F Temperature Source Temporal Temporal Pulse Rate 60 64 Respiratory Rate 16 16 Respiratory Effort Normal Non-Labored Respiratory Depth Normal Respiratory Pattern Normal Blood Pressure 121/69 H 106/73 Blood Pressure Mean 86 84 Blood Pressure Source Monitor Monitor Blood Pressure Position Supine Supine Blood Pressure Location Left Arm Left Forearm Pulse Ox 96 97 Oxygen Delivery Method Room Air Room Air Room Air 01/11/24 06:00 01/11/24 08:55 01/11/24 08:02 Temperature 98.1 F 98.0 F Temperature Source Temporal Temporal Pulse Rate 75 108 H Respiratory Rate 16 16 Respiratory Effort Respiratory Depth Respiratory Pattern Blood Pressure 110/83 H 130/100 H Blood Pressure Mean 92 110 Blood Pressure Source Monitor Monitor Blood Pressure Position Supine Supine Blood Pressure Location Right Forearm Left Arm Pulse Ox 98 98 96 Oxygen Delivery Method Room Air Room Air Room Air 01/11/24 10:00 01/11/24 10:00 01/11/24 14:00 Temperature 98.0 F 98.0 F Temperature Source Temporal Temporal Pulse Rate 90 96 Respiratory Rate 16 16 Respiratory Effort Respiratory Depth Respiratory Pattern Blood Pressure 130/100 H 115/74 Blood Pressure Mean 110 87 Blood Pressure Source Monitor Monitor Blood Pressure Position Supine Supine Blood Pressure Location Left Arm Left Arm Pulse Ox 98 100 Oxygen Delivery Method Room Air Room Air Room Air Weight Weight: 55.61 kg Body Mass Index (BMI) 22.4 EEG Results Procedure Details EEG Procedure Details: SHEN WILLIAM is a 43 year old M with a past medical history of , who presents for evaluation of Electroencephalogram on DATE at TIME NIHSS NIHSS Nursing Documentation NIHSS Nursing Documentation: NIHSS: Ischemic Stroke/TIA Start: 01/10/24 12:00 Text: For PCU Patients: NIH and Neuro Check every 4 Status: Active hours and PRN Freq: [id number] Protocol: Activity Type Activity Date Activity User E-sign Co-sign Detail Recorded Client Recorded Date Recorded By Document 01/11/24 14:00 NB Desktop 01/11/24 15:11 NB 01/11/24 14:00 NIH Stroke Scale [NIHSS] A score of 0 is normal or asymptomatic . Total possible score is 42. Inpatient: RN or Physician to activate a stroke alert for onset of new stroke symptoms or with NIHSS increase >/= 3 points. Following change in neurological status, NIHSS will be performed per physician order or more frequently PRN. -1a. Level of Consciousness Alert; keenly responsive -1b. LOC Questions Answers BOTH questions correctly. -1c. LOC Commands Performs both tasks correctly . -2. Best Gaze Normal -3. Visual No visual loss -4. Facial Palsy Normal symmetrical movements -5a. Left Arm No drift; arm holds 90 (or 45 ) degrees for full 10 seconds -5b. Right Arm No effort against gravity ; arm falls -6a. Left Leg Drift; leg falls by the end of 5- seconds, but does not hit bed -6b. Right Leg Some effort against gravity ; -7. Limb Ataxia Present in 1 limb -8. Sensory Normal; no sensory loss -9. Best Language Mild-to- moderate aphasia; -10. Dysarthria Normal -11. Extinction and Inattention No abnormality -Total 8 Query Text:A score of 0 is normal or asymptomatic. Total possible score is 42 . ED: Notify Physician for NIHSS increase by > / = 3 points. Inpatient: RN or Physician to activate a stroke alert for NIHSS increase of > / = 3 points. Coma Scale [Assess] -Eye Opening Spontaneous -Motor Obeys Commands -Verbal Confused [Total] -Coma Scale Total 14 Physical Exam Neuro Neuro Narrative: in bed cheerful, say his name able to name , repeat simple phrases and followed one step commands face symmetric right arm pelagic, right leg withdraw to pain Lab / Micro Data 01/10/24 08:52 01/10/24 08:52 Labs: Laboratory Results - last 24 hr 01/11/24 07:10: Triglycerides 134, Cholesterol 163, LDL Cholesterol 83, VLDL Cholesterol 27, HDL Cholesterol 53 Imaging Radiology Impression Head/Neck CTA 01/11/24 05:55 IMPRESSION: Occlusion of the left internal carotid artery just distal to its origin. Electronically Signed: Luan Jimenez MD at 9:34 EST , Active Medications Active Medications Active Medications: Current Medications Generic Name Dose Route Start Last Admin Trade Name Freq PRN Reason Stop Dose Admin Acetaminophen 650 mg 01/10/24 12:00 Acetaminophen 325 Mg Tablet PO Q4H PRN PRN Pain 1-10 Or Fever>99.6 Aspirin 81 mg 01/12/24 08:00 Aspirin 81 Mg Tab.Chew PO BREAKFAST MARK Atorvastatin Calcium 80 mg 01/10/24 22:00 01/10/24 21:21 Atorvastatin Calcium 80 Mg Tablet PO Not Given QHS MARK Heparin Sodium (Porcine) 5,000 unit 01/10/24 22:00 01/11/24 10:12 Heparin Injection (Vial) 5,000 Unit/Ml Vial SC 5,000 unit Q12 MARK Administration Hydralazine HCl 5 mg 01/10/24 12:00 Hydralazine 20 Mg/Ml Vial IV Q30M PRN to maintain BP goals Sodium Chloride 250 mls @ 15 mls/hr 01/10/24 12:16 IV .[id number] PRN Additional IVPB Infusion Sodium Chloride 250 mls @ 15 mls/hr 01/10/24 12:16 01/11/24 06:17 IV Infused .[id number] PRN Infusion Saline Flush Lacosamide 100 mg/ Sodium 60 mls @ 120 mls/hr 01/10/24 14:15 01/11/24 10:51 Chloride IV Infused BID MARK Infusion Dextrose/Sodium Chloride 1,000 mls @ 125 mls/hr 01/10/24 14:15 01/11/24 15:04 Dextrose 5%/0.9% Nacl IV Not Given .Q8H MARK Pantoprazole Sodium 40 mg/ 110 mls @ 330 mls/hr 01/10/24 18:40 01/11/24 09:24 Sodium Chloride IV Infused Q24 MARK Infusion Sodium Chloride 250 mls @ 15 mls/hr 01/11/24 13:31 IV .[id number] PRN Additional IVPB Infusion Sodium Chloride 250 mls @ 15 mls/hr 01/11/24 13:31 IV .[id number] PRN Saline Flush Labetalol HCl 20 mg 01/10/24 08:23 Labetalol (Prefilled) 20 Mg/4 Ml IV X1 PRN Blood Pressure Labetalol HCl 10 - 20 mg 01/10/24 12:00 Labetalol (Prefilled) 20 Mg/4 Ml IV Q10M PRN PRN to Maintain BP Goals Lorazepam 1 mg 01/10/24 12:00 Lorazepam 2 Mg/Ml Syringe IV Q6H PRN PRN ANXIETY/AGITATION Nitrofurantoin Macrocrystals 100 mg 01/11/24 10:00 01/11/24 13:18 Nitrofurantoin Macrocrystals 100 Mg Capsule PO Not Given DAILY MARK Non-Formulary Medication 200 mg 01/10/24 22:00 Cenobamate [Xcopri] PO QHS MARK Ondansetron HCl 4 mg 01/10/24 12:00 Ondansetron 4 Mg/2 Ml Vial IV Q8H PRN PRN NAUSEA/VOMITING Phenytoin Sodium 100 mg 01/10/24 22:00 01/11/24 09:05 Phenytoin Na 100 Mg/2 Ml Vial IV 100 mg Q12 MARK Administration Sodium Chloride 10 - 40 ml 01/10/24 12:16 01/10/24 21:39 0.9% Saline Lock 10 Ml Syringe IV 10 ml UD PRN Administration SALINE FLUSH Sodium Chloride 10 - 40 ml 01/11/24 13:31 0.9% Saline Lock 10 Ml Syringe IV UD PRN SALINE FLUSH
--- NOTE | 2024-01-11 19:06 | PCM.PN.HOSP ---
Reason for Visit Reason for Visit: Diagnoses Personal history of traumatic brain injury (01/10/24) Subjective Subjective Patient was seen and examined today, I talked with his neurologist by phone today who recommended transferring him to a hospital within an house neurologist, I explained this to the patient's father and told him it was my opinion that everything that need to be done for the patient could be done at this hospital here and that there is no need to transfer the patient anywhere, for now the father agrees, patient had a CTA of his head and neck today which showed an occlusion of the left internal carotid artery just distal to its origin. I talked with vascular surgery by phone and Dr. Ortiz told me that there was nothing that could be done for this occlusion. He suggested that I get an ultrasound of the patient's carotids to verify that there was an occlusion present. I also talked to teleneurology today and they recommended the patient get a REGLA performed-this cannot be done till Sunday at the earliest, they also recommended a hypercoagulable panel which I ordered. Patient has been accepted at the rehab unit here at the hospital, most likely he will be able to go there on Sunday for rehab services. Patient's diet was advanced today, he appears more alert, he is still not moving his right side however. Objective Data Objective Data Vital Signs: Vital Signs Temp Pulse Resp BP Pulse Ox O2 Del Method 98.0 F 88 16 127/76 H 99 Room Air 01/11/24 18:00 01/11/24 18:00 01/11/24 18:00 01/11/24 18:00 01/11/24 18:00 01/11/24 18:00 Oxygen Delivery Method Room Air Weight: 55.61 kg Body Mass Index (BMI) 22.4 Intake & Output: Intake and Output for Last 24 Hours 01/09/24 01/10/24 01/11/24 23:59 23:59 23:59 Intake Total 1118.25 / 1118.25 2439.58 / 2439.58 Output Total 400 / 400 Balance 1118.25 / 1118.25 2039.58 / 2039.58 Lab / Micro Data 01/10/24 08:52 01/10/24 08:52 Labs: Laboratory Results - last 24 hr 01/11/24 07:10: Triglycerides 134, Cholesterol 163, LDL Cholesterol 83, VLDL Cholesterol 27, HDL Cholesterol 53 Radiography Diagnostic Testing: Radiology Impression Head/Neck CTA 01/11/24 05:55 IMPRESSION: Occlusion of the left internal carotid artery just distal to its origin. Electronically Signed: Luan Jimenez MD at 9:34 EST , Physical Exam Narrative alert and no apparent distress Constitutional Narrative: Patient has cognitive impairment General Appearance: well kempt Orientation / Consciousness: awake HEENT normocephalic, head/scalp atraumatic and moist oral mucous membranes Eyes PERRL, EOMs intact bilaterally and conjunctivae normal Neck supple, no JVD, thyroid normal and no carotid bruits General: trachea midline Resp normal respiratory effort, no retractions, no use of accessory muscles and clear to auscultation bilaterally Auscultation: Negative for rales, rhonchi or wheezes Cardio regular rate, regular rhythm, S1 normal heart sound, S2 normal heart sound, no murmurs, no rub and no gallops GI normal to inspection, nondistended, normoactive bowel sounds, soft to palpation, non-tender and non-distended Skin no rashes or lesions noted General Skin Exam: no breakdown Neuro CN's II-XII intact bilaterally Neuro Narrative: Patient has right hemiplegia Sensorium / Orientation: awake and alert Psych Psych Narrative: Patient has cognitive impairment evident on exam Assessment & Plan Assessment/Plan (1) Ischemic stroke: (2) Hx of traumatic brain injury: PLAN: Plan 1. Acute left-sided ischemic stroke involving the left posterior frontal and parietal cortex-secondary to complete occlusion of the left internal carotid artery-patient will have a duplex of the carotid arteries performed on Sunday to verify that there is a total occlusion of the left internal carotid artery, again the patient had a hypercoagulable panel drawn. Patient will remain on a baby aspirin daily and a statin. #2 seizure disorder-patient will remain on his home medications #3 traumatic brain injury with cognitive impairment-complicates care, medical course, recovery, and prognosis #4 acute occlusion of the left internal carotid artery-unfortunately nothing can be done about this at this time, carotid duplex will be ordered. Total clinical time spent by myself addressing the patient's medical issues, reviewing all of his data, and collaborating with patient's care team: 35 minutes Charges/Coding Visit Charges Inpatient E&M: 91892 Subs Hosp L2
[2024-01-11] MEDS: CENOBAMATE 200 MG TABLET PO (21:51)
[2024-01-11] MEDS: Atorvastatin Calcium 80 MG Tablet PO (21:51)
[2024-01-12 00:20] VITALS: BMI 22.4
[2024-01-12 02:00] VITALS: BP 119/85; PULSE 76; RESP 15; TEMP 36.4; O2SAT 96
[2024-01-12] MEDS: Dextrose 5%/0.9% NaCl 1,000 ML 125 ML IV ×3 (02:53→13:12)
[2024-01-12 06:00] VITALS: BP 118/98; PULSE 86; RESP 14; TEMP 36.7; O2SAT 98
[2024-01-12 07:00] VITALS: BP 145/87; PULSE 87; RESP 18; TEMP 37; O2SAT 92
[2024-01-12] MEDS: Pantoprazole Sodium 40 MG in 0.9% Normal Saline (100mL MB+) 100 ML 330 MG IV (08:37)
[2024-01-12] MEDS: Heparin Injection (Vial) 5,000 UNIT/ML VIAL 5000 UNIT SC (08:37)
[2024-01-12] MEDS: Aspirin 81 MG TAB.CHEW PO (08:37)
[2024-01-12 08:41] VITALS: BP 145/87; PULSE 87; RESP 18; TEMP 37.1; O2SAT 93
[2024-01-12] MEDS: Phenytoin Na 100 MG/2 ML Vial IV (09:15)
[2024-01-12] MEDS: Lacosamide 100 MG in 0.9% Normal Saline (50mL Bag) 50 ML 120 MG IV (09:53)
[2024-01-12 11:50] VITALS: BP 147/78; PULSE 89; RESP 18; TEMP 37; O2SAT 96
[2024-01-12 14:04] VITALS: BP 135/87; PULSE 67; RESP 16; TEMP 37; O2SAT 96
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
[2024-01-24 12:09] LABS: Anti-Cardiolipin Ab, IgG, Qn < 9 GPL U/mL (0-14); Anti-Cardiolipin Ab, IgM, Qn < 9 MPL U/mL (0-12); Anti-Thrombin 3 AG, Immunol 113 % (72-124); Antithrombin 3 Function 115 % (75-135); Beta-2-Glycoprotein I IgA <9 (0-25); Beta-2-Glycoprotein I IgG <9 (0-20); Beta-2-Glycoprotein I IgM <9 (0-32); Protein C Antigen 110 % (60-150); Protein C, Functional 112 % (73-180)
== END 2024-01-12 16:25 | disposition short-term general hospital (02) | DRG 45 ==
LOC: ED 08:44 → PCU 10:34
PROVIDERS: Admitting Provider Internal Medicine; Emergency Provider Emergency Medicine; PCP Family Medicine; Visit Provider Internal Medicine
DX: I63.232 Cerebral infarction due to unspecified occlusion or stenosis of left carotid arteries (principal); G81.91 Hemiplegia, unspecified affecting right dominant side; G40.909 Epilepsy, unspecified, not intractable, without status epilepticus; K21.9 Gastro-esophageal reflux disease without esophagitis; R29.702 NIHSS score 2; Z79.899 Other long term (current) drug therapy; Z87.820 Personal history of traumatic brain injury
CPT/HCPCS: 36415; 70450; 70496; 70498; 70551; 71045; 80048; 80061; 80185; 81001; 81240; 81241; 84484; 85025; 85300; 85301; 85302; 85303; 85610; 85730; 86146; 86147; 87077; 87086; 87088; 87186; 92526; 92610; 93005; 93306; 94762; 96360; 96361; 97110; 97162; 97167; 97530; 97802; 99282; 99285; J7030; J7050; Q9967; A4216; C9254; J3490

== ENCOUNTER → 2024-01-10 | Outpatient (CLI) | payer MEDICAID, SELFPAY ==
--- NOTE | 2024-01-10 06:36 | MRI_ITS ---
We are attempting to reach an attending provider to discuss findings. An addendum with communication details will be sent when the communication is complete. EXAM: MR HEAD WITHOUT INTRAVENOUS CONTRAST CLINICAL INDICATION: SEIZURE DISORDER, RT WEAKNESS TECHNIQUE: Multiplanar and multisequence MR images of the brain were obtained without intravenous contrast. Magnetic field strength 1.5 T. COMPARISON: Noncontrast head CT 01/08/2024. FINDINGS: BRAIN AND EXTRA-AXIAL SPACES: Extensive patchy restricted diffusion involving the left posterior frontal and parietal cortex. Punctate areas of restricted diffusion are seen scattered in the left frontal lobe. Abnormal T2 signal in the deep cerebral white matter is consistent with chronic small vessel ischemic/degenerative changes. The cerebral and cerebellar sulci are prominent consistent with brain atrophy. Old areas of encephalomalacia bilaterally in the anterior frontal lobes. No intra- or extra-axial hemorrhage. No intracranial mass or mass effect. Basal cisterns are patent. SELLA: Unremarkable. Normal sella turcica, pituitary gland, infundibular stalk, optic chiasm and hypothalamus. AUDITORY SYSTEM: Unremarkable. The internal auditory canals are patent. BONES/JOINTS: Unremarkable. No discrete lytic or blastic abnormalities. SINUSES: Extensive opacification left frontal sinus and moderate opacification bilateral anterior ethmoid sinuses. MASTOID AIR CELLS: Unremarkable as visualized. Clear. ORBITS: Unremarkable as visualized. Both globes, extraocular muscles, optic nerves and retrobulbar fat appear unremarkable. VASCULATURE: Unremarkable as visualized. Normal flow voids in the major intracranial circulation. MRI/Brain without Contrast IMPRESSION: 1. Extensive patchy restricted diffusion involving the left posterior frontal and parietal cortex. Punctate areas of restricted diffusion are seen scattered in the left frontal lobe. Findings consistent with acute ischemic infarct. 2. Chronic small vessel ischemic/degenerative changes. 3. Cerebral and cerebellar atrophy. 4. Old areas of encephalomalacia bilaterally in the anterior frontal lobes. 5. Extensive opacification left frontal sinus and moderate opacification bilateral anterior ethmoid sinuses. Electronically Signed: Jm Gutierrez MD at 7:38 EST ,
--- OUTSIDE RECORDS SUMMARY | 2024-01-10 06:38 | XMS RPT_ITS | CCD ---
Author Name Unknown Address [address] [place] [address] Organization [facility] Care Team Providers Care Digester Capper Name Role Phone MIKE SHAFFER Unavailable Unavailable MIKE SHAFFER Unavailable Unavailable BAY, CARLOS Unavailable Unavailable BAY, CARLOS Unavailable Unavailable RADHA ABRAHAM Unavailable Unavailable [facility] Unavailable Unavailable RADHA ABRAHAM Unavailable Unavailable Larisa Baxter MD Primary Care Provider [phone] Larisa Baxter MD Primary Care Provider LARISA [...] Sig (Original) cenobamate 200 mg oral tablet (11 sources) Start: 11-29-2023 End: 12-27-2023 take 1 [...] unspecified] Onset: 02-07-2018 02-07-2018 Chronic Epilepsy; convulsions (15 sources) Partial epilepsy with impairment of consciousness; [...] Episodic Other nervous system disorders (8 sources) [place] gait; Translations: [Other abnormalities of gait and [...] 157.5 cm Larisa Baxter MD Work Phone: [facility] 05-21-2023 11:28-0400 Body weight 54.43 kg Larisa Baxter MD Work Phone: [facility] 05-21-2023 11:28-0400 Diastolic blood pressure 80 mm[Hg] Larisa Baxter MD Work Phone: [facility] 05-21-2023 11:28-0400 Heart rate 94 /min Larisa Baxter MD Work Phone: [facility] 05-21-2023 11:28-0400 Systolic blood pressure 118 mm[Hg] Larisa Baxter MD Work Phone: [facility] Encounters Encounter Date Encounter Type Care Provider Facility Start: 01-09-2024 Orders Only Jeannette gonsales MD Work Phone: [facility] Procedures Date Procedure Procedure Detail Performing Clinician Start: 06-11-2023 Lipid 1996 panel - S murali or Plasma Soledad Greene APRN.AUTOMOBILE SERVICE STATION MANAGER Work Phone: Start: 05-21-2023 Urnls dip stick/tabl et rgnt auto w/o microscopy Larisa Baxter MD Work Phone: Start: 03-24-2021 Adult depression screening assessment Larisa Baxter MD Work Phone: Plan of Treatment Date Care Activity Detail Author Start: 06-11-2028 Lipid 1996 panel - S murali or Plasma Lipid Screening [facility] Start: 06-11-2028 LIPID SCREEN LIPID SCREEN [facility] Start: 09-04-2024 Urine microalbumin profile [facility] Start: 01-22-2024 End: 01-22-2024 Patient encounter procedure 01/22/2024 4:20 PM EST Office Visit [facility] [address] [place] [id number] Jeannette Venegas MD [address] [place], [place] [address] [facility] Start: 01-09-2024 End: 01-09-2025 MR Brain WO contrast MR brain wo contrast Imaging Routine Seizure disorder (CMS/HCC) Expected: 01/09/2024, Expires: 01/09/2025 [facility] Work Phone: Immunizations Immunization Date Immunization Notes Care Provider Mirna barajas 02-28-2021 COVID-19 original vaccine, age 12+ yr, monovalent (PFIZER-BIONTECH - PURPLE TOP) Larisa Baxter MD Work Phone: [facility] 02-07-2021 COVID-19 original vaccine, age 12+ yr, monovalent (PFIZER-BIONTECH - PURPLE TOP) Larisa Baxter MD Work Phone: [facility] 01-22-2021 COVID-19 vaccine, ag e 12+ yr (PFIZER-BIONTECH - PURPLE TOP) Larisa Baxter MD Work Phone: [facility] 12-23-2020 COVID-19 vaccine, ag e 12+ yr (PFIZER-BIONTECH - PURPLE TOP) Larisa Baxter MD Work Phone: [facility] 02-07-2018 influenza virus vaccine, unspecified formulation Soledad Greene APRN.CNP Work Phone: [facility] 09-04-2014 TD(adult) unspecifie d formulation Larisa Baxter MD Work Phone: [facility] 09-04-2014 tetanus and diphther ia toxoids, adsorbed, preservative free, for adult use (2 Lf of tetanus toxoid and 2 Lf of diphtheria toxoid) Larisa Baxter MD Work Phone: [facility] 09-04-2014 tetanus toxoid, redu victorino diphtheria toxoid, and acellular pertussis vaccine, adsorbed Larisa Baxter MD Work Phone: [facility] Work Phone: 06-22-2000 hepatitis B vaccine, pediatric or pediatric/adolescent dosage Larisa Baxter MD Work Phone: [facility] Work Phone: 06-22-2000 hepatitis B vaccine, unspecified formulation Larisa Baxter MD Work Phone: [facility] 07-07-1999 measles, mumps and rubella virus vaccine Larisa Baxter MD Work Phone: [facility] Work Phone: 11-24-1987 diphtheria, tetanus toxoids and acellular pertussis vaccine, 5 pertussis antigens Larisa Baxter MD Work Phone: [facility] Work Phone: 11-24-1987 trivalent poliovirus vaccine, live, oral Larisa Baxter MD Work Phone: [facility] Work Phone: 11-29-1983 diphtheria, tetanus toxoids and acellular pertussis vaccine, 5 pertussis antigens Larisa Baxter MD Work Phone: [facility] Work Phone: 11-29-1983 trivalent poliovirus vaccine, live, oral Larisa Baxter MD Work Phone: [facility] Work Phone: 03-04-1983 measles, mumps and rubella virus vaccine Larisa Baxter MD Work Phone: [facility] Work Phone: 04-23-1982 diphtheria, tetanus toxoids and acellular pertussis vaccine, 5 pertussis antigens Larisa Baxter MD Work Phone: [facility] Work Phone: 03-05-1982 diphtheria, tetanus toxoids and acellular pertussis vaccine, 5 pertussis antigens Larisa Baxter MD Work Phone: [facility] Work Phone: 03-05-1982 trivalent poliovirus vaccine, live, oral Larisa Baxter MD Work Phone: [facility] Work Phone: 01-10-1982 diphtheria, tetanus toxoids and acellular pertussis vaccine, 5 pertussis antigens Larisa Baxter MD Work Phone: [facility] Work Phone: 01-10-1982 trivalent poliovirus vaccine, live, oral Larisa Baxter MD Work Phone: [facility] Work Phone: Payers Date Payer Category Payer Medicaid [place] [id number] 2021-Present [phone] [address] [place] [address] Medicaid [id number] 2017 Medicaid [id number] 2017 Medicaid [id number] 1980 Unknown [id number] Private Health Insurance [id number] Private Health Insurance [id number] Social History Date Type Detail Facility Start: 05-21-2023 End: 05-31-2023 Tobacco smoking status NHIS Never smoked tobacco [facility] Start: 11-29-2021 End: 10-25-2023 Alcohol intake Current non-drinker of alcohol (finding) [facility] Start: 03-24-2021 History SDOH Alcohol Binge 1 [facility] Start: 03-24-2021 History SDOH Social Connections Phone 5 [facility] Start: 03-24-2021 History SDOH Social Connections Evangelical 3 [facility] Start: 03-24-2021 History SDOH Social Connections Membership 2 [facility] Start: 03-24-2021 History SDOH Social Connections Living 7 [facility] Start: 03-24-2021 History SDOH Physica l Activity DPW 0 [facility] Start: 03-24-2021 Education 12 [facility] Start: 1980 Sex Assigned At Not on file [facility] Start: 05-21-2023 End: 05-31-2023 Tobacco use and exposure Smokeless tobacco non-user [facility] Start: 03-24-2021 End: 08-27-2023 [facility] Start: 03-24-2021 End: 08-27-2023 Social connection and isolation panel [facility] Do you belong to any clubs or organizations such as jainism groups, unions, fraternal or athletic groups, or school groups? No [facility] Are you now , , , , never or living with a partner? Never [facility] Frequency of Alcohol Consumption Not on file [facility] How often do you hav e 6 or more drinks on 1 occasion? Never [facility] Do you feel stress - tense, restless, nervous, or anxious, or unable to sleep at night because your mind is troubled all the time - these days [OSQ] To some extent [facility] (I/We) worried wheth er (my/our) food would run out before (I/we) got money to buy more. Never true [facility] Start: 08-27-2023 End: 10-30-2023 Alcohol intake Lifetime non-drinker (finding) [facility] Start: 06-01-2023 Alcohol Comment caffeine: 1 - 2 cups/[address] [facility] Clinical Notes 05-23-2022 to 01-08-2024 Telephone Encounter - Nenita Resendez - 01/08/2024 9:27 AM ESTTelephone Encounter - Nenita Resendez - 01/08/2024 9:27 AM Karthikeyan Venegas MD - 12/27/2023 4:20 PM EST Note Date & Type Note Facility 01-08-2024 Telephone encounter Note Pt's dad-[place]- #[phone] Madi is home right now-came home 01/06; , on 01/04 vimpat was reduced to 100mg in AM and 100mg in PM Now Having double vision, cannot hold onto utensils, no appetite, Would like to speak to you Concerned about withdrawal from the medication [facility] 01-08-2024 Miscellaneous Notes Pt's Lucia- #[phone] Madi is home right now-came home 01/06; , on 01/04 vimpat was reduced to 100mg in AM and 100mg in PM Now Having double vision, cannot hold onto utensils, no appetite, Would like to speak to you Concerned about withdrawal from the medication documented in this encounter [facility] 12-27-2023 History of Presen t illness Narrative Images from the original note were not included. CHIEF COMPLAINT: Seizure d/o HISTORY OF PRESENT ILLNESS: Phone call with parents, unable to travel. Good month per mom. One sz at night but otherwise doing ok. Poss another sz on 12/05 at the snf. Prefers to dose xcopri at night. Behaviors [...] 2021 (bowel blockage [place]), March 2021 (pneumonia [place]), seizures Seizures (CMS/HCC) TBI (traumatic brain injury) [...] month by phone documented in this encounter [facility] 11-02-2023 Miscellaneous Notes Called and talked to [...] the only concern. Thank you, CAROL Macias, TRISTA, JIM AIDA 10/30/23 10/30/23 Urine culture Culture >=100,000 CFU/ml Escherichia coli Please advise documented in this encounter [facility] 10-30-2023 Note HNO ID: [id number] Author: Wong Higuera PA-C Service: ? Author Type: Physician Experimental Machining Lab Manager Type: Progress Notes Filed: 10/30/2023 6:15 PM Note Text: [facility] NEW PATIENT CLINIC NOTE SERVICE DATE: 10/30/2023 SERVICE TIME: 1:50 PM NAME: Madi Hayden CHIEF COMPLAINT: Multiple UTI HISTORY OF PRESENT ILLNESS: Madi Hayden is a 42 year old male [...] More than three times a week Attends [employer]: More than 4 times per year [...] alert and oriented (more content not included)... [facility] 10-30-2023 Note HNO ID: [id number] Author: Marylou Bauer LPN Service: ? Author Type: ? Type: Progress Notes Filed: 10/30/2023 6:15 PM Note Text: Verified name and date of . Patient reports unable to urinate- parents state is he says he can't go he cannot go. Last went to bathroom this morning around 8 AM. Resides at Residential[facility]. No urinary complaints at this time. Bladder scan done: 121 mL [facility] 10-26-2023 Miscellaneous Notes Printed. documented in this encounter [facility] 09-17-2023 Note HNO ID: [id number] Author: Larisa Baxter MD Service: ? Author Type: Physician Type: Progress Notes Filed: 09/17/2023 2:58 PM Note Text: Patient presents with: UTI HPI: Patient presents today for office visit for cloudy and smelly urine X 4 days. Has had 3 UTIs in the past 4 months. shelter still giving mineral oil daily. Parents thought mineral oil was to be as needed. BM's are like peanut butter. Concerns about snf not cleaning him well after BM or in a timely manner. Unsure how long he sits soiled. No fever or chills. Has had recurrent e coli uti's. His last two were positive for e coli. Has seen mikayla Rahman , for constipation. Does not drink frequent [...] ICD10: G82.50 - stable. Larisa Baxter MD [facility] 09-17-2023 Miscellaneous Notes Mother advised to place urine in fridge & hold until appointment. Danisha Bhatti MA documented in this encounter [facility] 08-29-2023 Miscellaneous Notes See message- pt mother [...] antibiotic in to right aid. Soledad Greene APRN.AUTOMOBILE SERVICE STATION MANAGER documented in this encounter [facility] 06-12-2023 Miscellaneous Notes Mother notified of dr's message with results and rx. Molly Riggs LPN Ua shows white cells that may indicate infection. Culture is pending and may take a few days that will confirm if has uti. Start macrobid now to cover. documented in this encounter [facility] 05-23-2023 Miscellaneous Notes Mother returned call and given provider's message below with verbalized understanding. Left message for mom (Radha) to call and speak with nurse. His urine culture is not complete yet, but the urine looks as if it might be infected. Will call in antibiotic to cover until final is back. documented in this encounter [facility] 05-21-2023 Miscellaneous Notes Addended by: LARISA BAXTER on: 05/21/2023 04:05 PM Modules accepted: Orders Addended by: RADHA SPRINGER MA on: 05/21/2023 04:04 PM Modules accepted: Orders documented in this encounter [facility] documented as of this encounter (statuses as of 08/30/2023) [facility]06-26-2023 History of Past illness Narrative* Problem Noted Date Diagnosed Date Resolved Date Poisoning by phenytoin 05/21/202309/17 Sepsis 05/21/2023 08/04/2023 documented as of this encounter (statuses as of 09/17/2023) [facility]-26-2023 History of Past illness Narrative* Problem Noted Date Diagnosed Date Resolved Date Poisoning by phenytoin 05/21/202309/17 Sepsis 05/21/2023 08/04/2023 documented as of this encounter (statuses as of 10/26/2023) [facility] History of Past illness Narrative* Problem Noted Date Diagnosed Date Resolved Date Poisoning by phenytoin 05/21/202309/17 Sepsis 05/21/2023 08/04/2023 documented as of this encounter (statuses as of 11/02/2023) [facility]06-26-2023 NoteHNO ID: [id number] Author: Columba Cueto Service: ? Author Type: ? Type: Progress Notes Filed: 05/21/2023 3:28 PM Note Text: Attention: During the Epic system downtime some charting was done on paper. See paper medical record or scanned documents tab for patient documentation.[facility]06-26-2023 History of Present illness Narrative* Columba Cueto - 05/21/2023 11:29 AM EDT Attention: During the [employer] system downtime some charting was done on paper. See paper medical record or scanned documents tab for patient documentation. [facility] Miscellaneous Notes* Telephone Encounter - Ghazal Ohara [...] you. 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 Dysuria documented in this [facility] Diagnosis Acute cystitis without hematuria- Primary Acute cystitis documented [facility] this [facility]* Diagnosis Recurrent UTI (urinary tract infection)- Primary Urinary tract infection, site not specified documented in this encounter [facility] note* Diagnosis Seizure disorder (CMS/HCC) Unspecified epilepsy without mention of intractable epilepsy documented in this encounter [facility]* Diagnosis Seizure disorder (CMS/HCC)- Primary Unspecified epilepsy without mention of intractable epilepsy documented in this encounter [facility] Summary Purpose Family History No Family [...] t Referred To Contact Diagnoses Seizure disorder (CMS/HCC) Jeannette Venegas MD [address] [place] [address] Referral ID Status Reason Start Date Expiration Date Visits Re quested Visits Authorized [id number] Closed 1 1 Referral ID Status Reason Start Date Expiration Date V isits Requested Visits Authorized [id number] Pending Review 1 1 Referral ID Status Reason Start Date Expiration Date V isits Requested Visits Authorized [id number] Pending Review 1 1 Specialty Diagnoses / Procedures Referred By Contac t Referred To Contact Diagnoses Seizure disorder (CMS/[facility]) Procedures MR brain wo contrast Jeannette Venegas MD [address] [place] [address] Referral ID Status Reason Start Date Expiration Date V isits Requested Visits Authorized [id number] Pending Review 01/09/2024 07/07/2024 1 1 Additional Source Comments (unrecognized sect ion and content) No Status Records FoundNo Status Records FoundNo Status Records FoundNo Status Records FoundNo Status Records Found INFORMATION SOURCE (unrecogn ized section and content) DATE CREATED AUTHOR AUTHOR'S ORGANIZ ATION 05/21/2018 [facility] DATE CREATED AUTHOR AUTHOR'S ORGANIZ ATION 05/24/2018 [facility] DATE CREATED AUTHOR AUTHOR'S ORGANIZ ATION 11/23/2023 [facility] DATE CREATED AUTHOR AUTHOR'S ORGANIZ ATION 12/29/2023 [facility] EPIC Source Comments (unrecognize d section and content) In the event this informatio n is protected by the Federal Confidentiality of Alcohol and Drug Abuse Patient Records regulations: The Federal rules restrict any use of the information to criminally investigate or prosecute any alcohol or drug abuse patient.[facility] the event this information is protected by the Federal Confidentiality of Alcohol and Drug Abuse Patient Records regulations: The Federal rules restrict any use of the information to criminally investigate or prosecute any alcohol or drug abuse patient.[facility] the event this information is protected by the Federal Confidentiality of Alcohol and Drug Abuse Patient Records regulations: The Federal rules restrict any use of the information to criminally investigate or prosecute any alcohol or drug abuse patient.[facility] the event this information is protected by the Federal Confidentiality of Alcohol and Drug Abuse Patient Records regulations: The Federal rules restrict any use of the information to criminally investigate or prosecute any alcohol or drug abuse patient.[facility] the event this information is protected by the Federal Confidentiality of Alcohol and Drug Abuse Patient Records regulations: The Federal rules restrict any use of the information to criminally investigate or prosecute any alcohol or drug abuse patient.[facility] the event this information is protected by the Federal Confidentiality of Alcohol and Drug Abuse Patient Records regulations: The Federal rules restrict any use of the information to criminally investigate or prosecute any alcohol or drug abuse patient.[facility] the event this information is protected by the Federal Confidentiality of Alcohol and Drug Abuse Patient Records regulations: The Federal rules restrict any use of the information to criminally investigate or prosecute any alcohol or drug abuse patient.[facility] the event this information is protected by the Federal Confidentiality of Alcohol and Drug Abuse Patient Records regulations: The Federal rules restrict any use of the information to criminally investigate or prosecute any alcohol or drug abuse patient.[facility] Reason for Visit (unrecogniz ed section and content) Reason Comments Physical Dysuria Reason Comments Results Care Teams (unrecognized sec tion and content) Digester Capper Relationship Specialty Start Date End Date Larisa Baxter MD [address] [place], [place] [id number] PCP - General Family Medicine 02/07/18 Digester Capper Relationship Specialty Start Date End Date Larisa Baxter MD [address] [place], [place] [id number] PCP - General Family Medicine 02/07/18 Digester Capper Relationship Specialty Start Date End Date Larisa Baxter MD [address] [place] [address] PCP - General Family Medicine 02/07/18 Digester Capper Relationship Specialty Start Date End Date Larisa Baxter MD [address] [place] [address] PCP - General Family Medicine 02/07/18 Digester Capper Relationship Specialty Start Date End Date Larisa Baxter MD [address] [place] [address] PCP - General Family Medicine 02/07/18 FOR [...] BE BASED ON THE PRIMARY CLINICAL RECORDS. [facility]. provides no warranty or guarantee of the accuracy or completeness of information in this document.
== END | disposition home or self-care (01) ==
LOC: MRI 06:24
PROVIDERS: PCP Family Medicine; Referring Provider Psychiatry & Neurology Neurology; Visit Provider Psychiatry & Neurology Neurology
DX: G40.909 Epilepsy, unspecified, not intractable, without status epilepticus (principal)
CPT/HCPCS: 70551

== ENCOUNTER 2024-01-18 15:12 | Inpatient (IN) | payer MEDICAID, SELFPAY ==
[2024-01-18 15:15] VITALS: BP 115/82; PULSE 87; RESP 18; TEMP 36.7; O2SAT 100; BMI 22.1
[2024-01-18 15:39] VITALS: BMI 22.1
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
--- OUTSIDE RECORDS SUMMARY | 2024-01-18 18:15 | XMS RPT_ITS | CCD ---
Author Name Unknown Address [address] [place] [address] Organization [facility] Care Team Providers Care Geospatial Systems Integrator Name Role Phone MIKE SHAFFER Unavailable Unavailable [...] Primary Care Provider UnavailJEANNETTE Arredondo Attending Unavailable LARISA BAXTER Primary Care Unavailable ELADIO MARSHALL Referring Unavailable AUTUMN TALLEY Attending Unavailable ATUUMN TALLEY Admitting Unavailable Medications Current Medications Medication Drug Class(es) Dates Sig (Normalized) Sig (Original) cenobamate 200 mg oral tablet (13 sources) Start: 11-29-2023 End: 12-27-2023 take 1 [...] Classification Problem Date Documented Da te Episodic/Chronic Acute cerebrovascular disease (2 sources) Cerebral infarction, unspecified; Translations: [Cerebral infarction, unspecified] Onset: 01-12-2024 Chronic Developmental disorders (9 sources) Moderate intellectual disability; Translations: [Moderate intellectual disabilities] Onset: 05-16-2012 Chronic Disorders usually diagnosed in infancy, childhood, or adolescence (10 sources) Tic disorder; Translations: [Tic disorder, unspecified] Onset: 02-07-2018 02-07-2018 Chronic Epilepsy; convulsions (18 sources) Partial epilepsy with impairment of consciousness; [...] Episodic Other nervous system disorders (8 sources) [address] gait; Translations: [Other abnormalities of gait and [...] 157.5 cm Larisa Baxter MD Work Phone: [facility] 05-21-2023 11:28-0400 Body weight 54.43 kg Larisa Baxter MD Work Phone: [facility] 05-21-2023 11:28-0400 Diastolic blood pressure 80 mm[Hg] Larisa Baxter MD Work Phone: [facility] 05-21-2023 11:28-0400 Heart rate 94 /min Larisa Baxter MD Work Phone: [facility] 05-21-2023 11:28-0400 Systolic blood pressure 118 mm[Hg] Larisa Baxter MD Work Phone: [facility] Encounters Encounter Date Encounter Type Care Provider Facility Start: 01-12-2024 Evaluation and management of inpatient LARISA Daljit BAXTER Facility:[facility] Start: 01-10-2024 Refill Jayna mann REFINING MACHINE OPERATOR Work Phone: [facility] Procedures Date Procedure Procedure Detail Performing Clinician Start: 06-11-2023 Lipid 1996 panel - S murali or Plasma Soledad Greene APRN.CLAIMS SUPERVISOR Work Phone: Start: 05-21-2023 Urnls dip stick/tabl et rgnt auto w/o microscopy Larisa Baxter MD Work Phone: Start: 03-24-2021 Adult depression screening assessment Larisa Baxter MD Work Phone: Plan of Treatment Date Care Activity Detail Author Start: 06-11-2028 Lipid 1996 panel - S murali or Plasma Lipid Screening [facility] Start: 06-11-2028 LIPID SCREEN LIPID SCREEN [facility] Start: 09-04-2024 Urine microalbumin profile [facility] Start: 01-22-2024 End: 01-22-2024 Patient encounter procedure 01/22/2024 4:20 PM EST Office Visit [facility] [address] [place] [id number] Jeannette Venegas MD [address] [place] [address] [facility] Start: 01-09-2024 End: 01-09-2025 MR Brain WO contrast MR brain wo contrast Imaging Routine Seizure disorder (CMS/HCC) Expected: 01/09/2024, Expires: 01/09/2025 [facility] Work Phone: Immunizations Immunization Date Immunization Notes Care Provider Fa cili 02-28-2021 COVID-19 original vaccine, age 12+ yr, monovalent (PFIZER-BIONTECH - PURPLE TOP) Larisa Baxter MD Work Phone: [facility] 02-07-2021 COVID-19 original vaccine, age 12+ yr, monovalent (PFIZER-BIONTECH - PURPLE TOP) Larisa Baxter MD Work Phone: [facility] 01-22-2021 COVID-19 vaccine, ag e 12+ yr (PFIZER-BIONTECH - PURPLE TOP) Larisa Baxter MD Work Phone: [facility] 12-23-2020 COVID-19 vaccine, ag e 12+ yr (PFIZER-BIONTECH - PURPLE TOP) Larisa Baxter MD Work Phone: [facility] 02-07-2018 influenza virus vaccine, unspecified formulation Soledad Greene APRN.CNP Work Phone: [facility] 09-04-2014 TD(adult) unspecifie d formulation Larisa Baxter MD Work Phone: [facility] 09-04-2014 tetanus and diphther ia toxoids, adsorbed, preservative free, for adult use (2 Lf of tetanus toxoid and 2 Lf of diphtheria toxoid) Larisa Baxter MD Work Phone: [facility] 09-04-2014 tetanus toxoid, redu victorino diphtheria toxoid, and acellular pertussis vaccine, adsorbed Larisa Baxter MD Work Phone: [facility] Work Phone: 06-22-2000 hepatitis B vaccine, pediatric or pediatric/adolescent dosage Larisa Baxter MD Work Phone: [facility] Work Phone: 06-22-2000 hepatitis B vaccine, unspecified formulation Larisa Baxter MD Work Phone: [facility] 07-07-1999 measles, mumps and rubella virus vaccine Larisa Baxter MD Work Phone: [facility] Work Phone: 11-24-1987 diphtheria, tetanus toxoids and acellular pertussis vaccine, 5 pertussis antigens Larisa Baxter MD Work Phone: [facility] Work Phone: 11-24-1987 trivalent poliovirus vaccine, live, oral Larisa Baxter MD Work Phone: [facility] Work Phone: 11-29-1983 diphtheria, tetanus toxoids and acellular pertussis vaccine, 5 pertussis antigens Larisa Baxter MD Work Phone: [facility] Work Phone: 11-29-1983 trivalent poliovirus vaccine, live, oral Larisa Baxter MD Work Phone: [facility] Work Phone: 03-04-1983 measles, mumps and rubella virus vaccine Larisa Baxter MD Work Phone: [facility] Work Phone: 04-23-1982 diphtheria, tetanus toxoids and acellular pertussis vaccine, 5 pertussis antigens Larisa Baxter MD Work Phone: [facility] Work Phone: 03-05-1982 diphtheria, tetanus toxoids and acellular pertussis vaccine, 5 pertussis antigens Larisa Baxter MD Work Phone: [facility] Work Phone: 03-05-1982 trivalent poliovirus vaccine, live, oral Larisa Baxter MD Work Phone: [facility] Work Phone: 01-10-1982 diphtheria, tetanus toxoids and acellular pertussis vaccine, 5 pertussis antigens Larisa Baxter MD Work Phone: [facility] Work Phone: 01-10-1982 trivalent poliovirus vaccine, live, oral Larisa Baxter MD Work Phone: [facility] Work Phone: Payers Date Payer Category Payer Medicaid MEDICAID [facility] MEDICAID [id number] 2021-Present [phone] [address] [place] [address] Medicaid [id number] 2017 Medicaid [id number] 2017 Medicaid [id number] 1980 Unknown [id number] 1981 Unknown [id number] Private Health Insurance [id number] Private Health Insurance [id number] Social History Date Type Detail Facility Start: 05-21-2023 End: 05-31-2023 Tobacco smoking status NHIS Never smoked tobacco [facility] Start: 11-29-2021 End: 10-25-2023 Alcohol intake Current non-drinker of alcohol (finding) [facility] Start: 03-24-2021 History SDOH Alcohol Binge 1 [facility] Start: 03-24-2021 History SDOH Social Connections Phone 5 [facility] Start: 03-24-2021 History SDOH Social Connections Druze 3 [facility] Start: 03-24-2021 History SDOH Social Connections Membership 2 [facility] Start: 03-24-2021 History SDOH Social Connections Living 7 [facility] Start: 03-24-2021 History SDOH Physica l Activity DPW 0 [facility] Start: 03-24-2021 Education 12 [facility] Start: 1980 Sex Assigned At Not on file C [facility] Start: 05-21-2023 End: 05-31-2023 Tobacco use and exposure Smokeless tobacco non-user [facility] Start: 03-24-2021 End: 08-27-2023 History of Social function [facility] Start: 03-24-2021 End: 08-27-2023 Social connection and isolation panel [facility] Do you belong to any clubs or organizations such as restorationism groups, unions, fraternal or athletic groups, or school groups? No [facility] Are you now , , , , never or living with a partner? Never [facility] Frequency of Alcohol Consumption Not on file [facility] How often do you hav e 6 or more drinks on 1 occasion? Never [facility] Do you feel stress - tense, restless, nervous, or anxious, or unable to sleep at night because your mind is troubled all the time - these days [OSQ] To some extent [facility] (I/We) worried ion er (my/our) food would run out before (I/we) got money to buy more. Never true [facility] Start: 08-27-2023 End: 10-30-2023 Alcohol intake Lifetime non-drinker (finding) [facility] Start: 06-01-2023 Alcohol Comment caffeine: 1 - 2 cups/day [facility] Clinical Notes 05-23-2022 to 01-10-2024 Telephone Encounter - Jayna Goldstein NP - 01/10/2024 6:02 PM ESTTelephone Encounter - Jayna Goldstein NP - 01/10/2024 6:02 PM ESTTelephone Encounter - Maryjane Kim - 01/10/2024 7:52 AM EST Note Date & Type Note Facility 01-10-2024 Telephone encounter Note Chart and oarrs reviewed, rx sent [facility] 01-10-2024 Miscellaneous Notes Chart and oarrs reviewed, rx sent documented in this encounter [facility] 01-10-2024 Telephone encounter Note [facility] left Vm-need Dr Venegas to contact Dr Ribeiro regarding MRI Brain done today call [phone] [facility] 01-10-2024 Miscellaneous Notes [facility] left Vm-need Dr Venegas to contact Dr Ribeiro regarding MRI Brain done today call [phone] documented in this encounter [facility] 01-08-2024 Telephone encounter Note Pt's dadRk- #[phone] Shen is home right now-came home 01/06; , on 01/04 vimpat was reduced to 100mg in AM and 100mg in PM Now Having double vision, cannot hold onto utensils, no appetite, Would like to speak to you Concerned about withdrawal from the medication [facility] 01-08-2024 Miscellaneous Notes Pt's dad-[place]- #[phone] Shen is home right now-came home 01/06; , on 01/04 vimpat was reduced to 100mg in AM and 100mg in PM Now Having double vision, cannot hold onto utensils, no appetite, Would like to speak to you Concerned about withdrawal from the medication documented in this encounter [facility] 12-27-2023 History of Presen t illness Narrative Images from the original note were not included. CHIEF COMPLAINT: Seizure d/o HISTORY OF PRESENT ILLNESS: Phone call with parents, unable to travel. Good month per mom. One sz at night but otherwise doing ok. Poss another sz on 12/05 at the long term. Prefers to dose xcopri at night. Behaviors [...] 2021 (bowel blockage Ariadna), March 2021 (pneumonia [place]), seizures Seizures (CMS/HCC) TBI (traumatic brain injury) [...] month by phone documented in this encounter [facility] 11-02-2023 Miscellaneous Notes Called and talked to [...] the only concern. Thank you, CAROL Macias, [place], JIM AIDA 10/30/23 10/30/23 Urine culture Culture >=100,000 CFU/ml Escherichia coli Please advise documented in this encounter [facility] 10-30-2023 Note HNO ID: [id number] Author: Wong Higuera PA-C Service: ? Author Type: Physician Tavern Keeper Type: Progress Notes Filed: 10/30/2023 6:15 PM Note Text: [facility] NEW PATIENT CLINIC NOTE [...] More than three times a week Attends Mandaeism Services: More than 4 times per year [...] alert and oriented (more content not included)... [facility] 10-30-2023 Note HNO ID: [id number] Author: Marylou Bauer LPN Service: ? Author Type: ? Type: Progress Notes Filed: 10/30/2023 6:15 PM Note Text: Verified name and date of . Patient reports unable to urinate- parents state is he says he can't go he cannot go. Last went to bathroom this morning around 8 AM. [facility]. No urinary complaints at this time. Bladder scan done: 121 mL [facility] 10-26-2023 Miscellaneous Notes Printed. documented in this encounter [facility] 09-17-2023 Note HNO ID: [id number] Author: Larisa Baxter MD Service: ? Author Type: Physician Type: Progress Notes Filed: 09/17/2023 2:58 PM Note Text: Patient presents with: UTI HPI: Patient presents today for office visit for cloudy and smelly urine X 4 days. Has had 3 UTIs in the past 4 months. USP still giving mineral oil daily. Parents thought mineral oil was to be as needed. BM's are like peanut butter. Concerns about long term not cleaning him well after BM or [...] ICD10: G82.50 - stable. Larisa Baxter MD [facility] 09-17-2023 Miscellaneous Notes Mother advised to place urine in fridge & hold until appointment. Danisha Bhatti MA documented in this encounter [facility] 08-29-2023 Miscellaneous Notes See message- pt mother [...] antibiotic in to right aid. Soledad Greene APRN.WILLIAM documented in this encounter [facility] 06-12-2023 Miscellaneous Notes Mother notified of 's message with results and rx. Molly Riggs LPN Ua shows white cells that may indicate infection. Culture is pending and may take a few days that will confirm if has uti. Start macrobid now to cover. documented in this encounter [facility] 05-23-2023 Miscellaneous Notes Mother returned call and given provider's message below with verbalized understanding. Left message for mom (Radha) to call and speak with nurse. His urine culture is not complete yet, but the urine looks as if it might be infected. Will call in antibiotic to cover until final is back. documented in this encounter [facility] 05-21-2023 Miscellaneous Notes Addended by: LARISA BAXTER on: 05/21/2023 04:05 PM Modules accepted: Orders Addended by: RADHA SPRINGER MA on: 05/21/2023 04:04 PM Modules accepted: Orders documented in this encounter [facility] documented as of this encounter (statuses as of 08/30/2023) [facility] History of Past illness Narrative* Problem Noted Date Diagnosed Date Resolved Date Poisoning by phenytoin 05/21/202309/17 Sepsis 05/21/2023 08/04/2023 documented as of this encounter (statuses as of 09/17/2023) [facility] History of Past illness Narrative* Problem Noted Date Diagnosed Date Resolved Date Poisoning by phenytoin 05/21/202309/17 Sepsis 05/21/2023 08/04/2023 documented as of this encounter (statuses as of 10/26/2023) [facility] History of Past illness Narrative* Problem Noted Date Diagnosed Date Resolved Date Poisoning by phenytoin 05/21/202309/17 Sepsis 05/21/2023 08/04/2023 documented as of this encounter (statuses as of 11/02/2023) [facility]23 NoteHNO ID: [id number] Author: Columba Cueto Service: ? Author Type: ? Type: Progress Notes Filed: 05/21/2023 3:28 PM Note Text: Attention: During the Epic system downtime some charting was done on paper. See paper medical record or scanned documents tab for patient documentation.[facility]06-26-2023 History of Present illness Narrative* Columba Cueto - 05/21/2023 11:29 AM EDT Attention: During the Epic system downtime some charting was done on paper. See paper medical record or scanned documents tab for patient documentation. [facility] Miscellaneous Notes* Telephone Encounter - Ghazal Ohara [...] you. Ghazal Ohara RN [facility] Diagnosis Screening for lipid disorders- Primary Partial symptomatic epilepsy with complex partial seizures, not intractable, without status epilepticus (HCC) Tic disorder Tic disorder, unspecified Moderate intellectual disability with intelligence quotient 35 to 49 Dysuria documented in this encounter [facility] Diagnosis Acute cystitis without hematuria- Primary Acute cystitis documented in this encounter [facility] note* Diagnosis Recurrent UTI (urinary tract infection)- Primary Urinary tract infection, site not specified documented in this encounter [facility] note* Diagnosis Seizure disorder (CMS/HCC) Unspecified epilepsy without mention of intractable epilepsy documented in this encounter [facility]* Diagnosis Seizure disorder (CMS/HCC)- Primary Unspecified epilepsy without mention of intractable epilepsy documented in this encounter [facility]* Diagnosis Seizure disorder (CMS/HCC) Unspecified epilepsy without mention of intractable epilepsy documented in this encounter [facility] Healthcare Summary Purpose Family History No Family [...] Diagnoses Seizure disorder (CMS/HCC) Jeannette Venegas MD [address] [place] [address] Referral ID Status Reason Start Date Expiration Date Visits Re quested Visits Authorized [id number] Closed 1 1 Referral ID Status Reason Start Date Expiration Date V isits Requested Visits Authorized [id number] Pending Review 1 1 Referral ID Status Reason Start Date Expiration Date V isits Requested Visits Authorized [id number] Pending Review 1 1 Specialty Diagnoses / Procedures Referred By Contac t Referred To Contact Diagnoses Seizure disorder ([facility]/HCC) Procedures MR brain wo contrast Jeannette Venegas MD [address] [place] [address] Referral ID Status Reason Start Date Expiration Date V isits Requested Visits Authorized [id number] Pending Review 01/09/2024 07/07/2024 1 1 Specialty Diagnoses / Procedures Referred By Contac t Referred To Contact Diagnoses Seizure disorder (CMS/HCC) Jayna Goldstein NP [address] [place] [address] Referral ID Status Reason Start Date Expiration Date Visits Re quested Visits Authorized [id number] Closed 1 1 Additional Source Comments (unrecognized sect ion and content) No Status Records FoundNo Status Records FoundNo Status Records FoundNo Status Records FoundNo Status Records FoundNo Status Records Found INFORMATION SOURCE (unrecogn ized section and content) DATE CREATED AUTHOR AUTHOR'S ORGANIZ ATION 05/21/2018 [facility] DATE CREATED AUTHOR AUTHOR'S ORGANIZ ATION 05/24/2018 [facility] DATE CREATED AUTHOR AUTHOR'S ORGANIZ ATION 11/23/2023 [facility] DATE CREATED AUTHOR AUTHOR'S ORGANIZ ATION 12/29/2023 [facility] DATE CREATED AUTHOR AUTHOR'S ORGANIZ ATION 01/15/2024 [facility] Source Comments (unrecognize d section and content) In the event this informatio n is protected by the Federal Confidentiality of Alcohol and Drug Abuse Patient Records regulations: The Federal rules restrict any use of the information to criminally investigate or prosecute any alcohol or drug abuse patient.[facility] the event this information is protected by the Federal Confidentiality of Alcohol and Drug Abuse Patient Records regulations: The Federal rules restrict any use of the information to criminally investigate or prosecute any alcohol or drug abuse patient.[facility] the event this information is protected by the Federal Confidentiality of Alcohol and Drug Abuse Patient Records regulations: The Federal rules restrict any use of the information to criminally investigate or prosecute any alcohol or drug abuse patient.[facility] the event this information is protected by the Federal Confidentiality of Alcohol and Drug Abuse Patient Records regulations: The Federal rules restrict any use of the information to criminally investigate or prosecute any alcohol or drug abuse patient.[facility] the event this information is protected by the Federal Confidentiality of Alcohol and Drug Abuse Patient Records regulations: The Federal rules restrict any use of the information to criminally investigate or prosecute any alcohol or drug abuse patient.[facility] the event this information is protected by the Federal Confidentiality of Alcohol and Drug Abuse Patient Records regulations: The Federal rules restrict any use of the information to criminally investigate or prosecute any alcohol or drug abuse patient.[facility] the event this information is protected by the Federal Confidentiality of Alcohol and Drug Abuse Patient Records regulations: The Federal rules restrict any use of the information to criminally investigate or prosecute any alcohol or drug abuse patient.[facility] the event this information is protected by the Federal Confidentiality of Alcohol and Drug Abuse Patient Records regulations: The Federal rules restrict any use of the information to criminally investigate or prosecute any alcohol or drug abuse patient.[facility] Reason for Visit (unrecogniz ed section and content) Reason Comments Physical Dysuria Reason Comments Results Reason Onset Date Comments Radiology 01/10/2024 [facility] left VM-Dr Ribeiro needs to speak with Dr Venegas regarding this patient and MRI Brain Call [phone] (Also sent CRM message) OTHER 01/10/2024 Reason Comments Med Refill Care Teams (unrecognized sec tion and content) Geospatial Systems Integrator Relationship Specialty Start Date End Date Larisa Baxter MD [address], [place] [id number] PCP - General Family Medicine 02/07/18 Geospatial Systems Integrator Relationship Specialty Start Date End Date Larisa Baxter MD [address], [place] [id number] PCP - General Family Medicine 02/07/18 Geospatial Systems Integrator Relationship Specialty Start Date End Date Larisa Baxter MD [address], [place] [id number] PCP - General Family Medicine 02/07/18 Geospatial Systems Integrator Relationship Specialty Start Date End Date Larisa Baxter MD [address], [place] [id number] PCP - General Family Medicine 02/07/18 Geospatial Systems Integrator Relationship Specialty Start Date End Date Larisa Baxter MD [address], [place] [address] PCP - General Family Medicine 02/07/18 FOR [...] BE BASED ON THE PRIMARY CLINICAL RECORDS. [facility]. provides no warranty or guarantee of the accuracy or completeness of information in this document.
[2024-01-18 20:15] VITALS: BP 123/89; PULSE 83; RESP 19; TEMP 36.7; O2SAT 99
--- NOTE | 2024-01-18 20:24 | NURSING ---
19:40- Pt found on floor OOB. Pt denies pain. bp 121/85, sPo2 96%, t- 98.8, r 17, & hr105. Pt has confusion and 4 year old mentality.
[2024-01-18] MEDS: Lacosamide 100 MG Tablet PO (23:11)
[2024-01-18] MEDS: Atorvastatin Calcium 40 MG Tablet PO (23:11)
[2024-01-18] MEDS: PHENYTOIN 50 MG TAB.CHEW 75 MG PO (23:14)
[2024-01-18] MEDS: CENOBAMATE 200 MG TABLET PO (23:16)
[2024-01-19 08:10] VITALS: BP 118/77; PULSE 99; RESP 16; TEMP 37.2; O2SAT 99
--- NOTE | 2024-01-19 09:07 | NURSING ---
pt's father called in after message left on pt falling oob last shift and updated on high low bed and that moved closer. no other questions voiced.
[2024-01-19] MEDS: Aspirin 81 MG TAB.CHEW PO (09:52)
[2024-01-19] MEDS: Pantoprazole Sodium 40 MG Tablet PO (09:52)
[2024-01-19] MEDS: Enoxaparin 40 MG/0.4 ML Syringe SC (09:53)
[2024-01-19] MEDS: PHENYTOIN 50 MG TAB.CHEW 75 MG PO ×2 (09:54→21:17)
[2024-01-19] MEDS: Lacosamide 100 MG Tablet PO ×2 (09:59→21:16)
[2024-01-19] MEDS: Menthol/Lanolin/Calamine/Znox 113 GM Tube 1 APPLIC TOPICAL ×2 (14:03→21:14)
[2024-01-19] MEDS: Ensure Plus High Protein 120 ML LIQUID PO ×2 (14:04→21:14)
--- NOTE | 2024-01-19 14:49 | RAD_ITS ---
STUDY: X-RAY - FACIAL BONES REASON FOR STUDY: Male, 43 years old. swelling under lt eye after fall last night -- please do portable TECHNIQUE: 4 view(s) of the facial bones. COMPARISON: None. FINDINGS: Normal bilateral frontozygomatic and zygomatic-temporal arches. Normal bilateral medial and inferior orbital almaguer. Normal bilateral orbits. Normal visualized nasal bones. Normal anterior nasal spine. The remaining visualized osseous structures are normal. Normal visualized paranasal sinuses. RAD/Facial Bones min 3 Views IMPRESSION: No obvious facial fracture. Electronically Signed: Shamir Cerda MD ([facility]) at 18:06 EST ,
[2024-01-19] MEDS: Acetaminophen 325 MG Tablet 650 MG PO (15:25)
--- NOTE | 2024-01-19 15:54 | NURSING ---
1500 pt down to radiology for xrays face per new order. mom went down with pt to help so wouldnt be scared and to lay still. back up to floor and tylenol given as parents stated, he said he had a headache
[2024-01-19 20:00] VITALS: BP 126/74; PULSE 99; RESP 18; TEMP 36.9; O2SAT 99
[2024-01-19] MEDS: Atorvastatin Calcium 40 MG Tablet PO (21:16)
[2024-01-19] MEDS: CENOBAMATE 200 MG TABLET PO (21:16)
[2024-01-20 07:52] VITALS: BP 108/76; PULSE 82; RESP 16; TEMP 36.6; O2SAT 96
[2024-01-20] MEDS: Enoxaparin 40 MG/0.4 ML Syringe SC (07:52)
[2024-01-20] MEDS: PHENYTOIN 50 MG TAB.CHEW 75 MG PO ×2 (07:53→21:01)
[2024-01-20] MEDS: Aspirin 81 MG TAB.CHEW PO (07:53)
[2024-01-20] MEDS: Pantoprazole Sodium 40 MG Tablet PO (07:53)
[2024-01-20] MEDS: Ensure Plus High Protein 120 ML LIQUID PO ×2 (07:53→21:00)
[2024-01-20] MEDS: Lacosamide 100 MG Tablet PO ×2 (07:56→21:00)
--- NOTE | 2024-01-20 09:58 | REHABEVAL_ITS ---
Admission Information Primary Diagnosis:: Post stroke debility Status Changes from Prescreening?: No changes Identified Actual Problem List:: Falls, Cognitve Impr/Memory Loss, Bladder Incontinence, Alteration in Nutrition, Mobility Impaired, Self Care Deficit, Know.Dfct/Disease Process, Know.Dfct of Medicaitons, Fluid Change-Dehydration and Alteration- Leisure Activ. Potential Problem List:: DVT, Bleeding, Infection, UTI, Aspiration, Falls, Skin Integrity and Depression Risk of Complications DVT: LMWH and LEANDER Hose Bleeding: Monitor Lab Values, Nursing to Teach Precautions for anti-coagulation therapy., Wound, if applicable, to be assessed every shift. and Stroke patients assessed for lethargy or change in status. Infection: Clinical Staff to Monitor for S/S of infection: and S/S of infection include fever, redness, warmth, etc. Urinary Tract Infection: Monitor for frequency, burning, discomfort, or incontinence. and Nursing will obtain urine sample for urinalysis and C&S when ordered. Aspiration: Clinical staff will monitor for coughing, drooling, congestion., Speech will evaluate swallowing and dsyphasia. and Nursing will monitor patient swallowing during meals. Falls: Patient will be evaluated for Fall Precautions and Patient will be placed on Fall Precautions as indicated per protocol. Skin Breakdown: Nursing will assess skin daily using assessment tool. and Nursing will place on Skin Breakdown Precautions as indicated. Pain: Clinical staff will assess patient's pain level per protocol., Medications will be given, if needed, and the pain level reassessed. and Other methods: Massage, distraction, decrease stimulus, etc. used PRN. Plan of Care Patient requires physician specializing in physical medicine and rehab oversight to provide close medical supervision of rehab issues including: Pain Management, Sleep Problems, Bowel and Bladder, Medical and co-morbidity Management, DVT prophylaxis, Rehabilitation Leadership and Coordination of treatment team Patient needs Physical Therapy: For a minimum of 1 hour and At least 5 out of 7 days Patient needs Physical Therapy to improve:: Mobility, Strengthening, Transfers, Stretching, ROM, Endurance, Stairs, Gait and Balance Patient needs Occupational Therapy: For a minimum of 1 hour and At least 5 out of 7 days Patient needs Occupational Therapy to improve ADL's incl.: Eating, Grooming, Bathing, Dressing, Toileting, Toilet transfers, Community Reintegration, Higher functioning activities, Household tasks, Adaptive Equipment, Splinting and Other activities as determined Patient requires speech therapy: For a minimum of 1 hour and At least 5 out of 7 days Patient requires speech therapy for: Swallowing, Cognition, Language Skills and Compensatory Strategies Patient requires 24/ Rehabilitation Nursing for: Pain Issues, Identifying and preventing risk factors, Monitoring and reporting current medical conditions, Assisting with ambulation, transfer, and all ADL's, Teaching patients about disease process and medications, Family teaching, Providing safe environment, Bowel and Bladder Issues, Skin integrity and Medication Management Patient needs Steel Estimator/ Case Management for: Discharge Planning, Arranging Home Equipment or Services and Family Interventions Patient needs Dietary and Nutrition Services for: Adequate Nutrition, Nutritional Supplements and Nutritional Education Goals Goals Patient will remain: free from falls Patient will perform eating at: - (Min assist) Patient will perform bed mobility at: - (min Assist ) Patient will complete transfers from bed to chair at: - (Hand-held assist/min A) Patient will propel wheelchair: - (He will propel a WC 15' with min A to allow for more independent mobility. ) Patient will complete upper body dressing at: - (Min assist with min/mod verbal cues) Patient will complete lower body dressing at: - (Minimal assistance with min/mod cues) Patient will complete toilet transfer at: - (Min assist) Patient will complete toileting at: - (min assist for thoroughness with posterior care. ) Patient will complete grooming at: - (Min assist) Patient will complete home management skills at: - (Not a goal for this patient) Patient will achieve: - (not a goal. ) Patient will have pain level of: of 3 or less Patient's skin will: remain intact Patient will receive: adequate nutrition. Discharge Planning Pt Prognosis for Sig. Practical Improv. w/in Reasonable Time: Fair Estimated Length of stay (days): 28 Anticipated D/C Destination: Assisted Living Facility (residential with intermittent trips home with his parents. )
--- NOTE | 2024-01-20 10:05 | PCM.PROGNOTE ---
Subjective Subjective Afebrile VSS Maintaining appropriate oxygen saturation on RA Oral intake - FOOD poor FLUIDS fair He is incontinent of urine. He has had 2 bladder scans and both have been under 200. Discussed with nursing - no problems that need addressed. Apparently he is known to have temper tantrums. Cooperation with therapy is intermittent. He is severely mentally disabled even prior to the stroke. Reviewed the THERAPY notes - refused therapy on Sunday. Says he wants to rest. Medication list reviewed. He had a fall from bed on the night of 01/18/24. Facial bone XRAYS negative for fracture. He is now on a hi/LO bed with matts on either side of the bed. Objective Data Objective Data Vital Signs: Vital Signs Temp Pulse Resp BP Pulse Ox O2 Del Method 97.8 F 82 16 108/76 96 Room Air 01/20/24 07:52 01/20/24 07:52 01/20/24 07:52 01/20/24 07:52 01/20/24 07:52 01/20/24 08:08 Oxygen Delivery Method Room Air Weight: 120 lb 1.6 oz Body Mass Index (BMI) 22.1 Intake & Output: Intake and Output for Last 24 Hours 01/18/24 01/19/24 01/20/24 23:59 23:59 23:59 Intake Total 360 / 360 1320 / 1320 340 / 340 Output Total 150 / 150 250 / 250 Balance 210 / 210 1070 / 1070 340 / 340 Radiography Diagnostic Testing: Radiology Impression Facial Bones X-Ray 01/19/24 14:49 IMPRESSION: No obvious facial fracture. Electronically Signed: Shamir Cerda MD ([place]) at 18:06 EST , Physical Exam Const Constitutional Narrative: He arouses easily when I enter his room but, the only thig he will say is I want to rest now . HEENT head/scalp atraumatic Resp clear to auscultation bilaterally Effort and Inspection: Negative for tachypneic Cardio regular rate, regular rhythm, no murmurs and no gallops GI normal to inspection, nondistended, normoactive bowel sounds, soft to palpation and non-tender Extremity General Extremity: Negative for edema Skin Rashes: no rashes Wounds: Negative for wounds noted Neuro Neuro Narrative: No change since admission to rehab. 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 Will try again with therapy on Sunday. If by Sunday he is still refusing to do therapy he will need to be transferred to a lower level of care. Recheck labs Sunday, including a Phenytoin level. Charges/Coding Visit Charges Inpatient E&M: 98233 Subs Hosp L1
[2024-01-20] MEDS: Menthol/Lanolin/Calamine/Znox 113 GM Tube 1 APPLIC TOPICAL ×2 (14:35→21:01)
[2024-01-20] MEDS: Magnesium Hydroxide 30 ML UDC PO (18:33)
[2024-01-20 20:28] VITALS: BP 121/64; PULSE 80; RESP 15; TEMP 36.7; O2SAT 97
[2024-01-20] MEDS: CENOBAMATE 200 MG TABLET PO (21:00)
[2024-01-20] MEDS: Atorvastatin Calcium 40 MG Tablet PO (21:00)
[2024-01-20 22:00] VITALS: PULSE 80; RESP 15; O2SAT 97
[2024-01-21] MEDS: Menthol/Lanolin/Calamine/Znox 113 GM Tube 1 APPLIC TOPICAL ×3 (06:28→21:16)
[2024-01-21 08:00] VITALS: BP 122/73; PULSE 73; RESP 16; TEMP 36.6; O2SAT 95
[2024-01-21] MEDS: Aspirin 81 MG TAB.CHEW PO (08:40)
[2024-01-21] MEDS: Pantoprazole Sodium 40 MG Tablet PO (08:41)
[2024-01-21] MEDS: Enoxaparin 40 MG/0.4 ML Syringe SC (08:41)
[2024-01-21] MEDS: PHENYTOIN 50 MG TAB.CHEW 75 MG PO ×2 (09:09→21:03)
[2024-01-21] MEDS: Ensure Plus High Protein 120 ML LIQUID PO ×2 (09:10→21:03)
[2024-01-21] MEDS: Lacosamide 100 MG Tablet PO ×2 (09:10→21:07)
[2024-01-21] MEDS: Bisacodyl 10 MG Suppository RC (14:48)
[2024-01-21] MEDS: Acetaminophen 325 MG Tablet 650 MG PO (16:27)
[2024-01-21 20:03] VITALS: BP 120/78; PULSE 100; RESP 18; TEMP 37.1; O2SAT 95
[2024-01-21] MEDS: Atorvastatin Calcium 40 MG Tablet PO (21:03)
[2024-01-21] MEDS: CENOBAMATE 200 MG TABLET PO (21:08)
[2024-01-22] MEDS: Menthol/Lanolin/Calamine/Znox 113 GM Tube 1 APPLIC TOPICAL ×3 (05:24→20:58)
[2024-01-22 06:06] LABS: Absolute Lymphocyte Count 2.04 X10^3/uL (0.83-4.51); Absolute Neutrophil Count 3.5 X10^3/uL (2.0-7.7); Basophil% 1.5 % (0-1); Eosinophil# 0.32 X10^3/uL; Eosinophils% 4.7 % (0-5); Hematocrit 42.2 % (40-54); Hemoglobin 14.2 g/dL (13.0-16.5); Lymphocyte # 2.04 X10^3/ul (0.83-4.51); Lymphocyte % 30.1 % (19-41); Mean Corp Hgb Conc 33.6 g/dL (32-36); Mean Corpuscular Hgb 30.1 pg (27.0-32.0); Mean Corpuscular Volume 89.6 fL (80-94); Mean Platelet Vol. 9.9 fl (6.2-12.0); Monocyte# 0.77 X10^3/uL; Monocyte% 11.4 % (0-10); NRBC Flagged by Analyzer 0 % (0-5); Neutrophil # 3.53 X10^3/uL (2.7-7.7); Neutrophil % 52.2 % (47-70); Platelet Count 675 K/mm3 (150-450); RBC Distribution Width CV 14.6 % (11.6-14.6); RBC Distribution Width SD 48.3 fl (35.1-43.9); Red Blood Count 4.71 M/mm3 (4.6-6.2); White Blood Count 6.8 K/mm3 (4.4-11.0)
[2024-01-22 07:43] LABS: ALB/GLOB Ratio 0.8 RATIO (0.9-2.4); AST(SGOT) 30 U/L (15-37); Alanine Aminotransfer ALT/SGPT 47 U/L (16-61); Albumin, Serum 3.2 g/dL (3.2-5.0); Alkaline Phosphatase 111 U/L (45-117); Anion Gap 3 (5-15); BUN 18 mg/dL (7-18); BUN/Creat Ratio 25.5 RATIO (10-20); Calcium,Total 8.6 mg/dL (8.5-10.1); Chloride 109 mmol/L (98-107); Creatinine, Serum 0.71 mg/dL (0.70-1.30); EST Glomerular Filtration Rate 130 mL/min (>60); Est Glom Filt Rate - Afr Amer 157 mL/min (>60); Estimated Creatinine Clearance 100.26 ml/min; Globulin 4.1 g/dL (2.2-4.2); Glucose 94 mg/dL (74-106); Potassium 3.7 mmol/L (3.5-5.1); Protein, Total 7.3 g/dL (6.4-8.2); Sodium Level 142 mmol/L (136-145)
[2024-01-22 07:52] LABS: Phenytoin (Dilantin) Level 11.5 mL (10.0-20.0)
[2024-01-22] MEDS: Enoxaparin 40 MG/0.4 ML Syringe SC (09:09)
[2024-01-22] MEDS: Aspirin 81 MG TAB.CHEW PO (09:09)
[2024-01-22] MEDS: PHENYTOIN 50 MG TAB.CHEW 75 MG PO ×2 (09:09→20:42)
[2024-01-22] MEDS: Pantoprazole Sodium 40 MG Tablet PO (09:10)
[2024-01-22] MEDS: Senna/Docusate Sodium 1 Tablet 2 TABLET PO ×2 (09:11→20:43)
[2024-01-22] MEDS: Ensure Plus High Protein 120 ML LIQUID PO ×4 (09:25→20:52)
[2024-01-22] MEDS: Lacosamide 100 MG Tablet PO ×2 (09:28→20:47)
[2024-01-22 10:00] VITALS: BP 109/71; PULSE 89; RESP 17; TEMP 36.8; O2SAT 92
--- NOTE | 2024-01-22 11:01 | PN_ITS ---
Subjective Subjective Afebrile VSS Maintaining appropriate oxygen saturation on RA Oral intake - FOOD improving, he ate 75 to 100% of his breakfast today and has been eating 50 to 74% of his meals since Sunday at lunchtime. FLUIDS imp roving, he took 1390 cc p.o. yesterday. Discussed with nursing - no problems that need addressed. No seizures. He tried crawling out of the bed at the foot last night and is very impulsive. He remains on a HI/LO bed with mats on either side of the bed. Slept well last night after he fell asleep at about 10 PM. Some agitation on and off last night. Reviewed the THERAPY notes Medication list reviewed. All lab drawn this morning was personally reviewed. The white blood cell count is normal at 6.8. Hemoglobin is 14.2 and platelets are mildly increased at 675,000. Thrombocytosis is not new and has been present since August 2022. BMP is unremarkable. The BUN is 18 with a creatinine of 0.71 which is within his baseline. Calcium is within normal limits and the LFTs are unremarkable. Phenytoin level is 11.5 measured and 11.7 when corrected for hypoalbuminemia. He is resistant to doing therapy and it is difficult to get him to participate. He is impulsive. Sometimes throws himself back toward the bed when asked to stand to get into the WC and therapist has to catch him to prevent a fall. He was able to participate with PT when he was taken outside....he stayed in his ch air and was cooperative. I talked more with his parents. They tell me that he gets agitated around 3-4 in the afternoon and this lasts until 7 usually. Music calms him down and he likes oldAffine and classic rock. This is very helpful. Will try and conclude his therapy sessions by 3 each day. Objective Data Objective Data Vital Signs: Vital Signs Temp Pulse Resp BP Pulse Ox O2 Del Method 98.3 F 89 17 109/71 92 Room Air 01/22/24 10:01/22/24 10:01/22/24 10:01/22/24 10:01/22/24 10:01/22/24 10:00 Oxygen Delivery Method Room Air Weight: 120 lb 1.6 oz Body Mass Index (BMI) 22.1 Intake & Output: Intake and Output for Last 24 Hours 01/20/24 01/21/24 01/22/24 23:59 23:59 23:59 Intake Total 1070 / 1070 1390 / 1390 460 / 460 Balance 1070 / 1070 1390 / 1390 460 / 460 Lab / Micro Data 01/22/24 05:23 01/22/24 05:23 Labs: Laboratory Results - last 24 hr 01/22/24 05:23: WBC 6.8, RBC 4.71, Hgb 14.2, Hct 42.2, MCV 89.6, MCH 30.1, MCHC 33.6, RDW Std Deviation 48.3 H, RDW Coeff of Linette 14.6, Plt Count 675 H, MPV 9.9, Immature Gran % (Auto) 0.100, Neut % (Auto) 52.2, Lymph % (Auto) 30.1, [place] % (Auto) 11.4 H, Eos % (Auto) 4.7, Baso % (Auto) 1.5 H, Absolute Neuts (auto) 3.5, Absolute Lymphs (auto) 2.04, Nucleated RBC % 0, Sodium 142, Potassium 3.7, Chloride 109 H, Carbon Dioxide 30.0, Anion Gap 3 L, BUN 18, Creatinine 0.71, Estim Creat Clear Calc 100.26, Est GFR (MDRD) Af Amer 157, Est GFR (MDRD) Non-Af 130, BUN/Creatinine Ratio 25.5 H, Glucose 94, Calcium 8.6, Total Bilirubin 0.20, AST 30, ALT 47, Alkaline Phosphatase 111, Total Protein 7.3, Albumin 3.2, Globulin 4.1, Albumin/Globulin Ratio 0.8 L, Phenytoin 11.5 Physical Exam Const alert Constitutional Narrative: His parents are in the room. He is telling his mother he needs to rest. He is pleasant. 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 Continue therapy. 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 Would like to get him back to using the RUE so that he can feed himself and start being able to participate in his care. I think employing music in his therapy will be very helpful. I also think he fatigues easily so we need to give rest breaks in between therapy sessions. 2. No change to the medication regimen today. Charges/Coding Visit Charges Inpatient E&M: 38258 Subs Hosp L1
--- NOTE | 2024-01-22 16:46 | CASEMGMT ---
Social Work Received request from [facility] patient advocate to contact pt's DD CM, Payton Phillips, whom requested this worker contact pt's parents to answer questions. RONI phoned parents and spoke with mother, Radha. Mother stated she did not know how pt was progressing in therapy and his medical condition. SW first inquired about her knowledge about the routine Team meetings, scheduled for this pt on . Mother confirmed and stated that just seems so far away . SW expressed understanding and encouraged mother to contact this worker or nurse's station at any time with updates. SW provided contact information. SW did explain this worker's role and Medicaid approved 22 days with [facility] 02/07. Cautioned pt has to continue to meet RU criteria to remain for the full duration. SW inquired about DC plans. Mother stated pt will not be returning to his senior living as it is not handicap accessible and does not have a nurse for his medical needs. Mother stated taking care of him for a weekend is much different than caring for him all the time , and they would like to make some home modifications prior to pt returning home permanently. RONI discussed options of a SNF for a DC plan, but will also collaborate with DD CM on other options. Mother appreciative of update and explanations. SW phoned DD CM to update on above. CM explained there is a higher LOC senior living called an ICF, that pt would qualify for, however, openings are rare and that are in parents surrounding area. CM to work with parents on those options for DC. SW will continue to follow for DC planning. REGINALD Ferreira
[2024-01-22 19:58] VITALS: BP 154/85; PULSE 110; RESP 16; TEMP 36.7; O2SAT 95
[2024-01-22] MEDS: Atorvastatin Calcium 40 MG Tablet PO (20:42)
[2024-01-22] MEDS: CENOBAMATE 200 MG TABLET PO (20:44)
[2024-01-23] MEDS: Menthol/Lanolin/Calamine/Znox 113 GM Tube 1 APPLIC TOPICAL (05:08)
[2024-01-23 07:49] VITALS: BP 123/85; PULSE 81; RESP 16; TEMP 36.5; O2SAT 94
[2024-01-23] MEDS: Pantoprazole Sodium 40 MG Tablet PO (08:37)
[2024-01-23] MEDS: PHENYTOIN 50 MG TAB.CHEW 75 MG PO ×2 (08:37→21:10)
[2024-01-23] MEDS: Enoxaparin 40 MG/0.4 ML Syringe SC (08:37)
[2024-01-23] MEDS: Ensure Plus High Protein 120 ML LIQUID PO ×3 (08:37→17:11)
[2024-01-23] MEDS: Senna/Docusate Sodium 1 Tablet 2 TABLET PO ×2 (08:37→21:11)
[2024-01-23] MEDS: Aspirin 81 MG TAB.CHEW PO (08:37)
[2024-01-23] MEDS: Lacosamide 100 MG Tablet PO ×2 (08:42→21:13)
--- NOTE | 2024-01-23 15:37 | CHAPLAIN ---
Type of Pastoral Visit _x__ Initial Visit ___ Follow-up Visit ___ On-call Visit ___ General Patient Visit ___ Spiritual Assessment ___ Family Conference ___ Bereavement ___ Rapid Response ___ Code Blue ___ Other (describe below) Pastoral Care Referral From ___ Patient _x__ Family ___ Nurse ___ Physician ___ Private Tutors And Teachers ___ Commercial Artist Lettering ___ Other (describe below) Sacrament/Intervention _x__ Active listening ___ Anointing ___ Sikh ___ Bereavement ___ Communion ___ Laura exploration ___ ___ Life review _x__ Prayer ___ Reconciliation ___ Sacrament of Sick _x__ Supportive presence ___ Wedding ___ Other (describe below) Pastoral Comments patient has some limitations in cognitive ability and conversation but he interacted with this pcts; pt answered some questions and was pleasant and welcoming of presence; opportunity taken to learn more about this pt and how to support him; prayer was welcomed and given
[2024-01-23] MEDS: Atorvastatin Calcium 40 MG Tablet PO (21:10)
[2024-01-23] MEDS: CENOBAMATE 200 MG TABLET PO (21:13)
[2024-01-23 22:00] VITALS: BP 131/89; PULSE 86; RESP 17; TEMP 36.7; O2SAT 96
[2024-01-24] MEDS: PHENYTOIN 50 MG TAB.CHEW 75 MG PO ×2 (07:57→20:42)
[2024-01-24] MEDS: Enoxaparin 40 MG/0.4 ML Syringe SC (07:58)
[2024-01-24] MEDS: Ensure Plus High Protein 120 ML LIQUID PO ×3 (07:58→20:43)
[2024-01-24] MEDS: Aspirin 81 MG TAB.CHEW PO (07:59)
[2024-01-24] MEDS: Senna/Docusate Sodium 1 Tablet 2 TABLET PO ×2 (07:59→20:43)
[2024-01-24] MEDS: Pantoprazole Sodium 40 MG Tablet PO (07:59)
[2024-01-24] MEDS: Lacosamide 100 MG Tablet PO ×2 (08:04→20:42)
[2024-01-24] MEDS: Menthol/Lanolin/Calamine/Znox 113 GM Tube 1 APPLIC TOPICAL ×2 (08:08→20:42)
[2024-01-24 08:11] VITALS: BP 105/77; PULSE 87; RESP 17; TEMP 36.2; O2SAT 95
--- NOTE | 2024-01-24 12:20 | PCM.PROGNOTE ---
Subjective Subjective Madi was seen on team rounds today. His family was present in the room for rounds. Afebrile VSS Maintaining appropriate oxygen saturation on RA Oral intake - FOOD highly variable FLUIDS poor - his family states this is his normal. Remains incontinent of urine and stool Discussed with nursing - no problems that need addressed. No seizures. No cussing or aggressive behavior. He is no longer trying to crawl out of bed. Reviewed the THERAPY notes Medication list reviewed. Madi does not look to be in any distress. He is not coughing and he has no labored breathing. He is pleasant and smiling. He is constantly saying he is tired and asking if her can be done now. His parents say this is normal for him Objective Data Objective Data Vital Signs: Vital Signs Temp Pulse Resp BP Pulse Ox O2 Del Method 97.1 F L 87 17 105/77 95 Room Air 01/24/24 08:11 01/24/24 08:11 01/24/24 08:11 01/24/24 08:11 01/24/24 08:11 01/24/24 08:11 Oxygen Delivery Method Room Air Weight: 120 lb 1.6 oz Body Mass Index (BMI) 22.1 Intake & Output: Intake and Output for Last 24 Hours 01/22/24 01/23/24 01/24/24 23:59 23:59 23:59 Intake Total 1480 / 1480 440 / 440 60 / 60 Balance 1480 / 1480 440 / 440 60 / 60 Lab / Micro Data 01/22/24 05:23 01/22/24 05:23 Physical Exam Const alert and no apparent distress Constitutional Narrative: smiling and pleasant. Interacting with his parents in the room and with the staff. HEENT Mouth: dry mucous membranes Neck supple Resp clear to auscultation bilaterally Effort and Inspection: Negative for tachypneic or labored Cardio regular rate, regular rhythm, no murmurs and no gallops Cardio Narrative: No ectopy GI normal to inspection, nondistended, normoactive bowel sounds, soft to palpation and non-tender GI Narrative: No guarding with palpation. Inspection: Negative for abdominal distention Extremity Extremity Narrative: no calf swelling and no grimacing if I dorsiflex the foot or squeeze the calf. There is no erythema. Both feet are warm General Extremity: Negative for edema Skin General Skin Exam: no breakdown Rashes: no rashes Wounds: Negative for wounds noted Neuro Neuro Narrative: He used to be able to crawl on his hands and knees.......therapy tried this with him today and he failed. He is able to scoot backwards on his butt on the mat for a short distance. He neglects his R side and I suspect there is a component of visual loss as well. Difficult to test in this pt. 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 Continue therapy. He was able to propel himself in the WC prior to the stroke. He is sitting up better in the WC now without sliding out but, still not able to propel the WC. He used his UE's to propel the WC in the past. Would like to get him to a place where he is able to assist in his care somewhat. It will make placement easier and his parents would still be able to have him home on weekends Still max assist to eat. Used to be able to do this without help 2. We are learning how to best help Madi. What times of the day that he is less tired and more cooperative. What helps to calm him down. Will reconvene in 1 week and discuss plans for going forward and what type of living situation he will need following DC from rehab. Charges/Coding Visit Charges Inpatient E&M: 76080 Subs Hosp L1
--- NOTE | 2024-01-24 13:12 | CASEMGMT ---
Social Work IDT met with patient, mother and father for Team meeting. Discussed patient's progress in PT/OT/ST/SN. Educated to Medicaid approval of 22 days with [facility] 02/07. However, IDT noted pt is not meeting criteria to remain on IRU. Recommending facilitation of DC plans to home with parents, [facility] [place] [facility] or SNF, then to set DC date. Parents prefer pt DC to an ICF, which DD CM is working on providing options. parents aware if ICF cannot accept at time of DC, the options are home or SNF temporarily. RONI updated DD CM via email and CM stated there is an ICF in [place] that has two current openings that she is providing them with further information for official acceptance; then parents to tour. RONI will continue to follow for DC planning. REGINALD Ferreira
[2024-01-24 20:23] VITALS: BP 104/66; PULSE 85; RESP 18; TEMP 36.9; O2SAT 96
[2024-01-24] MEDS: CENOBAMATE 200 MG TABLET PO (20:40)
[2024-01-24] MEDS: Atorvastatin Calcium 40 MG Tablet PO (20:43)
[2024-01-24 22:00] VITALS: PULSE 85; RESP 18; O2SAT 96
[2024-01-25 07:30] VITALS: BP 113/72; PULSE 71; RESP 17; TEMP 36.8; O2SAT 95
[2024-01-25] MEDS: Aspirin 81 MG TAB.CHEW PO (09:43)
[2024-01-25] MEDS: Pantoprazole Sodium 40 MG Tablet PO (09:43)
[2024-01-25] MEDS: Enoxaparin 40 MG/0.4 ML Syringe SC (09:43)
[2024-01-25] MEDS: PHENYTOIN 50 MG TAB.CHEW 75 MG PO ×2 (09:43→23:01)
[2024-01-25] MEDS: Senna/Docusate Sodium 1 Tablet 2 TABLET PO (09:44)
[2024-01-25] MEDS: Lacosamide 100 MG Tablet PO ×2 (09:45→23:10)
[2024-01-25] MEDS: Menthol/Lanolin/Calamine/Znox 113 GM Tube 1 APPLIC TOPICAL ×2 (09:49→23:18)
[2024-01-25 22:00] VITALS: BP 133/86; PULSE 82; RESP 17; TEMP 36.8; O2SAT 98
[2024-01-25] MEDS: Atorvastatin Calcium 40 MG Tablet PO (23:02)
[2024-01-25] MEDS: CENOBAMATE 200 MG TABLET PO (23:09)
[2024-01-26] MEDS: Enoxaparin 40 MG/0.4 ML Syringe SC (08:37)
[2024-01-26] MEDS: Aspirin 81 MG TAB.CHEW PO (08:37)
[2024-01-26 08:38] VITALS: BP 130/82; PULSE 93; RESP 17; TEMP 36.9; O2SAT 93
[2024-01-26] MEDS: Pantoprazole Sodium 40 MG Tablet PO (08:38)
[2024-01-26] MEDS: Menthol/Lanolin/Calamine/Znox 113 GM Tube 1 APPLIC TOPICAL ×2 (08:39→22:29)
[2024-01-26] MEDS: Lacosamide 100 MG Tablet PO ×2 (08:49→22:19)
[2024-01-26] MEDS: PHENYTOIN 50 MG TAB.CHEW 75 MG PO ×2 (09:00→22:18)
[2024-01-26 22:00] VITALS: BP 128/85; PULSE 90; RESP 19; TEMP 36.3; O2SAT 96
[2024-01-26] MEDS: Atorvastatin Calcium 40 MG Tablet PO (22:19)
[2024-01-26] MEDS: CENOBAMATE 200 MG TABLET PO (22:20)
[2024-01-27] MEDS: Senna/Docusate Sodium 1 Tablet 2 TABLET PO (08:35)
[2024-01-27] MEDS: Aspirin 81 MG TAB.CHEW PO (08:35)
[2024-01-27] MEDS: Pantoprazole Sodium 40 MG Tablet PO (08:35)
[2024-01-27] MEDS: Enoxaparin 40 MG/0.4 ML Syringe SC (08:35)
[2024-01-27] MEDS: Menthol/Lanolin/Calamine/Znox 113 GM Tube 1 APPLIC TOPICAL ×2 (08:36→21:20)
[2024-01-27 08:40] VITALS: BP 102/63; PULSE 87; RESP 18; TEMP 36.6; O2SAT 97
[2024-01-27] MEDS: Lacosamide 100 MG Tablet PO ×2 (09:36→21:22)
[2024-01-27] MEDS: PHENYTOIN 50 MG TAB.CHEW 75 MG PO ×2 (09:36→21:21)
[2024-01-27] MEDS: CENOBAMATE 200 MG TABLET PO (21:20)
[2024-01-27] MEDS: Atorvastatin Calcium 40 MG Tablet PO (21:22)
[2024-01-27 21:40] VITALS: PULSE 96; RESP 16; O2SAT 97
[2024-01-27 22:00] VITALS: BP 130/85; PULSE 96; RESP 16; TEMP 36.8; O2SAT 97
[2024-01-28 08:28] VITALS: BP 100/71; PULSE 91; RESP 16; TEMP 37; O2SAT 97
[2024-01-28] MEDS: Enoxaparin 40 MG/0.4 ML Syringe SC (08:34)
[2024-01-28] MEDS: PHENYTOIN 50 MG TAB.CHEW 75 MG PO ×2 (08:35→19:00)
[2024-01-28] MEDS: Aspirin 81 MG TAB.CHEW PO (08:35)
[2024-01-28] MEDS: Pantoprazole Sodium 40 MG Tablet PO (08:35)
[2024-01-28] MEDS: Menthol/Lanolin/Calamine/Znox 113 GM Tube 1 APPLIC TOPICAL ×2 (08:36→22:39)
[2024-01-28] MEDS: Lacosamide 100 MG Tablet PO ×2 (08:37→18:59)
--- NOTE | 2024-01-28 15:41 | CASEMGMT ---
Social Work IDT met to discuss pt's participation therapy, and have no seen any improvement. Pt's DD CM inquired about having parents attend therapy sessions to assist with participation. IDT agreeable. SW phoned father to make suggestion. Father and mother both agreeable and will start being present with therapy tomorrow until Team meeting 01/30, to determine DC plan. SW will continue to follow. Emili Hyman MSW CLAIM CLERK
--- NOTE | 2024-01-28 16:16 | PN_ITS ---
Subjective Subjective Afebrile VSS Maintaining appropriate oxygen saturation on RA Oral intake - FOOD appetite and intake are variable FLUIDS poor, this is chronic. Discussed with nursing - no problems that need addressed. Has not been agitated. Reviewed the THERAPY notes Medication list reviewed. Madi does not appear to be in any distress. He is calm and for the most part cooperative. Does not appear to be in any pain. Has been refusing to do therapy at times. Objective Data Objective Data Vital Signs: Vital Signs Temp Pulse Resp BP Pulse Ox O2 Del Method 98.6 F 91 16 100/71 97 Room Air 01/28/24 08:28 01/28/24 08:28 01/28/24 08:28 01/28/24 08:28 01/28/24 08:28 01/28/24 08:28 Oxygen Delivery Method Room Air Weight: 120 lb 1.6 oz Body Mass Index (BMI) 22.1 Intake & Output: Intake and Output for Last 24 Hours 01/26/24 01/27/24 01/28/24 23:59 23:59 23:59 Intake Total 900 / 950 1000 / 1000 50 / 50 Output Total 100 / 100 Balance 900 / 950 900 / 900 50 / 50 Lab / Micro Data 01/22/24 05:23 01/22/24 05:23 Physical Exam Const alert and no apparent distress Constitutional Narrative: smiling and pleasant. Interacting with his parents in the room and with the staff. HEENT Mouth: dry mucous membranes Neck supple Resp clear to auscultation bilaterally Effort and Inspection: Negative for tachypneic or labored Cardio regular rate, regular rhythm, no murmurs and no gallops Cardio Narrative: No ectopy GI normal to inspection, nondistended, normoactive bowel sounds, soft to palpation and non-tender GI Narrative: No guarding with palpation. 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 Continue therapy 2. Asked the parents if they would be willing to come in to encourage Madi to do his therapy. We are not getting 3 hours of therapy daily in and if this does not improve we will consider discharge the end of the week. 3. Recheck a CBC, BMP, magnesium and phosphorus in the a.m. Also check a phenytoin level and an albumin. Parents are going to come in daily and help motivate Madi. The Vimpat and the Phenytoin make him sleepy for a couple hours after he takes them which may b e interfering with him doing therapy in the mornings. Will change the dosing to 0600 and 1800. Charges/Coding Visit Charges Inpatient E&M: 08369 Subs Hosp L1
[2024-01-28] MEDS: Acetaminophen 325 MG Tablet 650 MG PO (17:40)
[2024-01-28 20:40] VITALS: PULSE 90
[2024-01-28 22:00] VITALS: BP 131/91; PULSE 70; RESP 18; TEMP 36.6; O2SAT 98
[2024-01-28] MEDS: Senna/Docusate Sodium 1 Tablet 2 TABLET PO (22:37)
[2024-01-28] MEDS: Atorvastatin Calcium 40 MG Tablet PO (22:38)
[2024-01-28] MEDS: CENOBAMATE 200 MG TABLET PO (22:43)
[2024-01-29] MEDS: Lacosamide 100 MG Tablet PO ×2 (05:20→17:09)
[2024-01-29] MEDS: PHENYTOIN 50 MG TAB.CHEW 75 MG PO ×2 (05:28→17:09)
[2024-01-29 06:47] LABS: Albumin, Serum 3.4 g/dL (3.2-5.0)
[2024-01-29 07:45] VITALS: BP 134/82; PULSE 68; RESP 16; TEMP 36.6; O2SAT 97
[2024-01-29] MEDS: Enoxaparin 40 MG/0.4 ML Syringe SC (09:24)
[2024-01-29] MEDS: Aspirin 81 MG TAB.CHEW PO (09:25)
[2024-01-29] MEDS: Menthol/Lanolin/Calamine/Znox 113 GM Tube 1 APPLIC TOPICAL ×2 (09:25→19:53)
[2024-01-29] MEDS: Pantoprazole Sodium 40 MG Tablet PO (09:25)
[2024-01-29] MEDS: Senna/Docusate Sodium 1 Tablet 2 TABLET PO ×2 (09:25→19:51)
[2024-01-29] MEDS: DIAZEPAM 10 MG/0.1 ML NASAL (18:09)
--- NOTE | 2024-01-29 18:17 | NURSING ---
Addendum entered by Stephany Davis 01/29/24 19:11: diazepam ineffective. x1 dose Haldol ordered Original Note: pt agitated and throwing self into side rail. attempts to calm pt ineffective. Dr Loo made aware. order to give 1x dose of diazepam.
[2024-01-29 19:50] VITALS: BP 143/83; PULSE 94; RESP 18; TEMP 36.5; O2SAT 95
[2024-01-29] MEDS: Atorvastatin Calcium 40 MG Tablet PO (19:52)
[2024-01-29] MEDS: CENOBAMATE 200 MG TABLET PO (19:59)
[2024-01-30] MEDS: PHENYTOIN 50 MG TAB.CHEW 75 MG PO ×2 (05:41→17:51)
[2024-01-30] MEDS: Lacosamide 100 MG Tablet PO ×2 (05:44→17:51)
[2024-01-30 07:25] VITALS: BP 123/87; PULSE 90; RESP 18; TEMP 36.6; O2SAT 95
[2024-01-30] MEDS: Enoxaparin 40 MG/0.4 ML Syringe SC (07:40)
[2024-01-30] MEDS: Pantoprazole Sodium 40 MG Tablet PO (07:40)
[2024-01-30] MEDS: Aspirin 81 MG TAB.CHEW PO (07:40)
[2024-01-30] MEDS: Senna/Docusate Sodium 1 Tablet 2 TABLET PO (07:40)
[2024-01-30] MEDS: Menthol/Lanolin/Calamine/Znox 113 GM Tube 1 APPLIC TOPICAL ×2 (07:43→21:12)
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
[2024-01-30] MEDS: Acetaminophen 325 MG Tablet 650 MG PO ×2 (14:40→21:11)
[2024-01-30 20:06] VITALS: BP 123/77; PULSE 90; RESP 16; TEMP 37.1; O2SAT 97
[2024-01-30] MEDS: Atorvastatin Calcium 40 MG Tablet PO (21:11)
[2024-01-30] MEDS: CENOBAMATE 200 MG TABLET PO (21:11)
[2024-01-31] MEDS: Acetaminophen 325 MG Tablet 650 MG PO ×3 (04:54→22:06)
[2024-01-31] MEDS: Lacosamide 100 MG Tablet PO ×2 (04:54→18:26)
[2024-01-31] MEDS: PHENYTOIN 50 MG TAB.CHEW 75 MG PO ×2 (04:54→18:24)
[2024-01-31 06:04] LABS: Hemoglobin 15.7 g/dL (13.0-16.5); Mean Corp Hgb Conc 33.4 g/dL (32-36); Mean Corpuscular Hgb 29.8 pg (27.0-32.0); Mean Corpuscular Volume 89.2 fL (80-94); Mean Platelet Vol. 9.9 fl (6.2-12.0); Platelet Count 606 K/mm3 (150-450); RBC Distribution Width CV 14.6 % (11.6-14.6); RBC Distribution Width SD 47.7 fl (35.1-43.9); Red Blood Count 5.27 M/mm3 (4.6-6.2); White Blood Count 6.5 K/mm3 (4.4-11.0)
[2024-01-31 06:17] LABS: Anion Gap 6 (5-15); BUN 15 mg/dL (7-18); BUN/Creat Ratio 20.5 RATIO (10-20); Calcium,Total 8.8 mg/dL (8.5-10.1); Chloride 107 mmol/L (98-107); Creatinine, Serum 0.73 mg/dL (0.70-1.30); EST Glomerular Filtration Rate 125 mL/min (>60); Est Glom Filt Rate - Afr Amer 151 mL/min (>60); Estimated Creatinine Clearance 97.52 ml/min; Glucose 89 mg/dL (74-106); Potassium 4.2 mmol/L (3.5-5.1); Sodium Level 143 mmol/L (136-145)
[2024-01-31 08:07] VITALS: BP 143/90; PULSE 86; RESP 17; TEMP 36.7; O2SAT 95
[2024-01-31 10:00] VITALS: BP 132/82; PULSE 80
[2024-01-31] MEDS: Pantoprazole Sodium 40 MG Tablet PO (10:53)
[2024-01-31] MEDS: Aspirin 81 MG TAB.CHEW PO (10:53)
[2024-01-31] MEDS: Enoxaparin 40 MG/0.4 ML Syringe SC (10:53)
[2024-01-31] MEDS: Menthol/Lanolin/Calamine/Znox 113 GM Tube 1 APPLIC TOPICAL ×2 (10:54→22:16)
--- NOTE | 2024-01-31 13:10 | CASEMGMT ---
Social Work IDT met with patient, parents and DD CM for Team meeting. Discussed patient's progress in PT/OT/ST/SN. Medicaid approved 22 days with EDC 02/07. IDT recommending DC 02/05. DD CM and parents are coordinating with a fci in [place]. CM will keep this worker updated on acceptance/denial. If denied, parents will have him transferred to a SNF until another fci is available. SW will continue to follow for DC planning. REGINALD FerreiraW
--- NOTE | 2024-01-31 15:49 | PN_ITS ---
Subjective Subjective Madi was seen on team rounds today. His parents were present in the room for rounds. Afebrile VSS Maintaining appropriate oxygen saturation on RA Oral intake - FOOD good FLUIDS poor Discussed with nursing - no problems that need addressed. Slept well last night with no agitation. Reviewed the THERAPY notes Medication list reviewed. All lab from today was personally reviewed. Hemoglobin is up to 15.7 and I suspect this is partly due to hemoconcentration. Platelets are 606,000, down from 675,000 on 01/22/2024. Sodium is 143 and the potassium is 4.2. The BUN is 15, down from 18 on 01/22/2024. Creatinine is stable at 0.73. BUN/creatinine ratio is 20.5 which is actually improved. Madi has had no seizures since admission to rehab. He was given intranasal diazepam on 1 occasion since admission and that was for agitation at the end of the day. After about 1 hour with some talk therapy he calmed down and went to sleep. He does not appear to be in any pain. He has had no vomiting, no diarrhea and no shortness of breath or cough. Objective Data Objective Data Vital Signs: Vital Signs Temp Pulse Resp BP Pulse Ox O2 Del Method 98.0 F 80 17 132/82 H 95 Room Air 01/31/24 08:07 01/31/24 10:00 01/31/24 08:07 01/31/24 10:00 01/31/24 08:07 01/31/24 08:07 Oxygen Delivery Method Room Air Weight: 120 lb 1.6 oz Body Mass Index (BMI) 22.1 Intake & Output: Intake and Output for Last 24 Hours 01/29/24 01/30/24 01/31/24 23:59 23:59 23:59 Intake Total 600 / 600 780 / 780 220 / 220 Output Total 0 / 0 200 / 200 Balance 600 / 600 780 / 780 20 / 20 Lab / Micro Data 01/31/24 05:35 01/31/24 05:35 Labs: Laboratory Results - last 24 hr 01/31/24 05:35: WBC 6.5, RBC 5.27, Hgb 15.7, Hct 47.0, MCV 89.2, MCH 29.8, MCHC 33.4, RDW Std Deviation 47.7 H, RDW Coeff of Linette 14.6, Plt Count 606 H, MPV 9.9, Sodium 143, Potassium 4.2, Chloride 107, Carbon Dioxide 30.0, Anion Gap 6, BUN 1 5, Creatinine 0.73, Estim Creat Clear Calc 97.52, Est GFR (MDRD) Af Amer 151, Est GFR (MDRD) Non-Af 125, BUN/Creatinine Ratio 20.5 H, Glucose 89, Calcium 8.8 Physical Exam Const alert Resp normal respiratory effort and clear to auscultation bilaterally Resp Narrative: No conversational dyspnea and he is not tachypneic. No cough. Cardio regular rate and regular rhythm Cardio Narrative: Resting heart rate has come down somewhat over the past 2 days. I think that he is taking more fluids and since his parents have been in attendance every day during his therapy sessions. GI normal to inspection, nondistended, normoactive bowel sounds, soft to palpation and non-tender GI Narrative: No guarding with palpation. 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 Continue therapy. He is making progress. With his own wheelchair the patient was able to consistently use his left hand to propel the wheelchair but still needed the PTAs hand over his right hand to keep it on the wheel. He was able to go 50 feet with this strategy several times. 2. We discussed possible transfer to a care home next Sunday but this will depend on whether precertification is obtained. Somebody from the care home will come to the hospital to evaluate Madi. They had concerns about the note from [facility] saying he was having 75 seizures a month but, this was likely an error. He has had no seizures since arrival on rehab and his parents tell me that since he was started on Vimpat he is only having 3-4 seizures a month. Charges/Coding Visit Charges Inpatient E&M: 15084 Subs Hosp L1
[2024-01-31 20:21] VITALS: BP 110/73; PULSE 82; RESP 17; TEMP 37.3; O2SAT 95
[2024-01-31] MEDS: Senna/Docusate Sodium 1 Tablet 2 TABLET PO (22:06)
[2024-01-31] MEDS: Atorvastatin Calcium 40 MG Tablet PO (22:06)
[2024-01-31] MEDS: CENOBAMATE 200 MG TABLET PO (22:07)
[2024-02-01] MEDS: PHENYTOIN 50 MG TAB.CHEW 75 MG PO ×2 (06:24→18:21)
[2024-02-01] MEDS: Lacosamide 100 MG Tablet PO ×2 (06:27→18:20)
[2024-02-01] MEDS: Acetaminophen 325 MG Tablet 650 MG PO ×3 (06:27→21:49)
[2024-02-01 06:48] VITALS: BMI 22.1
[2024-02-01 08:49] VITALS: BP 115/66; PULSE 75; RESP 16; TEMP 36.7; O2SAT 96
[2024-02-01] MEDS: Ensure Plus High Protein 120 ML LIQUID PO ×4 (09:18→21:55)
[2024-02-01] MEDS: Enoxaparin 40 MG/0.4 ML Syringe SC (09:18)
[2024-02-01] MEDS: Aspirin 81 MG TAB.CHEW PO (09:18)
[2024-02-01] MEDS: Senna/Docusate Sodium 1 Tablet 2 TABLET PO ×2 (09:19→21:49)
[2024-02-01] MEDS: Pantoprazole Sodium 40 MG Tablet PO (09:19)
[2024-02-01] MEDS: Menthol/Lanolin/Calamine/Znox 113 GM Tube 1 APPLIC TOPICAL ×2 (10:12→21:49)
[2024-02-01] MEDS: Atorvastatin Calcium 40 MG Tablet PO (21:49)
[2024-02-01] MEDS: CENOBAMATE 200 MG TABLET PO (21:50)
[2024-02-01 22:00] VITALS: BP 122/87; PULSE 96; RESP 17; TEMP 37.2; O2SAT 94
[2024-02-02] MEDS: Acetaminophen 325 MG Tablet 650 MG PO ×3 (05:11→21:51)
[2024-02-02] MEDS: PHENYTOIN 50 MG TAB.CHEW 75 MG PO ×2 (05:11→18:08)
[2024-02-02] MEDS: Lacosamide 100 MG Tablet PO ×2 (05:12→18:08)
[2024-02-02] MEDS: Enoxaparin 40 MG/0.4 ML Syringe SC (08:01)
[2024-02-02] MEDS: Pantoprazole Sodium 40 MG Tablet PO (08:01)
[2024-02-02] MEDS: Senna/Docusate Sodium 1 Tablet 2 TABLET PO ×2 (08:01→21:51)
[2024-02-02] MEDS: Aspirin 81 MG TAB.CHEW PO (08:01)
[2024-02-02] MEDS: Menthol/Lanolin/Calamine/Znox 113 GM Tube 1 APPLIC TOPICAL ×2 (08:02→21:51)
[2024-02-02 09:04] VITALS: BP 102/69; PULSE 66; RESP 16; TEMP 36.7; O2SAT 100
[2024-02-02] MEDS: Magnesium Hydroxide 30 ML UDC PO (18:08)
[2024-02-02 19:45] VITALS: BP 110/60; PULSE 105; RESP 18; TEMP 37; O2SAT 94
[2024-02-02] MEDS: Ensure Plus High Protein 120 ML LIQUID PO (21:51)
[2024-02-02] MEDS: CENOBAMATE 200 MG TABLET PO (21:52)
[2024-02-02] MEDS: Atorvastatin Calcium 40 MG Tablet PO (21:52)
[2024-02-03] MEDS: PHENYTOIN 50 MG TAB.CHEW 75 MG PO ×2 (05:30→18:26)
[2024-02-03] MEDS: Acetaminophen 325 MG Tablet 650 MG PO ×3 (05:31→20:34)
[2024-02-03] MEDS: Lacosamide 100 MG Tablet PO ×2 (05:32→18:26)
[2024-02-03 08:30] VITALS: BP 122/72; PULSE 100; RESP 18; TEMP 37; O2SAT 98
[2024-02-03] MEDS: Aspirin 81 MG TAB.CHEW PO (09:29)
[2024-02-03] MEDS: Enoxaparin 40 MG/0.4 ML Syringe SC (09:29)
[2024-02-03] MEDS: Pantoprazole Sodium 40 MG Tablet PO (09:29)
[2024-02-03] MEDS: Menthol/Lanolin/Calamine/Znox 113 GM Tube 1 APPLIC TOPICAL ×2 (09:30→20:33)
[2024-02-03] MEDS: Senna/Docusate Sodium 1 Tablet 2 TABLET PO ×2 (09:33→20:33)
[2024-02-03 19:52] VITALS: BP 121/78; PULSE 97; RESP 16; TEMP 36.9; O2SAT 96
[2024-02-03 19:54] VITALS: PULSE 97; RESP 16; O2SAT 96
[2024-02-03] MEDS: Atorvastatin Calcium 40 MG Tablet PO (20:33)
[2024-02-03] MEDS: CENOBAMATE 200 MG TABLET PO (20:34)
[2024-02-03] MEDS: Ensure Plus High Protein 120 ML LIQUID PO (20:34)
[2024-02-04] MEDS: PHENYTOIN 50 MG TAB.CHEW 75 MG PO ×2 (05:24→18:04)
[2024-02-04] MEDS: Acetaminophen 325 MG Tablet 650 MG PO ×3 (05:27→21:04)
[2024-02-04] MEDS: Lacosamide 100 MG Tablet PO ×2 (05:30→18:04)
[2024-02-04 07:30] VITALS: BP 106/77; PULSE 74; RESP 16; TEMP 36.4; O2SAT 95
[2024-02-04] MEDS: Aspirin 81 MG TAB.CHEW PO (07:49)
[2024-02-04] MEDS: Pantoprazole Sodium 40 MG Tablet PO (07:49)
[2024-02-04] MEDS: Enoxaparin 40 MG/0.4 ML Syringe SC (07:50)
[2024-02-04] MEDS: Menthol/Lanolin/Calamine/Znox 113 GM Tube 1 APPLIC TOPICAL ×2 (07:50→21:02)
[2024-02-04] MEDS: Senna/Docusate Sodium 1 Tablet 2 TABLET PO ×2 (07:50→21:01)
--- NOTE | 2024-02-04 12:11 | PCM.PROGNOTE ---
Subjective Subjective Afebrile VSS Maintaining appropriate oxygen saturation on RA Oral intake - FOOD this has improved since admission and he is now eating 50 to 100% of all his meals. FLUIDS improving a little-has had around 1 L daily for the past 2 days. Discussed with nursing - no problems that need addressed Reviewed the THERAPY notes Medication list reviewed. Madi is pleasant today. He is talkative and he appears in no distress. He denies any pain. He has been eating better. Objective Data Objective Data Vital Signs: Vital Signs Temp Pulse Resp BP Pulse Ox O2 Del Method 97.6 F L 74 16 106/77 95 Room Air 02/04/24 07:30 02/04/24 07:30 02/04/24 07:30 02/04/24 07:30 02/04/24 07:30 02/04/24 07:30 Oxygen Delivery Method Room Air Weight: 120 lb 2.431 oz Body Mass Index (BMI) 22.1 Intake & Output: Intake and Output for Last 24 Hours 02/02/24 02/03/24 02/04/24 22:59 23:59 23:59 Intake Total 160 / 160 Output Total Balance 160 / 160 Lab / Micro Data 01/31/24 05:35 01/31/24 05:35 Physical Exam Const alert Resp normal respiratory effort and clear to auscultation bilaterally Resp Narrative: No conversational dyspnea and he is not tachypneic. No cough. Cardio regular rate and regular rhythm GI normal to inspection, nondistended, normoactive bowel sounds, soft to palpation and non-tender GI Narrative: No guarding with palpation. 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 Continue therapy. Madi has been very cooperative, especially since his parents have been coming in daily and working with him. 2. He has a meeting tomorrow with the representative personal service from a residential for possible discharge from rehab to that residential. 3. BP is well controlled. appetite and intake has improved Met with his parents today and answered their questions. We discussed plan for DC on Sunday. Charges/Coding Visit Charges Inpatient E&M: 56318 Subs Hosp L1
--- NOTE | 2024-02-04 19:02 | CASEMGMT ---
Social Work SW notified by nursing that [facility] is onsiting pt on 02/04 at 1030. IDT updated and will proceed with DC 02/07. REGINALD FerreiraW
[2024-02-04 20:30] VITALS: BP 113/76; PULSE 78; RESP 16; TEMP 36.4; O2SAT 96
[2024-02-04] MEDS: CENOBAMATE 200 MG TABLET PO (21:00)
[2024-02-04] MEDS: Atorvastatin Calcium 40 MG Tablet PO (21:01)
[2024-02-05] MEDS: PHENYTOIN 50 MG TAB.CHEW 75 MG PO ×2 (05:12→18:24)
[2024-02-05] MEDS: Lacosamide 100 MG Tablet PO ×2 (05:12→18:24)
[2024-02-05] MEDS: Acetaminophen 325 MG Tablet 650 MG PO ×2 (05:12→20:32)
[2024-02-05 07:16] VITALS: BP 124/79; PULSE 90; RESP 19; TEMP 36.2; O2SAT 95
[2024-02-05] MEDS: Senna/Docusate Sodium 1 Tablet 2 TABLET PO ×2 (07:41→20:31)
[2024-02-05] MEDS: Pantoprazole Sodium 40 MG Tablet PO (07:41)
[2024-02-05] MEDS: Aspirin 81 MG TAB.CHEW PO (07:41)
[2024-02-05] MEDS: Enoxaparin 40 MG/0.4 ML Syringe SC (07:41)
[2024-02-05] MEDS: Menthol/Lanolin/Calamine/Znox 113 GM Tube 1 APPLIC TOPICAL ×2 (07:50→20:31)
[2024-02-05 20:00] VITALS: BP 122/68; PULSE 88; RESP 17; TEMP 36.7; O2SAT 95
[2024-02-05] MEDS: CENOBAMATE 200 MG TABLET PO (20:31)
[2024-02-05] MEDS: Atorvastatin Calcium 40 MG Tablet PO (20:31)
[2024-02-06] MEDS: Lacosamide 100 MG Tablet PO ×2 (06:04→17:36)
[2024-02-06] MEDS: Acetaminophen 325 MG Tablet 650 MG PO ×3 (06:05→20:35)
[2024-02-06] MEDS: PHENYTOIN 50 MG TAB.CHEW 75 MG PO ×2 (06:05→17:36)
[2024-02-06 08:52] VITALS: BP 130/72; PULSE 89; RESP 16; TEMP 36.9; O2SAT 96
[2024-02-06] MEDS: Enoxaparin 40 MG/0.4 ML Syringe SC (09:43)
[2024-02-06] MEDS: Aspirin 81 MG TAB.CHEW PO (09:43)
[2024-02-06] MEDS: Senna/Docusate Sodium 1 Tablet 2 TABLET PO ×2 (09:43→20:35)
[2024-02-06] MEDS: Pantoprazole Sodium 40 MG Tablet PO (09:43)
[2024-02-06] MEDS: Menthol/Lanolin/Calamine/Znox 113 GM Tube 1 APPLIC TOPICAL ×2 (09:45→20:23)
[2024-02-06] MEDS: Polyethylene Glycol 3350 17 GM PACKET PO (14:28)
--- NOTE | 2024-02-06 15:20 | PN_ITS ---
Subjective Subjective Afebrile VSS Maintaining appropriate oxygen saturation on RA Oral intake - FOOD variable but most often takes 50 to 100% of his meal. FLUIDS not adequate, chronically with elevated BUN/CREAT ratio and dry mucous membranes. Discussed with nursing - no problems that need addressed. Sleeping well at night. No seizures. Not agitated. Reviewed the THERAPY notes Medication list reviewed. No complaints. Has been cooperative with therapy. Pleasant, not agitated. No seizures. Appears in no distress. Objective Data Objective Data Vital Signs: Vital Signs Temp Pulse Resp BP Pulse Ox O2 Del Method 98.5 F 89 16 130/72 H 96 Room Air 02/06/24 08:52 02/06/24 08:52 02/06/24 08:52 02/06/24 08:52 02/06/24 08:52 02/06/24 08:52 Oxygen Delivery Method Room Air Weight: 120 lb 2.431 oz Body Mass Index (BMI) 22.1 Intake & Output: Intake and Output for Last 24 Hours 02/04/24 02/05/24 02/06/24 23:59 23:59 23:59 Intake Total 560 / 620 1080 / 1200 240 / 240 Output Total 200 / 200 Balance 360 / 420 1080 / 1200 240 / 240 Lab / Micro Data 01/31/24 05:35 01/31/24 05:35 Physical Exam Const alert Constitutional Narrative: Smiling, pleasant. Cooperative. Neck supple General: trachea midline; Negative for lymphadenopathy Resp clear to auscultation bilaterally Cardio regular rate, regular rhythm, no murmurs, no rub and no gallops GI normal to inspection, nondistended, normoactive bowel sounds, soft to palpation and non-tender GI Narrative: No guarding with palpation Extremity Extremity Narrative: No grimacing if I squeeze his calf or dorsiflex his feet. General Extremity: Negative for edema Skin General Skin Exam: no breakdown Rashes: no rashes Assessment & Plan Assessment/Plan (1) Debility: (2) Acute stroke due to ischemia: PLAN: Has a 30 day event monitor that should be returned to [facility] at the occlusion of the 30 days. 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 Continue therapy 2. Plan discharge to a shelter on Sunday. 3. Prescriptions to be faxed to [facility]. Family requests Dilantin and not phenytoin at discharge. Charges/Coding Visit Charges Inpatient E&M: 33872 Subs Hosp L1
[2024-02-06 19:27] VITALS: BP 125/68; PULSE 100; RESP 18; TEMP 36.7; O2SAT 94
[2024-02-06 20:05] VITALS: PULSE 98; RESP 18; O2SAT 95
[2024-02-06] MEDS: CENOBAMATE 200 MG TABLET PO (20:30)
[2024-02-06] MEDS: Atorvastatin Calcium 40 MG Tablet PO (20:35)
[2024-02-07] MEDS: PHENYTOIN 50 MG TAB.CHEW 75 MG PO ×2 (05:49→18:19)
[2024-02-07] MEDS: Acetaminophen 325 MG Tablet 650 MG PO ×3 (05:49→21:02)
[2024-02-07] MEDS: Lacosamide 100 MG Tablet PO ×2 (05:52→18:19)
[2024-02-07 08:36] VITALS: BP 129/82; PULSE 86; RESP 16; TEMP 36.6; O2SAT 95
[2024-02-07] MEDS: Polyethylene Glycol 3350 17 GM PACKET PO (08:41)
[2024-02-07] MEDS: Aspirin 81 MG TAB.CHEW PO (08:41)
[2024-02-07] MEDS: Pantoprazole Sodium 40 MG Tablet PO (08:41)
[2024-02-07] MEDS: Senna/Docusate Sodium 1 Tablet 2 TABLET PO ×2 (08:41→21:01)
[2024-02-07] MEDS: Enoxaparin 40 MG/0.4 ML Syringe SC (08:41)
--- NOTE | 2024-02-07 08:43 | CASEMGMT ---
Social Work SW followed up with DD CM on long-term onsite. CM confirmed long-term can accept and provided this worker the director's email address to follow through with DC planning. Email sent to Director (Reilly [email or web address]), inquiring about ordering ongoing therapy, address, phone and fax for report and DC paperwork, and pharmacy of choice. Per internet search: [facility], [address] [place] [address]; [phone]. SW spoke with pt's mother at bedside and confirmed DC plans. Family to transport pt 02/07 between -. Plan: DC 02/07 to [facility], PT/OT/ST Emili Hyman, REGINALD MOSESW
[2024-02-07] MEDS: Menthol/Lanolin/Calamine/Znox 113 GM Tube 1 APPLIC TOPICAL ×2 (08:50→21:02)
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
[2024-02-07 19:30] VITALS: BP 125/91; PULSE 100; RESP 18; TEMP 37; O2SAT 95
[2024-02-07 19:35] VITALS: PULSE 100; RESP 18; O2SAT 95
[2024-02-07] MEDS: Atorvastatin Calcium 40 MG Tablet PO (21:02)
[2024-02-07] MEDS: CENOBAMATE 200 MG TABLET PO (21:03)
--- NOTE | 2024-02-08 03:24 | NURSING ---
Pt still awake. Pt unable to sleep and very restless despite staff's attempt to provide relaxation and optimal sleeping conditions.
[2024-02-08 06:00] VITALS: BMI 21.9
[2024-02-08] MEDS: PHENYTOIN 50 MG TAB.CHEW 75 MG PO (06:06)
[2024-02-08] MEDS: Acetaminophen 325 MG Tablet 650 MG PO (06:06)
[2024-02-08] MEDS: Lacosamide 100 MG Tablet PO (06:09)
[2024-02-08] MEDS: Aspirin 81 MG TAB.CHEW PO (07:57)
[2024-02-08] MEDS: Pantoprazole Sodium 40 MG Tablet PO (07:57)
[2024-02-08] MEDS: Enoxaparin 40 MG/0.4 ML Syringe SC (07:57)
[2024-02-08] MEDS: Menthol/Lanolin/Calamine/Znox 113 GM Tube 1 APPLIC TOPICAL (08:00)
[2024-02-08 08:36] VITALS: BP 130/88; PULSE 103; RESP 18; TEMP 36.8; O2SAT 96
[2024-02-08 12:00] VITALS: BP 114/70; PULSE 80; RESP 17; TEMP 36.5; O2SAT 98
--- NOTE | 2024-02-08 12:00 | NURSING ---
Patient discharged to long term with family present and transferred into the car x 2 assist.
== END 2024-02-08 12:00 | disposition other institution (70) | DRG 58 ==
PROVIDERS: Admitting Provider Internal Medicine; PCP Family Medicine; Visit Provider Internal Medicine
DX: I69.351 Hemiplegia and hemiparesis following cerebral infarction affecting right dominant side (principal); E88.09 Other disorders of plasma-protein metabolism, not elsewhere classified; G40.909 Epilepsy, unspecified, not intractable, without status epilepticus; I69.398 Other sequelae of cerebral infarction; F95.2 Tourette's disorder; F68.8 Other specified disorders of adult personality and behavior; K21.9 Gastro-esophageal reflux disease without esophagitis; D75.839 Thrombocytosis, unspecified; H91.92 Unspecified hearing loss, left ear; Z87.820 Personal history of traumatic brain injury; Z79.899 Other long term (current) drug therapy; Z79.82 Long term (current) use of aspirin; R62.50 Unspecified lack of expected normal physiological development in childhood
CPT/HCPCS: 36415; 70150; 80048; 80053; 80185; 82040; 85025; 85027; 92507; 92523; 92611; 97110; 97112; 97116; 97129; 97130; 97140; 97162; 97166; 97530; 97533; 97535; 97542

== ENCOUNTER → 2025-10-08 | Outpatient (CLI) | payer MEDICARE, MEDICAID, SELFPAY ==
--- NOTE | 2025-10-08 13:01 | CDU_ITS ---
Reason For Study Reason For Study: Follow up Lt ICA Occlusion Rt. Velocities/BP Lt. Velocities/BP Prox CCA 83.9/14.6 cm/sec. Prox CCA 91.2/11.4 cm/sec. Mid CCA 88.8/24.9 cm/sec. Mid CCA 91.2/11.4 cm/sec. Dist CCA 87.6/22.5 cm/sec. Dist CCA 80.2/12.6 cm/sec. Prox ICA 70.4/18.8 cm/sec. Lt ICA Occluded. Mid ICA 53.3/22.9 cm/sec. Prox ECA 112.0/17.0 cm/sec. Dist ICA 73.6/33.0 cm/sec. Lt. Vert. 39.1/12.7 cm/sec. Rt. ICA/CCA = 0.8. Prox ECA 106.5/17.0 cm/sec. Rt. Vert. 43.7/8.8 cm/sec. Right Extracranial There is intimal thickening but no significant atherosclerotic plaque noted in the right common carotid artery. There is intimal thickening but no significant atherosclerotic plaque noted in the right internal carotid artery. There is intimal thickening but no significant atherosclerotic plaque noted in the right external carotid artery. Antegrade flow is noted in the right vertebral artery. Left Extracranial There is intimal thickening but no significant atherosclerotic plaque noted in the left common carotid artery. The left internal carotid artery is occluded. There is intimal thickening but no significant atherosclerotic plaque noted in the left external carotid artery. Antegrade flow is noted in the left vertebral artery. Procedure Carotid Duplex 24025. This is a Carotid Duplex examination using B-mode, color flow and specral Doppler. Exam performed in department. VL/Carotid Duplex Ultrasound Interpretation Summary Normal right extracranial internal carotid. Occlusion of the left extracranial internal carotid. Patent and antegrade vertebrals bilaterally. Ordering Physician: Vipin Cabello Referring Physician: Vipin Cabello Performed By: Laura Sheridan, RVT
== END | disposition home or self-care (01) ==
LOC: CVS 13:00
PROVIDERS: PCP Family Medicine; Referring Provider Psychiatry & Neurology Neurology; Visit Provider Psychiatry & Neurology Neurology
DX: I65.22 Occlusion and stenosis of left carotid artery (principal); Z86.73 Personal history of transient ischemic attack (TIA), and cerebral infarction without residual deficits
CPT/HCPCS: 93880